=== PATIENT | female | born 1945 | race Caucasian/White ===

== ENCOUNTER 2020-05-06 10:40 | Outpatient (REF) | payer MEDICARE, MEDICAID, SELFPAY ==
[2020-05-06 14:08] LABS: Albumin Level 4.4 g/dL (3.5-5.0); Calcium 9.3 mg/dL (8.4-10.2); Phosphorus 3.9 mg/dL (2.7-4.5)
[2020-05-06 14:33] LABS: Free T4 (Free Thyroxine) 0.76 ng/dL (0.71-1.85); Thyroid Stimulating Hormone 1.76 mIU/mL (0.32-4.0); Vitamin D 25-OH Total 30.8 ng/mL (>30)
[2020-05-07 13:21] LABS: Calcium (PTHI) 9.8 mg/dL (8.6-10.4); PTHI 38 pg/mL (14-64)
[2020-05-07 22:21] LABS: Prot Elec - Albumin 4.2 g/dL (3.8-4.8); Prot Elec - Alpha1 0.4 g/dL (0.2-0.3); Prot Elec - Alpha2 1.2 g/dL (0.5-0.9); Prot Elec - Beta 1 0.5 g/dL (0.4-0.6); Prot Elec - Beta 2 0.4 g/dL (0.2-0.5); Prot Elec - Gamma 0.6 g/dL (0.8-1.7); Prot Elec - Total Protein 7.3 g/dL (6.1-8.1)
[2020-05-10 13:26] LABS: Alkaline Phosphatase Bone 17.2 mcg/L (5.6-29.0)
== END 2020-05-06 10:41 | disposition home or self-care (01) ==
LOC: HO.10HDL 10:40
PROVIDERS: Visit Provider Internal Medicine
DX: M81.0 Age-related osteoporosis without current pathological fracture (principal); E55.9 Vitamin D deficiency, unspecified
CPT/HCPCS: 36415; 82040; 82306; 82310; 83970; 84075; 84100; 84155; 84165; 84439; 84443; 99204

== ENCOUNTER 2020-05-09 09:45 | Outpatient (REF) | payer MEDICARE, MEDICAID, SELFPAY ==
[2020-05-14 10:27] LABS: N-Telopeptide 73 (see note); NTXCreaRU 92 mg/dL (20-275)
== END 2020-05-09 09:46 | disposition home or self-care (01) ==
LOC: HO.LNP 09:45
PROVIDERS: Visit Provider Internal Medicine
DX: M81.0 Age-related osteoporosis without current pathological fracture (principal); I10 Essential (primary) hypertension; E55.9 Vitamin D deficiency, unspecified; Z79.899 Other long term (current) drug therapy
CPT/HCPCS: 82523

== ENCOUNTER 2020-05-10 12:29 | Outpatient (REF) | payer MEDICARE, MEDICAID, SELFPAY ==
[2020-05-10 14:17] LABS: Total Volume 24 Hour Urine 1300 mL
[2020-05-10 14:28] LABS: Creatinine, 24Hr Urine 0.6 G/Day (1.0-2.0); Creatinine, mg/dL 45.02
[2020-05-11 17:07] LABS: Calcium, 24 Hr Urine 10 mg/24 h; Calcium/Creatinine Ratio 17 mg/g creat (30-275)
== END 2020-05-10 12:30 | disposition home or self-care (01) ==
LOC: HO.LNP 12:29
PROVIDERS: Visit Provider Internal Medicine
DX: M81.0 Age-related osteoporosis without current pathological fracture (principal); I10 Essential (primary) hypertension; E55.9 Vitamin D deficiency, unspecified
CPT/HCPCS: 82340; 82570

== ENCOUNTER → 2020-06-18 12:49 | Outpatient (BNVA) | payer MEDICARE, MEDICAID, SELFPAY | PROVIDERS: PCP Internal Medicine; Visit Provider Hospitalist | DX: J41.8 Mixed simple and mucopurulent chronic bronchitis (principal); J31.0 Chronic rhinitis; F17.200 Nicotine dependence, unspecified, uncomplicated; Z71.6 Tobacco abuse counseling | CPT/HCPCS: 99212 ==

== ENCOUNTER 2020-07-10 00:11 | Observation (INO) | payer MEDICARE, MEDICAID, SELFPAY ==
[2020-07-10] VITALS (11 sets, daily range): BP systolic 103–184; BP diastolic 53–82; PULSE 89–110; RESP 16–27; TEMP 36.8–37.6; O2SAT 95–100; BMI 17.2
--- NOTE | 2020-07-10 00:40 | ECG_ITS ---
Test Reason : WEAKNESS Blood Pressure : / mmHG Vent. Rate : 107 BPM Atrial Rate : 107 BPM P-R Int : 142 ms QRS Dur : 062 ms QT Int : 346 ms P-R-T Axes : 088 088 081 degrees QTc Int : 461 ms Sinus tachycardia Otherwise normal ECG When compared with ECG of 16-NOV-2019 13:52, T wave inversion no longer evident in Inferior leads Referred By: Marycruz Betts Electronically Signed By:CORY JIN MD
--- NOTE | 2020-07-10 00:40 | XR_ITS ---
EXAMINATION: CHEST 1 VIEW CLINICAL INFORMATION: Cough. COMPARISON: 11/16/2019. TECHNIQUE: An AP view of the chest is provided. FINDINGS: The cardiac silhouette is not enlarged. The mediastinal and hilar contours are unremarkable. There are neither pleural effusions nor pneumothoraces. There are no consolidations. The osseous structures are stable. XR/XR chest 1V IMPRESSION: No evidence for acute disease.
--- NOTE | 2020-07-10 00:50 | ED.AMS ---
HPI - Altered Mental Status General Chief Complaint: Weakness Stated Complaint: FALL Time Seen by Provider: 07/10/20 00:39 Source: patient, family and EMS Mode of arrival: EMS History of Present Illness HPI narrative: This is a 74-year-old female who sustained a CVA in October of this year, was evaluated in November for a similar episode as what she is brought in this evening notably that it is her daughter found her on the floor at approximately 11:30 p.m. and patient endorses that she had diarrhea yesterday and states that she fell onto her back from a chair and walks with the walker at baseline. Otherwise, patient denies any shortness of breath, chest pain/palpitations, visual deficits, abdominal pain/nausea/vomiting, urinary pain/burning/frequency. Patient states she has not taken her medication and further collateral information obtained from the daughter she states that patient has had shakiness and speech changes since yesterday but does have right-sided deficits at baseline. 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 Related Data Home Medications Medication Instructions Recorded Confirmed amantadine HCl 100 mg capsule 100 mg PO DAILY 05/06/20 07/10/20 aspirin 81 mg tablet,delayed 81 mg PO DAILY 05/06/20 07/10/20 release atorvastatin 40 mg tablet 40 mg PO DAILY 05/06/20 07/10/20 calcium carbonate 300 mg (750 mg) 1 tab PO DAILY 05/06/20 07/10/20 chewable tablet docusate sodium 100 mg capsule 100 mg PO BID 05/06/20 07/10/20 ergocalciferol (vitamin D2) 1,250 1,250 mcg PO QWEEK 05/06/20 07/10/20 mcg (50,000 unit) capsule gabapentin 100 mg capsule 100 mg PO QPM 05/06/20 07/10/20 hydrochlorothiazide 25 mg tablet 25 mg PO DAILY 05/06/20 07/10/20 irbesartan 300 mg tablet 300 mg PO DAILY 05/06/20 07/10/20 metoprolol tartrate 25 mg tablet 12.5 mg PO BID 05/06/20 07/10/20 mirtazapine 15 mg tablet 15 mg PO BEDTIME 05/06/20 07/10/20 multivitamin 1 tab PO QAM 05/06/20 07/10/20 omeprazole 20 mg capsule,delayed 20 mg PO DAILY 05/06/20 07/10/20 release pyridoxine (vitamin B6) 25 mg 25 mg PO BEDTIME 05/06/20 07/10/20 tablet sertraline 100 mg tablet 100 mg PO DAILY 05/06/20 07/10/20 thiamine HCl (vitamin B1) 100 mg 100 mg PO QAM 05/06/20 07/10/20 tablet vitamin E (dl, acetate) 400 unit 400 unit PO BEDTIME cap 05/06/20 07/10/20 capsule albuterol sulfate 90 mcg/actuation 2 puff INHALATION Q4-6H 06/18/20 07/10/20 aerosol inhaler trazodone 50 mg tablet 50 mg PO BEDTIME 06/18/20 07/10/20 fluticasone propionate 2 spray INTRANASAL DAILY 07/10/20 07/10/20 ipratropium bromide 2 spray INTRANASAL TID PRN 07/10/20 07/10/20 umeclidinium [Incruse Ellipta] 1 puff INHALATION DAILY 07/10/20 07/10/20 Allergies Allergy/AdvReac Type Severity Reaction Status Date / Time Penicillins [PENICILLINS] Allergy Severe RASH Verified 07/10/20 05:03 morphine Allergy Unknown unspecified Verified 07/10/20 05:03 penicillin V Allergy Unknown hives/skin Verified 07/10/20 05:03 rash lisinopril AdvReac Unknown diarrhea Verified 07/10/20 05:03 14-Count Warmer Allergy Severe Rash Uncoded 07/10/20 05:03 Review of Systems Review of Systems: Pertinent positives and negatives as stated in the HPI 10 point review systems is otherwise negative. [facility] Past Medical History Source: nursing notes reviewed Medical History Bipolar 1 disorder Chronic rhinitis COPD (chronic obstructive pulmonary disease) HLD (hyperlipidemia) HTN (hypertension) Osteoporosis Tobacco dependence Vitamin D deficiency Surgical History Hx of cholecystectomy Hx of hysterectomy Family History Family History Father No problems noted. Mother No problems noted. Social History Social History Alcohol intake: never Smoking Status: Never smoker Tobacco Type: Cigarette Packs Per Day: 1 Cigarettes Per Day: 20 Years Smoked: approx 60 years Use of substances other than those prescribed or required for medical reasons: No Advance Directives: No Advance Directives Information Provided: No Physical Exam Vital Signs: Vital Signs: Last Vital Signs Temp 99.1 F 07/10/20 03:21 Pulse 93 07/10/20 03:21 Resp 24 H 07/10/20 03:21 BP 139/63 07/10/20 03:21 Pulse Ox 95 07/10/20 03:21 Body Mass Index 17.2 VITAL SIGNS: Reviewed. GENERAL: Cachectic, chronically ill, no acute distress. HEAD: Normocephalic/atraumatic, contusion left occiput EYES: PERRLA, EOMI intact without pain, no nystagmus/pallor/icterus noted EARS: Ext canals without abnormality, TMs non-bulging and non-erythematous NOSE: Nares patent bilateral OROPHARYNX: no oral lesions noted, posterior pharynx clear and non-erythematous, mucosa dry NECK: Supple, no adenopathy LUNGS: Normal breath sounds. No adventitious sounds or accessory muscle use. SpO2<97> CARDIOVASCULAR: Regular rate and rhythm without noted murmurs, no JVD or lower extremity edema. ABDOMEN: Soft, non-tender, non-distended with bowel sounds. No rigidity. No guarding. No palpable masses or hernias noted MUSCULOSKELETAL: No tenderness, deformities, or effusions noted on gross inspection. EXTREMITIES: No cyanosis, clubbing or edema. SKIN: Inspection of the skin reveals no rashes, ulcerations, jaundice, pallor, or petechiae. NEUROLOGIC: Alert and oriented x 2. Right upper extremity contracted but with ability to move at baseline Course Course Course Narrative: This is a 74-year-old female with history and clinical presentation most consistent with significant dehydration likely secondary to episodes diarrhea unclear etiology and doubt any acute neurological event. Suspect patient also suffering from rhabdomyolysis which was further supported by objective findings. Otherwise, laboratory results are consistent with hemoconcentration, lactic acid noted to be elevated initially resolved with sepsis fluids but this is inconsistent with infectious etiology and again is likely due to dehydration. All labs, imaging, UA, EKG were reviewed. Repeat chemistries showed some improvement of renal function but CPK levels remained elevated and patient will be admitted for further observation. This case was discussed with the inpatient hospitalist who is agreeable for admission. On re-evaluation patient noted to complained of pain on movement of the left lower extremity and so x-rays of the left hip and pelvis were ordered although suspect low likelihood of fracture as patient had been noted to be moving in the bed utilizing both lower extremities on initial presentation. I re-evaluated patient's back discomfort and no step-offs noted nor bruising and no bony abnormalities noted on CT scan of chest. Patient signed out to Dr. Upton pending admission for rhabdomyolysis. MDM - Altered Mental Status Lab Data Result diagrams: 07/10/20 01:16 07/10/20 05:27 Labs: Lab Results 07/10/20 07/10/20 07/10/20 Range/Units 01:16 01:16 01:16 WBC 12.9 H (4.8-10.8) X10*3/uL RBC 3.78 L (4.20-5.50) X10*6/uL Hgb 10.0 L (12.0-16.0) g/dl Hct 32.9 L (37-47) % MCV 87.0 (80-98) fL MCH 26.5 L (27.0-33.0) pg MCHC 30.4 L (31.0-35.0) g/dl RDW 18.8 H (11.0-16.0) % Plt Count 236 (160-400) X10*3/uL MPV 11.1 (9.4-12.3) fL Immature Gran % (Auto) 0.5 H (0.0-0.4) % Neut % (Auto) 89.9 H (45-73) % Lymph % (Auto) 4.7 L (20-40) % [place] % (Auto) 4.7 (2-11) % Eos % (Auto) 0.0 (0-4) % Baso % (Auto) 0.2 (0-2) % Lymph # (Auto) 0.6 L (1.2-4.9) X10*3/uL [place] # (Auto) 0.6 (0.1-1.2) X10*3/uL Eos # (Auto) 0.0 (0.0-0.4) X10*3/uL Baso # (Auto) 0.0 (0.0-0.2) X10*3/uL Abs Immat Gran (auto) 0.06 H (0.00-0.03) X10*3/uL Absolute Neuts (auto) 11.6 H (2.0-8.3) X10*3/uL Absolute Nucleated RBC 0.000 (0.0-0.012) X10*3/uL Nucleated RBC % (auto) 0.0 (0.0-0.2) /100WBC Smear Tech's Comments VERIFIED PT (10.8-13.0) SEC INR (0.9-1.1) Sodium Cancelled Potassium Cancelled Chloride Cancelled Carbon Dioxide Cancelled Anion Gap Cancelled BUN Cancelled Creatinine Cancelled Estim Creat Clear Calc Cancelled Estimated GFR Cancelled Random Glucose Cancelled Lactic Acid (0.5-2.0) mmol/L Lactic Acid Fup @ 2Hr (0.5-2.0) mmol/L Calcium Cancelled Total Bilirubin Cancelled AST Cancelled ALT Cancelled Alkaline Phosphatase Cancelled Total Creatine Kinase Total Protein Cancelled Albumin Cancelled Lipase Cancelled TSH Cancelled Urine Color Urine Appearance Urine pH (5.0-8.0) Ur Specific [place] (1.005-1.025) Urine Protein (NEG-TRACE) MG/DL Urine Glucose (UA) (NEG) MG/DL Urine Ketones (NEG) MG/DL Urine Blood (NEG) Urine Nitrite (NEG) Ur Leukocyte Esterase (NEG) Urine RBC (0) /HPF Urine WBC (0-4) /HPF Ur Squamous Epith Cells /LPF Urine Bacteria /LPF Salicylates Cancelled Urine Opiates Screen (Not Detect) Acetaminophen Cancelled Ur Barbiturates Screen (Not Detect) Ur Phencyclidine Scrn (Not Detect) Ur Amphetamines Screen (Not Detect) U Benzodiazepines Scrn (Not Detect) Urine Cocaine Screen (Not Detect) U Marijuana (THC) Screen (Not Detect) Ethyl Alcohol 07/10/20 07/10/20 07/10/20 Range/Units 01:16 01:16 01:24 WBC (4.8-10.8) X10*3/uL RBC (4.20-5.50) X10*6/uL Hgb (12.0-16.0) g/dl Hct (37-47) % MCV (80-98) fL MCH (27.0-33.0) pg MCHC (31.0-35.0) g/dl RDW (11.0-16.0) % Plt Count (160-400) X10*3/uL MPV (9.4-12.3) fL Immature Gran % (Auto) (0.0-0.4) % Neut % (Auto) (45-73) % Lymph % (Auto) (20-40) % [place] % (Auto) (2-11) % Eos % (Auto) (0-4) % Baso % (Auto) (0-2) % Lymph # (Auto) (1.2-4.9) X10*3/uL [place] # (Auto) (0.1-1.2) X10*3/uL Eos # (Auto) (0.0-0.4) X10*3/uL Baso # (Auto) (0.0-0.2) X10*3/uL Abs Immat Gran (auto) (0.00-0.03) X10*3/uL Absolute Neuts (auto) (2.0-8.3) X10*3/uL Absolute Nucleated RBC (0.0-0.012) X10*3/uL Nucleated RBC % (auto) (0.0-0.2) /100WBC Smear Tech's Comments PT 15.1 H (10.8-13.0) SEC INR 1.3 H (0.9-1.1) Sodium Potassium Chloride Carbon Dioxide Anion Gap BUN Creatinine Estim Creat Clear Calc Estimated GFR Random Glucose Lactic Acid 2.1 H* (0.5-2.0) mmol/L Lactic Acid Fup @ 2Hr (0.5-2.0) mmol/L Calcium Total Bilirubin AST ALT Alkaline Phosphatase Total Creatine Kinase Cancelled Total Protein Albumin Lipase TSH Urine Color Urine Appearance Urine pH (5.0-8.0) Ur Specific [place] (1.005-1.025) Urine Protein (NEG-TRACE) MG/DL Urine Glucose (UA) (NEG) MG/DL Urine Ketones (NEG) MG/DL Urine Blood (NEG) Urine Nitrite (NEG) Ur Leukocyte Esterase (NEG) Urine RBC (0) /HPF Urine WBC (0-4) /HPF Ur Squamous Epith Cells /LPF Urine Bacteria /LPF Salicylates Urine Opiates Screen (Not Detect) Acetaminophen Ur Barbiturates Screen (Not Detect) Ur Phencyclidine Scrn (Not Detect) Ur Amphetamines Screen (Not Detect) U Benzodiazepines Scrn (Not Detect) Urine Cocaine Screen (Not Detect) U Marijuana (THC) Screen (Not Detect) Ethyl Alcohol 07/10/20 07/10/20 07/10/20 Range/Units 01:24 02:00 03:23 WBC (4.8-10.8) X10*3/uL RBC (4.20-5.50) X10*6/uL Hgb (12.0-16.0) g/dl Hct (37-47) % MCV (80-98) fL MCH (27.0-33.0) pg MCHC (31.0-35.0) g/dl RDW (11.0-16.0) % Plt Count (160-400) X10*3/uL MPV (9.4-12.3) fL Immature Gran % (Auto) (0.0-0.4) % Neut % (Auto) (45-73) % Lymph % (Auto) (20-40) % [place] % (Auto) (2-11) % Eos % (Auto) (0-4) % Baso % (Auto) (0-2) % Lymph # (Auto) (1.2-4.9) X10*3/uL [place] # (Auto) (0.1-1.2) X10*3/uL Eos # (Auto) (0.0-0.4) X10*3/uL Baso # (Auto) (0.0-0.2) X10*3/uL Abs Immat Gran (auto) (0.00-0.03) X10*3/uL Absolute Neuts (auto) (2.0-8.3) X10*3/uL Absolute Nucleated RBC (0.0-0.012) X10*3/uL Nucleated RBC % (auto) (0.0-0.2) /100WBC Smear Tech's Comments PT (10.8-13.0) SEC INR (0.9-1.1) Sodium 143 Potassium 3.9 Chloride 105 Carbon Dioxide 23 Anion Gap 19 BUN 27 H Creatinine 0.74 Estim Creat Clear Calc 43.3 Estimated GFR > 60 Random Glucose 104 Lactic Acid (0.5-2.0) mmol/L Lactic Acid Fup @ 2Hr (0.5-2.0) mmol/L Calcium 8.7 D Total Bilirubin 0.5 AST 59 H ALT 42 H Alkaline Phosphatase 111 Total Creatine Kinase 1786 H Total Protein 6.8 Albumin 4.2 Lipase 14 TSH 0.42 Urine Color DARK YELLOW Urine Appearance HAZY Urine pH 5.5 (5.0-8.0) Ur Specific [place] >= 1.030 H (1.005-1.025) Urine Protein 1+ H (NEG-TRACE) MG/DL Urine Glucose (UA) NEG (NEG) MG/DL Urine Ketones 15 (NEG) MG/DL Urine Blood NEG (NEG) Urine Nitrite NEG (NEG) Ur Leukocyte Esterase NEG (NEG) Urine RBC 0-2 (0) /HPF Urine WBC 1-4 (0-4) /HPF Ur Squamous Epith Cells 3+ /LPF Urine Bacteria 2+ /LPF Salicylates Urine Opiates Screen (Not Detect) Acetaminophen Ur Barbiturates Screen (Not Detect) Ur Phencyclidine Scrn (Not Detect) Ur Amphetamines Screen (Not Detect) U Benzodiazepines Scrn (Not Detect) Urine Cocaine Screen (Not Detect) U Marijuana (THC) Screen (Not Detect) Ethyl Alcohol Cancelled 07/10/20 07/10/20 07/10/20 Range/Units 03:23 03:54 05:27 WBC (4.8-10.8) X10*3/uL RBC (4.20-5.50) X10*6/uL Hgb (12.0-16.0) g/dl Hct (37-47) % MCV (80-98) fL MCH (27.0-33.0) pg MCHC (31.0-35.0) g/dl RDW (11.0-16.0) % Plt Count (160-400) X10*3/uL MPV (9.4-12.3) fL Immature Gran % (Auto) (0.0-0.4) % Neut % (Auto) (45-73) % Lymph % (Auto) (20-40) % [place] % (Auto) (2-11) % Eos % (Auto) (0-4) % Baso % (Auto) (0-2) % Lymph # (Auto) (1.2-4.9) X10*3/uL [place] # (Auto) (0.1-1.2) X10*3/uL Eos # (Auto) (0.0-0.4) X10*3/uL Baso # (Auto) (0.0-0.2) X10*3/uL Abs Immat Gran (auto) (0.00-0.03) X10*3/uL Absolute Neuts (auto) (2.0-8.3) X10*3/uL Absolute Nucleated RBC (0.0-0.012) X10*3/uL Nucleated RBC % (auto) (0.0-0.2) /100WBC Smear Tech's Comments PT (10.8-13.0) SEC INR (0.9-1.1) Sodium 141 Potassium 3.5 Chloride 109 H Carbon Dioxide 20 L Anion Gap 16 BUN 22 H Creatinine 0.66 Estim Creat Clear Calc 48.5 Estimated GFR > 60 Random Glucose 103 Lactic Acid (0.5-2.0) mmol/L Lactic Acid Fup @ 2Hr 1.4 (0.5-2.0) mmol/L Calcium 7.5 L D Total Bilirubin 0.4 AST 56 H ALT 37 H Alkaline Phosphatase 93 Total Creatine Kinase 1766 H Total Protein 5.7 L Albumin 3.6 Lipase TSH Urine Color Urine Appearance Urine pH (5.0-8.0) Ur Specific [place] (1.005-1.025) Urine Protein (NEG-TRACE) MG/DL Urine Glucose (UA) (NEG) MG/DL Urine Ketones (NEG) MG/DL Urine Blood (NEG) Urine Nitrite (NEG) Ur Leukocyte Esterase (NEG) Urine RBC (0) /HPF Urine WBC (0-4) /HPF Ur Squamous Epith Cells /LPF Urine Bacteria /LPF Salicylates Urine Opiates Screen Not Detected (Not Detect) Acetaminophen Ur Barbiturates Screen Not Detected (Not Detect) Ur Phencyclidine Scrn Not Detected (Not Detect) Ur Amphetamines Screen Not Detected (Not Detect) U Benzodiazepines Scrn Not Detected (Not Detect) Urine Cocaine Screen Not Detected (Not Detect) U Marijuana (THC) Screen Not Detected (Not Detect) Ethyl Alcohol ECG Data ECG #1: Attestation: I personally reviewed and interpreted this ECG as follows: Prior ECG tracings: available for review (11/16/2019 EKG is improved when compared to prior.) Interpretation: Normal sinus rhythm, HR-107, no evidence of acute ischemia, NV/QRS/QTC are within normal limits. Discharge Plan Discharge Clinical Impression: Rhabdomyolysis Qualifiers: Rhabdomyolysis type: traumatic Encounter type: initial encounter Qualified Code(s): T79.6XXA - Traumatic ischemia of muscle, initial encounter Fall Qualifiers: Encounter type: initial encounter Qualified Code(s): W19.XXXA - Unspecified fall, initial encounter Patient Disposition: Admitted As Inpatient
[2020-07-10 01:26] LABS: Basophils Percent Auto 0.2 % (0-2); Hematocrit 32.9 % (37-47); Imm Gran Abs Auto 0.06 X10*3/uL (0.00-0.03); Imm Gran Pct Auto 0.5 % (0.0-0.4); Lymphocytes Absolute Auto 0.6 X10*3/uL (1.2-4.9); Lymphocytes Percent Auto 4.7 % (20-40); MANUAL DIFF FLAG SCAN; Mean Corpuscular HGB Conc 30.4 g/dl (31.0-35.0); Mean Corpuscular Hemoglobin 26.5 pg (27.0-33.0); Mean Platelet Volume 11.1 fL (9.4-12.3); Monocytes Absolute Auto 0.6 X10*3/uL (0.1-1.2); Monocytes Percent Auto 4.7 % (2-11); Neutrophils Absolute Auto 11.6 X10*3/uL (2.0-8.3); Neutrophils Percent Auto 89.9 % (45-73); Platelet Count 236 X10*3/uL (160-400); Red Blood Count 3.78 X10*6/uL (4.20-5.50); Red Cell Distribution Width 18.8 % (11.0-16.0); SCAN SMEAR FLAG 1; White Blood Count 12.9 X10*3/uL (4.8-10.8)
[2020-07-10 01:32] LABS: INTERNATIONAL NORM RATIO 1.3 (0.9-1.1); Prothrombin Time 15.1 SEC (10.8-13.0)
[2020-07-10] MEDS: 0.9 % Sodium Chloride 1,000 ML 999 ML IV (01:45)
[2020-07-10 01:56] LABS: SLIDE REVIEW VERIFIED
[2020-07-10 02:05] LABS: Lactic Acid 2.1 mmol/L (0.5-2.0)
--- NOTE | 2020-07-10 02:42 | CT_ITS ---
EXAMINATION: CT CHEST WITHOUT CONTRAST CLINICAL INFORMATION: Cough, fall. Trauma. COMPARISON: Same day chest radiograph. TECHNIQUE: Contiguous axial thin section helical images of the chest were performed without contrast. The data set was reformatted in the coronal and sagittal planes and reviewed on an independent workstation. DLP: 198 mGy-cm. FINDINGS: The heart is of normal size. There is no pericardial effusion. There is neither mediastinal, hilar nor axillary lymphadenopathy. There are no chest wall masses. Review of lung windows demonstrates that there are neither pleural effusions nor pneumothoraces. There are no consolidations. Again identified are extensive emphysematous changes. There are no pulmonary parenchymal nodules. Images of the upper abdomen demonstrate that the liver is of normal size and attenuation without focal lesions. The patient is status post cholecystectomy. Surgical clips are. Normal adrenal glands are identified. Bone windows: Neither sclerotic nor lytic bone lesions are identified. CT/CT chest wo con IMPRESSION: No acute airspace disease. No evidence for acute traumatic injury. Emphysema. Automated exposure control (Care Dose) Adjustment of the mA and/or kv according to patient size (this includes techniques or standardized protocols for targeted exams where dose is matched to indication / reason for exam; i.e. extremities or head).
--- NOTE | 2020-07-10 02:42 | CT_ITS ---
EXAMINATION: CT HEAD WITHOUT CONTRAST CLINICAL INFORMATION: Fall. Trauma. COMPARISON: 11/16/2019. TECHNIQUE: Contiguous helical images of the brain were obtained without IV contrast. Multiplanar reconstructions were performed. DLP: 901 mGy-cm. FINDINGS: There are no pathologic extra-axial fluid collections. The lateral, third, fourth ventricles are prominent, though stable, age-appropriate and concordant with the appearance of the sulci. There is no evidence for acute intraparenchymal hemorrhage or infarct. There is periventricular low-attenuation indicative of small vessel disease. There is neither mass nor mass effect. There is no shift of midline structures. The paranasal sinuses and mastoid air cells are clear. There are no osseous lesions. There is a small soft tissue hematoma overlying the posterior left vertex. CT/CT head/brain wo con IMPRESSION: No evidence for acute intracranial injury. Automated exposure control (Care Dose) Adjustment of the mA and/or kv according to patient size (this includes techniques or standardized protocols for targeted exams where dose is matched to indication / reason for exam; i.e. extremities or head).
[2020-07-10 02:50] LABS: Alanine Aminotransferase 42 U/L (0-31); Albumin Level 4.2 g/dL (3.5-5.0); Alkaline Phosphatase 111 U/L (39-117); Anion Gap 19 (12-20); Aspartate Amino Transferase 59 U/L (5-31); Bilirubin Total 0.5 mg/dL (0.0-1.0); Blood Urea Nitrogen 27 mg/dL (9-16); Calcium 8.7 mg/dL (8.4-10.2); Carbon Dioxide 23 mmol/L (22-29); Chloride 105 mmol/L (96-108); Creatinine Clr Calc Pharmacy 43.3; Estimated Glomerular Filt Rate > 60; Glucose Random 104 mg/dL (60-115); Lipase 14 U/L (8-78); Potassium 3.9 mmol/l (3.3-5.1); Sodium 143 mmol/L (135-145); Total Protein 6.8 g/dL (6.5-8.0)
[2020-07-10 02:58] LABS: TSH reflex Free T4 0.42 mIU/mL (0.32-4.0)
[2020-07-10] MEDS: levoFLOXacin/D5W 750 MG/150 ML PIGGYBACK 100 MG IV (03:26)
[2020-07-10 03:29] LABS: Reflex Lactate? Lactic Acid Added
[2020-07-10 03:29] LABS: Appearance Urine HAZY; Color Urine DARK YELLOW; Glucose Urine UA NEG (NEG); Leukocyte Esterase Urine NEG (NEG); Nitrite Urine NEG (NEG); PH 5.5 (5.0-8.0); Specific Gravity - Urine >= 1.030 (1.005-1.025); Urine Blood NEG (NEG); Urine Ketones 15 MG/DL (NEG); Urine Protein 1+ MG/DL (NEG-TRACE)
[2020-07-10 03:35] LABS: Bacteria Urine 2+ /LPF; RBC Urine 0-2 /HPF (0); Squamous Epithelial Cell Urine 3+ /LPF
[2020-07-10 03:48] LABS: Amphetamine Screen Urine Not Detected (Not Detect); Barbiturates, Urine Not Detected (Not Detect); Benzodiazepines Screen Urine Not Detected (Not Detect); Cannabinoid Screen Urine Not Detected (Not Detect); Cocaine Screen Urine Not Detected (Not Detect); Opiate Screen Urine Not Detected (Not Detect); Phencyclidine Screen Urine Not Detected (Not Detect)
[2020-07-10 04:21] LABS: ~Lactic Acid-LAB USE ONLY 1.4 mmol/L (0.5-2.0)
[2020-07-10 06:24] LABS: Alanine Aminotransferase 37 U/L (0-31); Albumin Level 3.6 g/dL (3.5-5.0); Alkaline Phosphatase 93 U/L (39-117); Anion Gap 16 (12-20); Aspartate Amino Transferase 56 U/L (5-31); Bilirubin Total 0.4 mg/dL (0.0-1.0); Blood Urea Nitrogen 22 mg/dL (9-16); Calcium 7.5 mg/dL (8.4-10.2); Carbon Dioxide 20 mmol/L (22-29); Chloride 109 mmol/L (96-108); Creatinine Clr Calc Pharmacy 48.5; Estimated Glomerular Filt Rate > 60; Glucose Random 103 mg/dL (60-115); Potassium 3.5 mmol/l (3.3-5.1); Sodium 141 mmol/L (135-145); Total Protein 5.7 g/dL (6.5-8.0)
--- NOTE | 2020-07-10 07:28 | XR_ITS ---
EXAMINATION: XR HIP, LEFT CLINICAL INFORMATION: Pain on movement. COMPARISON: None TECHNIQUE: Two views of the left hip. AP pelvis: FINDINGS: AP PELVIS: There is left inferior pubic rami fracture likely old. The hip joints and SI joints are symmetrical and normal. No visible fracture or dislocation seen. There are surgical sutures and stefany in the left pelvis from previous intervention. LEFT HIP: AP and frog-leg views left hip reveal no visible acute fracture or dislocation there is likely old fracture involving the left inferior pubic rami and pubic symphysis. The soft tissues are normal. XR/XR hip LT w PEL1V IMPRESSION: No acute fracture dislocation left hip. There is a old fracture left inferior pubic ramus and pubic symphysis. Rest of the pelvis and right hip is unremarkable.
--- NOTE | 2020-07-10 07:41 | PC.NURSE ---
report taken from german arriola pt here for reported fall, has hx of cva w r side defecits. has pending inpt admission. pt c/o bl hand pain at this time, provider and interpretter at bedside to access pt. barb.
--- NOTE | 2020-07-10 08:54 | PC.NURSE ---
PT REFUSING MORNING MEDICATIONS, EDUCATED ABOUT NEED TO TAKE REGULARLY SCHEDULED MEDS.
[2020-07-10 10:07] LABS: COVID-19 Test Negative (Negative)
--- NOTE | 2020-07-10 10:22 | PC.NURSE ---
pt given bed young, unable to void. pt having difficulty w verbal communication. interpretter called for clarification, pt very vague. hospitalist and interpretter at bedside for eval.
--- NOTE | 2020-07-10 10:24 | PM.EVENT ---
Event Note Date of Service: 07/10/20 Event Note: Patient seen and examined independently and was present during hayes portion of E/M service. Agree with midlevel's history, physical, assessment, and plan. 74F presented with mechanical fall mechanical fall with mild rhabdo ivf, pt
--- NOTE | 2020-07-10 10:37 | PM.IMHP ---
History of Present Illness Date of Service: 07/10/20 Chief Complaint: Fall This is a 74-year-old female with multiple medical problems was brought to the emergency department after a fall. Patient states that she got up from the couch and was unable to reach her cane. Her legs gave out and she fell to the ground. She denied dizziness or chest pain prior to her fall. She denied losing consciousness or hitting her head. She was unable to get up off the ground. Her daughter found her but it was unclear how long she spent on the ground. She was brought to the emergency department for evaluation. Lab work revealed leukocytosis of 12.9. CPK was under 1786. Imaging including brain CT, chest CT, chest x-ray, hip and pelvis x-ray were unremarkable. No source of infection was identified. She received 1 dose of empiric antibiotics. Given mild rhabdo and fall the decision was made to admit her overnight for observation. Review of Systems Review of Systems: Yes all other systems are reviewed and are negative Constitutional: Constitutional: Denies chills and Denies fever(s) Cardiovascular: Cardiovascular: Denies chest pain Respiratory: Respiratory: Denies cough Gastrointestinal: Gastrointestinal: Denies abdominal pain [facility] Medical History (Updated 07/10/20 @ 10:40 by CAESAR Simms) Anxiety Bipolar 1 disorder Chronic rhinitis COPD (chronic obstructive pulmonary disease) HLD (hyperlipidemia) HTN (hypertension) Multiple sclerosis Osteoporosis Stroke Tobacco dependence Vitamin D deficiency Functional capacity: uses cane/walker Family History (Updated 07/10/20 @ 10:41 by CAESAR Simms) Father Stroke Mother No problems noted. Surgical History Hx of cholecystectomy Hx of hysterectomy Social History Alcohol intake: never Smoking Status: Never smoker Tobacco Type: Cigarette Packs Per Day: 1 Cigarettes Per Day: 20 Years Smoked: approx 60 years Use of substances other than those prescribed or required for medical reasons: No Advance Directives: No Advance Directives Information Provided: No Meds Allergies Allergy/AdvReac Type Severity Reaction Status Date / Time Penicillins [PENICILLINS] Allergy Severe RASH Verified 07/10/20 05:03 morphine Allergy Unknown unspecified Verified 07/10/20 05:03 penicillin V Allergy Unknown hives/skin Verified 07/10/20 05:03 rash lisinopril AdvReac Unknown diarrhea Verified 07/10/20 05:03 14-Count Warmer Allergy Severe Rash Uncoded 07/10/20 05:03 Home Medications Medication Instructions Recorded Confirmed Type amantadine HCl 100 mg capsule 100 mg PO DAILY 05/06/20 07/10/20 History aspirin 81 mg tablet,delayed 81 mg PO DAILY 05/06/20 07/10/20 History release atorvastatin 40 mg tablet 40 mg PO DAILY 05/06/20 07/10/20 History calcium carbonate 300 mg (750 mg) 1 tab PO DAILY 05/06/20 07/10/20 History chewable tablet docusate sodium 100 mg capsule 100 mg PO BID 05/06/20 07/10/20 History ergocalciferol (vitamin D2) 1,250 1,250 mcg PO QWEEK 05/06/20 07/10/20 History mcg (50,000 unit) capsule gabapentin 100 mg capsule 100 mg PO QPM 05/06/20 07/10/20 History hydrochlorothiazide 25 mg tablet 25 mg PO DAILY 05/06/20 07/10/20 History irbesartan 300 mg tablet 300 mg PO DAILY 05/06/20 07/10/20 History metoprolol tartrate 25 mg tablet 12.5 mg PO BID 05/06/20 07/10/20 History mirtazapine 15 mg tablet 15 mg PO BEDTIME 05/06/20 07/10/20 History multivitamin 1 tab PO QAM 05/06/20 07/10/20 History omeprazole 20 mg capsule,delayed 20 mg PO DAILY 05/06/20 07/10/20 History release pyridoxine (vitamin B6) 25 mg 25 mg PO BEDTIME 05/06/20 07/10/20 History tablet sertraline 100 mg tablet 100 mg PO DAILY 05/06/20 07/10/20 History thiamine HCl (vitamin B1) 100 mg 100 mg PO QAM 05/06/20 07/10/20 History tablet vitamin E (dl, acetate) 400 unit 400 unit PO BEDTIME cap 05/06/20 07/10/20 History capsule albuterol sulfate 90 mcg/actuation 2 puff INHALATION Q4-6H PRN 06/18/20 07/10/20 History aerosol inhaler trazodone 50 mg tablet 50 mg PO BEDTIME 06/18/20 07/10/20 History fluticasone propionate 2 spray INTRANASAL DAILY 07/10/20 07/10/20 History ipratropium bromide 2 spray INTRANASAL TID PRN 07/10/20 07/10/20 History umeclidinium [Incruse Ellipta] 1 puff INHALATION DAILY 07/10/20 07/10/20 History Physical Exam Vital Signs and Narrative: Vital Signs: Last Vital Signs Temp 99.1 F 07/10/20 03:21 Pulse 103 H 07/10/20 08:55 Resp 24 H 07/10/20 03:21 BP 104/53 L 07/10/20 08:55 Pulse Ox 95 07/10/20 08:55 Body Mass Index 17.2 Const: Other: Uncooperative with physical exam General: alert and awake; No no acute distress Nutritional Appearance: well nourished Orientation/consciousness: oriented to person and oriented to place HENMT: Head: Yes normocephalic and Yes atraumatic Eyes: Sclerae: sclerae normal Chest: Chest palpation & inspection: normal inspection of the chest Resp: Effort & Inspection: normal respiratory effort and no respiratory distress Cardio: Rate: regular rate Rhythm: regular rhythm GI: Palpation (GI): Soft to palpation and nontender Skin: General skin exam: no rashes or lesions noted Neuro: General: oriented to person and oriented to place Cranial nerves: Yes CN's II-XII intact bilaterally and Yes Bilaterally intact EOM present Extrem: General: Yes normal to inspection Results Labs CBC and Chem 7: 07/10/20 01:16 07/10/20 05:27 Labs: Laboratory Results - last 24 hr 07/10/20 07/10/20 07/10/20 01:16 01:16 01:16 MCV 87.0 MCH 26.5 L MCHC 30.4 L RDW 18.8 H Plt Count 236 MPV 11.1 Immature Gran % (Auto) 0.5 H Neut % (Auto) 89.9 H Lymph % (Auto) 4.7 L Jerome % (Auto) 4.7 Eos % (Auto) 0.0 Baso % (Auto) 0.2 Lymph # (Auto) 0.6 L Jerome # (Auto) 0.6 Eos # (Auto) 0.0 Baso # (Auto) 0.0 Abs Immat Gran (auto) 0.06 H Absolute Neuts (auto) 11.6 H Absolute Nucleated RBC 0.000 Nucleated RBC % (auto) 0.0 Smear Tech's Comments VERIFIED PT INR Anion Gap Cancelled Estim Creat Clear Calc Cancelled Estimated GFR Cancelled Random Glucose Cancelled Lactic Acid Lactic Acid Fup @ 2Hr Calcium Cancelled Total Bilirubin Cancelled AST Cancelled ALT Cancelled Alkaline Phosphatase Cancelled Total Creatine Kinase Total Protein Cancelled Albumin Cancelled Lipase Cancelled TSH Cancelled Urine Color Urine Appearance Urine pH Ur Specific [place] Urine Protein Urine Glucose (UA) Urine Ketones Urine Blood Urine Nitrite Ur Leukocyte Esterase Urine RBC Urine WBC Ur Squamous Epith Cells Urine Bacteria Salicylates Cancelled Urine Opiates Screen Acetaminophen Cancelled Ur Barbiturates Screen Ur Phencyclidine Scrn Ur Amphetamines Screen U Benzodiazepines Scrn Urine Cocaine Screen U Marijuana (THC) Screen Ethyl Alcohol COVID-19 (MOISÉS) COVIDAramisAuto 07/10/20 07/10/20 07/10/20 01:16 01:16 01:24 MCV MCH MCHC RDW Plt Count MPV Immature Gran % (Auto) Neut % (Auto) Lymph % (Auto) Jerome % (Auto) Eos % (Auto) Baso % (Auto) Lymph # (Auto) Jerome # (Auto) Eos # (Auto) Baso # (Auto) Abs Immat Gran (auto) Absolute Neuts (auto) Absolute Nucleated RBC Nucleated RBC % (auto) Smear Tech's Comments PT 15.1 H INR 1.3 H Anion Gap Estim Creat Clear Calc Estimated GFR Random Glucose Lactic Acid 2.1 H* Lactic Acid Fup @ 2Hr Calcium Total Bilirubin AST ALT Alkaline Phosphatase Total Creatine Kinase Cancelled Total Protein Albumin Lipase TSH Urine Color Urine Appearance Urine pH Ur Specific [place] Urine Protein Urine Glucose (UA) Urine Ketones Urine Blood Urine Nitrite Ur Leukocyte Esterase Urine RBC Urine WBC Ur Squamous Epith Cells Urine Bacteria Salicylates Urine Opiates Screen Acetaminophen Ur Barbiturates Screen Ur Phencyclidine Scrn Ur Amphetamines Screen U Benzodiazepines Scrn Urine Cocaine Screen U Marijuana (THC) Screen Ethyl Alcohol COVID-19 (MOISÉS) COVID-19 Serious Energy 07/10/20 07/10/20 07/10/20 01:24 02:00 03:23 MCV MCH MCHC RDW Plt Count MPV Immature Gran % (Auto) Neut % (Auto) Lymph % (Auto) Jerome % (Auto) Eos % (Auto) Baso % (Auto) Lymph # (Auto) Jerome # (Auto) Eos # (Auto) Baso # (Auto) Abs Immat Gran (auto) Absolute Neuts (auto) Absolute Nucleated RBC Nucleated RBC % (auto) Smear Tech's Comments PT INR Anion Gap 19 Estim Creat Clear Calc 43.3 Estimated GFR > 60 Random Glucose 104 Lactic Acid Lactic Acid Fup @ 2Hr Calcium 8.7 D Total Bilirubin 0.5 AST 59 H ALT 42 H Alkaline Phosphatase 111 Total Creatine Kinase 1786 H Total Protein 6.8 Albumin 4.2 Lipase 14 TSH 0.42 Urine Color DARK YELLOW Urine Appearance HAZY Urine pH 5.5 Ur Specific [place] >= 1.030 H Urine Protein 1+ H Urine Glucose (UA) NEG Urine Ketones 15 Urine Blood NEG Urine Nitrite NEG Ur Leukocyte Esterase NEG Urine RBC 0-2 Urine WBC 1-4 Ur Squamous Epith Cells 3+ Urine Bacteria 2+ Salicylates Urine Opiates Screen Acetaminophen Ur Barbiturates Screen Ur Phencyclidine Scrn Ur Amphetamines Screen U Benzodiazepines Scrn Urine Cocaine Screen U Marijuana (THC) Screen Ethyl Alcohol Cancelled COVID-19 (MOISÉS) COVID-19 Clin Com 07/10/20 07/10/20 07/10/20 03:23 03:54 05:27 MCV MCH MCHC RDW Plt Count MPV Immature Gran % (Auto) Neut % (Auto) Lymph % (Auto) Jerome % (Auto) Eos % (Auto) Baso % (Auto) Lymph # (Auto) Jerome # (Auto) Eos # (Auto) Baso # (Auto) Abs Immat Gran (auto) Absolute Neuts (auto) Absolute Nucleated RBC Nucleated RBC % (auto) Smear Tech's Comments PT INR Anion Gap 16 Estim Creat Clear Calc 48.5 Estimated GFR > 60 Random Glucose 103 Lactic Acid Lactic Acid Fup @ 2Hr 1.4 Calcium 7.5 L D Total Bilirubin 0.4 AST 56 H ALT 37 H Alkaline Phosphatase 93 Total Creatine Kinase 1766 H Total Protein 5.7 L Albumin 3.6 Lipase TSH Urine Color Urine Appearance Urine pH Ur Specific [place] Urine Protein Urine Glucose (UA) Urine Ketones Urine Blood Urine Nitrite Ur Leukocyte Esterase Urine RBC Urine WBC Ur Squamous Epith Cells Urine Bacteria Salicylates Urine Opiates Screen Not Detected Acetaminophen Ur Barbiturates Screen Not Detected Ur Phencyclidine Scrn Not Detected Ur Amphetamines Screen Not Detected U Benzodiazepines Scrn Not Detected Urine Cocaine Screen Not Detected U Marijuana (THC) Screen Not Detected Ethyl Alcohol COVID-19 (MOISÉS) COVID-19 Clin Com 07/10/20 09:46 MCV MCH MCHC RDW Plt Count MPV Immature Gran % (Auto) Neut % (Auto) Lymph % (Auto) Jerome % (Auto) Eos % (Auto) Baso % (Auto) Lymph # (Auto) Jerome # (Auto) Eos # (Auto) Baso # (Auto) Abs Immat Gran (auto) Absolute Neuts (auto) Absolute Nucleated RBC Nucleated RBC % (auto) Smear Tech's Comments PT INR Anion Gap Estim Creat Clear Calc Estimated GFR Random Glucose Lactic Acid Lactic Acid Fup @ 2Hr Calcium Total Bilirubin AST ALT Alkaline Phosphatase Total Creatine Kinase Total Protein Albumin Lipase TSH Urine Color Urine Appearance Urine pH Ur Specific [place] Urine Protein Urine Glucose (UA) Urine Ketones Urine Blood Urine Nitrite Ur Leukocyte Esterase Urine RBC Urine WBC Ur Squamous Epith Cells Urine Bacteria Salicylates Urine Opiates Screen Acetaminophen Ur Barbiturates Screen Ur Phencyclidine Scrn Ur Amphetamines Screen U Benzodiazepines Scrn Urine Cocaine Screen U Marijuana (THC) Screen Ethyl Alcohol COVID-19 (MOISÉS) Negative COVID-19 Clin Com See Note Imaging Radiologist's Impressions: Impressions Chest X-Ray 07/10/20 00:40 IMPRESSION: No evidence for acute disease. Chest CT 07/10/20 02:42 IMPRESSION: No acute airspace disease. No evidence for acute traumatic injury. Emphysema. Automated exposure control (Care Dose) Adjustment of the mA and/or kv according to patient size (this includes techniques or standardized protocols for targeted exams where dose is matched to indication / reason for exam; i.e. extremities or head). Head CT 07/10/20 02:42 IMPRESSION: No evidence for acute intracranial injury. Automated exposure control (Care Dose) Adjustment of the mA and/or kv according to patient size (this includes techniques or standardized protocols for targeted exams where dose is matched to indication / reason for exam; i.e. extremities or head). Hip/Pelvis X-Ray 07/10/20 07:28 IMPRESSION: No acute fracture dislocation left hip. There is a old fracture left inferior pubic ramus and pubic symphysis. Rest of the pelvis and right hip is unremarkable. Assessment and Plan (1) Rhabdomyolysis: Qualifiers: Encounter type: initial encounter Rhabdomyolysis type: traumatic Qualified Code(s): T79.6XXA - Traumatic ischemia of muscle, initial encounter Status: Acute (2) Fall: Qualifiers: Encounter type: initial encounter Qualified Code(s): W19.XXXA - Unspecified fall, initial encounter Status: Acute This is a 74-year-old female with history of CLD, asthma, hypertension, MS, history of stroke called to the emergency department after a fall found to have mild rhabdo Fall Mechanical nature -PT evaluation prior to discharge Sirs Meet SIRS criteria however no source of infection identified Elevated lactic acid on arrival likely related to dehydration No sepsis Rhabdomyolysis Mild, CPK 1786 IV fluid, follow CPK Asymptomatic bacteriuria Received empiric antibiotics No further antibiotics are indicated Hypertension Continue metoprolol, valsartan Hold hydrochlorothiazide while receiving IV fluid History of stroke Continue aspirin, statin Mood Continue sertraline, Remeron GERD Continue Prilosec MS amantadine DVT ppx -lovenox This case was discussed with Dr. Mcmanus
[2020-07-10] MEDS: Lactated Ringers 1,000 ML 80 ML IVCONT ×2 (11:19→22:41)
[2020-07-10] MEDS: Enoxaparin Sodium 40 MG/0.4 ML SYRINGE SUBCUT (11:19)
[2020-07-10 11:39] LABS: Glucose, Whole Blood 104 mg/dL (60-115)
--- NOTE | 2020-07-10 15:57 | PC.NURSE ---
bed management called to inquire about bed assignment, pt bed still on hold.
--- NOTE | 2020-07-10 17:13 | PC.NURSE ---
pt given bed bath, changed linens. first call for report unsuccessful.
--- NOTE | 2020-07-10 17:39 | PC.NURSE ---
report given to c rn lulu
--- NOTE | 2020-07-10 18:40 | PC.NURSE ---
Patient admitted to [facility] as medical boarder. Vitals stable. Complains of pain in L hip. Maori speaking only. Will continue to monitor.
[2020-07-10] MEDS: Acetaminophen 325 MG TABLET 650 MG PO (20:08)
[2020-07-10] MEDS: traZODone HCL 50 MG TABLET PO (20:11)
[2020-07-10] MEDS: Gabapentin 100 MG CAPSULE PO (20:11)
[2020-07-10] MEDS: Vitamin E (Dl,Tocopheryl Acet) 180 MG (400 UNIT) CAPSULE PO (20:11)
[2020-07-10] MEDS: Metoprolol Tartrate 25 MG TABLET 12.5 MG PO (20:11)
[2020-07-10] MEDS: Mirtazapine 15 MG TABLET PO (20:11)
[2020-07-10] MEDS: Pyridoxine HCl (Vitamin B6) 50 MG TABLET 25 MG PO (20:11)
[2020-07-11] VITALS (10 sets, daily range): BP systolic 138–185; BP diastolic 66–81; PULSE 91–106; RESP 14–20; TEMP 36.7–37; O2SAT 94–98
[2020-07-11] MEDS: Acetaminophen 325 MG TABLET 650 MG PO ×2 (05:04→22:38)
[2020-07-11 07:01] LABS: Hematocrit 29.7 % (37-47); Hemoglobin 9.2 g/dl (12.0-16.0); Imm Gran Abs Auto 0.02 X10*3/uL (0.00-0.03); Imm Gran Pct Auto 0.2 % (0.0-0.4); Lymphocytes Absolute Auto 0.6 X10*3/uL (1.2-4.9); Lymphocytes Percent Auto 6.4 % (20-40); MANUAL DIFF FLAG SCAN; Mean Corpuscular Hemoglobin 26.6 pg (27.0-33.0); Mean Corpuscular Volume 85.8 fL (80-98); Mean Platelet Volume 11.4 fL (9.4-12.3); Monocytes Absolute Auto 0.5 X10*3/uL (0.1-1.2); Monocytes Percent Auto 5.3 % (2-11); Neutrophils Percent Auto 88.1 % (45-73); Platelet Count 237 X10*3/uL (160-400); Red Blood Count 3.46 X10*6/uL (4.20-5.50); SCAN SMEAR FLAG 1; White Blood Count 9.1 X10*3/uL (4.8-10.8)
[2020-07-11 07:36] LABS: Anion Gap 17 (12-20); Blood Urea Nitrogen 24 mg/dL (9-16); Calcium 8.6 mg/dL (8.4-10.2); Carbon Dioxide 24 mmol/L (22-29); Chloride 106 mmol/L (96-108); Creatinine Clr Calc Pharmacy 50.8; Estimated Glomerular Filt Rate > 60; Glucose Random 115 mg/dL (60-115); Potassium 3.8 mmol/l (3.3-5.1); Sodium 143 mmol/L (135-145)
[2020-07-11 07:51] LABS: SLIDE REVIEW VERIFIED
[2020-07-11] MEDS: Metoprolol Tartrate 25 MG TABLET 12.5 MG PO ×2 (09:29→21:03)
[2020-07-11] MEDS: Aspirin Enteric Coated 81 MG TABLET.DR PO (09:30)
[2020-07-11] MEDS: Multivitamin TABLET 1 TAB PO (09:30)
[2020-07-11] MEDS: Omeprazole 20 MG CAPSULE.DR PO (09:30)
[2020-07-11] MEDS: Sertraline HCL 100 MG TABLET PO (09:30)
[2020-07-11] MEDS: Atorvastatin Calcium 40 MG TABLET PO (09:30)
[2020-07-11] MEDS: Valsartan 160 MG TABLET PO (09:30)
[2020-07-11] MEDS: Calcium Carbonate 750 MG TAB.CHEW 300 MG PO (09:30)
[2020-07-11] MEDS: Thiamine HCL 100 MG TABLET PO (09:30)
[2020-07-11] MEDS: amantadine HCL 100 MG CAPSULE PO (09:31)
[2020-07-11] MEDS: Enoxaparin Sodium 40 MG/0.4 ML SYRINGE SUBCUT (09:35)
[2020-07-11] MEDS: Ergocalciferol (Vitamin D2) 1,250 MCG CAPSULE 1250 MCG PO (09:37)
[2020-07-11] MEDS: 0.9 % Sodium Chloride Flush 3 ML SYRINGE IVFLUSH ×2 (09:37→16:56)
--- NOTE | 2020-07-11 11:24 | HO.PM.IMPN ---
Subjective Subjective Date of Service: 07/11/20 Interval History: back pain Cardiovascular Cardiovascular: Reports no additional cardiovascular complaints Gastrointestinal Gastrointestinal: Reports no additional gastrointestinal complaints Physical Exam Vital Signs: Vital Signs: Last Vital Signs Temp 98.1 F 07/11/20 08:00 Pulse 103 H 07/11/20 09:30 Resp 18 07/11/20 08:00 BP 174/75 H 07/11/20 09:30 Pulse Ox 96 07/11/20 08:00 Body Mass Index 17.2 General: Alert, no acute distress Resp: CTA bilateral CVS: S1,S2,RRR GI: soft, non tender, non distended Neuro: motor grossly intact Psych: appropriate affect Objective Data Current Medications Generic Name Dose Route Start Last Admin Trade Name Freq PRN Reason Stop Dose Admin Acetaminophen 650 mg 07/10/20 10:34 07/11/20 05:04 Acetaminophen 325 Mg Tablet PO 650 mg Q6H PRN Administration Pain, Mild (Pain Scale 1-3) Albuterol Sulfate 2 puff 07/10/20 08:15 Albuterol Sulfate 90 Mcg 8 Gm Inhaler INHALE Q4H PRN Shortness of Breath/Wheezing Amantadine HCl 100 mg 07/10/20 09:00 07/11/20 09:31 Amantadine Hcl 100 Mg Capsule PO 100 mg DAILY SHARAN Administration Aspirin 81 mg 07/10/20 09:00 07/11/20 09:30 Aspirin Enteric Coated 81 Mg Tablet.Dr PO 81 mg DAILY SHARAN Administration Atorvastatin Calcium 40 mg 07/10/20 09:00 07/11/20 09:30 Atorvastatin Calcium 40 Mg Tablet PO 40 mg DAILY SHARAN Administration Calcium Carbonate 300 mg 07/10/20 09:00 07/11/20 09:30 Calcium Carbonate 750 Mg Tab.Chew PO 300 mg DAILY SHARAN Administration Docusate Sodium 100 mg 07/10/20 09:00 07/11/20 09:37 Docusate Sodium 100 Mg Capsule PO Not Given BID SHARAN Docusate Sodium 100 mg 07/10/20 21:00 07/11/20 09:37 Docusate Sodium 100 Mg Capsule PO Not Given BID [facility] Enoxaparin Sodium 40 mg 07/10/20 10:34 07/11/20 09:35 Enoxaparin Sodium 40 Mg/0.4 Ml Syringe SUBCUT 40 mg Q24H SHARAN Administration Ergocalciferol 1,250 mcg 07/11/20 09:00 07/11/20 09:37 Ergocalciferol (Vitamin D2) 1,250 Mcg Capsule PO 1,250 mcg [id number] SHARAN Administration Fluticasone Propionate 2 spray 07/10/20 09:00 07/11/20 09:37 Fluticasone Propionate Nasal 16 Gm [place] NOSTRIL-B Not Given DAILY SHARAN Gabapentin 100 mg 07/10/20 21:00 07/10/20 20:11 Gabapentin 100 Mg Capsule PO 100 mg BEDTIME SHARAN Administration Hydrochlorothiazide 25 mg 07/10/20 09:00 07/10/20 08:53 Hydrochlorothiazide 25 Mg Tablet PO Not Given DAILY SHARAN Protocol Ipratropium [place] 2 spray 07/10/20 08:05 Ipratropium [place] Migue 0.03 % 30 Ml [place] NOSTRIL-B TID PRN allergies Metoprolol Tartrate 12.5 mg 07/10/20 09:00 07/11/20 09:29 Metoprolol Tartrate 25 Mg Tablet PO 12.5 mg BID SHARAN Administration Protocol Mirtazapine 15 mg 07/10/20 21:00 07/10/20 20:11 Mirtazapine 15 Mg Tablet PO 15 mg BEDTIME SHARAN Administration Multivitamins/Vitamin C 1 tab 07/10/20 09:00 07/11/20 09:30 Multivitamin Tablet PO 1 tab DAILY SHARAN Administration Non-Formulary Medication 1 puff 07/10/20 09:00 Umeclidinium [Incruse Ellipta] INHALE DAILY [facility] Omeprazole 20 mg 07/10/20 09:00 07/11/20 09:30 Omeprazole 20 Mg Capsule.Dr PO 20 mg DAILY SHARAN Administration Ondansetron HCl 4 mg 07/10/20 10:34 Ondansetron Hcl 4 Mg/2 Ml Vial IVPUSH Q8H PRN Nausea and Vomiting Pharmacy Consult 1 each 07/10/20 07:17 Consult Rx Perform Med Rec MISCELLANE ONCE PRN Consult order Pyridoxine HCl 25 mg 07/10/20 21:00 07/10/20 20:11 Pyridoxine Hcl (Vitamin B6) 50 Mg Tablet PO 25 mg BEDTIME SHARAN Administration Sertraline HCl 100 mg 07/10/20 09:00 07/11/20 09:30 Sertraline Hcl 100 Mg Tablet PO 100 mg DAILY SHARAN Administration Sodium Chloride 3 ml 07/10/20 18:26 07/11/20 09:37 0.9 % Sodium Chloride Flush 3 Ml Syringe IVFLUSH 3 ml QSHIFT SHARAN Administration Thiamine HCl 100 mg 07/10/20 09:00 07/11/20 09:30 Thiamine Hcl 100 Mg Tablet PO 100 mg DAILY SHARAN Administration Trazodone HCl 50 mg 07/10/20 21:00 07/10/20 20:11 Trazodone Hcl 50 Mg Tablet PO 50 mg BEDTIME SHARAN Administration Valsartan 160 mg 07/10/20 09:00 07/11/20 09:30 Valsartan 160 Mg Tablet PO 160 mg DAILY SHARAN Administration Vitamin E 180 mg 07/10/20 21:00 07/10/20 20:11 Vitamin E (Dl,Tocopheryl Acet) 180 Mg (400 Unit) Capsule PO 180 mg BEDTIME SHARAN Administration Labs CBC & Chem 7: 07/11/20 06:12 07/11/20 06:12 Microbiology Microbiology Results: Microbiology 07/10/20 01:24 Blood - Venous Blood Culture - Preliminary No growth after 24 hours. 07/10/20 01:24 Blood - Venous Blood Culture - Preliminary No growth after 24 hours. Assessment and Plan (1) Rhabdomyolysis: Status: Acute (2) Fall: Status: Acute Assessment and Plan: This is a 74-year-old female with history of CLD, asthma, hypertension, MS, history of stroke called to the emergency department after a fall found to have mild rhabdo Fall Mechanical nature -PT recommedning STR Rhabdomyolysis Mild, CPK 1786 on admission, improved to 790 dc IV fluid, encourage oral intake Asymptomatic bacteriuria Received empiric antibiotics No further antibiotics are indicated, blood cultures negative, urine culture not done Hypertension Continue metoprolol, valsartan History of stroke Continue aspirin, statin Mood Continue sertraline, Remeron GERD Continue Prilosec MS amantadine medcially stable plan for SNF when available
[2020-07-11] MEDS: ondansetron HCL 4 MG/2 ML VIAL IVPUSH (12:49)
--- NOTE | 2020-07-11 13:00 | MHC.CM.PN ---
Cm contacted pts daughter, Mary Bradford ([phone]) who reports she is the pts HPC and caregiver at home. She reports she does everything for the pt including housework, personal care, transportation, making sure the bills are paid, and meal prep. She reports she works for [employer] but is only authorized for 1 hour of care per day, the rest she does because its her mother . Mary reports the pt has a cane at home and is supposed to be getting a walker but the PCP has not completed the correct paperwork for the [employer] so that the insurance would cover it. CM explained the recommendation made by PT for the pt to fo to [facility]. Mary reports the pt is going to be mad but she agrees she likely needs the rehab. Mary requested a referral be made to [facility] however CM explained the difference between [facility] and [facility] and she then asked that one be sent to [facility] as it is located near her home. Referral placed. CM will call Mary back once a response if received to continue DC planning. Current DC plan is STR, facility TBD
[2020-07-11] MEDS: Vitamin E (Dl,Tocopheryl Acet) 180 MG (400 UNIT) CAPSULE PO (21:04)
[2020-07-11] MEDS: Mirtazapine 15 MG TABLET PO (21:04)
[2020-07-11] MEDS: Pyridoxine HCl (Vitamin B6) 50 MG TABLET 25 MG PO (21:04)
[2020-07-11] MEDS: traZODone HCL 50 MG TABLET PO (21:04)
[2020-07-11] MEDS: Gabapentin 100 MG CAPSULE PO (21:05)
[2020-07-12] VITALS (11 sets, daily range): BP systolic 123–147; BP diastolic 53–73; PULSE 76–93; RESP 16–19; TEMP 36.1–37.2; O2SAT 93–98; BMI 17.2
[2020-07-12] MEDS: 0.9 % Sodium Chloride Flush 3 ML SYRINGE IVFLUSH ×4 (00:03→21:14)
[2020-07-12] MEDS: Acetaminophen 325 MG TABLET 650 MG PO ×2 (05:37→16:16)
[2020-07-12] MEDS: Docusate Sodium 100 MG CAPSULE PO ×3 (09:22→21:14)
[2020-07-12] MEDS: Atorvastatin Calcium 40 MG TABLET PO (09:22)
[2020-07-12] MEDS: amantadine HCL 100 MG CAPSULE PO (09:22)
[2020-07-12] MEDS: Sertraline HCL 100 MG TABLET PO (09:22)
[2020-07-12] MEDS: Valsartan 160 MG TABLET PO (09:22)
[2020-07-12] MEDS: Omeprazole 20 MG CAPSULE.DR PO (09:22)
[2020-07-12] MEDS: Thiamine HCL 100 MG TABLET PO (09:23)
[2020-07-12] MEDS: Aspirin Enteric Coated 81 MG TABLET.DR PO (09:23)
[2020-07-12] MEDS: Metoprolol Tartrate 25 MG TABLET 12.5 MG PO ×2 (09:23→21:10)
[2020-07-12] MEDS: Multivitamin TABLET 1 TAB PO (09:23)
[2020-07-12] MEDS: Calcium Carbonate 750 MG TAB.CHEW 300 MG PO (09:23)
[2020-07-12] MEDS: Enoxaparin Sodium 40 MG/0.4 ML SYRINGE SUBCUT (09:24)
[2020-07-12] MEDS: ondansetron HCL 4 MG/2 ML VIAL IVPUSH (09:41)
--- NOTE | 2020-07-12 10:51 | P.PNIM_ITS ---
Subjective Subjective Date of Service: 07/12/20 Interval History: Denies any recent fever chills or decrease in appetite respiratory denies any shortness of breath coverage production cardiovascular is adjustment of any PND or edema gastrointestinal denies any dysphagia abdominal pain nausea vomiting or diarrhea genitourinary Reports dysuria musculoskeletal denies any joint pain or swelling neuropsych denies any weakness or seizures all other systems reviewed are negative Respiratory Respiratory: Denies cough Physical Exam Vital Signs: Vital Signs: Last Vital Signs Temp 98.1 F 07/12/20 07:56 Pulse 93 07/12/20 09:22 Resp 18 07/12/20 07:56 BP 147/73 H 07/12/20 09:23 Pulse Ox 98 07/12/20 07:56 Body Mass Index 17.2 Const: General: alert and awake; No no acute distress Nutritional Appearance: well nourished Orientation/consciousness: oriented to person and oriented to place HENMT: Head: Yes normocephalic and Yes atraumatic Eyes: Sclerae: sclerae normal Chest: Chest palpation & inspection: normal inspection of the chest Resp: Effort & Inspection: normal respiratory effort and no respiratory distress Cardio: Rate: regular rate Rhythm: regular rhythm GI: Palpation (GI): Firmness to palpation present (GI) Auscultation: normal bowel sounds Skin: General skin exam: no rashes or lesions noted Neuro: General: oriented to person and oriented to place Cranial nerves: Yes CN's II-XII intact bilaterally and Yes Bilaterally intact EOM present Extrem: General: Yes normal to inspection Objective Data Current Medications Generic Name Dose Route Start Last Admin Trade Name Freq PRN Reason Stop Dose Admin Acetaminophen 650 mg 07/10/20 10:34 07/12/20 05:37 Acetaminophen 325 Mg Tablet PO 650 mg Q6H PRN Administration Pain, Mild (Pain Scale 1-3) Albuterol Sulfate 2 puff 07/10/20 08:15 Albuterol Sulfate 90 Mcg 8 Gm Inhaler INHALE Q4H PRN Shortness of Breath/Wheezing Amantadine HCl 100 mg 07/10/20 09:00 07/12/20 09:22 Amantadine Hcl 100 Mg Capsule PO 100 mg DAILY SHARAN Administration Aspirin 81 mg 07/10/20 09:00 07/12/20 09:23 Aspirin Enteric Coated 81 Mg Tablet. PO 81 mg DAILY SHARAN Administration Atorvastatin Calcium 40 mg 07/10/20 09:00 07/12/20 09:22 Atorvastatin Calcium 40 Mg Tablet PO 40 mg DAILY SHARAN Administration Calcium Carbonate 300 mg 07/10/20 09:00 07/12/20 09:23 Calcium Carbonate 750 Mg Tab.Chew PO 300 mg DAILY SHARAN Administration Docusate Sodium 100 mg 07/10/20 09:00 07/12/20 09:22 Docusate Sodium 100 Mg Capsule PO 100 mg BID SHARAN Administration Docusate Sodium 100 mg 07/10/20 21:00 07/12/20 09:23 Docusate Sodium 100 Mg Capsule PO Not Given BID [facility] Enoxaparin Sodium 40 mg 07/10/20 10:34 07/12/20 09:24 Enoxaparin Sodium 40 Mg/0.4 Ml Syringe SUBCUT 40 mg Q24H [facility] Administration Ergocalciferol 1,250 mcg 07/11/20 09:00 07/11/20 09:37 Ergocalciferol (Vitamin D2) 1,250 Mcg Capsule PO 1,250 mcg Fernandez@0900 [facility] Administration Fluticasone Propionate 2 spray 07/10/20 09:00 07/12/20 09:42 Fluticasone Propionate Nasal 16 Gm [place] NOSTRIL-B Not Given DAILY [facility] Gabapentin 100 mg 07/10/20 21:00 07/11/20 21:05 Gabapentin 100 Mg Capsule PO 100 mg BEDTIME [facility] Administration Hydrochlorothiazide 25 mg 07/10/20 09:00 07/10/20 08:53 Hydrochlorothiazide 25 Mg Tablet PO Not Given DAILY [facility] Protocol Ipratropium [place] 2 spray 07/10/20 08:05 Ipratropium [place] M[place] 0.03 % 30 Ml [place] NOSTRIL-B TID PRN allergies Metoprolol Tartrate 12.5 mg 07/10/20 09:00 07/12/20 09:23 Metoprolol Tartrate 25 Mg Tablet PO 12.5 mg BID [facility] Administration Protocol Mirtazapine 15 mg 07/10/20 21:00 07/11/20 21:04 Mirtazapine 15 Mg Tablet PO 15 mg BEDTIME [facility] Administration Multivitamins/Vitamin C 1 tab 07/10/20 09:00 07/12/20 09:23 Multivitamin Tablet PO 1 tab DAILY SHARAN Administration Non-Formulary Medication 1 puff 07/10/20 09:00 Umeclidinium [Incruse Ellipta] INHALE DAILY SHARAN Omeprazole 20 mg 07/10/20 09:00 07/12/20 09:22 Omeprazole 20 Mg Capsule.Dr PO 20 mg DAILY SHARAN Administration Ondansetron HCl 4 mg 07/10/20 10:34 07/12/20 09:41 Ondansetron Hcl 4 Mg/2 Ml Vial IVPUSH 4 mg Q8H PRN Administration Nausea and Vomiting Pharmacy Consult 1 each 07/10/20 07:17 Consult Rx Perform Med Rec MISCELLANE ONCE PRN Consult order Pyridoxine HCl 25 mg 07/10/20 21:00 07/11/20 21:04 Pyridoxine Hcl (Vitamin B6) 50 Mg Tablet PO 25 mg BEDTIME SHARAN Administration Sertraline HCl 100 mg 07/10/20 09:00 07/12/20 09:22 Sertraline Hcl 100 Mg Tablet PO 100 mg DAILY SHARAN Administration Sodium Chloride 3 ml 07/10/20 18:26 07/12/20 09:41 0.9 % Sodium Chloride Flush 3 Ml Syringe IVFLUSH 3 ml QSHIFT SHARAN Administration Thiamine HCl 100 mg 07/10/20 09:00 07/12/20 09:23 Thiamine Hcl 100 Mg Tablet PO 100 mg DAILY SHARAN Administration Trazodone HCl 50 mg 07/10/20 21:00 07/11/20 21:04 Trazodone Hcl 50 Mg Tablet PO 50 mg BEDTIME SHARAN Administration Valsartan 160 mg 07/10/20 09:00 07/12/20 09:22 Valsartan 160 Mg Tablet PO 160 mg DAILY SHARAN Administration Vitamin E 180 mg 07/10/20 21:00 07/11/20 21:04 Vitamin E (Dl,Tocopheryl Acet) 180 Mg (400 Unit) Capsule PO 180 mg BEDTIME SHARAN Administration Labs CBC & Chem 7: 07/11/20 06:12 07/11/20 06:12 Microbiology Microbiology Results: Microbiology 07/10/20 01:24 Blood - Venous Blood Culture - Preliminary No growth after 48 hours. 07/10/20 01:24 Blood - Venous Blood Culture - Preliminary No growth after 48 hours. Assessment and Plan (1) Rhabdomyolysis: Status: Acute (2) Fall: Status: Acute Assessment and Plan: This is a 74-year-old female with history of CLD, asthma, hypertension, MS, history of stroke called to the emergency department after a fall found to have mild rhabdo Urinary retention Bladder scan for over 900ml, st cath, negative U/A Bladder scan this evening, if retention persists consider urology consult. Add Flomax. Fall Mechanical nature -PT recommending STR Rhabdomyolysis Mild, CPK 1786 on admission, improved to 790 dc IV fluid, encourage oral intake Anemia. No signs of bleeding. Follow cbc Check Stool iron studies Hypertension Continue metoprolol, valsartan History of stroke Continue aspirin, statin Mood Continue sertraline, Remeron GERD Continue Prilosec MS amantadine Hold transfer to SNF today due to urinary retention
--- NOTE | 2020-07-12 11:09 | PC.NURSE ---
Addendum entered by Leda Morales RN 07/12/20 19:19: Pt bladder scanned at 1825 for 244ml. Pt denies urge to urinate. Masha Bradford NP made aware. Ordered straight cath order for greater than 500ml and bladder scan Qshift. Will continue to monitor. Original Note: Pt c/o trouble urinating, feeling urge but unable to go. Pt bladder scanned for >999ml. Dr. Snow made aware. Straight cath ordered. Pt straight cath for 1000ml. Next DTV 1700. Will continue to monitor.
[2020-07-12 11:21] LABS: Glucose Urine UA NEG (NEG); Leukocyte Esterase Urine NEG (NEG); Nitrite Urine NEG (NEG); Specific Gravity - Urine 1.025 (1.005-1.025); Urine Blood NEG (NEG); Urine Ketones 5 MG/DL (NEG); Urine Protein TRACE MG/DL (NEG-TRACE)
[2020-07-12 11:23] LABS: Appearance Urine CLEAR; Color Urine YELLOW
--- NOTE | 2020-07-12 12:23 | MHC.CM.PN ---
DP is to STR. DC on hold due to Bladder scan 999ml. Notified Dtr, Mary DC on hold. Pt will transport via chair van vs family. CM will follow.
--- NOTE | 2020-07-12 15:06 | MHC.CLN ---
PT IS MILDLY MALNOURISHED WILL LIBERALIZE DIET TO 2GM NA AND START ENSURE BID TO INCREASE KCALS SEE ALSO CLINICAL NUTRITION ASSESSMENT
--- NOTE | 2020-07-12 18:24 | PC.NURSE ---
Pt has had multiple incontinent episodes of liquid diarrhea. Dr. Snow made aware. No new orders. Will continue to monitor.
[2020-07-12] MEDS: Gabapentin 100 MG CAPSULE PO (21:08)
[2020-07-12] MEDS: Pyridoxine HCl (Vitamin B6) 50 MG TABLET 25 MG PO (21:08)
[2020-07-12] MEDS: Mirtazapine 15 MG TABLET PO (21:08)
[2020-07-12] MEDS: Vitamin E (Dl,Tocopheryl Acet) 180 MG (400 UNIT) CAPSULE PO (21:10)
[2020-07-12] MEDS: Tamsulosin HCL 0.4 MG CAPSULE PO (21:10)
[2020-07-12] MEDS: traZODone HCL 50 MG TABLET PO (21:10)
[2020-07-13] MEDS: Acetaminophen 325 MG TABLET 650 MG PO (02:15)
--- NOTE | 2020-07-13 02:23 | PC.NURSE ---
0130 pt oob to commode unable to void.bladder scanned for 278 cc.will continue to monitor
[2020-07-13 06:37] LABS: MANUAL DIFF FLAG NO
[2020-07-13 06:51] LABS: Basophils Percent Auto 0.5 % (0-2); Eosinophils Absolute Auto 0.2 X10*3/uL (0.0-0.4); Eosinophils Percent Auto 3.2 % (0-4); Hematocrit 28.7 % (37-47); Hemoglobin 8.4 g/dl (12.0-16.0); Imm Gran Abs Auto 0.01 X10*3/uL (0.00-0.03); Imm Gran Pct Auto 0.2 % (0.0-0.4); Lymphocytes Absolute Auto 0.7 X10*3/uL (1.2-4.9); Mean Corpuscular HGB Conc 29.3 g/dl (31.0-35.0); Mean Corpuscular Hemoglobin 25.7 pg (27.0-33.0); Mean Corpuscular Volume 87.8 fL (80-98); Mean Platelet Volume 11.3 fL (9.4-12.3); Monocytes Absolute Auto 0.5 X10*3/uL (0.1-1.2); Monocytes Percent Auto 8.4 % (2-11); Neutrophils Absolute Auto 4.5 X10*3/uL (2.0-8.3); Neutrophils Percent Auto 75.7 % (45-73); Platelet Count 220 X10*3/uL (160-400); Red Blood Count 3.27 X10*6/uL (4.20-5.50); Red Cell Distribution Width 18.9 % (11.0-16.0); White Blood Count 5.9 X10*3/uL (4.8-10.8)
[2020-07-13 07:05] LABS: Anion Gap 13 (12-20); Blood Urea Nitrogen 24 mg/dL (9-16); Calcium 7.8 mg/dL (8.4-10.2); Carbon Dioxide 24 mmol/L (22-29); Chloride 106 mmol/L (96-108); Creatinine Clr Calc Pharmacy 53.4; Estimated Glomerular Filt Rate > 60; Glucose Random 93 mg/dL (60-115); Potassium 3.3 mmol/l (3.3-5.1); Sodium 140 mmol/L (135-145)
[2020-07-13 07:22] VITALS: BP 100/54; PULSE 97; RESP 17; TEMP 36.3; O2SAT 95
[2020-07-13] MEDS: Atorvastatin Calcium 40 MG TABLET PO (10:00)
[2020-07-13] MEDS: Omeprazole 20 MG CAPSULE.DR PO (10:00)
[2020-07-13] MEDS: 0.9 % Sodium Chloride Flush 3 ML SYRINGE IVFLUSH (10:00)
[2020-07-13] MEDS: amantadine HCL 100 MG CAPSULE PO (10:01)
[2020-07-13] MEDS: Calcium Carbonate 750 MG TAB.CHEW 300 MG PO (10:03)
[2020-07-13] MEDS: Aspirin Enteric Coated 81 MG TABLET.DR PO (10:04)
[2020-07-13] MEDS: Thiamine HCL 100 MG TABLET PO (10:04)
--- NOTE | 2020-07-13 10:04 | MHC.CM.PN ---
OT EVAL AND DAILY PT NOTE UPLOADED TO ([facility]) [facility]. CASE MANAGEMENT FOLLOWING.
[2020-07-13] MEDS: Sertraline HCL 100 MG TABLET PO (10:05)
[2020-07-13] MEDS: Multivitamin TABLET 1 TAB PO (10:05)
[2020-07-13 10:10] VITALS: BP 100/54
[2020-07-13 10:17] VITALS: BP 100/54
--- NOTE | 2020-07-13 10:18 | PC.NURSE ---
unable to straight cath patient, three attempts made, Dr. Snow aware, had her try to urinate on commode, pt urinated on commode.
[2020-07-13 11:43] VITALS: BP 113/63; PULSE 90; RESP 16; TEMP 36.4; O2SAT 99
--- NOTE | 2020-07-13 11:59 | MHC.CM.PN ---
Addendum entered by Marisol Pruitt 07/13/20 12:52: CHANGE OF DC TIME - 15:00 PENDING NEGATIVE COVID RESULTS FAMILY, RN, AND UNIT AWARE. Original Note: PATIENT OFFERED BED AT ([facility]) [facility]. PATIENT AND DAUGHTER, HEMA ([phone]) AWARE OF PLAN CURRENTLY AWAITING COVID RESULTS. PLAN WILL BE FOR A 16:00 TRANSPORT VIA [facility] RN AND UNIT AWARE.
--- NOTE | 2020-07-13 12:16 | P.DS_ITS ---
DS: Providers Provider Date of admission: 07/10/20 10:34 Primary care physician: Unknown Physician DS: Diagnosis Discharge Diagnosis (1) Rhabdomyolysis: Status: Acute (2) Fall: Status: Acute (3) COPD (chronic obstructive pulmonary disease): Status: Acute (4) Tobacco dependence: Status: Acute (5) HTN (hypertension): Status: Acute (6) Vitamin D deficiency: Status: Acute (7) Osteoporosis: Status: Acute (8) Urinary retention: Status: Acute DS: Medications Discharge Medications Home Medications: Home Medications Medication Instructions Recorded Confirmed amantadine HCl 100 mg capsule 100 mg PO DAILY 05/06/20 07/10/20 aspirin 81 mg tablet,delayed 81 mg PO DAILY 05/06/20 07/10/20 release atorvastatin 40 mg tablet 40 mg PO DAILY 05/06/20 07/10/20 calcium carbonate 300 mg (750 mg) 1 tab PO DAILY 05/06/20 07/10/20 chewable tablet docusate sodium 100 mg capsule 100 mg PO BID 05/06/20 07/10/20 ergocalciferol (vitamin D2) 1,250 1,250 mcg PO QWEEK 05/06/20 07/10/20 mcg (50,000 unit) capsule gabapentin 100 mg capsule 100 mg PO QPM 05/06/20 07/10/20 metoprolol tartrate 25 mg tablet 12.5 mg PO BID 05/06/20 07/10/20 mirtazapine 15 mg tablet 15 mg PO BEDTIME 05/06/20 07/10/20 multivitamin 1 tab PO QAM 05/06/20 07/10/20 omeprazole 20 mg capsule,delayed 20 mg PO DAILY 05/06/20 07/10/20 release pyridoxine (vitamin B6) 25 mg 25 mg PO BEDTIME 05/06/20 07/10/20 tablet sertraline 100 mg tablet 100 mg PO DAILY 05/06/20 07/10/20 thiamine HCl (vitamin B1) 100 mg 100 mg PO QAM 05/06/20 07/10/20 tablet vitamin E (dl, acetate) 400 unit 400 unit PO BEDTIME cap 05/06/20 07/10/20 capsule albuterol sulfate 90 mcg/actuation 2 puff INHALATION Q4-6H PRN 06/18/20 07/10/20 aerosol inhaler trazodone 50 mg tablet 50 mg PO BEDTIME 06/18/20 07/10/20 Incruse Ellipta 1 puff INHALATION DAILY 07/10/20 07/10/20 fluticasone propionate 2 spray INTRANASAL DAILY 07/10/20 07/10/20 ipratropium bromide 2 spray INTRANASAL TID PRN 07/10/20 07/10/20 Previous Rx's Medication Instructions Recorded irbesartan 150 mg PO DAILY #30 tab 07/13/20 tamsulosin 0.4 mg PO BEDTIME #30 cap 07/13/20 DS: Summary Hospital Course Hospital Course: History of presenting illness Chief Complaint: Fall This is a 74-year-old female with multiple medical problems was brought to the emergency department after a fall. Patient states that she got up from the couch and was unable to reach her cane. Her legs gave out and she fell to the ground. She denied dizziness or chest pain prior to her fall. She denied losing consciousness or hitting her head. She was unable to get up off the ground. Her daughter found her but it was unclear how long she spent on the ground. She was brought to the emergency department for evaluation. Lab work revealed leukocytosis of 12.9. CPK was under 1786. Imaging including brain CT, chest CT, chest x-ray, hip and pelvis x-ray were unremarkable. No source of infection was identified. She received 1 dose of empiric antibiotics. Given mild rhabdo and fall the decision was made to admit her overnight for observation. Medical History (Updated 07/10/20 @ 10:40 by CAESAR Simms) Anxiety Bipolar 1 disorder Chronic rhinitis COPD (chronic obstructive pulmonary disease) HLD (hyperlipidemia) HTN (hypertension) Multiple sclerosis Osteoporosis Stroke Tobacco dependence Vitamin D deficiency Hospital course 74-year-old female with history of bipolar disorder asthma, hypertension, history of stroke called to the emergency department after a fall found to have mild rhabdo Mechanical fall with rhabdomyolysis patient noted to have mildly elevated CPK 1786 patient treated with IV fluids CPK is trending down patient evaluated by Physical therapy and they are recommending short-term rehab, hip and pelvic x- ray showed old fracture left inferior pubic ramus and pubic symphysis weightbear as tolerated, no acute fracture or dislocation of left hip Sirs Meet SIRS criteria however no source of infection identified,Elevated lactic acid on arrival likely related to dehydration,No sepsis Asymptomatic bacteriuria Blood cultures negative, repeat urinalysis showed no bacteria, No antibiotics are indicated Urinary retention patient noted to be voiding small amount of urine and had elevated bladder scan therefore placed on Flomax continue to follow closely for urinary retention. Hypertension Noted to have low blood pressure, likely noncompliance at home Continue metoprolol, dose of irbesartan reduced to 150 and hydrochlorothiazide discontinued History of stroke Continue aspirin, and statin History of bipolar disorder continue sertraline, and Remeron GERD Continue Prilosec MS amantadine Time Spent with Patient Time attestation: Total time spent providing and/or coordinating discharge services: Physical Exam Vital Signs: Vital Signs: Last Vital Signs Temp 97.5 F 07/13/20 11:43 Pulse 90 07/13/20 11:43 Resp 16 07/13/20 11:43 BP 113/63 07/13/20 11:43 Pulse Ox 99 07/13/20 11:43 Body Mass Index 17.2 General patient resting comfortably in no acute distress,frail appearing. Neck is supple no JVD. CVS regular rate rhythm, Respiratory lungs clear to auscultation, no respiratory distress. Gastrointestinal abdomen soft, distended bs audible, no guarding , no rigidity. Extremities no clubbing cyanosis or edema. Neuro speech clear, nonfocal. Skin multiple bruises both buttocks back DS: Data Data Completed and Pending Labs on day of discharge: 07/10/20 00:40 ECG 12 lead EKG Stat EKG Documentation DIRECTED XR chest 1V Stat 07/10/20 01:16 Complete Blood Count Auto Diff Stat Prothrombin Time INR Stat SLIDE REVIEW Stat 07/10/20 01:24 Lactic Acid Stat 07/10/20 01:39 0.9 % Sodium Chloride [Ns] 1,000 ml IV 999 mls/hr 07/10/20 02:00 Comprehensive Met. Panel Stat Creatine Kinase Total Stat Lipase Stat TSH reflex Free T4 Stat 07/10/20 02:09 0.9 % Sodium Chloride [Ns] 1,197 ml IVCONT 1,197 mls/hr 07/10/20 02:42 CT chest wo con Stat CT head/brain wo con Stat 07/10/20 02:46 levoFLOXacin/D5W [Levaquin] 750 mg in 150 ml IV ONCE 07/10/20 03:23 Drug Screen Urine Stat 07/10/20 03:54 ~Lactic Acid-LAB USE ONLY Stat 07/10/20 05:27 Comprehensive Met. Panel Stat Creatine Kinase Total Stat 07/10/20 07:28 XR hip LT w PEL1V Stat 07/10/20 09:00 hydroCHLOROthiazide [Microzide] 25 mg PO DAILY 07/10/20 09:46 COVID-19 ID NOW (Sanchez) Stat 07/10/20 10:16 Transfer Order Routine 07/10/20 10:45 Lactated Ringers [Lr] 1,000 ml IVCONT 80 mls/hr 07/10/20 11:35 Glucose, Whole Blood Routine 07/11/20 06:12 Basic Metabolic Panel DAILY@0600 Complete Blood Count Auto Diff DAILY@0600 Creatine Kinase Total Routine SLIDE REVIEW Routine 07/12/20 10:53 UA CC w/rflx Micro + Cult Stat 07/13/20 06:19 Basic Metabolic Panel DAILY@0600 Complete Blood Count Auto Diff DAILY@0600 Laboratory Last Values WBC 5.9 X10*3/uL (4.8-10.8) 07/13/20 06:19 RBC 3.27 X10*6/uL (4.20-5.50) L 07/13/20 06:19 Hgb 8.4 g/dl (12.0-16.0) L 07/13/20 06:19 Hct 28.7 % (37-47) L 07/13/20 06:19 MCV 87.8 fL (80-98) 07/13/20 06:19 MCH 25.7 pg (27.0-33.0) L 07/13/20 06:19 MCHC 29.3 g/dl (31.0-35.0) L 07/13/20 06:19 RDW 18.9 % (11.0-16.0) H 07/13/20 06:19 Plt Count 220 X10*3/uL (160-400) 07/13/20 06:19 MPV 11.3 fL (9.4-12.3) 07/13/20 06:19 Immature Gran % (Auto) 0.2 % (0.0-0.4) 07/13/20 06:19 Neut % (Auto) 75.7 % (45-73) H 07/13/20 06:19 Lymph % (Auto) 12.0 % (20-40) L 07/13/20 06:19 [place] % (Auto) 8.4 % (2-11) 07/13/20 06:19 Eos % (Auto) 3.2 % (0-4) 07/13/20 06:19 Baso % (Auto) 0.5 % (0-2) 07/13/20 06:19 Lymph # (Auto) 0.7 X10*3/uL (1.2-4.9) L 07/13/20 06:19 [place] # (Auto) 0.5 X10*3/uL (0.1-1.2) 07/13/20 06:19 Eos # (Auto) 0.2 X10*3/uL (0.0-0.4) 07/13/20 06:19 Baso # (Auto) 0.0 X10*3/uL (0.0-0.2) 07/13/20 06:19 Abs Immat Gran (auto) 0.01 X10*3/uL (0.00-0.03) 07/13/20 06:19 Absolute Neuts (auto) 4.5 X10*3/uL (2.0-8.3) 07/13/20 06:19 Absolute Nucleated RBC 0.000 X10*3/uL (0.0-0.012) 07/13/20 06:19 Nucleated RBC % (auto) 0.0 /100WBC (0.0-0.2) 07/13/20 06:19 Smear Tech's Comments VERIFIED 07/11/20 06:12 PT 15.1 SEC (10.8-13.0) H 07/10/20 01:16 INR 1.3 (0.9-1.1) H 07/10/20 01:16 Sodium 140 mmol/L (135-145) 07/13/20 06:19 Potassium 3.3 mmol/l (3.3-5.1) 07/13/20 06:19 Chloride 106 mmol/L (96-108) 07/13/20 06:19 Carbon Dioxide 24 mmol/L (22-29) 07/13/20 06:19 Anion Gap 13 (12-20) 07/13/20 06:19 BUN 24 mg/dL (9-16) H 07/13/20 06:19 Creatinine 0.60 mg/dL (0.5-1.4) 07/13/20 06:19 Estim Creat Clear Calc 53.4 07/13/20 06:19 Estimated GFR > 60 07/13/20 06:19 POC Glucose 104 mg/dL (60-115) 07/10/20 11:35 Random Glucose 93 mg/dL (60-115) 07/13/20 06:19 Lactic Acid 2.1 mmol/L (0.5-2.0) H* 07/10/20 01:24 Lactic Acid Fup @ 2Hr 1.4 mmol/L (0.5-2.0) 07/10/20 03:54 Calcium 7.8 mg/dL (8.4-10.2) L D 07/13/20 06:19 Total Bilirubin 0.4 mg/dL (0.0-1.0) 07/10/20 05:27 AST 56 U/L (5-31) H 07/10/20 05:27 ALT 37 U/L (0-31) H 07/10/20 05:27 Alkaline Phosphatase 93 U/L (39-117) 07/10/20 05:27 Total Creatine Kinase 790 U/L (26-140) H D 07/11/20 06:12 Total Protein 5.7 g/dL (6.5-8.0) L 07/10/20 05:27 Albumin 3.6 g/dL (3.5-5.0) 07/10/20 05:27 Lipase 14 U/L (8-78) 07/10/20 02:00 TSH 0.42 mIU/mL (0.32-4.0) 07/10/20 02:00 Urine Color YELLOW 07/12/20 10:53 Urine Appearance CLEAR 07/12/20 10:53 Urine pH 6.0 (5.0-8.0) 07/12/20 10:53 Ur Specific [place] 1.025 (1.005-1.025) 07/12/20 10:53 Urine Protein TRACE MG/DL (NEG-TRACE) 07/12/20 10:53 Urine Glucose (UA) NEG MG/DL (NEG) 07/12/20 10:53 Urine Ketones 5 MG/DL (NEG) 07/12/20 10:53 Urine Blood NEG (NEG) 07/12/20 10:53 Urine Nitrite NEG (NEG) 07/12/20 10:53 Ur Leukocyte Esterase NEG (NEG) 07/12/20 10:53 Urine RBC 0-2 /HPF (0) 07/10/20 03:23 Urine WBC 1-4 /HPF (0-4) 07/10/20 03:23 Ur Squamous Epith Cells 3+ /LPF 07/10/20 03:23 Urine Bacteria 2+ /LPF 07/10/20 03:23 Salicylates Cancelled 07/10/20 01:16 Urine Opiates Screen Not Detected (Not Detect) 07/10/20 03:23 Acetaminophen Cancelled 07/10/20 01:16 Ur Barbiturates Screen Not Detected (Not Detect) 07/10/20 03:23 Ur Phencyclidine Scrn Not Detected (Not Detect) 07/10/20 03:23 Ur Amphetamines Screen Not Detected (Not Detect) 07/10/20 03:23 U Benzodiazepines Scrn Not Detected (Not Detect) 07/10/20 03:23 Urine Cocaine Screen Not Detected (Not Detect) 07/10/20 03:23 U Marijuana (THC) Screen Not Detected (Not Detect) 07/10/20 03:23 Ethyl Alcohol Cancelled 07/10/20 01:24 COVID-19 (MOISÉS) Negative (Negative) 07/10/20 09:46 COVID-19 Clin Com See Note 07/10/20 09:46 Preliminary micro results at discharge 07/10/20 01:24 Blood Culture - Preliminary Blood - Venous No growth after 48 hours. 07/10/20 01:24 Blood Culture - Preliminary Blood - Venous No growth after 48 hours. Discharge Plan Discharge Patient Disposition: er SNF Referrals: [facility] [Outside] Physician,Unknown [Primary Care Provider] - Discharge Medications: New irbesartan 150 mg tablet 150 mg PO DAILY Qty: 30 RF: 0 tamsulosin 0.4 mg Capsule 0.4 mg PO BEDTIME Qty: 30 RF: 0 Continued fluticasone propionate 50 mcg/actuation spray,suspension 2 spray intranasal DAILY RF: 0 ipratropium bromide 0.03 % spray,non-aerosol 2 spray intranasal TID PRN (Reason: allergies) RF: 0 Incruse Ellipta 62.5 mcg/actuation blister with device 1 puff inhalation DAILY RF: 0 metoprolol tartrate 25 mg tablet 12.5 mg PO BID RF: 0 gabapentin 100 mg capsule 100 mg PO QPM RF: 0 mirtazapine 15 mg tablet 15 mg PO BEDTIME RF: 0 omeprazole 20 mg capsule,delayed release(DR/EC) 20 mg PO DAILY RF: 0 sertraline 100 mg tablet 100 mg PO DAILY RF: 0 amantadine HCl 100 mg capsule 100 mg PO DAILY RF: 0 thiamine HCl (vitamin B1) 100 mg tablet 100 mg PO QAM RF: 0 pyridoxine (vitamin B6) 25 mg tablet 25 mg PO BEDTIME RF: 0 multivitamin Tablet 1 tab PO QAM RF: 0 docusate sodium [Colace] 100 mg capsule 100 mg PO BID RF: 0 atorvastatin 40 mg tablet 40 mg PO DAILY RF: 0 aspirin [Adult Aspirin Regimen] 81 mg tablet,delayed release (DR/EC) 81 mg PO DAILY RF: 0 calcium carbonate 300 mg (750 mg) tablet,chewable 1 tab PO DAILY RF: 0 ergocalciferol (vitamin D2) [Vitamin D2] 1,250 mcg (50,000 unit) capsule 1,250 mcg PO QWEEK RF: 0 vitamin E (dl, acetate) 400 unit capsule 400 unit PO BEDTIME RF: 0 albuterol sulfate 90 mcg/actuation HFA aerosol inhaler 2 puff inhalation Q4-6H PRN (Reason: Shortness Of Breath Or Wheezing) RF: 0 trazodone 50 mg tablet 50 mg PO BEDTIME RF: 0 Discontinued hydrochlorothiazide 25 mg tablet 25 mg PO DAILY RF: 0 irbesartan 300 mg tablet 300 mg PO DAILY RF: 0 Diet: low fat, low cholesterol Activity on Discharge: No Restrictions Care Plan Goals: Patient will need physical therapy due to history of recurrent fall Health Concerns: Patient noted to have urinary retention voiding small amount of urine therefore started on Flomax, urinalysis negative Plan of Treatment: Continue outpatient follow up with primary care physician and endocrinology with history of osteoporosis and hypertension.
[2020-07-13 12:56] LABS: COVID-19 Test Negative (Negative)
== END 2020-07-13 15:20 | disposition skilled nursing facility (03) ==
LOC: HO.ED 07:30 → HO.IMC 16:51 → HO.S3 07-12 19:59
PROVIDERS: Nurse Practitioner Acute Care; Physician Assistant Medical; Admitting Provider Internal Medicine; Emergency Provider Student in an Organized Health Care Education/Training Program; Visit Provider Hospitalist
DX: T79.6XXA Traumatic ischemia of muscle, initial encounter (principal); W17.89XA Other fall from one level to another, initial encounter; Y93.9 Activity, unspecified; Y92.9 Unspecified place or not applicable; Y99.8 Other external cause status; J44.9 Chronic obstructive pulmonary disease, unspecified; I10 Essential (primary) hypertension; E55.9 Vitamin D deficiency, unspecified; M81.0 Age-related osteoporosis without current pathological fracture; R33.9 Retention of urine, unspecified; K21.9 Gastro-esophageal reflux disease without esophagitis; G35 Multiple sclerosis; R53.1 Weakness; R00.0 Tachycardia, unspecified; R41.82 Altered mental status, unspecified; F17.200 Nicotine dependence, unspecified, uncomplicated; Z20.828 Contact with and (suspected) exposure to other viral communicable diseases; Z90.49 Acquired absence of other specified parts of digestive tract; Z86.73 Personal history of transient ischemic attack (TIA), and cerebral infarction without residual deficits; Z88.0 Allergy status to penicillin; Z88.8 Allergy status to other drugs, medicaments and biological substances; Z79.899 Other long term (current) drug therapy
CPT/HCPCS: 36415; 70450; 71045; 71250; 73502; 80048; 80053; 80307; 81001; 81003; 82550; 82947; 83605; 83690; 84443; 85025; 85610; 87040; 87635; 93005; 96361; 96365; 96366; 96372; 96374; 97110; 97116; 97162; 99218; 99285; J1650; J1956; J2405

== ENCOUNTER 2020-09-02 11:36 | Emergency (ER) | payer MEDICARE, MEDICAID, SELFPAY ==
--- NOTE | ~2020-09-02 | XR_ITS ---
EXAMINATION: XR CHEST CLINICAL INFORMATION: Dyspnea COMPARISON: CTA chest 07/10/2020, chest radiographs 07/10/2020, 11/16/2019 TECHNIQUE: Portable upright AP view of the chest was obtained. FINDINGS: There are emphysematous changes greater on the right upper zone with bullous changes on CT. There is no pneumothorax or pneumomediastinum. No pleural reaction, infiltrate, or definite groundglass opacity. The costophrenic sulci are clear. The heart is normal in size. The hilar and mediastinal contours and bony structures are stable. XR/XR chest 1V IMPRESSION: Emphysematous changes similar to prior study. No acute intrathoracic disease.
[2020-09-02 11:48] VITALS: BP 137/89; PULSE 109; PULSE 120; RESP 24; TEMP 36.9; O2SAT 95; O2SAT 96; BMI 20.6
--- NOTE | 2020-09-02 11:49 | ECG_ITS ---
Test Reason : DYSPNEA Blood Pressure : / mmHG Vent. Rate : 104 BPM Atrial Rate : 104 BPM P-R Int : 142 ms QRS Dur : 062 ms QT Int : 338 ms P-R-T Axes : 084 087 063 degrees QTc Int : 444 ms Sinus tachycardia Otherwise normal ECG When compared with ECG of 10-JUL-2020 01:00, No significant change was found Referred By: Joaquina Cadena Electronically Signed By:Collins Andrade
--- NOTE | 2020-09-02 11:50 | ED.ASTHMA ---
HPI - Asthma General Chief Complaint: Upper Respiratory Symptoms Stated Complaint: RESP DISTRESS Time Seen by Provider: 09/02/20 11:48 Source: patient, EMS, old records reviewed and hourly sign language interpreter Mode of arrival: EMS Limitations: no limitations History of Present Illness HPI Narrative: 74 yo female with COPD, HTN, smoker recent pelvic fracture comes in with wheezing and cough with shortness of breath x 2 days 95% on RA given neb by EMS with some improvement - 98% on RA, states it could have been smoking, patient using her nebulizer without relief MD complaint: asthma attack and wheezing Onset (ago): day(s) (2) Severity: moderate Context: smoke exposure Associated symptoms: dry cough Asthma History: childhood onset Treatments Prior to Arrival: inhaled bronchodilator Related Data Home Medications Medication Instructions Recorded Confirmed amantadine HCl 100 mg capsule 100 mg PO DAILY 05/06/20 09/02/20 aspirin 81 mg tablet,delayed 81 mg PO DAILY 05/06/20 09/02/20 release atorvastatin 40 mg tablet 40 mg PO DAILY 05/06/20 09/02/20 calcium carbonate 300 mg (750 mg) 1 tab PO DAILY 05/06/20 07/10/20 chewable tablet docusate sodium 100 mg capsule 100 mg PO BID 05/06/20 09/02/20 ergocalciferol (vitamin D2) 1,250 1,250 mcg PO QWEEK 05/06/20 07/10/20 mcg (50,000 unit) capsule gabapentin 100 mg capsule 100 mg PO TID 05/06/20 09/02/20 metoprolol tartrate 25 mg tablet 25 mg PO BID 05/06/20 09/02/20 mirtazapine 15 mg tablet 15 mg PO BEDTIME 05/06/20 09/02/20 multivitamin 1 tab PO QAM 05/06/20 09/02/20 omeprazole 20 mg capsule,delayed 20 mg PO BID@0630,1630 05/06/20 09/02/20 release sertraline 100 mg tablet 100 mg PO DAILY 05/06/20 09/02/20 thiamine HCl (vitamin B1) 100 mg 100 mg PO QAM 05/06/20 09/02/20 tablet vitamin E (dl, acetate) 400 unit 400 unit PO BEDTIME cap 05/06/20 09/02/20 capsule albuterol sulfate 90 mcg/actuation 2 puff INHALATION Q4-6H PRN 06/18/20 09/02/20 aerosol inhaler trazodone 50 mg tablet 50 mg PO BEDTIME 06/18/20 09/02/20 Incruse Ellipta 1 puff INHALATION DAILY 07/10/20 09/02/20 fluticasone propionate 2 spray INTRANASAL DAILY 07/10/20 09/02/20 ipratropium bromide 2 spray INTRANASAL TID PRN 07/10/20 07/10/20 acetaminophen [Arthritis Pain 650 mg PO Q8H PRN 09/02/20 09/02/20 Reliever] fluticasone furoate-vilanterol 1 inh INHALATION DAILY 09/02/20 09/02/20 [Breo Ellipta] magnesium oxide 400 mg PO DAILY 09/02/20 09/02/20 nicotine (polacrilex) 2 mg BUCCAL Q2H 09/02/20 09/02/20 oxycodone 5 mg PO BID PRN 09/02/20 09/02/20 pyridoxine (vitamin B6) [Vitamin 25 mg PO BEDTIME 09/02/20 09/02/20 B-6] roflumilast [Daliresp] 500 mcg PO DAILY 09/02/20 09/02/20 tamsulosin 0.8 mg PO BEDTIME 09/02/20 09/02/20 Previous Rx's Medication Instructions Recorded irbesartan 150 mg PO DAILY #30 tab 07/13/20 prednisone 40 mg PO DAILY 5 Days #10 tab 09/02/20 Allergies Allergy/AdvReac Type Severity Reaction Status Date / Time Penicillins [PENICILLINS] Allergy Severe RASH Verified 07/10/20 05:03 morphine Allergy Unknown unspecified Verified 07/10/20 05:03 penicillin V Allergy Unknown hives/skin Verified 07/10/20 05:03 rash lisinopril AdvReac Unknown diarrhea Verified 07/10/20 05:03 14-Count Warmer Allergy Severe Rash Uncoded 07/10/20 05:03 Review of Systems Review of Systems: Constitutional : No Fever, No Chills ENT/Mouth : No Hoarseness, No sore throat, No Rhinorrhea Eyes: No Redness, No Discharge, No Vision Changes Cardiovascular : No Chest Pain, positive SOB, positive Dyspnea on Exertion, No Edema Respiratory : positive Cough, No Sputum, positive Wheezing, Gastrointestinal : No Nausea, No Vomiting, No Diarrhea, No abdominal Pain Genitourinary : No Dysuria, No Hematuria Musculoskeletal : No joint pain, No Myalgias Skin : No rash Neuro : No Weakness, No Numbness, No Headache Psych : No anxiety, depression Heme/Lymph: No Bruising, No Bleeding Endocrine : No Polyuria, No Polydipsia All other systems reviewed and are negative COUNT INCLUDES THE [facility] Past Medical History Attestation statement: The following information was validated with the patient. Medical History Anxiety Bipolar 1 disorder Chronic rhinitis COPD (chronic obstructive pulmonary disease) HLD (hyperlipidemia) HTN (hypertension) Multiple sclerosis Osteoporosis Stroke Tobacco dependence Vitamin D deficiency Surgical History Hx of cholecystectomy Hx of hysterectomy Family History Family History (Updated 07/10/20 @ 10:41 by CAESAR Simms) Father Stroke Mother No problems noted. Social History Social History Household Members: Unknown / Unable to assess Housing: Apartment Alcohol intake: never Smoking Status: Never smoker Tobacco Type: Cigarette Packs Per Day: 1 Cigarettes Per Day: 20 Years Smoked: approx 60 years Advance Directives: No Advance Directives Information Provided: Yes service: No Current occupational status: unemployed Physical Exam Vital Signs: Vital Signs: Last Vital Signs Temp 98.4 F 09/02/20 11:48 Pulse 101 H 09/02/20 13:59 Resp 24 H 09/02/20 11:48 BP 137/89 09/02/20 11:48 Pulse Ox 96 09/02/20 11:48 Body Mass Index 20.6 Appearance: Alert. Oriented X3. mild acute distress. Eyes: Pupils equal, round and reactive to light. ENT: Pharynx normal. Neck: Normal inspection. Neck supple. CVS: Normal heart rate and rhythm. Pulses normal. Respiratory: mild respiratory distress - short phrases and tachypnea with retractions. Breath sounds diminished with diffuse exp wheezing throughout Abdomen: Soft and nontender. Skin: Skin warm and dry. Normal skin color. Normal skin turgor. Extremities: No lower extremity edema. No calf ttp Neuro: Oriented X 3. No motor deficit. No sensory deficit. Course Course Course Narrative: repeat albuterol 5mg neb ordered, no hypoxia no hypoxia still wheezing very tight, retractions and tachypnea patient now up and walking initially wanted to leave but decided to stay, the patient is alert and oriented and now states she wants to go home nad does not want admission patient then changed her mind and states she wants to stay at this time I am not sure what to do with the patient, she keeps coming out of her room patient now states she doesn't want to stay and refuses to stay in ED since there is no bed available at this time. patient can leave at this time. was offered admission multiple times. wants neb and then to go home. MDM - Asthma MDM Narrative Medical decision making narrative: 74 yo female with long standing asthma and + smoker at this time will need repeat 5mg neb, IV steroids, IV magnesium - labs, EKG, CXR, has no chest pain to suggest ACS/PE - history consistent with asthma Lab Data Result diagrams: 09/02/20 12:44 09/02/20 12:44 Labs: Lab Results 09/02/20 09/02/20 09/02/20 Range/Units 12:44 12:44 12:44 WBC 3.7 L (4.8-10.8) X10*3/uL RBC 3.84 L (4.20-5.50) X10*6/uL Hgb 9.3 L (12.0-16.0) g/dl Hct 32.3 L (37-47) % MCV 84.1 (80-98) fL MCH 24.2 L (27.0-33.0) pg MCHC 28.8 L (31.0-35.0) g/dl RDW 19.9 H (11.0-16.0) % Plt Count 206 (160-400) X10*3/uL MPV 10.2 (9.4-12.3) fL Immature Gran % (Auto) 0.3 (0.0-0.4) % Neut % (Auto) 60.6 (45-73) % Lymph % (Auto) 27.9 (20-40) % [place] % (Auto) 7.9 (2-11) % Eos % (Auto) 2.2 (0-4) % Baso % (Auto) 1.1 (0-2) % Lymph # (Auto) 1.0 L (1.2-4.9) X10*3/uL [place] # (Auto) 0.3 (0.1-1.2) X10*3/uL Eos # (Auto) 0.1 (0.0-0.4) X10*3/uL Baso # (Auto) 0.0 (0.0-0.2) X10*3/uL Abs Immat Gran (auto) 0.01 (0.00-0.03) X10*3/uL Absolute Neuts (auto) 2.2 (2.0-8.3) X10*3/uL Absolute Nucleated RBC 0.000 (0.0-0.012) X10*3/uL Nucleated RBC % (auto) 0.0 (0.0-0.2) /100WBC Hold Blue Top Sodium 141 (135-145) mmol/L Potassium 4.0 (3.3-5.1) mmol/L Chloride 108 (96-108) mmol/L Carbon Dioxide 21 L (22-29) mmol/L Anion Gap 16 (12-20) BUN 11 D (9-16) mg/dL Creatinine 0.62 (0.5-1.4) mg/dL Estim Creat Clear Calc 58.9 Estimated GFR > 60 Random Glucose 94 (60-115) mg/dL Calcium 8.8 D (8.4-10.2) mg/dL Magnesium 1.9 (1.6-2.6) mg/dL Total Bilirubin 0.5 (0.0-1.0) mg/dL Direct Bilirubin 0.2 (0.0-0.5) mg/dL AST 30 D (5-31) U/L ALT 16 (0-31) U/L Alkaline Phosphatase 139 H D (39-117) U/L Total Protein 7.0 D (6.5-8.0) g/dL Albumin 4.4 D (3.5-5.0) g/dL Lipase (8-78) U/L COVID-19 ([facility]) Negative (Negative) COVID-19 Clin Com See Note 09/02/20 09/02/20 Range/Units 12:44 12:44 WBC (4.8-10.8) X10*3/uL RBC (4.20-5.50) X10*6/uL Hgb (12.0-16.0) g/dl Hct (37-47) % MCV (80-98) fL MCH (27.0-33.0) pg MCHC (31.0-35.0) g/dl RDW (11.0-16.0) % Plt Count (160-400) X10*3/uL MPV (9.4-12.3) fL Immature Gran % (Auto) (0.0-0.4) % Neut % (Auto) (45-73) % Lymph % (Auto) (20-40) % [place] % (Auto) (2-11) % Eos % (Auto) (0-4) % Baso % (Auto) (0-2) % Lymph # (Auto) (1.2-4.9) X10*3/uL [place] # (Auto) (0.1-1.2) X10*3/uL Eos # (Auto) (0.0-0.4) X10*3/uL Baso # (Auto) (0.0-0.2) X10*3/uL Abs Immat Gran (auto) (0.00-0.03) X10*3/uL Absolute Neuts (auto) (2.0-8.3) X10*3/uL Absolute Nucleated RBC (0.0-0.012) X10*3/uL Nucleated RBC % (auto) (0.0-0.2) /100WBC Hold Blue Top SEE NOTE Sodium (135-145) mmol/L Potassium (3.3-5.1) mmol/L Chloride (96-108) mmol/L Carbon Dioxide (22-29) mmol/L Anion Gap (12-20) BUN (9-16) mg/dL Creatinine (0.5-1.4) mg/dL Estim Creat Clear Calc Estimated GFR Random Glucose (60-115) mg/dL Calcium (8.4-10.2) mg/dL Magnesium (1.6-2.6) mg/dL Total Bilirubin (0.0-1.0) mg/dL Direct Bilirubin (0.0-0.5) mg/dL AST (5-31) U/L ALT (0-31) U/L Alkaline Phosphatase (39-117) U/L Total Protein (6.5-8.0) g/dL Albumin (3.5-5.0) g/dL Lipase 18 (8-78) U/L COVID-19 ([facility]) (Negative) COVID-19 Clin Com ECG Data Attestation: I personally reviewed and interpreted this ECG as follows: ECG interpretation date: 09/02/20 ECG interpretation time: 12:24 Interpretation: Rate: 104 Rhythm: sinus tachycardia Adell: normal Normal P waves. Normal MEE. Normal QRS complex. ST T wave : normal no DASIA qTC: normal prior studies: no acute ischemia The study has been interpreted contemporaneously by me. . Critical Care Time Critical Care Time Critical Care Time: Yes Total Critical Care Time: 35 Attestation: I attest to this time spent taking care of the patient repeat hour long [facility] Discharge Plan Discharge Clinical Impression: Asthma Qualifiers: Asthma severity: severe Asthma persistence: persistent Asthma complication type: with acute exacerbation Qualified Code(s): J45.51 - Severe persistent asthma with (acute) exacerbation Patient Disposition: Home, Self-Care Instructions: Asthma (ED) Additional Instructions: return to ED for any worsening symptoms or concerns you were offered admission but refused Prescriptions: New prednisone 20 mg tablet 40 mg PO DAILY 5 Days Qty: 10 RF: 0 No Action fluticasone propionate 50 mcg/actuation spray,suspension 2 spray intranasal DAILY RF: 0 ipratropium bromide 0.03 % spray,non-aerosol 2 spray intranasal TID PRN (Reason: allergies) RF: 0 Incruse Ellipta 62.5 mcg/actuation blister with device 1 puff inhalation DAILY RF: 0 irbesartan 150 mg tablet 150 mg PO DAILY Qty: 30 RF: 0 acetaminophen [Arthritis Pain Reliever] 650 mg Tablet Extended Release 650 mg PO Q8H PRN (Reason: Pain) RF: 0 oxycodone 5 mg Tablet 5 mg PO BID PRN (Reason: Pain) RF: 0 pyridoxine (vitamin B6) [Vitamin B-6] 25 mg Tablet 25 mg PO BEDTIME RF: 0 tamsulosin 0.4 mg capsule 0.8 mg PO BEDTIME RF: 0 Daliresp 250 mcg Tablet 500 mcg PO DAILY RF: 0 nicotine (polacrilex) 2 mg Gum 2 mg BUCCAL Q2H RF: 0 Breo Ellipta 200-25 mcg/dose Blister With Device 1 inh INHALATION DAILY RF: 0 magnesium oxide 400 mg magnesium Tablet 400 mg PO DAILY RF: 0 metoprolol tartrate 25 mg tablet 25 mg PO BID RF: 0 gabapentin 100 mg capsule 100 mg PO TID RF: 0 mirtazapine 15 mg tablet 15 mg PO BEDTIME RF: 0 omeprazole 20 mg capsule,delayed release(DR/EC) 20 mg PO BID@0630,1630 RF: 0 sertraline 100 mg tablet 100 mg PO DAILY RF: 0 amantadine HCl 100 mg capsule 100 mg PO DAILY RF: 0 thiamine HCl (vitamin B1) 100 mg tablet 100 mg PO QAM RF: 0 multivitamin Tablet 1 tab PO QAM RF: 0 docusate sodium [Colace] 100 mg capsule 100 mg PO BID RF: 0 atorvastatin 40 mg tablet 40 mg PO DAILY RF: 0 aspirin [Adult Aspirin Regimen] 81 mg tablet,delayed release (DR/EC) 81 mg PO DAILY RF: 0 calcium carbonate 300 mg (750 mg) tablet,chewable 1 tab PO DAILY RF: 0 ergocalciferol (vitamin D2) [Vitamin D2] 1,250 mcg (50,000 unit) capsule 1,250 mcg PO LEONE@1000 RF: 0 vitamin E (dl, acetate) 400 unit capsule 400 unit PO BEDTIME RF: 0 albuterol sulfate 90 mcg/actuation HFA aerosol inhaler 2 puff inhalation Q4-6H PRN (Reason: Shortness Of Breath Or Wheezing) RF: 0 trazodone 50 mg tablet 50 mg PO BEDTIME RF: 0 Referrals: Physician,Unknown [Primary Care Provider] - 2 days Print Language: Bengali
[2020-09-02] MEDS: Albuterol Sulfate (0.083%) 2.5 MG/3 ML VIAL.NEB 5 MG INHALE ×2 (12:29→13:58)
[2020-09-02 12:31] VITALS: PULSE 10; O2SAT 100
[2020-09-02] MEDS: methylPREDNISolone Sod Succ/PF 125 MG/2 ML VIAL 60 MG IVPUSH (12:47)
[2020-09-02] MEDS: Magnesium Sulfate/H2O 2 GM/50 ML PIGGYBACK IV (12:47)
[2020-09-02 12:51] LABS: MANUAL DIFF FLAG NO
[2020-09-02 12:58] LABS: Basophils Percent Auto 1.1 % (0-2); Eosinophils Absolute Auto 0.1 X10*3/uL (0.0-0.4); Eosinophils Percent Auto 2.2 % (0-4); Hematocrit 32.3 % (37-47); Hemoglobin 9.3 g/dl (12.0-16.0); Imm Gran Abs Auto 0.01 X10*3/uL (0.00-0.03); Imm Gran Pct Auto 0.3 % (0.0-0.4); Lymphocytes Percent Auto 27.9 % (20-40); Mean Corpuscular HGB Conc 28.8 g/dl (31.0-35.0); Mean Corpuscular Hemoglobin 24.2 pg (27.0-33.0); Mean Corpuscular Volume 84.1 fL (80-98); Mean Platelet Volume 10.2 fL (9.4-12.3); Monocytes Absolute Auto 0.3 X10*3/uL (0.1-1.2); Monocytes Percent Auto 7.9 % (2-11); Neutrophils Absolute Auto 2.2 X10*3/uL (2.0-8.3); Neutrophils Percent Auto 60.6 % (45-73); Platelet Count 206 X10*3/uL (160-400); Red Blood Count 3.84 X10*6/uL (4.20-5.50); Red Cell Distribution Width 19.9 % (11.0-16.0); White Blood Count 3.7 X10*3/uL (4.8-10.8)
[2020-09-02 13:16] LABS: COVID-19 Test Negative (Negative)
[2020-09-02 13:24] LABS: Lipase 18 U/L (8-78)
[2020-09-02 13:27] LABS: Alanine Aminotransferase 16 U/L (0-31); Albumin Level 4.4 g/dL (3.5-5.0); Alkaline Phosphatase 139 U/L (39-117); Anion Gap 16 (12-20); Aspartate Amino Transferase 30 U/L (5-31); Bilirubin Direct 0.2 mg/dL (0.0-0.5); Bilirubin Total 0.5 mg/dL (0.0-1.0); Blood Urea Nitrogen 11 mg/dL (9-16); Calcium 8.8 mg/dL (8.4-10.2); Carbon Dioxide 21 mmol/L (22-29); Chloride 108 mmol/L (96-108); Creatinine Clr Calc Pharmacy 58.9; Estimated Glomerular Filt Rate > 60; Glucose Random 94 mg/dL (60-115); Magnesium 1.9 mg/dL (1.6-2.6); Sodium 141 mmol/L (135-145)
[2020-09-02 13:59] VITALS: PULSE 101; O2SAT 94
[2020-09-02 15:54] VITALS: PULSE 112; O2SAT 93
[2020-09-02] MEDS: Albuterol Sulfate (0.083%) 2.5 MG/3 ML VIAL.NEB INHALE (15:54)
[2020-09-02 16:10] VITALS: BP 180/63; PULSE 112; RESP 22; O2SAT 95
== END 2020-09-02 17:05 | disposition home or self-care (01) ==
PROVIDERS: Emergency Provider Emergency Medicine
DX: J45.51 Severe persistent asthma with (acute) exacerbation (principal); Z20.822 Contact with and (suspected) exposure to COVID-19; F17.210 Nicotine dependence, cigarettes, uncomplicated; I10 Essential (primary) hypertension; G35 Multiple sclerosis; Z79.899 Other long term (current) drug therapy; Z86.73 Personal history of transient ischemic attack (TIA), and cerebral infarction without residual deficits
CPT/HCPCS: 36415; 71045; 80048; 80076; 83690; 83735; 85025; 87635; 93005; 94640; 96365; 96375; 99284; 99291; J2930; J3475

== ENCOUNTER → 2020-09-13 13:46 | Outpatient (BNVA) | payer MEDICARE, MEDICAID, SELFPAY | PROVIDERS: PCP Internal Medicine; Visit Provider Hospitalist | DX: J41.8 Mixed simple and mucopurulent chronic bronchitis (principal); J31.0 Chronic rhinitis; F41.9 Anxiety disorder, unspecified; F17.200 Nicotine dependence, unspecified, uncomplicated | CPT/HCPCS: 96372; 99212; J2930 ==

== ENCOUNTER → 2020-10-08 10:57 | Outpatient (BNVA) | payer MEDICARE, MEDICAID, SELFPAY | PROVIDERS: PCP Internal Medicine; Visit Provider Hospitalist | DX: J41.8 Mixed simple and mucopurulent chronic bronchitis (principal); J31.0 Chronic rhinitis; F17.200 Nicotine dependence, unspecified, uncomplicated; D64.89 Other specified anemias; L89.309 Pressure ulcer of unspecified buttock, unspecified stage; Z71.6 Tobacco abuse counseling | CPT/HCPCS: 99212 ==

== ENCOUNTER 2020-10-12 09:58 | Outpatient (REF) | payer MEDICARE, MEDICAID, SELFPAY ==
[2020-10-12 11:01] LABS: MANUAL DIFF FLAG NO
[2020-10-12 11:04] LABS: Basophils Percent Auto 0.5 % (0-2); Eosinophils Absolute Auto 0.1 X10*3/uL (0.0-0.4); Eosinophils Percent Auto 0.9 % (0-4); Hematocrit 30.5 % (37-47); Hemoglobin 8.6 g/dl (12.0-16.0); Imm Gran Abs Auto 0.03 X10*3/uL (0.00-0.03); Imm Gran Pct Auto 0.5 % (0.0-0.4); Lymphocytes Absolute Auto 1.1 X10*3/uL (1.2-4.9); Lymphocytes Percent Auto 16.9 % (20-40); Mean Corpuscular HGB Conc 28.2 g/dl (31.0-35.0); Mean Corpuscular Hemoglobin 25.4 pg (27.0-33.0); Mean Corpuscular Volume 90.2 fL (80-98); Mean Platelet Volume 10.3 fL (9.4-12.3); Monocytes Absolute Auto 0.5 X10*3/uL (0.1-1.2); Monocytes Percent Auto 7.9 % (2-11); Neutrophils Absolute Auto 4.9 X10*3/uL (2.0-8.3); Neutrophils Percent Auto 73.3 % (45-73); Platelet Count 300 X10*3/uL (160-400); Red Blood Count 3.38 X10*6/uL (4.20-5.50); White Blood Count 6.6 X10*3/uL (4.8-10.8)
[2020-10-12 11:48] LABS: Erythrocyte Sedimentation Rate 36 MM/HR (0-20)
[2020-10-12 12:09] LABS: Ferritin 12 ng/mL (10-250)
[2020-10-12 12:10] LABS: Anion Gap 20 (12-20); Blood Urea Nitrogen 12 mg/dL (9-16); Calcium 9.4 mg/dL (8.4-10.2); Carbon Dioxide 22 mmol/L (22-29); Chloride 104 mmol/L (96-108); Estimated Glomerular Filt Rate > 60; Glucose Random 89 mg/dL (60-115); Potassium 4.6 mmol/L (3.3-5.1); Sodium 141 mmol/L (135-145)
== END 2020-10-12 09:59 | disposition home or self-care (01) ==
LOC: HO.LAB 09:58
PROVIDERS: PCP Internal Medicine; Visit Provider Hospitalist
DX: D64.9 Anemia, unspecified (principal)
CPT/HCPCS: 36415; 80048; 82728; 85025; 85652

== ENCOUNTER 2020-10-25 08:01 | Outpatient (RCR) | payer MEDICARE, MEDICAID, SELFPAY | END 2020-10-29 15:31 | disposition home or self-care (01) | LOC: HO.WCC 08:01 | PROVIDERS: Visit Provider Physician Assistant | DX: I70.233 Atherosclerosis of native arteries of right leg with ulceration of ankle (principal); L97.311 Non-pressure chronic ulcer of right ankle limited to breakdown of skin; F17.210 Nicotine dependence, cigarettes, uncomplicated; Z71.6 Tobacco abuse counseling | CPT/HCPCS: 99212 ==

== ENCOUNTER 2020-11-12 07:25 | Outpatient (REF) | payer MEDICARE, MEDICAID, SELFPAY | END 2020-11-12 07:26 | disposition home or self-care (01) | LOC: HO.MDS 07:25 | PROVIDERS: PCP Internal Medicine; Visit Provider Internal Medicine | DX: D50.9 Iron deficiency anemia, unspecified (principal) | CPT/HCPCS: 96365; 96366; J1200; J1750; Q0163 ==

== ENCOUNTER → 2021-02-10 09:46 | Outpatient (BNVA) | payer MEDICARE, MEDICAID, SELFPAY | PROVIDERS: PCP Internal Medicine; Visit Provider Hospitalist | DX: J41.8 Mixed simple and mucopurulent chronic bronchitis (principal); J31.0 Chronic rhinitis; F17.200 Nicotine dependence, unspecified, uncomplicated; K21.9 Gastro-esophageal reflux disease without esophagitis | CPT/HCPCS: 99212 ==

== ENCOUNTER → 2021-06-23 12:45 | Outpatient (BNVA) | payer MEDICARE, MEDICAID, SELFPAY | PROVIDERS: PCP Internal Medicine; Visit Provider Hospitalist | DX: J41.8 Mixed simple and mucopurulent chronic bronchitis (principal); J31.0 Chronic rhinitis; F17.210 Nicotine dependence, cigarettes, uncomplicated | CPT/HCPCS: 99212 ==

== ENCOUNTER → 2021-10-14 10:38 | Outpatient (BNVA) | payer MEDICARE, MEDICAID, SELFPAY | PROVIDERS: PCP Internal Medicine; Visit Provider Hospitalist | DX: J41.8 Mixed simple and mucopurulent chronic bronchitis (principal); J31.0 Chronic rhinitis; F17.200 Nicotine dependence, unspecified, uncomplicated; Z71.6 Tobacco abuse counseling | CPT/HCPCS: 99212 ==

== ENCOUNTER 2022-01-23 08:32 | Outpatient (REF) | payer MEDICARE, MEDICAID, SELFPAY | END 2022-01-23 08:33 | disposition home or self-care (01) | LOC: HO.HOSX 08:32 | PROVIDERS: Visit Provider Physician Assistant | DX: Z13.89 Encounter for screening for other disorder (principal) ==

== ENCOUNTER 2022-01-24 07:48 | Outpatient (REF) | payer MEDICARE, MEDICAID, SELFPAY ==
--- NOTE | ~2022-01-24 | XR_ITS ---
EXAMINATION: KNEE X-RAY CLINICAL INFORMATION: Pain COMPARISON: Previous x-ray from 2018 TECHNIQUE: Standing AP view of both knees and lateral and sunrise view of the left knee FINDINGS: Left: Bone alignment is normal. No fracture or dislocation is seen. There is mild joint space narrowing at the medial femoral tibial joint. There is no joint effusion. There is atherosclerotic disease. Standing AP view of the right knee is unremarkable. XR/XR knee LT 2V IMPRESSION: Left knee: Mild medial femoral tibial joint space narrowing. Unremarkable right knee.
--- NOTE | ~2022-01-24 | XR_ITS ---
EXAMINATION: KNEE X-RAY CLINICAL INFORMATION: Pain COMPARISON: Previous x-ray from 2018 TECHNIQUE: Standing AP view of both knees and lateral and sunrise view of the left knee FINDINGS: Left: Bone alignment is normal. No fracture or dislocation is seen. There is mild joint space narrowing at the medial femoral tibial joint. There is no joint effusion. There is atherosclerotic disease. Standing AP view of the right knee is unremarkable. XR/XR knee standing BI IMPRESSION: Left knee: Mild medial femoral tibial joint space narrowing. Unremarkable right knee.
== END 2022-01-24 07:49 | disposition home or self-care (01) ==
LOC: HO.HOSX 07:48
PROVIDERS: Visit Provider Physician Assistant
DX: M17.12 Unilateral primary osteoarthritis, left knee (principal)
CPT/HCPCS: 20610; 73560; 73565; 99202; J1040

== ENCOUNTER → 2022-04-14 08:40 | Outpatient (BNVA) | payer MEDICARE, MEDICAID, SELFPAY | PROVIDERS: PCP Internal Medicine; Visit Provider Hospitalist | DX: J41.8 Mixed simple and mucopurulent chronic bronchitis (principal); J31.0 Chronic rhinitis; F17.210 Nicotine dependence, cigarettes, uncomplicated; Z79.899 Other long term (current) drug therapy | CPT/HCPCS: 87205; 94640; 99212 ==

== ENCOUNTER 2022-04-14 09:54 | Outpatient (REF) | payer MEDICARE, MEDICAID, SELFPAY | END 2022-04-14 09:55 | disposition home or self-care (01) | LOC: HO.LNP 09:54 | PROVIDERS: Visit Provider Hospitalist | DX: Z13.89 Encounter for screening for other disorder (principal) | CPT/HCPCS: 87070; 87205 ==

== ENCOUNTER 2022-05-28 11:40 | Inpatient (IN) | payer MEDICARE, MEDICAID, SELFPAY ==
--- NOTE | ~2022-05-28 | XR_ITS ---
EXAMINATION: XR CHEST XR ABDOMEN CLINICAL INFORMATION: Left lateral sided rib cage pain. Left-sided back/abdominal pain. COMPARISON: 01/25/2022 TECHNIQUE: Portable AP upright view of the chest. Portable AP view of the abdomen. FINDINGS: Chest: The lungs are well expanded. No consolidation. No edema or effusion. No pneumothorax. The cardiomediastinal silhouette is normal in size, with a calcified aorta. No displaced rib fractures identified. ABDOMEN: Normal bowel gas pattern. No dilated loops of bowel. Gas and stool scattered throughout the colon. Right upper quadrant surgical clips. Additional clips noted in the left upper quadrant of the abdomen. Clips overlie the sacrum. XR/XR KUB IMPRESSION: 1. Clear lungs. No displaced rib fractures identified. 2. Nonobstructive bowel gas pattern.
--- NOTE | ~2022-05-28 | XR_ITS ---
EXAMINATION: XR CHEST CLINICAL INFORMATION: Chest pain with shortness of breath COMPARISON: September 02, 2020 TECHNIQUE: 2 views of the chest were obtained. FINDINGS: There are changes of diffuse emphysema present. There is right apical pleural parenchymal scarring seen. There is a region of density seen within the right middle lobe which may be related to atelectasis or pneumonitis. Heart normal size. No pneumothorax or pleural effusion. XR/XR chest 2V IMPRESSION: Changes of emphysema. Right middle lobe density.
--- NOTE | ~2022-05-28 | XR_ITS ---
EXAMINATION: XR CHEST XR ABDOMEN CLINICAL INFORMATION: Left lateral sided rib cage pain. Left-sided back/abdominal pain. COMPARISON: 01/25/2022 TECHNIQUE: Portable AP upright view of the chest. Portable AP view of the abdomen. FINDINGS: Chest: The lungs are well expanded. No consolidation. No edema or effusion. No pneumothorax. The cardiomediastinal silhouette is normal in size, with a calcified aorta. No displaced rib fractures identified. ABDOMEN: Normal bowel gas pattern. No dilated loops of bowel. Gas and stool scattered throughout the colon. Right upper quadrant surgical clips. Additional clips noted in the left upper quadrant of the abdomen. Clips overlie the sacrum. XR/XR chest 1V IMPRESSION: 1. Clear lungs. No displaced rib fractures identified. 2. Nonobstructive bowel gas pattern.
--- NOTE | 2022-05-28 11:48 | ED.SOB ---
HPI - SOB/Dyspnea General Chief Complaint: Dyspnea Stated Complaint: sob,chest pain Time Seen by Provider: 05/28/22 11:43 Source: patient, EMS and tire and tube repairer Mode of arrival: EMS Limitations: language barrier History of Present Illness HPI Narrative: 76-year-old female with a history of COPD, hypertension, high cholesterol who presents with increasing shortness of breath over the last few days with chest tightness which began at 10:00 this morning. Patient also reports bilateral chest discomfort. Patient reports chest congestion but unable to cough. No fevers reported. Patient does report diffuse body aches. Of note, patient was discharged from [facility] on May 21 after being admitted for COPD exacerbation and pneumonia. She was discharged on azithromycin and prednisone which she completed. Patient smokes cigarettes Patient took 325 mg of aspirin prior to arrival and received 2.5 mg of albuterol Related Data Home Medications Medication Instructions Recorded Confirmed amantadine HCl 100 mg capsule 100 mg PO DAILY 05/06/20 10/20/20 aspirin 81 mg tablet,delayed 81 mg PO DAILY 05/06/20 10/20/20 release (Adult Aspirin Regimen) atorvastatin 40 mg tablet 40 mg PO DAILY 05/06/20 10/20/20 docusate sodium 100 mg capsule 100 mg PO BID 05/06/20 10/20/20 (Colace) ergocalciferol (vitamin D2) 1,250 1,250 mcg PO LEONE@1000 05/06/20 10/20/20 mcg (50,000 unit) capsule (Vitamin D2) metoprolol tartrate 25 mg tablet 25 mg PO BID 05/06/20 10/20/20 omeprazole 20 mg capsule,delayed 20 mg PO BID@0630,1630 05/06/20 10/20/20 release sertraline 100 mg tablet 100 mg PO DAILY 05/06/20 10/20/20 trazodone 50 mg tablet 50 mg PO BEDTIME 06/18/20 10/20/20 fluticasone propionate 50 2 spray intranasal DAILY 07/10/20 10/20/20 mcg/actuation nasal spray,suspension acetaminophen 650 mg 650 mg PO Q8H PRN Pain 09/02/20 10/20/20 tablet,extended release (Arthritis Pain Reliever) losartan 100 mg tablet 100 mg PO DAILY 09/02/20 10/20/20 oxycodone 5 mg tablet 5 mg PO BID PRN Pain 09/02/20 10/20/20 pyridoxine (vitamin B6) 25 mg 25 mg PO BEDTIME 09/02/20 10/20/20 tablet (Vitamin B-6) teriflunomide 14 mg tablet 14 mg PO DAILY 10/08/20 10/20/20 calcium carbonate 200 mg calcium 200 mg PO BID 06/23/21 (500 mg) chewable tablet (Naeem-Gest Antacid) gabapentin 100 mg capsule 100 mg PO TID 06/23/21 irbesartan 300 mg tablet 300 mg PO QAM 06/23/21 thiamine HCl (vitamin B1) 100 mg 100 mg PO QAM 06/23/21 tablet vitamin E (dl, acetate) 180 mg 180 mg PO BEDTIME 06/23/21 (400 unit) capsule chlorthalidone 25 mg tablet 12.5 mg PO QAM 04/14/22 diltiazem HCl 360 mg 360 mg PO DAILY 04/14/22 capsule,extended release 24 hr mirtazapine 30 mg tablet 30 mg PO BEDTIME 04/14/22 nebulizers 04/14/22 Previous Rx's Medication Instructions Recorded albuterol sulfate 2.5 mg/3 mL 2.5 mg (3 mL) inhalation Q4-6H PRN 09/02/20 (0.083 %) solution for nebulization shortness of breath or wheezing #90 mL ipratropium bromide 21 mcg (0.03 2 spray intranasal TID PRN 10/06/20 %) nasal spray allergies 90 days #3 ea umeclidinium 62.5 mcg/actuation 1 inh inhalation DAILY #30 caps 01/05/21 blister powder for inhalation (Incruse Ellipta) fluticasone furoate 200 1 ea inhalation DAILY #60 caps 02/01/21 mcg-vilanterol 25 mcg/dose inhalation powder (Breo Ellipta) ipratropium 0.5 mg-albuterol 3 mg 3 ml inhalation QID 30 days #360 mL 02/10/21 (2.5 mg base)/3 mL nebulization soln dextromethorphan-guaifenesin 5 10 ml PO Q6H PRN cough #355 mL 06/23/21 mg-100 mg/5 mL oral liquid (Robitussin Cough-Chest Congestion DM) roflumilast 250 mcg tablet 250 mcg PO QAM #30 tabs 10/19/21 (Daliresp) albuterol sulfate 90 mcg/actuation 2 puff PO Q4-6H PRN for wheezing 11/29/21 aerosol inhaler #8.5 grams fluticasone fur. 200 mcg-umeclid 1 inh inhalation DAILY 30 days #60 02/06/22 62.5 mcg-vilant 25 mcg ea inhalat.powder (Trelegy Ellipta) ipratropium 20 mcg-albuterol 100 1 puff inhalation QID 30 days #4 02/06/22 mcg/actuation mist for inhalation grams (Combivent Respimat) levalbuterol HCl 1.25 mg/3 mL 1.25 mg (3 mL) inhalation BID 30 04/14/22 solution for nebulization (Xopenex) days #180 mL prednisone 10 mg tablet 10 mg PO DAILY 30 days #30 tabs 04/14/22 nicotine 14 mg/24 hr daily 1 patch transdermal DAILY 28 days 05/18/22 transdermal patch #28 ea Allergies Allergy/AdvReac Type Severity Reaction Status Date / Time Penicillins [PENICILLINS] Allergy Severe RASH Verified 04/14/22 09:01 lisinopril AdvReac Unknown diarrhea Verified 04/14/22 09:01 14-Count Warmer Allergy Severe Rash Uncoded 04/14/22 09:01 Review of Systems Review of Systems: Yes all other systems are reviewed and are negative Constitutional: Constitutional: Reports no additional constitutional complaints, Reports body ache(s), Denies chills, Denies fever(s), Denies headache(s) and Denies weakness Eyes: Eyes: Reports no additional eye complaints and Denies change in vision ENT: Reports system reviewed and no additional complaints, except as documented, Denies dizziness, Denies headache(s), Denies nasal congestion, Denies nasal discharge and Denies neck pain Cardiovascular: Cardiovascular: Reports no additional cardiovascular complaints, Reports chest pain, Denies leg edema and Reports dyspnea Respiratory: Respiratory: Reports no additional respiratory complaints, Denies cough and Reports dyspnea Gastrointestinal: Gastrointestinal: Reports no additional gastrointestinal complaints, Denies abdominal pain, Denies diarrhea, Denies nausea and Denies vomiting Genitourinary: Genitourinary: Reports no additional female genitourinary complaints and Denies urinary incontinence Musculoskeletal: Musculoskeletal: Reports no additional musculoskeletal complaints, Denies back pain, Denies arthralgias, Denies joint swelling, Denies neck pain, Denies numbness and Denies tingling Integumentary/Breasts: Skin/Breast: Reports system reviewed and no additional complaints, except as docu and Denies rash Neurologic: Reports system reviewed and no additional complaints, except as documented, Denies Abnormal speech present, Denies dizziness, Denies headache(s), Denies numbness, Denies tingling and Denies weakness PMF Past Medical History Attestation statement: The following information was validated with the patient. Source: old records reviewed and nursing notes reviewed Medical History Anemia Anxiety Bipolar 1 disorder Chronic rhinitis COPD (chronic obstructive pulmonary disease) Erosive gastritis History of CVA (cerebrovascular accident) (~10/2019) HLD (hyperlipidemia) HTN (hypertension) SRIKANTH (iron deficiency anemia) Multiple sclerosis Osteoporosis Tobacco dependence Vitamin D deficiency Surgical History History of cholecystectomy History of eye surgery History of hysterectomy History of left knee surgery Family History Family History Father Stroke Mother No problems noted. Social History Social History Household Members: Unknown / Unable to assess Housing: Apartment Unable to assess alcohol history related to: Unknown Alcohol intake: former Patient Tobacco Use Status: Current everyday Tobacco user Cigarette Packs Per Day: 1.5 Years Smoked: approx 60 years Advance Directives: Yes Advance Directives on File: Yes Advance Directives Date on File: 05/10/20 service: No Current occupational status: unemployed and disabled Physical Exam Vital Signs: Vital Signs: Last Vital Signs Temp 98.3 F 05/28/22 17:37 Pulse 86 05/28/22 17:37 Resp 13 05/28/22 17:37 BP 144/63 H 05/28/22 17:37 Pulse Ox 91 L 05/28/22 17:37 O2 Del Method 05/28/22 17:37 BMI result Body Mass Index 21.2 Const: General: alert and anxious Orientation/consciousness: patient oriented x3 Limitations: no limitations HEENT: Head: Yes normal to inspection Ears: hearing grossly normal bilaterally and TM's normal bilaterally General nose exam: Normal external nose present Face and sinus: Yes normal facial exam Mouth: Normal oral and palatal mucosa present Throat: Yes posterior oropharynx normal, Yes tonsils normal and Yes uvula midline Eyes: General: appearance normal, both eyes and all related structures Pupils: Equal, round and reactive pupils present Neck: Neck: Yes normal visual inspection, Yes full ROM, Yes no lymphadenopathy and Yes no meningeal signs Chest: Chest palpation & inspection: normal inspection of the chest Resp: Other: +tachypnea with rate 22-24 Rhonchi throughout Cardio: Rate: regular rate Rhythm: regular rhythm Peripheral pulses: Peripheral pulses 2+ throughout GI: Inspection: Yes normal to inspection Palpation (GI): Soft to palpation and nontender Auscultation: normal bowel sounds Back/Spine/Pelvis: Thoracic/Lumbar Spine: thoracic and lumbar spine normal to inspection Skin: General skin exam: no rashes or lesions noted Neuro: General: patient oriented x3, no meningeal signs, no focal motor deficits and normal sensation to monofilament Cranial nerves: Yes Equal, round and reactive pupils present Cognition (Neuro): normal cognition Speech: No Abnormal speech present Gait exam (Neuro): Normal gait present Motor exam (neuro): 5/5 motor strength present throughout Extrem: General: Yes normal to inspection, Yes no pedal edema and Yes no calf tenderness Course Course Course Narrative: 1340-patient very difficult IV access. I did attempt myself several times. Were able to get a very small gauge IV but unable to get labs. Phlebotomy also did try. I did try to convince the patient to let us do an EJ but she refuses this. Reevaluation(s) Reevaluation #1: 1400-Dr Anaya able to get labs with US but unfortunately these hemolyzed Reevaluation #2: 1600-nursing to times labs again. Patient has a chest x-ray that is consistent with a right middle lobe pneumonia. Patient was discharged from [facility] on May 22 after being admitted for pneumonia and COPD exacerbation. Patient's room air saturation is 90%. Patient will need admission. Reevaluation #3: 1625-At this time infection is suspected. Antibiotics ordered Additional Reevaluation(s): Troponin x2 unchanged. Will admit patient for COPD exacerbation, hypoxia and pneumonia. I spoke to Dr. Miller who accepted admission Medications Administered Discontinued Medications Generic Name Dose Route Start Last Admin Trade Name Monique PRN Reason Stop Dose Admin Albuterol/Ipratropium 3 ml 05/28/22 11:56 05/28/22 12:15 Albuterol/Iprat 2.5/0.5mg 3 Ml Ampul.Neb INHALE 05/28/22 11:57 3 ml ONCE ONE Administration Sodium Chloride 500 mls @ 999 mls/hr 05/28/22 13:38 05/28/22 17:58 Ns IV 05/28/22 14:08 Infused .Q31M STA Infusion Cefepime HCl 1 gm/ Sodium 50 mls @ 100 mls/hr 05/28/22 16:26 05/28/22 20:21 Chloride IV 05/28/22 16:55 Infused ONCE ONE Infusion Vancomycin HCl 1,000 mg/ 270 mls @ 270 mls/hr 05/28/22 19:21 05/28/22 20:21 Sodium Chloride IV 05/28/22 20:20 Not Given ONCE ONE Vancomycin HCl 750 mg/ Sodium 265 mls @ 265 mls/hr 05/28/22 19:29 05/28/22 20:03 Chloride IV 05/28/22 20:28 265 mls/hr ONCE ONE Administration Morphine Sulfate 2 mg 05/28/22 11:56 05/28/22 14:31 Morphine Sulfate 2 Mg/Ml Cartridge IVPUSH 05/28/22 11:57 2 mg ONCE ONE Administration Protocol Morphine Sulfate 2 mg 05/28/22 17:51 05/28/22 17:57 Morphine Sulfate 2 Mg/Ml Cartridge IVPUSH 05/28/22 17:52 2 mg ONCE ONE Administration Protocol Potassium Chloride 60 meq 05/28/22 17:35 05/28/22 17:53 Potassium Chloride Er 20 Meq Tab.Er.Prt PO 05/28/22 17:36 60 meq ONCE ONE Administration MDM - SOB/Dyspnea MDM Narrative Medical decision making narrative: 76-year-old female with a history of COPD who smokes cigarettes here with increasing shortness of breath with chest tightness which began today with recent admission to [facility] discharged home with azithromycin and prednisone which patient tells me she completed. On arrival patient is tachypneic, rhonchi throughout. Room air saturation per EMS was 89%. Patient complaining of diffuse body aches. Afebrile. Complaining of chest tightness and discomfort with coughing and breathing. No pedal edema or unilateral leg swelling or pain. Will check labs including blood cultures and lactic acid, chest x-ray, screen for COVID, flu and RSV Will give morphine 2mg IVP( for WOB, body aches) duoneb. Differential Diagnosis Differential diagnosis: Likely acute exacerbation of chronic obstructive airways disease, congestive heart failure, pneumonia and pulmonary embolism Medical Records Attestation: I reviewed the patient's medical records. Lab Data Attestation: I reviewed the patient's lab results. Result diagrams: 05/28/22 16:51 05/28/22 16:51 Labs: Lab Results 05/28/22 05/28/22 05/28/22 Range/Units 12:29 16:51 16:51 WBC 7.8 (4.8-10.8) X10*3/uL RBC 3.24 L (4.20-5.50) X10*6/uL Hgb 9.7 L (12.0-16.0) g/dl Hct 30.7 L (37.0-47.0) % MCV 94.8 (80.0-98.0) fL MCH 29.9 (27.0-33.0) pg MCHC 31.6 (31.0-35.0) g/dl RDW 15.7 (11.0-16.0) % Plt Count 251 (160-400) X10*3/uL MPV 10.2 (9.4-12.3) fL Immature Gran % (Auto) 0.3 (0.0-0.4) % Neut % (Auto) 79.0 H (45-73) % Lymph % (Auto) 13.3 L (20-40) % [place] % (Auto) 6.3 (2-11) % Eos % (Auto) 1.0 (0-4) % Baso % (Auto) 0.1 (0-2) % Lymph # (Auto) 1.0 L (1.2-4.9) X10*3/uL [place] # (Auto) 0.5 (0.1-1.2) X10*3/uL Eos # (Auto) 0.1 (0.0-0.4) X10*3/uL Baso # (Auto) 0.0 (0.0-0.2) X10*3/uL Abs Immat Gran (auto) 0.02 (0.00-0.03) X10*3/uL Absolute Neuts (auto) 6.2 (2.0-8.3) x10*3/uL Absolute Nucleated RBC 0.000 (0.0-0.012) X10*3/uL Nucleated RBC % (auto) 0.0 (0.0-0.2) /100WBC PT (10.0-13.1) SEC INR (0.9-1.1) Sodium 141 (135-145) mmol/L Potassium 3.1 L D (3.3-5.1) mmol/L Chloride 101 (96-108) mmol/L Carbon Dioxide 28 (22-29) mmol/L Anion Gap 15 (12-20) BUN 16 (9-16) mg/dL Creatinine 0.58 (0.5-1.4) mg/dL Estim Creat Clear Calc 44.4 Estimated GFR > 60 Random Glucose 99 (60-115) mg/dL Lactic Acid (0.5-2.0) mmol/L Calcium 8.2 L D (8.4-10.2) mg/dL Magnesium 1.7 (1.6-2.6) mg/dL Total Bilirubin 0.4 (0.0-1.0) mg/dL Direct Bilirubin 0.2 (0.0-0.5) mg/dL AST 37 H (5-31) U/L ALT 39 H (0-31) U/L Alkaline Phosphatase 128 H (39-117) U/L Troponin I High Sens (<3.5-17.0) ng/L B-Natriuretic Peptide (<100) pg/mL Total Protein 5.3 L (6.5-8.0) g/dL Albumin 3.3 L (3.5-5.0) g/dL Influenza Type A (PCR) NEGATIVE (Negative) Influenza Type B (PCR) NEGATIVE (Negative) RSV RNA Qual (PCR) NEGATIVE (Negative) SARS-CoV-2 RNA (RT-PCR) NEGATIVE (Negative) 05/28/22 05/28/22 05/28/22 Range/Units 16:51 16:51 16:51 WBC (4.8-10.8) X10*3/uL RBC (4.20-5.50) X10*6/uL Hgb (12.0-16.0) g/dl Hct (37.0-47.0) % MCV (80.0-98.0) fL MCH (27.0-33.0) pg MCHC (31.0-35.0) g/dl RDW (11.0-16.0) % Plt Count (160-400) X10*3/uL MPV (9.4-12.3) fL Immature Gran % (Auto) (0.0-0.4) % Neut % (Auto) (45-73) % Lymph % (Auto) (20-40) % [place] % (Auto) (2-11) % Eos % (Auto) (0-4) % Baso % (Auto) (0-2) % Lymph # (Auto) (1.2-4.9) X10*3/uL [place] # (Auto) (0.1-1.2) X10*3/uL Eos # (Auto) (0.0-0.4) X10*3/uL Baso # (Auto) (0.0-0.2) X10*3/uL Abs Immat Gran (auto) (0.00-0.03) X10*3/uL Absolute Neuts (auto) (2.0-8.3) x10*3/uL Absolute Nucleated RBC (0.0-0.012) X10*3/uL Nucleated RBC % (auto) (0.0-0.2) /100WBC PT (10.0-13.1) SEC INR (0.9-1.1) Sodium (135-145) mmol/L Potassium (3.3-5.1) mmol/L Chloride (96-108) mmol/L Carbon Dioxide (22-29) mmol/L Anion Gap (12-20) BUN (9-16) mg/dL Creatinine (0.5-1.4) mg/dL Estim Creat Clear Calc Estimated GFR Random Glucose (60-115) mg/dL Lactic Acid 1.0 (0.5-2.0) mmol/L Calcium (8.4-10.2) mg/dL Magnesium (1.6-2.6) mg/dL Total Bilirubin (0.0-1.0) mg/dL Direct Bilirubin (0.0-0.5) mg/dL AST (5-31) U/L ALT (0-31) U/L Alkaline Phosphatase (39-117) U/L Troponin I High Sens 30.4 H (<3.5-17.0) ng/L B-Natriuretic Peptide 101 H (<100) pg/mL Total Protein (6.5-8.0) g/dL Albumin (3.5-5.0) g/dL Influenza Type A (PCR) (Negative) Influenza Type B (PCR) (Negative) RSV RNA Qual (PCR) (Negative) SARS-CoV-2 RNA (RT-PCR) (Negative) 05/28/22 05/28/22 Range/Units 17:45 19:18 WBC (4.8-10.8) X10*3/uL RBC (4.20-5.50) X10*6/uL Hgb (12.0-16.0) g/dl Hct (37.0-47.0) % MCV (80.0-98.0) fL MCH (27.0-33.0) pg MCHC (31.0-35.0) g/dl RDW (11.0-16.0) % Plt Count (160-400) X10*3/uL MPV (9.4-12.3) fL Immature Gran % (Auto) (0.0-0.4) % Neut % (Auto) (45-73) % Lymph % (Auto) (20-40) % [place] % (Auto) (2-11) % Eos % (Auto) (0-4) % Baso % (Auto) (0-2) % Lymph # (Auto) (1.2-4.9) X10*3/uL [place] # (Auto) (0.1-1.2) X10*3/uL Eos # (Auto) (0.0-0.4) X10*3/uL Baso # (Auto) (0.0-0.2) X10*3/uL Abs Immat Gran (auto) (0.00-0.03) X10*3/uL Absolute Neuts (auto) (2.0-8.3) x10*3/uL Absolute Nucleated RBC (0.0-0.012) X10*3/uL Nucleated RBC % (auto) (0.0-0.2) /100WBC PT 14.5 H (10.0-13.1) SEC INR 1.3 H (0.9-1.1) Sodium (135-145) mmol/L Potassium (3.3-5.1) mmol/L Chloride (96-108) mmol/L Carbon Dioxide (22-29) mmol/L Anion Gap (12-20) BUN (9-16) mg/dL Creatinine (0.5-1.4) mg/dL Estim Creat Clear Calc Estimated GFR Random Glucose (60-115) mg/dL Lactic Acid (0.5-2.0) mmol/L Calcium (8.4-10.2) mg/dL Magnesium (1.6-2.6) mg/dL Total Bilirubin (0.0-1.0) mg/dL Direct Bilirubin (0.0-0.5) mg/dL AST (5-31) U/L ALT (0-31) U/L Alkaline Phosphatase (39-117) U/L Troponin I High Sens 30.0 H (<3.5-17.0) ng/L B-Natriuretic Peptide (<100) pg/mL Total Protein (6.5-8.0) g/dL Albumin (3.5-5.0) g/dL Influenza Type A (PCR) (Negative) Influenza Type B (PCR) (Negative) RSV RNA Qual (PCR) (Negative) SARS-CoV-2 RNA (RT-PCR) (Negative) ECG Data Attestation: I personally reviewed and interpreted this ECG as follows: ECG interpretation date: 05/28/22 ECG interpretation time: 12:06 Interpretation: Normal sinus rhythm with a rate is 91, normal KS, normal QRS, and QT Discharge Plan Discharge Clinical Impression: Acute exacerbation of chronic obstructive airways disease, Community acquired pneumonia, Acute hypokalemia Prescriptions: No Action ipratropium bromide 21 mcg (0.03 %) spray,non-aerosol 2 spray intranasal TID PRN (Reason: allergies) 90 Days Qty: 3 1RF umeclidinium [Incruse Ellipta] 62.5 mcg/actuation blister with device 1 inh inhalation DAILY Qty: 30 6RF fluticasone furoate-vilanterol [Breo Ellipta] 200-25 mcg/dose blister with device 1 ea inhalation DAILY Qty: 60 11RF Daliresp 250 mcg tablet 250 mcg PO QAM Qty: 30 11RF albuterol sulfate 90 mcg/actuation HFA aerosol inhaler 2 puff PO Q4-6H PRN (Reason: for wheezing) Qty: 8.5 11RF Trelegy Ellipta 200-62.5-25 mcg blister with device 1 inh inhalation DAILY 30 Days Qty: 60 12RF Combivent Respimat 20-100 mcg/actuation mist 1 puff inhalation QID 30 Days Qty: 4 11RF Rx Instructions: space evenly during waking hours levalbuterol HCl [Xopenex] 1.25 mg/3 mL solution for nebulization 1.25 mg inhalation BID 30 Days Qty: 180 0RF nicotine 14 mg/24 hr patch 24 hour 1 patch transdermal DAILY 28 Days Qty: 28 3RF fluticasone propionate 50 mcg/actuation spray,suspension 2 spray intranasal DAILY acetaminophen [Arthritis Pain Reliever] 650 mg Tablet Extended Release 650 mg PO Q8H PRN (Reason: Pain) oxycodone 5 mg Tablet 5 mg PO BID PRN (Reason: Pain) pyridoxine (vitamin B6) [Vitamin B-6] 25 mg Tablet 25 mg PO BEDTIME losartan 100 mg Tablet 100 mg PO DAILY albuterol sulfate 2.5 mg /3 mL (0.083 %) solution for nebulization 2.5 mg inhalation Q4-6H PRN (Reason: shortness of breath or wheezing) Qty: 90 0RF metoprolol tartrate 25 mg tablet 25 mg PO BID omeprazole 20 mg capsule,delayed release(DR/EC) 20 mg PO BID@0630,1630 sertraline 100 mg tablet 100 mg PO DAILY amantadine HCl 100 mg capsule 100 mg PO DAILY docusate sodium [Colace] 100 mg capsule 100 mg PO BID atorvastatin 40 mg tablet 40 mg PO DAILY aspirin [Adult Aspirin Regimen] 81 mg tablet,delayed release (DR/EC) 81 mg PO DAILY ergocalciferol (vitamin D2) [Vitamin D2] 1,250 mcg (50,000 unit) capsule 1,250 mcg PO LEONE@1000 ipratropium-albuterol 0.5 mg-3 mg(2.5 mg base)/3 mL solution for nebulization 3 ml inhalation QID 30 Days Qty: 360 11RF trazodone 50 mg tablet 50 mg PO BEDTIME Aubagio 14 mg tablet 14 mg PO DAILY diltiazem HCl 360 mg capsule,extended release 24hr 360 mg PO DAILY mirtazapine 30 mg tablet 30 mg PO BEDTIME chlorthalidone 25 mg tablet 12.5 mg PO QAM (DME) nebulizers Misc See Rx Instructions .ROUTE Rx Instructions: As directed prednisone 10 mg tablet 10 mg PO DAILY 30 Days Qty: 30 2RF gabapentin 100 mg capsule 100 mg PO TID irbesartan 300 mg tablet 300 mg PO QAM vitamin E (dl, acetate) 180 mg (400 unit) capsule 180 mg PO BEDTIME calcium carbonate [Naeem-Gest Antacid] 200 mg calcium (500 mg) tablet,chewable 200 mg PO BID thiamine HCl (vitamin B1) 100 mg tablet 100 mg PO QAM Robitussin Cough-Chest Basilio DM 5-100 mg/5 mL liquid 10 ml PO Q6H PRN (Reason: cough) Qty: 355 3RF
[2022-05-28 11:52] VITALS: BP 149/68; BP 166/71; PULSE 101; PULSE 97; RESP 16; TEMP 37.1; O2SAT 88; O2SAT 98; BMI 21.2
--- NOTE | 2022-05-28 11:56 | ECG_ITS ---
Test Reason : SOB/ CHEST PAIN Blood Pressure : / mmHG Vent. Rate : 091 BPM Atrial Rate : 091 BPM P-R Int : 138 ms QRS Dur : 066 ms QT Int : 368 ms P-R-T Axes : 063 070 044 degrees QTc Int : 452 ms Normal sinus rhythm Normal ECG When compared with ECG of 02-SEP-2020 12:17, T wave amplitude has decreased in Anterior leads Referred By: Iman Olson Electronically Signed By:ANNETTE FOX MD
[2022-05-28] MEDS: Albuterol/Iprat 2.5/0.5MG 3 ML AMPUL.NEB INHALE (12:15)
[2022-05-28 12:16] VITALS: PULSE 96; RESP 21; O2SAT 91
--- NOTE | 2022-05-28 12:37 | PC.NURSE ---
Addendum entered by Miri Hudson RN 05/28/22 12:42: phlebotomy contacted for blood draw. Original Note: pt tough stick. 2 rns at bedside for multiple failed attempts.
[2022-05-28 13:20] LABS: Influenza A PCR NEGATIVE (Negative); Influenza B PCR NEGATIVE (Negative); Resp Syncy Virus RNA Qual PCR NEGATIVE (Negative); SARS COV2 PCR INHOUSE NEGATIVE (Negative)
[2022-05-28] MEDS: Morphine Sulfate 2 MG/ML CARTRIDGE IVPUSH ×2 (14:31→17:57)
[2022-05-28] MEDS: 0.9 % Sodium Chloride 500 ML 999 ML IV (14:34)
--- NOTE | 2022-05-28 14:51 | PC.NURSE ---
PT IS VERY DIFFICULT TO OBTAIN ACCESS, SEVERAL ATTEMPTS BY NURSING, DISTRIBUTION SPECIALIST AND MD, PHLEB ALSO ATTEMPTED TO OBTAIN LABS UNSUCCESSFULLY. THIS RN OBTAINED A 24G IN LEFT FA CURRENTLY GIVING IVF PAIN MEDICATION GIVEN. DR NARVAEZ WILL TRY AGAIN AFTER IVF
[2022-05-28 15:20] VITALS: BP 154/74; PULSE 91; RESP 21; TEMP 37; O2SAT 91
[2022-05-28 16:59] LABS: MANUAL DIFF FLAG NO
[2022-05-28 17:00] LABS: Basophils Percent Auto 0.1 % (0-2); Eosinophils Absolute Auto 0.1 X10*3/uL (0.0-0.4); Hematocrit 30.7 % (37.0-47.0); Hemoglobin 9.7 g/dl (12.0-16.0); Imm Gran Abs Auto 0.02 X10*3/uL (0.00-0.03); Imm Gran Pct Auto 0.3 % (0.0-0.4); Lymphocytes Percent Auto 13.3 % (20-40); Mean Corpuscular HGB Conc 31.6 g/dl (31.0-35.0); Mean Corpuscular Hemoglobin 29.9 pg (27.0-33.0); Mean Corpuscular Volume 94.8 fL (80.0-98.0); Mean Platelet Volume 10.2 fL (9.4-12.3); Monocytes Absolute Auto 0.5 X10*3/uL (0.1-1.2); Monocytes Percent Auto 6.3 % (2-11); Neutrophils Absolute Auto 6.2 x10*3/uL (2.0-8.3); Platelet Count 251 X10*3/uL (160-400); Red Blood Count 3.24 X10*6/uL (4.20-5.50); Red Cell Distribution Width 15.7 % (11.0-16.0); White Blood Count 7.8 X10*3/uL (4.8-10.8)
[2022-05-28 17:26] LABS: Alanine Aminotransferase 39 U/L (0-31); Albumin Level 3.3 g/dL (3.5-5.0); Alkaline Phosphatase 128 U/L (39-117); Anion Gap 15 (12-20); Aspartate Amino Transferase 37 U/L (5-31); Bilirubin Direct 0.2 mg/dL (0.0-0.5); Bilirubin Total 0.4 mg/dL (0.0-1.0); Blood Urea Nitrogen 16 mg/dL (9-16); Calcium 8.2 mg/dL (8.4-10.2); Carbon Dioxide 28 mmol/L (22-29); Chloride 101 mmol/L (96-108); Creatinine Clr Calc Pharmacy 44.4; Estimated Glomerular Filt Rate > 60; Glucose Random 99 mg/dL (60-115); Magnesium 1.7 mg/dL (1.6-2.6); Potassium 3.1 mmol/L (3.3-5.1); Sodium 141 mmol/L (135-145); Total Protein 5.3 g/dL (6.5-8.0)
[2022-05-28 17:33] LABS: B Type Natriuretic Peptide 101 pg/mL (<100); Troponin-I High Sensitivity 30.4 ng/L (<3.5-17.0)
[2022-05-28 17:37] VITALS: BP 144/63; PULSE 86; RESP 13; TEMP 36.8; O2SAT 91
[2022-05-28] MEDS: cefEPime HCl 1 GM in 0.9 % Sodium Chloride 50 ML IV (17:49)
--- NOTE | 2022-05-28 17:51 | ECG_ITS ---
Test Reason : BACKPAIN Blood Pressure : / mmHG Vent. Rate : 081 BPM Atrial Rate : 081 BPM P-R Int : 136 ms QRS Dur : 072 ms QT Int : 396 ms P-R-T Axes : 069 070 057 degrees QTc Int : 460 ms Sinus rhythm with occasional Premature atrial complexes Nonspecific ST abnormality Abnormal ECG When compared with ECG of 28-MAY-2022 12:06, ST more depressed Inferior leads Referred By: Iman Olson Electronically Signed By:ANNETTE FOX MD
[2022-05-28] MEDS: Potassium Chloride ER 20 MEQ TAB.ER.PRT 60 MEQ PO (17:53)
[2022-05-28 17:57] LABS: INTERNATIONAL NORM RATIO 1.3 (0.9-1.1); Prothrombin Time 14.5 SEC (10.0-13.1)
[2022-05-28] MEDS: vancomycin HCL 750 MG in 0.9 % Sodium Chloride 250 ML 265 MG IV (20:03)
--- NOTE | 2022-05-28 20:08 | PC.NURSE ---
Pt. resting in bed, watching tv with lights off. Vanco began per SEP. Pt c/o pain to her chest at a 9/10 and reports very little relief from the last does of morphine. notified.
--- NOTE | 2022-05-28 20:39 | PM.IMHP ---
History of Present Illness Date of Service: 05/28/22 Attending physician on admission: Dash Miller Chief Complaint: sob, cough 76 year old female with history of multiple sclerosis, osteoporosis, iron deficiency anemia, hypertension, hyperlipidemia, history of CVA, erosive gastritis, COPD, bipolar disorder, anxiety, and who is a current everyday smoker 1.5 packs per day presented to ED today for evaluation of ongoing shortness of breath, chest tightness, body aches ongoing for about a month. The patient was recently admitted at [facility] for COPD exacerbation and pneumonia and discharged on 05/21 with prednisone and azithromycin which patient states she completed. However, symptoms have not improved. Denies fevers, chills, sore throat, nasal congestion, sinus pressure, nausea, vomiting, abdominal pain, palpitations, lightheadedness, chest pressure. She does endorse chronic constipation. Denies any sick contacts. On arrival, patient developed hypoxia down to 89% was placed on 2 L supplemental oxygen. She was mildly tachypneic at 21 but afebrile. Heart rate 91 which is around her baseline. No leukocytosis. Stable normocytic anemia with H/H 9.7/30.7%. Creatinine 0.58, BUN 16, potassium 3.1, electrolytes otherwise normal. Troponin 30.4 initially and 30.0. BNP 101. Negative for COVID-19, influenza, and RSV. Chest x-ray shows right middle lobe density and emphysematous changes. She was given DuoNeb, IV the vancomycin and cefepime, and repleted with 60 mEq of potassium chloride. Also given morphine for diffuse body aches and pleuritic chest pain. Patient to be admitted for COPD exacerbation. Review of Systems Review of Systems: General: No fevers, malaise, unintentional weight loss. +malaise, + fatigue,+ generalized weakness,+ anorexia HEENT: No blurred vision, diplopia. No sore throat, nasal congestion, rhinorrhea, sinus pain, ear pain Cardiovascular: + pleuritic chest pain. No chest pain, palpitations, or leg edema Respiratory: + shortness of breath, + wheezing, + cough. GI: No abdominal pain, nausea, vomiting, diarrhea, constipation, melena, hematochezia : No dysuria, hematuria, increased urinary frequency, decreased urinary output MSK: +myalgia. No back pain Neuro: No headaches, weakness, paresthesias Skin: No rashes or lesions [facility] Medical History Anemia Anxiety Bipolar 1 disorder Chronic rhinitis COPD (chronic obstructive pulmonary disease) Erosive gastritis History of CVA (cerebrovascular accident) (~10/2019) HLD (hyperlipidemia) HTN (hypertension) SRIKANTH (iron deficiency anemia) Multiple sclerosis Osteoporosis Tobacco dependence Vitamin D deficiency Family History Father Stroke Mother No problems noted. Surgical History History of cholecystectomy History of eye surgery History of hysterectomy History of left knee surgery Social History Household Members: Unknown / Unable to assess Housing: Apartment Unable to assess alcohol history related to: Unknown Alcohol intake: former Patient Tobacco Use Status: Current everyday Tobacco user Cigarette Packs Per Day: 1.5 Years Smoked: approx 60 years Advance Directives: Yes Advance Directives on File: Yes Advance Directives Date on File: 05/10/20 service: No Current occupational status: unemployed and disabled Meds Allergies Allergy/AdvReac Type Severity Reaction Status Date / Time Penicillins [PENICILLINS] Allergy Severe RASH Verified 04/14/22 09:01 lisinopril AdvReac Unknown diarrhea Verified 04/14/22 09:01 14-Count Warmer Allergy Severe Rash Uncoded 04/14/22 09:01 Active Medications: Current Medications Acetaminophen (Acetaminophen 325 Mg Tablet) 650 mg PO Q6H PRN PRN Reason: Pain, Mild (Pain Scale 1-3) Albuterol Sulfate (Albuterol Sulfate (0.083%) 2.5 Mg/3 Ml Vial.Neb) 2.5 mg INHALE Q2H PRN PRN Reason: Shortness of Breath/Wheezing Albuterol/Ipratropium (Albuterol/Iprat 2.5/0.5mg 3 Ml Ampul.Neb) 3 ml INHALE RQ4H WHILE AWAKE SHARAN Enoxaparin Sodium (Enoxaparin Sodium 30 Mg/0.3 Ml Syringe) 30 mg SUBCUT Q24H SHARAN Hydromorphone HCl (Hydromorphone Hcl 0.5 Mg/0.5 Ml Syringe) 0.25 mg IVPUSH Q4H PRN; Protocol PRN Reason: Pain, Severe (Pain Scale 7-10) Methylprednisolone Sodium Succinate (Methylprednisolone Sod Succ 40 Mg/Ml Vial) 40 mg IVPUSH Q12H [facility] Nicotine (Nicotine 21 Mg Patch.Td24) 21 mg TRANSDERMA ONCE ONE Stop: 05/28/22 20:28 Ondansetron HCl (Ondansetron Hcl 4 Mg/2 Ml Vial) 4 mg IVPUSH Q8H PRN PRN Reason: Nausea and Vomiting Oxycodone HCl (Oxycodone Hcl Immed Release 5 Mg Tablet) 5 mg PO Q6H PRN PRN Reason: Pain, Moderate (Pain Scale 4-6 Pharmacy Consult (Consult Rx Vancomycin Dosing) 1 each MISCELLANE DAILY PRN PRN Reason: Consult order Senna (Sennosides 8.6 Mg Tablet) 17.2 mg PO BEDTIME PRN PRN Reason: Constipation Sodium Chloride (0.9 % Sodium Chloride Flush 3 Ml Syringe) 3 ml IVFLUSH QSHIFT [facility] Home Medications Medication Instructions Recorded Confirmed Last Taken Type amantadine HCl 100 mg capsule 100 mg PO DAILY 05/06/20 10/20/20 Unknown History aspirin 81 mg tablet,delayed 81 mg PO DAILY 05/06/20 10/20/20 Unknown History release (Adult Aspirin Regimen) atorvastatin 40 mg tablet 40 mg PO DAILY 05/06/20 10/20/20 Unknown History docusate sodium 100 mg capsule 100 mg PO BID 05/06/20 10/20/20 Unknown History (Colace) ergocalciferol (vitamin D2) 1,250 1,250 mcg PO LEONE@1000 05/06/20 10/20/20 Unknown History mcg (50,000 unit) capsule (Vitamin D2) metoprolol tartrate 25 mg tablet 25 mg PO BID 05/06/20 10/20/20 Unknown History omeprazole 20 mg capsule,delayed 20 mg PO BID@0630,1630 05/06/20 10/20/20 Unknown History release sertraline 100 mg tablet 100 mg PO DAILY 05/06/20 10/20/20 Unknown History trazodone 50 mg tablet 50 mg PO BEDTIME 06/18/20 10/20/20 Unknown History fluticasone propionate 50 2 spray intranasal DAILY 07/10/20 10/20/20 Unknown History mcg/actuation nasal spray,suspension acetaminophen 650 mg 650 mg PO Q8H PRN Pain 09/02/20 10/20/20 Unknown History tablet,extended release (Arthritis Pain Reliever) losartan 100 mg tablet 100 mg PO DAILY 09/02/20 10/20/20 Unknown History oxycodone 5 mg tablet 5 mg PO BID PRN Pain 09/02/20 10/20/20 Unknown History pyridoxine (vitamin B6) 25 mg 25 mg PO BEDTIME 09/02/20 10/20/20 Unknown History tablet (Vitamin B-6) teriflunomide 14 mg tablet 14 mg PO DAILY 10/08/20 10/20/20 Unknown History calcium carbonate 200 mg calcium 200 mg PO BID 06/23/21 Unknown History (500 mg) chewable tablet (Naeem-Gest Antacid) gabapentin 100 mg capsule 100 mg PO TID 06/23/21 Unknown History irbesartan 300 mg tablet 300 mg PO QAM 06/23/21 Unknown History thiamine HCl (vitamin B1) 100 mg 100 mg PO QAM 06/23/21 Unknown History tablet vitamin E (dl, acetate) 180 mg 180 mg PO BEDTIME 06/23/21 Unknown History (400 unit) capsule chlorthalidone 25 mg tablet 12.5 mg PO QAM 04/14/22 Unknown History diltiazem HCl 360 mg 360 mg PO DAILY 04/14/22 Unknown History capsule,extended release 24 hr mirtazapine 30 mg tablet 30 mg PO BEDTIME 04/14/22 Unknown History nebulizers 04/14/22 Unknown History Physical Exam Vital Signs and Narrative: Vital Signs: Last Vital Signs Temp 98.3 F 05/28/22 17:37 Pulse 86 05/28/22 17:37 Resp 13 05/28/22 17:37 BP 144/63 H 05/28/22 17:37 Pulse Ox 91 L 05/28/22 17:37 O2 Del Method 05/28/22 17:37 BMI result Body Mass Index 21.2 Constitutional - Awake and Alert, No apparent distress Eyes - PERRLA, EOMI Cardiovascular - S1S2, RRR, No edema Respiratory - Normal lung expansion, Normal respiratory effort, No respiratory distress. Bilateral coarse lung sounds with rhonchi and wheezing bilaterally, most prominant in RML and RUL Gastrointestinal - NT / ND; +BS; No rebound or guarding Extremities - no calf tenderness bilaterally, no swelling Skin - Warm/Dry Neurological - Alert & oriented x3, CN II-XII in tact, 5/5 strength BUE and BLE Psychological - Appropriate affect Results Labs CBC and Chem 7: 05/28/22 16:51 05/28/22 16:51 Labs: Laboratory Results - last 24 hr 05/28/22 05/28/22 05/28/22 12:29 16:51 16:51 MCV 94.8 MCH 29.9 MCHC 31.6 RDW 15.7 Plt Count 251 MPV 10.2 Immature Gran % (Auto) 0.3 Neut % (Auto) 79.0 H Lymph % (Auto) 13.3 L [place] % (Auto) 6.3 Eos % (Auto) 1.0 Baso % (Auto) 0.1 Lymph # (Auto) 1.0 L [place] # (Auto) 0.5 Eos # (Auto) 0.1 Baso # (Auto) 0.0 Abs Immat Gran (auto) 0.02 Absolute Neuts (auto) 6.2 Absolute Nucleated RBC 0.000 Nucleated RBC % (auto) 0.0 PT INR Anion Gap 15 Estim Creat Clear Calc 44.4 Estimated GFR > 60 Random Glucose 99 Lactic Acid Calcium 8.2 L D Magnesium 1.7 Total Bilirubin 0.4 Direct Bilirubin 0.2 AST 37 H ALT 39 H Alkaline Phosphatase 128 H Troponin I High Sens B-Natriuretic Peptide Total Protein 5.3 L Albumin 3.3 L Influenza Type A (PCR) NEGATIVE Influenza Type B (PCR) NEGATIVE RSV RNA Qual (PCR) NEGATIVE SARS-CoV-2 RNA (RT-PCR) NEGATIVE 05/28/22 05/28/22 05/28/22 16:51 16:51 16:51 MCV MCH MCHC RDW Plt Count MPV Immature Gran % (Auto) Neut % (Auto) Lymph % (Auto) [place] % (Auto) Eos % (Auto) Baso % (Auto) Lymph # (Auto) [place] # (Auto) Eos # (Auto) Baso # (Auto) Abs Immat Gran (auto) Absolute Neuts (auto) Absolute Nucleated RBC Nucleated RBC % (auto) PT INR Anion Gap Estim Creat Clear Calc Estimated GFR Random Glucose Lactic Acid 1.0 Calcium Magnesium Total Bilirubin Direct Bilirubin AST ALT Alkaline Phosphatase Troponin I High Sens 30.4 H B-Natriuretic Peptide 101 H Total Protein Albumin Influenza Type A (PCR) Influenza Type B (PCR) RSV RNA Qual (PCR) SARS-CoV-2 RNA (RT-PCR) 05/28/22 05/28/22 17:45 19:18 MCV MCH MCHC RDW Plt Count MPV Immature Gran % (Auto) Neut % (Auto) Lymph % (Auto) [place] % (Auto) Eos % (Auto) Baso % (Auto) Lymph # (Auto) [place] # (Auto) Eos # (Auto) Baso # (Auto) Abs Immat Gran (auto) Absolute Neuts (auto) Absolute Nucleated RBC Nucleated RBC % (auto) PT 14.5 H INR 1.3 H Anion Gap Estim Creat Clear Calc Estimated GFR Random Glucose Lactic Acid Calcium Magnesium Total Bilirubin Direct Bilirubin AST ALT Alkaline Phosphatase Troponin I High Sens 30.0 H B-Natriuretic Peptide Total Protein Albumin Influenza Type A (PCR) Influenza Type B (PCR) RSV RNA Qual (PCR) SARS-CoV-2 RNA (RT-PCR) Imaging Radiologist's Impressions: Impressions Chest X-Ray 05/28/22 15:05 IMPRESSION: Changes of emphysema. Right middle lobe density. Assessment and Plan (1) Acute exacerbation of chronic obstructive airways disease: Status: Acute (2) Acute hypokalemia: Status: Acute Plan 76 year old female with history of multiple sclerosis, osteoporosis, iron deficiency anemia, hypertension, hyperlipidemia, history of CVA, erosive gastritis, COPD, bipolar disorder, anxiety, and who is a current everyday smoker 1.5 packs per day admitted for acute COPD exacerbation # acute COPD exacerbation -negative for COVID-19, RSV, and influenza. Full respiratory panel pending -continue supplemental O2 for hypoxia to maintain oxygen saturation greater than 90-92% -IV Solu-Medrol 60 mg b.i.d. -DuoNebs q.4h while awake -albuterol q.2h p.r.n. -has completed course of azithromycin within the last week. No antibiotics indicated -pain management on pain scale for pleuritic chest pain and myalgias -counseled on smoking cessation -admit to telemetry # right middle lobe density on CXR -recent admission to [facility] with discharge on 05/21 for community-acquired pneumonia and completed course of azithromycin outpatient. Discharge summary has been requested from [facility] -received vancomycin and cefepime in the ED. Hold on further antibiotics at this time until discharge summary has been evaluated from [facility] as this is likely not a new infiltrate requiring additional antibiotics -Procalcitonin pending # acute hypoxemic respiratory failure secondary to COPD exacerbation -patient follows with Dr. Bradford in pulmonology. She was on supplemental oxygen at 1 point per her daughter but this was taken away due to her ongoing smoking -continue supplemental O2 to maintain oximetry 90-92% # acute hypokalemia-likely secondary to albuterol use -repleted with 60 mEq potassium chloride -recheck BMP in the a.m. # MS-no acute flare -continue home meds # hypertension -continue home meds # HLD -continue home meds # GERD/erosive gastritis -continue PPI Med rec still pending on admission. Home meds to be resumed as appropriate Patient meeting SIRS criteria with tachypnea and heart rate elevated above 90 which is her baseline and also is likely secondary to albuterol use and hypoxia. This is not likely sepsis/severe sepsis. DVT prophylaxis-Lovenox DNR/DNI Patient requires inpatient stay of at least 2 midnights due to COPD exacerbation with acute hypoxic respiratory failure requiring supplemental oxygen which she does not use at home, IV steroids, and nebulizer treatment to prevent further pulmonary compromise Quality Stroke Does the patient have a stroke diagnosis?: No VTE Prior VTE?: No VTE Risk Level:: Medical - moderate - high VTE Device Contraindication: Treatment Not Indicated VTE Drug Contraindication: N/A - Med Ordered
[2022-05-28] MEDS: HYDROmorphone HCl 0.5 MG/0.5 ML SYRINGE 0.25 MG IVPUSH (20:59)
[2022-05-28] MEDS: Nicotine 21 MG PATCH.TD24 TRANSDERMA (21:07)
[2022-05-28] MEDS: Enoxaparin Sodium 30 MG/0.3 ML SYRINGE SUBCUT (21:08)
[2022-05-28] MEDS: methylPREDNISolone Sod Succ 40 MG/ML VIAL 60 MG IVPUSH (21:09)
--- NOTE | 2022-05-28 21:20 | PC.NURSE ---
Pt. resting in bed, watching tv. Still reports pain at 03/25. Pt. declined the tylenol, but did accept PRN dilaudid per the MAR.
[2022-05-28 21:57] LABS: Procalcitonin 0.06 ng/mL
[2022-05-28 23:29] VITALS: BP 151/63; PULSE 75; RESP 19; TEMP 36.8; O2SAT 97
--- NOTE | 2022-05-28 23:34 | PC.NURSE ---
Pt soiled with urine in pull up. Pt seems to be incontinent and is unable to verbalize how she uses the bathroom at home. Femi Serrano made aware since a urine sample is needed for the Pt. Pt given liban care. Pt given warm blankets and call villarreal placed in reach
[2022-05-29] VITALS (11 sets, daily range): BP systolic 126–161; BP diastolic 57–99; PULSE 55–97; RESP 12–20; TEMP 36–37.2; O2SAT 92–100
[2022-05-29] MEDS: oxyCODONE HCl Immed Release 5 MG TABLET PO ×2 (00:12→07:33)
--- NOTE | 2022-05-29 01:04 | PC.NURSE ---
Urine order still incomplete. Pt. is incontinent of urine and doesn't realize she needs to go until it's too late. Order obtained for straight cath. Bladder scan shows no urine at this time, will attempt at a later time.
[2022-05-29] MEDS: HYDROmorphone HCl 0.5 MG/0.5 ML SYRINGE 0.25 MG IVPUSH ×2 (01:41→15:05)
--- NOTE | 2022-05-29 03:07 | PC.NURSE ---
Pt. called nurse's station, requesting tissues. Provided tissues to pt. Pt. currently resting in bed.
--- NOTE | 2022-05-29 03:22 | PC.NURSE ---
Pt sleeping still unable to collect urine sample. Femi Dhillon made aware. we will Re attempt to collect urine @05:00am via straight catheter
--- NOTE | 2022-05-29 04:18 | PC.NURSE ---
PT REFUSED PHLEBOTOMY DRAW THIS AM.
--- NOTE | 2022-05-29 06:28 | PC.NURSE ---
Pt still Incontinent urine sample still not collected Pt wassoiled with urine. Layne care given. PT given warm blankets and call villarreal placed in reach. UNIQUE Dhillon made aware a urine sample is still needed
--- NOTE | 2022-05-29 07:30 | PC.NURSE ---
pt a/o no sob/harmony noted lungs - slight exp wheezing all lobes speaks in full sentences. heart sounds regular abd soft and non-tender bs + x 4 quads. no edema noted. heplock # 24 l forearm. pt aware of plan of care.
[2022-05-29] MEDS: polyethylene glycoL 3350 17 GM POWD.PACK PO (07:34)
[2022-05-29] MEDS: Acetaminophen 325 MG TABLET 650 MG PO (07:34)
[2022-05-29] MEDS: 0.9 % Sodium Chloride Flush 3 ML SYRINGE IVFLUSH ×2 (07:35→20:30)
[2022-05-29] MEDS: methylPREDNISolone Sod Succ 125 MG/2 ML VIAL 60 MG IVPUSH ×2 (08:29→20:30)
--- NOTE | 2022-05-29 10:30 | MHC.CM.PN ---
CM ATTEMPTED TO MEET W/PT HOWEVER PT REQUESTING COPY HOLDER, SHERON TO REVISIT
--- NOTE | 2022-05-29 10:47 | PHA.MEDREC ---
Pharmacy Consult ? Medication Reconciliation Pharmacy has completed the medication reconciliation.
[2022-05-29] MEDS: Albuterol/Iprat 2.5/0.5MG 3 ML AMPUL.NEB INHALE ×3 (11:26→20:04)
--- NOTE | 2022-05-29 11:49 | P.PNIM_ITS ---
Subjective Subjective Date of Service: 05/29/22 Interval History: Seen in follow up for COPD exacerbation with acute hypoxic respiratory failure Interval history: Satting 100% on 2L [place]. Reports improvement in sob. Still has diffuse body aches. States her tongue is numb but has been intermittently numb since CVA 2 years ago. No dysphagia. Review of Systems General: No fevers, malaise, unintentional weight loss HEENT: +numbness tongue Cardiovascular: No chest pain, palpitations, or leg edema Respiratory: + shortness of breath. No wheezing, cough GI: No abdominal pain, nausea, vomiting, diarrhea, constipation, melena, hematochezia MSK: +diffuse myalgia Neuro: No headaches, weakness Skin: No rashes or lesions Physical Exam Vital Signs: Vital Signs: Last Vital Signs Temp 96.8 F 05/29/22 11:46 Pulse 83 05/29/22 11:46 Resp 18 05/29/22 11:46 BP 161/73 H 05/29/22 11:46 Pulse Ox 96 05/29/22 11:46 O2 Del Method 05/29/22 11:46 O2 Flow Rate 1 05/29/22 11:46 BMI result Body Mass Index 21.2 Constitutional - Awake and Alert, No apparent distress Eyes - PERRLA, EOMI Cardiovascular - S1S2, RRR, No edema Respiratory - Normal lung expansion, Normal respiratory effort, No respiratory distress. Scattered wheezing b/l Gastrointestinal - NT / ND; +BS; No rebound or guarding Extremities - no calf tenderness bilaterally, no swelling Skin - Warm/Dry Neurological - Alert & oriented x3 Psychological - Appropriate affect Objective Data Active Medications Acetaminophen (Acetaminophen 325 Mg Tablet) 650 mg PO Q6H PRN PRN Reason: Pain, Mild (Pain Scale 1-3) Last Admin: 05/29/22 07:34 Dose: 650 mg Documented By: GABY Albuterol Sulfate (Albuterol Sulfate (0.083%) 2.5 Mg/3 Ml Vial.Neb) 2.5 mg INHALE Q2H PRN PRN Reason: Shortness of Breath/Wheezing Albuterol/Ipratropium (Albuterol/Iprat 2.5/0.5mg 3 Ml Ampul.Neb) 3 ml INHALE RQ4H WHILE AWAKE [facility] Last Admin: 05/29/22 11:26 Dose: 3 ml Documented By: HO.BLASCL Benzonatate (Benzonatate 100 Mg Capsule) 100 mg PO TID PRN PRN Reason: Cough Enoxaparin Sodium (Enoxaparin Sodium 30 Mg/0.3 Ml Syringe) 30 mg SUBCUT Q24H [facility] Last Admin: 05/28/22 21:08 Dose: 30 mg Documented By: JEROME Guaifenesin (Guaifenesin 200 Mg/10 Ml 10 Ml Liquid) 10 ml PO Q6H PRN PRN Reason: Cough Hydromorphone HCl (Hydromorphone Hcl 0.5 Mg/0.5 Ml Syringe) 0.25 mg IVPUSH Q4H PRN; Protocol PRN Reason: Pain, Severe (Pain Scale 7-10) Last Admin: 05/29/22 01:41 Dose: 0.25 mg Documented By: JEROME Methylprednisolone Sodium Succinate (Methylprednisolone Sod Succ 125 Mg/2 Ml Vial) 60 mg IVPUSH Q12H [facility] Last Admin: 05/29/22 08:29 Dose: 60 mg Documented By: GABY Ondansetron HCl (Ondansetron Hcl 4 Mg/2 Ml Vial) 4 mg IVPUSH Q8H PRN PRN Reason: Nausea and Vomiting Oxycodone HCl (Oxycodone Hcl Immed Release 5 Mg Tablet) 5 mg PO Q6H PRN PRN Reason: Pain, Moderate (Pain Scale 4-6 Last Admin: 05/29/22 07:33 Dose: 5 mg Documented By: GABY Pharmacy Consult (Consult Rx Vancomycin Dosing) 1 each MISCELLANE DAILY PRN PRN Reason: Consult order Polyethylene Glycol (Polyethylene Glycol 3350 17 Gm Powd.Pack) 17 gm PO DAILY [facility] Last Admin: 05/29/22 07:34 Dose: 17 gm Documented By: GABY Senna (Sennosides 8.6 Mg Tablet) 17.2 mg PO BEDTIME PRN PRN Reason: Constipation Sodium Chloride (0.9 % Sodium Chloride Flush 3 Ml Syringe) 3 ml IVFLUSH QSHIFT [facility] Last Admin: 05/29/22 07:35 Dose: 3 ml Documented By: GABY Labs CBC & Chem 7: 05/28/22 16:51 05/29/22 12:02 Labs: Laboratory Results - last 24 hr 05/28/22 05/28/22 05/28/22 12:29 16:51 16:51 MCV 94.8 MCH 29.9 MCHC 31.6 RDW 15.7 Plt Count 251 MPV 10.2 Immature Gran % (Auto) 0.3 Neut % (Auto) 79.0 H Lymph % (Auto) 13.3 L [place] % (Auto) 6.3 Eos % (Auto) 1.0 Baso % (Auto) 0.1 Lymph # (Auto) 1.0 L [place] # (Auto) 0.5 Eos # (Auto) 0.1 Baso # (Auto) 0.0 Abs Immat Gran (auto) 0.02 Absolute Neuts (auto) 6.2 Absolute Nucleated RBC 0.000 Nucleated RBC % (auto) 0.0 PT INR Anion Gap 15 Estim Creat Clear Calc 44.4 Estimated GFR > 60 Random Glucose 99 Lactic Acid Calcium 8.2 L D Magnesium 1.7 Total Bilirubin 0.4 Direct Bilirubin 0.2 AST 37 H ALT 39 H Alkaline Phosphatase 128 H Troponin I High Sens B-Natriuretic Peptide Total Protein 5.3 L Albumin 3.3 L Procalcitonin Influenza Type A (PCR) NEGATIVE Influenza Type B (PCR) NEGATIVE RSV RNA Qual (PCR) NEGATIVE SARS-CoV-2 RNA (RT-PCR) NEGATIVE 05/28/22 05/28/22 05/28/22 16:51 16:51 16:51 MCV MCH MCHC RDW Plt Count MPV Immature Gran % (Auto) Neut % (Auto) Lymph % (Auto) [place] % (Auto) Eos % (Auto) Baso % (Auto) Lymph # (Auto) [place] # (Auto) Eos # (Auto) Baso # (Auto) Abs Immat Gran (auto) Absolute Neuts (auto) Absolute Nucleated RBC Nucleated RBC % (auto) PT INR Anion Gap Estim Creat Clear Calc Estimated GFR Random Glucose Lactic Acid 1.0 Calcium Magnesium Total Bilirubin Direct Bilirubin AST ALT Alkaline Phosphatase Troponin I High Sens 30.4 H B-Natriuretic Peptide 101 H Total Protein Albumin Procalcitonin Influenza Type A (PCR) Influenza Type B (PCR) RSV RNA Qual (PCR) SARS-CoV-2 RNA (RT-PCR) 05/28/22 05/28/22 05/28/22 16:54 17:45 19:18 MCV MCH MCHC RDW Plt Count MPV Immature Gran % (Auto) Neut % (Auto) Lymph % (Auto) [place] % (Auto) Eos % (Auto) Baso % (Auto) Lymph # (Auto) [place] # (Auto) Eos # (Auto) Baso # (Auto) Abs Immat Gran (auto) Absolute Neuts (auto) Absolute Nucleated RBC Nucleated RBC % (auto) PT 14.5 H INR 1.3 H Anion Gap Estim Creat Clear Calc Estimated GFR Random Glucose Lactic Acid Calcium Magnesium Total Bilirubin Direct Bilirubin AST ALT Alkaline Phosphatase Troponin I High Sens 30.0 H B-Natriuretic Peptide Total Protein Albumin Procalcitonin 0.06 Influenza Type A (PCR) Influenza Type B (PCR) RSV RNA Qual (PCR) SARS-CoV-2 RNA (RT-PCR) Assessment and Plan (1) Acute exacerbation of chronic obstructive airways disease: Status: Acute Plan 76 year old female with history of multiple sclerosis, osteoporosis, iron deficiency anemia, hypertension, hyperlipidemia, history of CVA, erosive gastritis, COPD, bipolar disorder, anxiety, and who is a current everyday smoker 1.5 packs per day admitted for acute COPD exacerbation # acute COPD exacerbation -negative for COVID-19, RSV, and influenza.? Pt refused full respiratory panel today -continue supplemental O2 for hypoxia to maintain oxygen saturation greater than 90-92% -IV Solu-Medrol 60 mg b.i.d. -DuoNebs q.4h while awake -albuterol q.2h p.r.n. -No abx indicated -pain management on pain scale for pleuritic chest pain and myalgias -counseled on smoking cessation -admit to telemetry # right middle lobe density on CXR -Reviewed discharge summary from [facility] from 05/21. Pt treated inpt with zithromax and ceftriaxone and completed 5 day course zithromax outpt. -Procalcitonin WNL -Infiltrate on CXR not new. Should have follow up CXR in 6 weeks to ensure resolution # acute hypoxemic respiratory failure secondary to COPD exacerbation -patient follows with Dr. Bradford in pulmonology.? She was on supplemental oxygen at one point per her daughter but this was taken away due to her ongoing smoking -High risk for home O2 due to ongoing smoking and cessation refusal -continue supplemental O2 to maintain oximetry 90-92%, titrate as tolerated # acute hypokalemia-resolved -K 4.1 this morning # MS-no acute flare -continue home meds # hypertension -continue home meds # HLD -continue home meds # GERD/erosive gastritis -continue PPI Patient meeting SIRS criteria with tachypnea and heart rate elevated above 90 which is her baseline and also is likely secondary to albuterol use and hypoxia.? This is not likely sepsis/severe sepsis. DVT prophylaxis-Lovenox DNR/DNI Patient requires ongoing inpatient stay due to COPD exacerbation with acute hypoxemic respiratory failure requiring supplemental oxygen and IV steroids Quality Stroke Does the patient have a stroke diagnosis?: No VTE Prior VTE?: No VTE Risk Level:: Medical - moderate - high VTE Device Contraindication: Treatment Not Indicated VTE Drug Contraindication: N/A - Med Ordered
[2022-05-29 12:31] LABS: Anion Gap 15 (12-20); Blood Urea Nitrogen 19 mg/dL (9-16); Calcium 8.3 mg/dL (8.4-10.2); Carbon Dioxide 28 mmol/L (22-29); Chloride 103 mmol/L (96-108); Creatinine Clr Calc Pharmacy 42.2; Estimated Glomerular Filt Rate > 60; Glucose Random 149 mg/dL (60-115); Potassium 4.1 mmol/L (3.3-5.1); Sodium 142 mmol/L (135-145)
[2022-05-29 12:32] LABS: Anion Gap 16 (12-20); Blood Urea Nitrogen 18 mg/dL (9-16); Calcium 8.2 mg/dL (8.4-10.2); Carbon Dioxide 26 mmol/L (22-29); Chloride 104 mmol/L (96-108); Creatinine Clr Calc Pharmacy 42.2; Estimated Glomerular Filt Rate > 60; Glucose Random 149 mg/dL (60-115); Potassium 4.1 mmol/L (3.3-5.1); Sodium 142 mmol/L (135-145)
[2022-05-29] MEDS: Gabapentin 300 MG CAPSULE PO ×2 (12:51→20:30)
[2022-05-29] MEDS: Omeprazole 20 MG CAPSULE.DR PO (12:51)
[2022-05-29] MEDS: Sertraline HCL 100 MG TABLET PO (12:51)
[2022-05-29] MEDS: dilTIAZem HCL CD 180 MG CAP.ER.24H 360 MG PO (12:51)
[2022-05-29] MEDS: Thiamine HCL 100 MG TABLET PO (12:51)
[2022-05-29 13:35] LABS: Appearance Urine Clear; Color Urine Yellow; Glucose Urine UA Negative (Negative); Leukocyte Esterase Urine Negative (Negative); Nitrite Urine Negative (Negative); Specific Gravity - Urine >= 1.030 (1.005-1.025); UMIC TRIGGER UACC YES; Urine Blood Negative (Negative); Urine Ketones Negative (Negative); Urine Protein 30 (1+) mg/dL (Neg-Trace)
[2022-05-29 13:37] LABS: Folate 5.4 ng/mL (> or = 4.0); Vitamin B12 827 pg/mL (200-900)
[2022-05-29 14:21] LABS: Bacteria Urine None Seen (None Seen); Hyaline Casts Urine 0-2 /LPF (0-2); RBC Urine 0-2 /HPF (0-2); Renal Epithelial Cells Urine Present; WBC Urine 0-5 /HPF (0-5)
[2022-05-29] MEDS: amantadine HCL 100 MG CAPSULE PO (15:06)
--- NOTE | 2022-05-29 15:43 | MHC.CM.PN ---
IMM 05/29/22, EMR REVIEWED, PT ADMITTED W/HYPOXIA/COPD EXAC, PT REMAINS ON SUPPLEMENTAL O2 AND NOT READY FOR D/C AT THIS TIME. CM MET W/PT VIA [employer], PT REPORT SHE LIVES ALONE AND USES A WALKER, GRAB BARS IN BR AND ELEVATOR IN BUILDING. PT REPORTS HER DTR/HCP HEMA IS HER DAILY DIRECTOR GOVERNMENT AND PT UNSURE OF TOTAL HOURS HOWEVER REPORTS SHE HAS MORNING AND EVENING HOURS. PT ALSO REPORTS SHE WOULD BE AGREEABLE TO [facility] IF NEEDED HOWEVER WOULD NOT GO TO STR. PT VERIFIES PCP IS PATO ARMIJO, COVID VACCINATED X4 (DOES NOT RECALL WHICH) AND HCP IS DTR HEMA RANDLE [phone] W/ALTERNATE JOSE BETTS [phone], COPY IS ON FILE IN EXPANSE. ANTIC D/C HOME W/RESUMP OF DAILY DIRECTOR GOVERNMENT AND DTR HEMA FOR TRANSPORT
[2022-05-29] MEDS: Metoprolol Tartrate 25 MG TABLET PO (20:29)
[2022-05-29] MEDS: Pyridoxine HCl (Vitamin B6) 50 MG TABLET 25 MG PO (20:29)
[2022-05-29] MEDS: traZODone HCL 50 MG TABLET PO (20:30)
[2022-05-29] MEDS: Calcium Carbonate 750 MG TAB.CHEW PO (20:30)
[2022-05-29] MEDS: Vitamin E (Dl,Tocopheryl Acet) 180 MG (400 UNIT) CAPSULE PO (20:30)
[2022-05-29] MEDS: Mirtazapine 30 MG TABLET PO (20:30)
[2022-05-29] MEDS: Enoxaparin Sodium 30 MG/0.3 ML SYRINGE SUBCUT (20:32)
[2022-05-30] VITALS (11 sets, daily range): BP systolic 121–144; BP diastolic 56–70; PULSE 52–72; RESP 16–19; TEMP 36.1–36.8; O2SAT 91–98
[2022-05-30] MEDS: 0.9 % Sodium Chloride Flush 3 ML SYRINGE IVFLUSH ×4 (00:35→21:47)
[2022-05-30 06:06] LABS: Anion Gap 12 (12-20); Blood Urea Nitrogen 19 mg/dL (9-16); Calcium 8.6 mg/dL (8.4-10.2); Carbon Dioxide 30 mmol/L (22-29); Chloride 104 mmol/L (96-108); Creatinine Clr Calc Pharmacy 43.6; Estimated Glomerular Filt Rate > 60; Glucose Random 145 mg/dL (60-115); Potassium 4.1 mmol/L (3.3-5.1); Sodium 142 mmol/L (135-145)
[2022-05-30] MEDS: Omeprazole 20 MG CAPSULE.DR PO (06:18)
[2022-05-30] MEDS: Albuterol/Iprat 2.5/0.5MG 3 ML AMPUL.NEB INHALE ×4 (07:58→21:09)
[2022-05-30] MEDS: methylPREDNISolone Sod Succ 125 MG/2 ML VIAL 60 MG IVPUSH ×2 (10:32→21:47)
[2022-05-30] MEDS: HYDROmorphone HCl 0.5 MG/0.5 ML SYRINGE 0.25 MG IVPUSH ×2 (10:32→14:55)
[2022-05-30] MEDS: Cholecalciferol (Vitamin D3) 25 MCG TABLET PO (10:35)
[2022-05-30] MEDS: amantadine HCL 100 MG CAPSULE PO (10:35)
[2022-05-30] MEDS: Sertraline HCL 100 MG TABLET PO (10:36)
[2022-05-30] MEDS: Aspirin Enteric Coated 81 MG TABLET.DR PO (10:36)
[2022-05-30] MEDS: Atorvastatin Calcium 40 MG TABLET PO (10:36)
[2022-05-30] MEDS: dilTIAZem HCL CD 180 MG CAP.ER.24H 360 MG PO (10:36)
[2022-05-30] MEDS: Metoprolol Tartrate 25 MG TABLET PO ×2 (10:36→21:46)
[2022-05-30] MEDS: Gabapentin 300 MG CAPSULE PO ×2 (10:36→21:46)
[2022-05-30] MEDS: Multivitamin TABLET 1 TAB PO (10:36)
[2022-05-30] MEDS: Thiamine HCL 100 MG TABLET PO (10:36)
[2022-05-30] MEDS: Calcium Carbonate 750 MG TAB.CHEW PO ×2 (10:36→21:46)
--- NOTE | 2022-05-30 14:17 | P.PNIM_ITS ---
Subjective Subjective Date of Service: 05/30/22 Interval History: COPD exacerbation with acute hypoxic respiratory failure Review of Systems still sob with talking,has cough no fevers or chills Physical Exam Vital Signs: Vital Signs: Last Vital Signs Temp 98.2 F 05/30/22 11:19 Pulse 64 05/30/22 11:19 Resp 16 05/30/22 11:19 BP 129/60 05/30/22 11:19 Pulse Ox 97 05/30/22 11:19 O2 Del Method 05/30/22 11:19 O2 Flow Rate 1 05/30/22 11:19 BMI result Body Mass Index 21.2 Appearance: Alert.? Oriented X3.?sob still with minimun execersion. cvs: rrr, [id number] , no murmur res: diminshed breath sounds,has b/l wheezin abd: no rebound or guarding ,nt, bs present. ext pulses present , no cyanosis . neuro: axo3 , nonfocal. Objective Data Active Medications Acetaminophen (Acetaminophen 325 Mg Tablet) 650 mg PO Q6H PRN PRN Reason: Pain, Mild (Pain Scale 1-3) Last Admin: 05/29/22 07:34 Dose: 650 mg Documented By: GABY Albuterol Sulfate (Albuterol Sulfate (0.083%) 2.5 Mg/3 Ml Vial.Neb) 2.5 mg INHALE Q2H PRN PRN Reason: Shortness of Breath/Wheezing Albuterol/Ipratropium (Albuterol/Iprat 2.5/0.5mg 3 Ml Ampul.Neb) 3 ml INHALE RQ4H WHILE AWAKE [facility] Last Admin: 05/30/22 10:51 Dose: 3 ml Documented By: ZANE Amantadine HCl (Amantadine Hcl 100 Mg Capsule) 100 mg PO DAILY [facility] Last Admin: 05/30/22 10:35 Dose: 100 mg Documented By: TYREE Aspirin (Aspirin Enteric Coated 81 Mg Tablet.) 81 mg PO DAILY [facility] Last Admin: 05/30/22 10:36 Dose: 81 mg Documented By: TYREE Atorvastatin Calcium (Atorvastatin Calcium 40 Mg Tablet) 40 mg PO DAILY [facility] Last Admin: 05/30/22 10:36 Dose: 40 mg Documented By: TYREE Benzonatate (Benzonatate 100 Mg Capsule) 100 mg PO TID PRN PRN Reason: Cough Calcium Carbonate (Calcium Carbonate 750 Mg Tab.Chew) 750 mg PO BID [facility] Last Admin: 05/30/22 10:36 Dose: 750 mg Documented By: TYREE Diltiazem HCl (Diltiazem Hcl Cd 180 Mg Cap.Er.24h) 360 mg PO DAILY [facility]; Protocol Last Admin: 05/30/22 10:36 Dose: 360 mg Documented By: TYREE Enoxaparin Sodium (Enoxaparin Sodium 30 Mg/0.3 Ml Syringe) 30 mg SUBCUT Q24H [facility] Last Admin: 05/29/22 20:32 Dose: 30 mg Documented By: LAURIE Fluticasone Propionate (Fluticasone Propionate Nasal 16 Gm [place]) 2 spray NOSTRIL-B DAILY PRN PRN Reason: Allergy Symptoms Gabapentin (Gabapentin 300 Mg Capsule) 300 mg PO BID [facility] Last Admin: 05/30/22 10:36 Dose: 300 mg Documented By: TYREE Guaifenesin (Guaifenesin 200 Mg/10 Ml 10 Ml Liquid) 10 ml PO Q6H PRN PRN Reason: Cough Hydromorphone HCl (Hydromorphone Hcl 0.5 Mg/0.5 Ml Syringe) 0.25 mg IVPUSH Q4H PRN; Protocol PRN Reason: Pain, Severe (Pain Scale 7-10) Last Admin: 05/30/22 10:32 Dose: 0.25 mg Documented By: TYREE Methylprednisolone Sodium Succinate (Methylprednisolone Sod Succ 125 Mg/2 Ml Vial) 60 mg IVPUSH Q12H [facility] Last Admin: 05/30/22 10:32 Dose: 60 mg Documented By: TYREE Metoprolol Tartrate (Metoprolol Tartrate 25 Mg Tablet) 25 mg PO BID [facility]; Pro tocol Last Admin: 05/30/22 10:36 Dose: 25 mg Documented By: TYREE Mirtazapine (Mirtazapine 30 Mg Tablet) 30 mg PO BEDTIME [facility] Last Admin: 05/29/22 20:30 Dose: 30 mg Documented By: LAURIE Multivitamins/Vitamin C (Multivitamin Tablet) 1 tab PO DAILY [facility] Last Admin: 05/30/22 10:36 Dose: 1 tab Documented By: TYREE Non-Formulary Medication (Roflumilast [Daliresp]) 250 mcg PO DAILY [facility] Patient Own Med ( Teriflunomide 14 Mg Tablet) 14 mg PO DAILY [facility] Last Admin: 05/30/22 10:35 Dose: 14 mg Documented By: TYREE Omeprazole (Omeprazole 20 Mg Capsule.Dr) 20 mg PO DAILY@0630 [facility] Last Admin: 05/30/22 06:18 Dose: 20 mg Documented By: ZARI Ondansetron HCl (Ondansetron Hcl 4 Mg/2 Ml Vial) 4 mg IVPUSH Q8H PRN PRN Reason: Nausea and Vomiting Oxycodone HCl (Oxycodone Hcl Immed Release 5 Mg Tablet) 5 mg PO Q6H PRN PRN Reason: Pain, Moderate (Pain Scale 4-6 Last Admin: 05/29/22 07:33 Dose: 5 mg Documented By: GABY Oxycodone HCl (Oxycodone Hcl Immed Release 5 Mg Tablet) 5 mg PO BID PRN PRN Reason: Pain (Scale Score 4-6) Pharmacy Consult (Consult Rx Vancomycin Dosing) 1 each MISCELLANE DAILY PRN PRN Reason: Consult order Polyethylene Glycol (Polyethylene Glycol 3350 17 Gm Powd.Pack) 17 gm PO DAILY [facility] Last Admin: 05/30/22 10:44 Dose: Not Given Documented By: TYREE Non-Admin Reason: Patient Refused Pyridoxine HCl (Pyridoxine Hcl (Vitamin B6) 50 Mg Tablet) 25 mg PO BEDTIME [facility] Last Admin: 05/29/22 20:29 Dose: 25 mg Documented By: LAURIE Senna (Sennosides 8.6 Mg Tablet) 17.2 mg PO BEDTIME PRN PRN Reason: Constipation Sertraline HCl (Sertraline Hcl 100 Mg Tablet) 100 mg PO DAILY [facility] Last Admin: 05/30/22 10:36 Dose: 100 mg Documented By: TYREE Sodium Chloride (0.9 % Sodium Chloride Flush 3 Ml Syringe) 3 ml IVFLUSH QSHIFT [facility] Last Admin: 05/30/22 10:36 Dose: 3 ml Documented By: TYREE Thiamine HCl (Thiamine Hcl 100 Mg Tablet) 100 mg PO DAILY [facility] Last Admin: 05/30/22 10:36 Dose: 100 mg Documented By: TYREE Trazodone HCl (Trazodone Hcl 50 Mg Tablet) 50 mg PO BEDTIME [facility] Last Admin: 05/29/22 20:30 Dose: 50 mg Documented By: LAURIE Vitamin D (Cholecalciferol (Vitamin D3) 25 Mcg Tablet) 25 mcg PO DAILY [facility] Last Admin: 05/30/22 10:35 Dose: 25 mcg Documented By: TYREE Vitamin E (Vitamin E (Dl,Tocopheryl Acet) 180 Mg (400 Unit) Capsule) 180 mg PO BEDTIME [facility] Last Admin: 05/29/22 20:30 Dose: 180 mg Documented By: LAURIE Labs CBC & Chem 7: 05/28/22 16:51 05/30/22 05:22 Labs: Laboratory Results - last 24 hr 05/29/22 05/30/22 12:30 05:22 Anion Gap 12 Estim Creat Clear Calc 43.6 Estimated GFR > 60 Random Glucose 145 H Calcium 8.6 Urine Color Yellow Urine Appearance Clear Urine pH 6.0 Ur Specific [place] >= 1.030 H Urine Protein 30 (1+) H Urine Glucose (UA) Negative Urine Ketones Negative Urine Blood Negative Urine Nitrite Negative Ur Leukocyte Esterase Negative Urine RBC 0-2 Urine WBC 0-5 Ur Squamous Epith Cells 3-5 Ur Renal Epithelial Cell Present Urine Bacteria None Seen Hyaline Casts 0-2 Microbiology Microbiology Results: Microbiology 05/28/22 16:51 Blood Culture - Preliminary Blood - Venous No growth after 24 hours. 05/28/22 16:51 Blood Culture - Preliminary Blood - Venous No growth after 24 hours. Assessment and Plan (1) Acute exacerbation of chronic obstructive airways disease: Status: Acute (2) Acute hypoxemic respiratory failure: Status: Acute Plan 76 year old female with history of multiple sclerosis, osteoporosis, iron deficiency anemia, hypertension, hyperlipidemia, history of CVA, erosive gastritis, COPD, bipolar disorder, anxiety, and who is a current everyday smoker 1.5 packs per day admitted for acute COPD exacerbation # acute COPD exacerbation -negative for COVID-19, RSV, and influenza.? res panel neg -continue supplemental O2 for hypoxia to maintain oxygen saturation greater than 90-92% -IV Solu-Medrol 60 mg b.i.d.,DuoNebs q.4h,albuterol q.2h p.r.n. -pain management on pain scale for pleuritic chest pain and myalgias -counseled on smoking cessation # right middle lobe density on CXR -Reviewed discharge summary from [facility] from 05/21. Pt treated inpt with zithromax and ceftriaxone and completed 5 day course zithromax outpt. -Procalcitonin WNL -Infiltrate on CXR not new. Should have follow up CXR in 6 weeks to ensure resolution # acute hypoxemic respiratory failure secondary to COPD exacerbation still sobwith minimal talkin -patient follows with Dr. Bradford in pulmonology.? She was on supplemental oxygen at one point per her daughter but this was taken away due to her ongoing smoking -High risk for home O2 due to ongoing smoking and cessation refusal -continue supplemental O2 to maintain oximetry 90-92%, titrate as tolerated # acute hypokalemia-resolved -K 4.1 # MS-no acute flare -continue home meds # hypertension -continue home meds # HLD -continue home meds # GERD/erosive gastritis -continue PPI ongoing inpatient need :acute hypoxemic respiratory failure secondary to COPD exacerbation-on nebs, iv steriods ,suppl oxygen Quality Stroke Does the patient have a stroke diagnosis?: No VTE Prior VTE?: No VTE Risk Level:: Medical - moderate - high VTE Device Contraindication: Treatment Not Indicated VTE Drug Contraindication: N/A - Med Ordered
[2022-05-30] MEDS: Pyridoxine HCl (Vitamin B6) 50 MG TABLET 25 MG PO (21:45)
[2022-05-30] MEDS: Enoxaparin Sodium 30 MG/0.3 ML SYRINGE SUBCUT (21:45)
[2022-05-30] MEDS: Vitamin E (Dl,Tocopheryl Acet) 180 MG (400 UNIT) CAPSULE PO (21:46)
[2022-05-30] MEDS: traZODone HCL 50 MG TABLET PO (21:46)
[2022-05-30] MEDS: Mirtazapine 30 MG TABLET PO (21:46)
[2022-05-31] VITALS (11 sets, daily range): BP systolic 114–158; BP diastolic 58–69; PULSE 54–94; RESP 14–20; TEMP 36–37; O2SAT 86–97
[2022-05-31 06:00] LABS: Anion Gap 12 (12-20); Blood Urea Nitrogen 27 mg/dL (9-16); Calcium 8.9 mg/dL (8.4-10.2); Carbon Dioxide 29 mmol/L (22-29); Chloride 103 mmol/L (96-108); Creatinine Clr Calc Pharmacy 35.3; Estimated Glomerular Filt Rate > 60; Glucose Random 144 mg/dL (60-115); Potassium 4.2 mmol/L (3.3-5.1); Sodium 140 mmol/L (135-145)
[2022-05-31] MEDS: Omeprazole 20 MG CAPSULE.DR PO (06:37)
[2022-05-31] MEDS: Albuterol/Iprat 2.5/0.5MG 3 ML AMPUL.NEB INHALE ×3 (07:41→19:48)
[2022-05-31] MEDS: 0.9 % Sodium Chloride Flush 3 ML SYRINGE IVFLUSH ×2 (09:15→16:03)
[2022-05-31] MEDS: methylPREDNISolone Sod Succ 125 MG/2 ML VIAL 60 MG IVPUSH ×2 (09:15→20:31)
[2022-05-31] MEDS: Atorvastatin Calcium 40 MG TABLET PO (09:16)
[2022-05-31] MEDS: oxyCODONE HCl Immed Release 5 MG TABLET PO (09:16)
[2022-05-31] MEDS: Sertraline HCL 100 MG TABLET PO (09:16)
[2022-05-31] MEDS: Gabapentin 300 MG CAPSULE PO ×2 (09:16→20:34)
[2022-05-31] MEDS: Calcium Carbonate 750 MG TAB.CHEW PO ×2 (09:16→20:38)
[2022-05-31] MEDS: Metoprolol Tartrate 25 MG TABLET PO ×2 (09:16→20:38)
[2022-05-31] MEDS: dilTIAZem HCL CD 180 MG CAP.ER.24H 360 MG PO (09:17)
[2022-05-31] MEDS: Cholecalciferol (Vitamin D3) 25 MCG TABLET PO (09:17)
[2022-05-31] MEDS: amantadine HCL 100 MG CAPSULE PO (09:17)
[2022-05-31] MEDS: Aspirin Enteric Coated 81 MG TABLET.DR PO (09:17)
[2022-05-31] MEDS: Multivitamin TABLET 1 TAB PO (09:17)
[2022-05-31] MEDS: Thiamine HCL 100 MG TABLET PO (09:17)
[2022-05-31] MEDS: HYDROmorphone HCl 1 MG/ML SYRINGE 0.25 MG IVPUSH (11:54)
--- NOTE | 2022-05-31 16:57 | HO.PM.IMPN ---
Subjective Subjective Date of Service: 05/31/22 Interval History: COPD exacerbation with acute hypoxic respiratory failure Review of Systems still sob with talking,has cough no fevers or chills abd discomfort Physical Exam Vital Signs: Vital Signs: Last Vital Signs Temp 97.2 F 05/31/22 15:13 Pulse 57 05/31/22 15:13 Resp 16 05/31/22 15:13 BP 114/58 L 05/31/22 15:13 Pulse Ox 92 05/31/22 15:13 O2 Del Method 05/31/22 15:13 O2 Flow Rate 2 05/31/22 15:13 BMI result Body Mass Index 21.2 Appearance: Alert.? Oriented X3.?sob still with minimun exersion. cvs: rrr, [id number] , no murmur res: diminshed breath sounds,has b/l wheezin abd: no rebound or guarding ,somewhat discomfort left abd lower side , bs present. ext pulses present , no cyanosis . neuro: axo3 , nonfocal. Objective Data Active Medications Acetaminophen (Acetaminophen 325 Mg Tablet) 650 mg PO Q6H PRN PRN Reason: Pain, Mild (Pain Scale 1-3) Last Admin: 05/29/22 07:34 Dose: 650 mg Documented By: GABY Albuterol Sulfate (Albuterol Sulfate (0.083%) 2.5 Mg/3 Ml Vial.Neb) 2.5 mg INHALE Q2H PRN PRN Reason: Shortness of Breath/Wheezing Albuterol/Ipratropium (Albuterol/Iprat 2.5/0.5mg 3 Ml Ampul.Neb) 3 ml INHALE RQ4H WHILE AWAKE [facility] Last Admin: 05/31/22 15:10 Dose: Not Given Documented By: ZANE Non-Admin Reason: Patient Asleep Amantadine HCl (Amantadine Hcl 100 Mg Capsule) 100 mg PO DAILY [facility] Last Admin: 05/31/22 09:17 Dose: 100 mg Documented By: TASHA Aspirin (Aspirin Enteric Coated 81 Mg Tablet.) 81 mg PO DAILY [facility] Last Admin: 05/31/22 09:17 Dose: 81 mg Documented By: TASHA Atorvastatin Calcium (Atorvastatin Calcium 40 Mg Tablet) 40 mg PO DAILY [facility] Last Admin: 05/31/22 09:16 Dose: 40 mg Documented By: TASHA Benzonatate (Benzonatate 100 Mg Capsule) 100 mg PO TID PRN PRN Reason: Cough Calcium Carbonate (Calcium Carbonate 750 Mg Tab.Chew) 750 mg PO BID [facility] Last Admin: 05/31/22 09:16 Dose: 750 mg Documented By: TASHA Diltiazem HCl (Diltiazem Hcl Cd 180 Mg Cap.Er.24h) 360 mg PO DAILY [facility]; Protocol Last Admin: 05/31/22 09:17 Dose: 360 mg Documented By: TASHA Docusate Sodium (Docusate Sodium 100 Mg Capsule) 100 mg PO BID PRN PRN Reason: Constipation Enoxaparin Sodium (Enoxaparin Sodium 30 Mg/0.3 Ml Syringe) 30 mg SUBCUT Q24H [facility] Last Admin: 05/30/22 21:45 Dose: 30 mg Documented By: PRATEEK Fluticasone Propionate (Fluticasone Propionate Nasal 16 G[address] Fields) 2 spray NOSTRIL-B DAILY PRN PRN Reason: Allergy Symptoms Gabapentin (Gabapentin 300 Mg Capsule) 300 mg PO BID [facility] Last Admin: 05/31/22 09:16 Dose: 300 mg Documented By: TASHA Guaifenesin (Guaifenesin 200 Mg/10 Ml 10 Ml Liquid) 10 ml PO Q6H PRN PRN Reason: Cough Hydromorphone HCl (Hydromorphone Hcl 1 Mg/Ml Syringe) 0.25 mg IVPUSH Q4H PRN; Protocol PRN Reason: Pain, Severe (Pain Scale 7-10) Last Admin: 05/31/22 11:54 Dose: 0.25 mg Documented By: TASHA Methylprednisolone Sodium Succinate (Methylprednisolone Sod Succ 125 Mg/2 Ml Vial) 60 mg IVPUSH Q12H [facility] Last Admin: 05/31/22 09:15 Dose: 60 mg Documented By: TASHA Metoprolol Tartrate (Metoprolol Tartrate 25 Mg Tablet) 25 mg PO BID [facility]; Protocol Last Admin: 05/31/22 09:16 Dose: 25 mg Documented By: TASHA Mirtazapine (Mirtazapine 30 Mg Tablet) 30 mg PO BEDTIME [facility] Last Admin: 05/30/22 21:46 Dose: 30 mg Documented By: PRATEEK Multivitamins/Vitamin C (Multivitamin Tablet) 1 tab PO DAILY [facility] Last Admin: 05/31/22 09:17 Dose: 1 tab Documented By: TASHA Non-Formulary Medication (Roflumilast [Daliresp]) 250 mcg PO DAILY [facility] Patient Own Med ( Teriflunomide 14 Mg Tablet) 14 mg PO DAILY [facility] Last Admin: 05/31/22 09:23 Dose: 14 mg Documented By: TASHA Omeprazole (Omeprazole 20 Mg Capsule.Dr) 20 mg PO DAILY@0630 [facility] Last Admin: 05/31/22 06:37 Dose: 20 mg Documented By: PRATEEK Ondansetron HCl (Ondansetron Hcl 4 Mg/2 Ml Vial) 4 mg IVPUSH Q8H PRN PRN Reason: Nausea and Vomiting Oxycodone HCl (Oxycodone Hcl Immed Release 5 Mg Tablet) 5 mg PO Q6H PRN PRN Reason: Pain, Moderate (Pain Scale 4-6 Last Admin: 05/31/22 09:16 Dose: 5 mg Documented By: TASHA Oxycodone HCl (Oxycodone Hcl Immed Release 5 Mg Tablet) 5 mg PO BID PRN PRN Reason: Pain (Scale Score 4-6) Pharmacy Consult (Consult Rx Vancomycin Dosing) 1 each MISCELLANE DAILY PRN PRN Reason: Consult order Polyethylene Glycol (Polyethylene Glycol 3350 17 Gm Powd.Pack) 17 gm PO DAILY [facility] Last Admin: 05/31/22 09:18 Dose: Not Given Documented By: TASHA Non-Admin Reason: Patient Refused Polyethylene Glycol (Polyethylene Glycol 3350 17 Gm Powd.Pack) 17 gm PO DAILY [facility] Pyridoxine HCl (Pyridoxine Hcl (Vitamin B6) 50 Mg Tablet) 25 mg PO BEDTIME [facility] Last Admin: 05/30/22 21:45 Dose: 25 mg Documented By: PRATEEK Senna (Sennosides 8.6 Mg Tablet) 17.2 mg PO BEDTIME PRN PRN Reason: Constipation Sertraline HCl (Sertraline Hcl 100 Mg Tablet) 100 mg PO DAILY [facility] Last Admin: 05/31/22 09:16 Dose: 100 mg Documented By: TASHA Sodium Chloride (0.9 % Sodium Chloride Flush 3 Ml Syringe) 3 ml IVFLUSH QSHIFT [facility] Last Admin: 05/31/22 16:03 Dose: 3 ml Documented By: LAURIE Thiamine HCl (Thiamine Hcl 100 Mg Tablet) 100 mg PO DAILY [facility] Last Admin: 05/31/22 09:17 Dose: 100 mg Documented By: TASHA Trazodone HCl (Trazodone Hcl 50 Mg Tablet) 50 mg PO BEDTIME [facility] Last Admin: 05/30/22 21:46 Dose: 50 mg Documented By: PRATEEK Vitamin D (Cholecalciferol (Vitamin D3) 25 Mcg Tablet) 25 mcg PO DAILY [facility] Last Admin: 05/31/22 09:17 Dose: 25 mcg Documented By: TASHA Vitamin E (Vitamin E (Dl,Tocopheryl Acet) 180 Mg (400 Unit) Capsule) 180 mg PO BEDTIME [facility] Last Admin: 05/30/22 21:46 Dose: 180 mg Documented By: PRATEEK Labs CBC & Chem 7: 05/28/22 16:51 05/31/22 05:31 Labs: Laboratory Results - last 24 hr 05/31/22 05:31 Anion Gap 12 Estim Creat Clear Calc 35.3 Estimated GFR > 60 Random Glucose 144 H Calcium 8.9 Microbiology Microbiology Results: Microbiology 05/28/22 16:51 Blood Culture - Preliminary Blood - Venous No growth after 48 hours. 05/28/22 16:51 Blood Culture - Preliminary Blood - Venous No growth after 48 hours. Assessment and Plan (1) Acute hypoxemic respiratory failure: Status: Acute (2) Acute exacerbation of chronic obstructive airways disease: Status: Acute Plan 76 year old female with history of multiple sclerosis, osteoporosis, iron deficiency anemia, hypertension, hyperlipidemia, history of CVA, erosive gastritis, COPD, bipolar disorder, anxiety, and who is a current everyday smoker 1.5 packs per day admitted for acute COPD exacerbation # acute COPD exacerbation -negative for COVID-19, RSV, and influenza.? res panel neg -continue supplemental O2 for hypoxia to maintain oxygen saturation greater than 90-92% -IV Solu-Medrol 60 mg b.i.d.,DuoNebs q.4h,albuterol q.2h p.r.n. -pain management on pain scale for pleuritic chest pain and myalgias -counseled on smoking cessation # right middle lobe density on CXR -Reviewed discharge summary from [facility] from 05/21. Pt treated inpt with zithromax and ceftriaxone and completed 5 day course zithromax outpt. -Procalcitonin WNL -Infiltrate on CXR not new. Should have follow up CXR in 6 weeks to ensure resolution # acute hypoxemic respiratory failure secondary to COPD exacerbation still sobwith minimal talkin -patient follows with Dr. Bradford in pulmonology.? She was on supplemental oxygen at one point per her daughter but this was taken away due to her ongoing smoking -High risk for home O2 due to ongoing smoking and cessation refusal -continue supplemental O2 to maintain oximetry 90-92%, titrate as tolerated taper oxygen ,may need home oxygen eval upon discharge. # acute hypokalemia-resolved -K 4.1 # MS-no acute flare -continue home meds # hypertension -continue home meds # HLD -continue home meds # GERD/erosive gastritis -continue PPI abd pain : ? possible related to constipation cxr and abd kub reviewed-has lot of stool added luxatives ongoing inpatient need :acute hypoxemic respiratory failure secondary to COPD exacerbation-on nebs, iv steriods ,suppl oxygen Quality Stroke Does the patient have a stroke diagnosis?: No VTE Prior VTE?: No VTE Risk Level:: Medical - moderate - high VTE Device Contraindication: Treatment Not Indicated VTE Drug Contraindication: N/A - Med Ordered
[2022-05-31] MEDS: Enoxaparin Sodium 30 MG/0.3 ML SYRINGE SUBCUT (20:33)
[2022-05-31] MEDS: Pyridoxine HCl (Vitamin B6) 50 MG TABLET 25 MG PO (20:34)
[2022-05-31] MEDS: traZODone HCL 50 MG TABLET PO (20:37)
[2022-05-31] MEDS: Vitamin E (Dl,Tocopheryl Acet) 180 MG (400 UNIT) CAPSULE PO (20:37)
[2022-05-31] MEDS: Mirtazapine 30 MG TABLET PO (20:37)
[2022-06-01] VITALS (7 sets, daily range): BP systolic 144–148; BP diastolic 64–67; PULSE 58–89; RESP 16–20; TEMP 36–36.9; O2SAT 90–98
[2022-06-01] MEDS: 0.9 % Sodium Chloride Flush 3 ML SYRINGE IVFLUSH ×2 (00:44→08:33)
[2022-06-01] MEDS: Omeprazole 20 MG CAPSULE.DR PO (05:39)
[2022-06-01] MEDS: methylPREDNISolone Sod Succ 125 MG/2 ML VIAL 60 MG IVPUSH (08:31)
[2022-06-01] MEDS: Aspirin Enteric Coated 81 MG TABLET.DR PO (08:32)
[2022-06-01] MEDS: Calcium Carbonate 750 MG TAB.CHEW PO (08:32)
[2022-06-01] MEDS: Thiamine HCL 100 MG TABLET PO (08:32)
[2022-06-01] MEDS: polyethylene glycoL 3350 17 GM POWD.PACK PO (08:32)
[2022-06-01] MEDS: Atorvastatin Calcium 40 MG TABLET PO (08:32)
[2022-06-01] MEDS: Metoprolol Tartrate 25 MG TABLET PO (08:32)
[2022-06-01] MEDS: Gabapentin 300 MG CAPSULE PO (08:32)
[2022-06-01] MEDS: Cholecalciferol (Vitamin D3) 25 MCG TABLET PO (08:33)
[2022-06-01] MEDS: Sertraline HCL 100 MG TABLET PO (08:33)
[2022-06-01] MEDS: dilTIAZem HCL CD 180 MG CAP.ER.24H 360 MG PO (08:33)
[2022-06-01] MEDS: amantadine HCL 100 MG CAPSULE PO (08:33)
[2022-06-01] MEDS: Multivitamin TABLET 1 TAB PO (08:33)
[2022-06-01] MEDS: Albuterol/Iprat 2.5/0.5MG 3 ML AMPUL.NEB INHALE ×3 (08:38→15:54)
--- NOTE | 2022-06-01 11:19 | MHC.CM.PN ---
Addendum entered by Kandace Swain 06/01/22 15:06: BLS TRANSPORT SCHEDULED VIA [facility] FOR 1700 HOURS PT AWARE OF DC/PLAN AND IN AGREEMENT Addendum entered by Kandace Swain 06/01/22 14:28: PT ACCEPTING A BED OFFER FROM [facility] FORWARDED TO THEM THEY HAVE INDICATED PT MUST BRING HER TERIFLUNOMIDE FROM HOME IT WILL BE SENT WITH HER Original Note: CM INFORMED PT IS READY TO DC AND AGREEABLE TO STR REFERRALS UPDATED AWAITING RESPONSES
--- NOTE | 2022-06-01 15:08 | PM.DS ---
DS: Providers Provider Date of Service: 06/01/22 Date of admission: 05/28/22 20:37 Primary care physician: Loida Bowen MD DS: Diagnosis Discharge Diagnosis (1) Acute hypoxemic respiratory failure: Status: Acute (2) Acute exacerbation of chronic obstructive airways disease: Status: Acute (3) Right pulmonary infiltrate on CXR: Status: Acute DS: Summary Hospital Course Hospital Course: 76 year old female with history of multiple sclerosis, osteoporosis, iron deficiency anemia, hypertension, hyperlipidemia, history of CVA, erosive gastritis, COPD, bipolar disorder, anxiety, and who is a current everyday smoker 1.5 packs per day presented to ED today for evaluation of ongoing shortness of breath, chest tightness, body aches ongoing for about a month.? The patient was recently admitted at [facility] for COPD exacerbation and pneumonia and discharged on 05/21 with prednisone and azithromycin which patient states she completed.? However, symptoms have not improved.? Denies fevers, chills, sore throat, nasal congestion, sinus pressure, nausea, vomiting, abdominal pain, palpitations, lightheadedness, chest pressure.? She does endorse chronic constipation.? Denies any sick contacts.? On arrival, patient developed hypoxia down to 89% was placed on 2 L supplemental oxygen.? She was mildly tachypneic at 21 but afebrile.? Heart rate 91 which is around her baseline.? No leukocytosis.? Stable normocytic anemia with H/H 9.7/30.7%.? Creatinine 0.58, BUN 16, potassium 3.1, electrolytes otherwise normal.? Troponin 30.4 initially and 30.0.? BNP 101.? Negative for COVID-19, influenza, and RSV.? Chest x-ray shows right middle lobe density and emphysematous changes.? She was given DuoNeb, IV the vancomycin and cefepime, and repleted with 60 mEq of potassium chloride.? Also given morphine for diffuse body aches and pleuritic chest pain.? Patient to be admitted for COPD exacerbation. hospital course: Acute hypoxemic respiratory failure secondary to COPD exacerbation- patient was given nebs and steroids supplemental oxygen patient seems to be improved significantly- seen by PT and recommended to go to rehab patient is going with p.o. steroids and Slowly taper oxygen as tolerated in rehab. Constipation: Added laxative seems to be improving. chest x-ray showed-right middle lobe density-patient was treated in [facility] -she was inpatient treated with zithromax and ceftriaxone and completed 5 day course zithromax?. Procalcitonin WNL,above finding on chest x-ray was thought to be not new, follow-up with chest imaging in 3-4 week out patiently. patient follows with Dr. Bradford in pulmonology. follow-up with Pulmonary outpatient. Above management discussed with the patient in detail length with the help of interpreter and translator. She understand and in agreement with the plan. Time Spent with Patient Time attestation: Total time spent providing and/or coordinating discharge services: Discharge coordination time: Greater than 30 minutes Quality: Safe Use of Opioids Does Pt have an Active Cancer Diagnosis on the Problem List?: No Quality: Stroke Does the patient have a stroke diagnosis?: No Physical Exam Vital Signs: Vital Signs: Last Vital Signs Temp 98.4 F 06/01/22 11:22 Pulse 89 06/01/22 11:54 Resp 20 06/01/22 11:54 BP 148/64 H 06/01/22 11:22 Pulse Ox 94 06/01/22 11:22 O2 Del Method 06/01/22 11:22 O2 Flow Rate 2.0 06/01/22 11:22 BMI result Body Mass Index 21.2 ? Appearance: Alert.? Oriented X3.?sob still with minimun exersion. cvs: rrr, [id number] , no murmur res: diminshed breath sounds,has b/l wheezin abd: no rebound or guarding ,nt , bs present. ext pulses present , no cyanosis . neuro: axo3 , nonfocal. DS: Data Data Completed and Pending Labs on day of discharge: Preliminary micro results at discharge 05/28/22 16:51 Blood Culture - Preliminary Blood - Venous No growth after 48 hours. 05/28/22 16:51 Blood Culture - Preliminary Blood - Venous No growth after 48 hours. Imaging Chest x-ray: Radiologist's impression: ITS Impressions Chest X-Ray 05/28/22 15:05 IMPRESSION: Changes of emphysema. Right middle lobe density. Chest X-Ray 05/31/22 12:35 IMPRESSION: 1. Clear lungs. No displaced rib fractures identified. 2. Nonobstructive bowel gas pattern. KUB X-Ray 05/31/22 12:35 IMPRESSION: 1. Clear lungs. No displaced rib fractures identified. 2. Nonobstructive bowel gas pattern. Discharge Plan Discharge Anticipated Discharge Date/Time: 06/01/22 14:55 Patient Disposition: er [facility] Discharge Diagnosis: COPD exacerbation with acute hypoxic respiratory failure Referrals: Matthew Bennett [Outside] - 1 Week Loida Bowen MD [Primary Care Provider] - 1 Week Discharge Medications: New prednisone 20 mg tablet 40 mg PO DAILY Qty: 8 0RF Continued albuterol sulfate 90 mcg/actuation HFA aerosol inhaler 2 puff PO Q4-6H PRN (Reason: for wheezing) Qty: 8.5 11RF Trelegy Ellipta 200-62.5-25 mcg blister with device 1 inh inhalation DAILY 30 Days Qty: 60 12RF Combivent Respimat 20-100 mcg/actuation mist 1 puff inhalation QID 30 Days Qty: 4 11RF Rx Instructions: space evenly during waking hours levalbuterol HCl [Xopenex] 1.25 mg/3 mL solution for nebulization 1.25 mg inhalation BID 30 Days Qty: 180 0RF nicotine 14 mg/24 hr patch 24 hour 1 patch transdermal DAILY 28 Days Qty: 28 3RF fluticasone propionate 50 mcg/actuation spray,suspension 2 spray intranasal DAILY PRN (Reason: Allergy Symptoms) acetaminophen [Arthritis Pain Reliever] 650 mg Tablet Extended Release 650 mg PO Q8H PRN (Reason: Pain) multivitamin Tablet 1 tab PO DAILY sennosides [senna] 8.6 mg Tablet 8.6 mg PO BID PRN (Reason: Constipation) pyridoxine (vitamin B6) [Vitamin B-6] 25 mg tablet 1 tab PO BEDTIME alendronate 35 mg tablet 1 tab PO Q7D oxycodone-acetaminophen 5-325 mg tablet 1 tab PO BID PRN (Reason: Pain (Scale Score 4-6)) pantoprazole 40 mg tablet,delayed release (DR/EC) 1 tab PO DAILY@0630 gabapentin 300 mg capsule 1 cap PO BID diltiazem HCl 180 mg Capsule,Ext.Rel 24h Degradable 360 mg PO DAILY cholecalciferol (vitamin D3) [Vitamin D3] 25 mcg (1,000 unit) capsule 1 cap PO DAILY Daliresp 250 mcg tablet 250 mcg PO DAILY prednisone 20 mg tablet 20 mg PO DAILY metoprolol tartrate 25 mg tablet 25 mg PO BID sertraline 100 mg tablet 100 mg PO DAILY amantadine HCl 100 mg capsule 100 mg PO DAILY docusate sodium [Colace] 100 mg capsule 100 mg PO BID atorvastatin 40 mg tablet 40 mg PO DAILY aspirin [Adult Aspirin Regimen] 81 mg tablet,delayed release (DR/EC) 81 mg PO DAILY trazodone 50 mg tablet 50 mg PO BEDTIME teriflunomide 14 mg tablet 14 mg PO DAILY mirtazapine 30 mg tablet 30 mg PO BEDTIME chlorthalidone 25 mg tablet 12.5 mg PO DAILY (DME) nebulizers Misc See Rx Instructions .ROUTE Rx Instructions: As directed irbesartan 300 mg tablet 300 mg PO DAILY vitamin E (dl, acetate) 180 mg (400 unit) capsule 180 mg PO BEDTIME calcium carbonate [Naeem-Gest Antacid] 200 mg calcium (500 mg) tablet,chewable 200 mg PO BID thiamine HCl (vitamin B1) 100 mg tablet 100 mg PO DAILY Discharge Orders: Discharge Order (Routine); Ordered 06/01/22 Ordered By: Jose Delgadillo Activity on Discharge: As tolerated Stand Alone Forms: Patient Portal Discharge page Care Plan Goals: Acute hypoxemic respiratory failure secondary to COPD exacerbation- patient was given nebs and steroids supplemental oxygen patient seems to be improved significantly- seen by PT and recommended to go to rehab patient is going with p.o. steroids and Slowly taper oxygen as tolerated in rehab. Constipation: Added laxative seems to be improving. chest x-ray showed-right middle lobe density-patient was treated in [facility] -inpatient with zithromax and ceftriaxone and completed 5 day course zithromax?. Procalcitonin WNL,above finding on chest x-ray was thought to be not new, follow-up with chest imaging in 3-4 week out patiently. patient follows with Dr. Bradford in pulmonology. follow-up with Pulmonary outpatient. Health Concerns: As above. Plan of Treatment: As above. Assessment: As above.
== END 2022-06-01 17:36 | disposition skilled nursing facility (03) | DRG 190 ==
LOC: HO.ED 20:04 → HO.EDOVER 21:14 → HO.S3 05-29 07:30
PROVIDERS: Nurse Practitioner Family; Admitting Provider Physician Assistant; Emergency Provider Emergency Medicine; PCP Internal Medicine; Visit Provider Internal Medicine
DX: J44.1 Chronic obstructive pulmonary disease with (acute) exacerbation (principal); J96.01 Acute respiratory failure with hypoxia; R65.10 Systemic inflammatory response syndrome (SIRS) of non-infectious origin without acute organ dysfunction; E87.6 Hypokalemia; Z86.73 Personal history of transient ischemic attack (TIA), and cerebral infarction without residual deficits; Z66 Do not resuscitate; G35 Multiple sclerosis; E78.5 Hyperlipidemia, unspecified; F17.210 Nicotine dependence, cigarettes, uncomplicated; Z71.6 Tobacco abuse counseling; M81.0 Age-related osteoporosis without current pathological fracture; K21.9 Gastro-esophageal reflux disease without esophagitis; K27.9 Peptic ulcer, site unspecified, unspecified as acute or chronic, without hemorrhage or perforation; F31.9 Bipolar disorder, unspecified; Z20.822 Contact with and (suspected) exposure to COVID-19; Z88.0 Allergy status to penicillin; Z88.8 Allergy status to other drugs, medicaments and biological substances; Z79.51 Long term (current) use of inhaled steroids; Z79.899 Other long term (current) drug therapy
CPT/HCPCS: 0241U; 36415; 71045; 71046; 74018; 80048; 80076; 81001; 81003; 82607; 82746; 83605; 83735; 83880; 84145; 84484; 85025; 85610; 87040; 93005; 94640; 97110; 97116; 97162; 97530; 99285; J0692; J1170; J1650; J2270; J2920; J2930; J3370

== ENCOUNTER 2022-06-02 06:13 | Outpatient (REF) | payer MEDICARE, MEDICAID, SELFPAY ==
[2022-06-02 06:49] LABS: Basophils Percent Auto 0.1 % (0-2); Hematocrit 32.2 % (37.0-47.0); Imm Gran Abs Auto 0.04 X10*3/uL (0.00-0.03); Imm Gran Pct Auto 0.4 % (0.0-0.4); Lymphocytes Absolute Auto 0.2 X10*3/uL (1.2-4.9); Lymphocytes Percent Auto 1.8 % (20-40); MANUAL DIFF FLAG SCAN; Mean Corpuscular HGB Conc 31.1 g/dl (31.0-35.0); Mean Corpuscular Hemoglobin 29.7 pg (27.0-33.0); Mean Corpuscular Volume 95.5 fL (80.0-98.0); Mean Platelet Volume 11.2 fL (9.4-12.3); Monocytes Absolute Auto 0.4 X10*3/uL (0.1-1.2); Monocytes Percent Auto 3.3 % (2-11); Neutrophils Absolute Auto 10.3 x10*3/uL (2.0-8.3); Neutrophils Percent Auto 94.4 % (45-73); Platelet Count 209 X10*3/uL (160-400); Red Blood Count 3.37 X10*6/uL (4.20-5.50); Red Cell Distribution Width 16.2 % (11.0-16.0); SCAN SMEAR FLAG 1; White Blood Count 10.9 X10*3/uL (4.8-10.8)
[2022-06-02 06:56] LABS: Alanine Aminotransferase 33 U/L (0-31); Albumin Level 3.5 g/dL (3.5-5.0); Alkaline Phosphatase 111 U/L (39-117); Anion Gap 14 (12-20); Aspartate Amino Transferase 28 U/L (5-31); Bilirubin Total 0.6 mg/dL (0.0-1.0); Blood Urea Nitrogen 24 mg/dL (9-16); Calcium 8.8 mg/dL (8.4-10.2); Carbon Dioxide 32 mmol/L (22-29); Chloride 102 mmol/L (96-108); Estimated Glomerular Filt Rate > 60; Glucose Random 125 mg/dL (60-115); Potassium 3.9 mmol/L (3.3-5.1); Sodium 144 mmol/L (135-145); Total Protein 5.6 g/dL (6.5-8.0)
[2022-06-02 07:30] LABS: SLIDE REVIEW VERIFIED
== END 2022-06-02 06:14 | disposition home or self-care (01) ==
LOC: HO.MMNH2L 06:13
PROVIDERS: Visit Provider Family Medicine
DX: Z13.89 Encounter for screening for other disorder (principal)
CPT/HCPCS: 36415; 80053; 85025

== ENCOUNTER 2022-06-04 13:18 | Inpatient (IN) | payer MEDICARE, MEDICAID, SELFPAY ==
--- NOTE | ~2022-06-04 | XR_ITS ---
EXAMINATION: XR CHEST CLINICAL INFORMATION: Right-sided chest tube placement for pneumothorax. COMPARISON: Multiple previous with last chest x-ray of 06/04/2022 obtained at 3:37 PM. TECHNIQUE: Frontal view of the chest was obtained. FINDINGS: The right lateral chest wall and right neck soft tissue emphysema is noted, increased compared to last study. A right-sided pigtail catheter is in place, at the right lung base. Small persistent right pneumothorax, decreased compared to last chest x-ray. Scattered patchy airspace opacities in the right lung are redemonstrated. Left lung is grossly clear. Probable trace right pleural effusion. No evidence of pulmonary edema or left pneumothorax. No acute osseous abnormality. Cardiomediastinal silhouette is unchanged. XR/XR chest 1V IMPRESSION: Interval placement of right chest tube projecting over the right lung base. There is interval improvement of the right pneumothorax with persistent small pneumothorax. Right chest wall and right neck soft tissue emphysema, increased compared to last chest x-ray.
--- NOTE | ~2022-06-04 | XR_ITS ---
EXAMINATION: XR CHEST CLINICAL INFORMATION: Dyspnea, hypoxia, rule out pneumonia. COMPARISON: 05/31/2022 chest radiograph. TECHNIQUE: Frontal view of the chest was obtained. FINDINGS: Patchy infiltrates are seen in the right upper and lower lung [place] with blunting of the right costophrenic angle. The left lung is clear. The heart and mediastinal structures are unremarkable. XR/XR chest 1V IMPRESSION: Right lung patchy infiltrates with small right pleural effusion.
--- NOTE | ~2022-06-04 | XR_ITS ---
EXAMINATION: XR CHEST CLINICAL INFORMATION: Right subclavian attempt. Rule out pneumothorax. COMPARISON: Multiple previous with last chest x-ray of 06/04/2022 obtained at 1:52 PM, selected images of the chest CT of 07/10/2020. TECHNIQUE: Frontal view of the chest was obtained. FINDINGS: Small right pneumothorax is noted extending from the apex to the base coursing into the subpulmonic region medially. Soft tissue emphysema is noted in the right upper to mid chest wall. Multiple scattered patchy airspace opacities in the right lung are again noted similar to chest x-ray performed earlier on the same day. The opacities are however new compared to previous x-ray of 05/31/2022. Left lung is relatively clear. No evidence of pulmonary edema or significant pleural effusions. Osteoarthritic changes at the bilateral glenohumeral articulations. No acute osseous abnormality. XR/XR chest 1V IMPRESSION: Small right pneumothorax extending from apex to the base. No evidence of mediastinal shift at this time. Right chest wall emphysema. Right lung patchy airspace opacities are new compared to previous x-rays of 05/31/2022. Critical results were discussed with Iman MAYNARD, on 06/04/2022 at 4:04 PM.
--- NOTE | ~2022-06-04 | XR_ITS ---
EXAMINATION: XR CHEST CLINICAL INFORMATION: Pneumothorax COMPARISON: Chest radiograph from 06/04/2022 TECHNIQUE: Frontal view of the chest was obtained. FINDINGS: Right-sided pigtail catheter with no appreciable change in size of small right pneumothorax. Redemonstration of emphysematous changes throughout the right lateral chest and right lower neck soft tissues, relatively stable in appearance. Biapical pleural parenchymal scarring. Trachea is midline. Cardiomediastinal silhouette is stable. Aorta demonstrates tortuosity with atherosclerotic calcifications. S-shaped curvature of the thoracolumbar spine. Soft tissues are unremarkable. XR/XR chest 1V IMPRESSION: 1. Right-sided pigtail catheter with no appreciable change in size of small right pneumothorax. 2. Redemonstration of emphysematous changes throughout the right lateral chest and right lower neck soft tissues, relatively stable in appearance. 3. Biapical pleural parenchymal scarring.
[2022-06-04 13:27] VITALS: BP 100/60; BP 92/40; PULSE 60; RESP 20; TEMP 36.2; O2SAT 89; O2SAT 96; BMI 21.9
--- NOTE | 2022-06-04 13:36 | ED_ITS ---
HPI - SOB/Dyspnea General Chief Complaint: Dyspnea Stated Complaint: LOW O2 SAT Time Seen by Provider: 06/04/22 13:29 Source: patient Mode of arrival: EMS Limitations: language barrier (Yi speaking , understands some [place]) History of Present Illness HPI Narrative: 76-year-old female who was sent to the emergency department [facility] for evaluation of increased weakness, increased oxygen demand, with wheezing and rhonchi on her lung exam. Patient was admitted to [facility] on 05/28/2022 and discharged on 06/01/2022 (4 days prior to evaluation). The patient presented with acute hypoxemic respiratory failure secondary to his COPD exacerbation. She was treated with nebulizers and steroids and oxygen therapy. She had significant weakness and was sent to rehab for weakness. Patient states that she feels short of breath, she states she has a cough which is nonproductive, she denied fever or chills. She denied chest pain. She states that she has had no appetite has not been eating and drinking over the past several days. Related Data Home Medications Medication Instructions Recorded Confirmed amantadine HCl 100 mg capsule 100 mg PO DAILY 05/06/20 05/29/22 aspirin 81 mg tablet,delayed 81 mg PO DAILY 05/06/20 05/29/22 release (Adult Aspirin Regimen) atorvastatin 40 mg tablet 40 mg PO DAILY 05/06/20 05/29/22 docusate sodium 100 mg capsule 100 mg PO BID 05/06/20 05/29/22 (Colace) metoprolol tartrate 25 mg tablet 25 mg PO BID 05/06/20 05/29/22 sertraline 100 mg tablet 100 mg PO DAILY 05/06/20 05/29/22 trazodone 50 mg tablet 50 mg PO BEDTIME 06/18/20 05/29/22 fluticasone propionate 50 2 spray intranasal DAILY PRN 07/10/20 05/29/22 mcg/actuation nasal Allergy Symptoms spray,suspension acetaminophen 650 mg 650 mg PO Q8H PRN Pain 09/02/20 05/29/22 tablet,extended release (Arthritis Pain Reliever) teriflunomide 14 mg tablet 14 mg PO DAILY 10/08/20 05/29/22 calcium carbonate 200 mg calcium 200 mg PO BID 06/23/21 05/29/22 (500 mg) chewable tablet (Naeem-Gest Antacid) irbesartan 300 mg tablet 300 mg PO DAILY 06/23/21 05/29/22 thiamine HCl (vitamin B1) 100 mg 100 mg PO DAILY 06/23/21 05/29/22 tablet vitamin E (dl, acetate) 180 mg 180 mg PO BEDTIME 06/23/21 05/29/22 (400 unit) capsule chlorthalidone 25 mg tablet 12.5 mg PO DAILY 04/14/22 05/29/22 mirtazapine 30 mg tablet 30 mg PO BEDTIME 04/14/22 05/29/22 nebulizers 04/14/22 alendronate 35 mg tablet 1 tab PO Q7D 05/29/22 05/29/22 cholecalciferol (vitamin D3) 25 1 cap PO DAILY 05/29/22 05/29/22 mcg (1,000 unit) capsule (Vitamin D3) diltiazem HCl 180 mg 360 mg PO DAILY 05/29/22 05/29/22 capsule,extended release 24 hr, controlled gabapentin 300 mg capsule 1 cap PO BID 05/29/22 05/29/22 multivitamin 1 tab PO DAILY 05/29/22 05/29/22 oxycodone-acetaminophen 5 mg-325 1 tab PO BID PRN Pain (Scale Score 05/29/22 05/29/22 mg tablet 4-6) pantoprazole 40 mg tablet,delayed 1 tab PO DAILY@0630 05/29/22 05/29/22 release prednisone 20 mg tablet 20 mg PO DAILY 05/29/22 05/29/22 pyridoxine (vitamin B6) 25 mg 1 tab PO BEDTIME 05/29/22 05/29/22 tablet (Vitamin B-6) roflumilast 250 mcg tablet 250 mcg PO DAILY 05/29/22 05/29/22 (Daliresp) sennosides 8.6 mg tablet (senna) 8.6 mg PO BID PRN Constipation 05/29/22 05/29/22 albuterol sulfate 90 mcg/actuation 2 puff PO Q4H PRN for wheezing 06/04/22 06/04/22 aerosol inhaler Previous Rx's Medication Instructions Recorded fluticasone fur. 200 mcg-umeclid 1 inh inhalation DAILY 30 days #60 02/06/22 62.5 mcg-vilant 25 mcg ea inhalat.powder (Trelegy Ellipta) ipratropium 20 mcg-albuterol 100 1 puff inhalation QID 30 days #4 02/06/22 mcg/actuation mist for inhalation grams (Combivent Respimat) levalbuterol HCl 1.25 mg/3 mL 1.25 mg (3 mL) inhalation BID 30 04/14/22 solution for nebulization (Xopenex) days #180 mL nicotine 14 mg/24 hr daily 1 patch transdermal DAILY 28 days 05/18/22 transdermal patch #28 ea prednisone 20 mg tablet 40 mg PO DAILY #8 tabs 06/01/22 Allergies Allergy/AdvReac Type Severity Reaction Status Date / Time Penicillins [PENICILLINS] Allergy Severe RASH Verified 06/04/22 13:26 lisinopril AdvReac Unknown diarrhea Verified 06/04/22 13:26 14-Count Warmer Allergy Severe Rash Uncoded 06/04/22 13:26 Review of Systems Review of Systems: Yes all other systems are reviewed and are negative PMFSH Past Medical History Medical History Anemia Anxiety Bipolar 1 disorder Chronic rhinitis COPD (chronic obstructive pulmonary disease) Erosive gastritis History of CVA (cerebrovascular accident) (~10/2019) HLD (hyperlipidemia) HTN (hypertension) SRIKANTH (iron deficiency anemia) Multiple sclerosis Osteoporosis Tobacco dependence Vitamin D deficiency Surgical History History of cholecystectomy History of eye surgery History of hysterectomy History of left knee surgery Family History Family History Father Stroke Mother No problems noted. Social History Social History Household Members: Unknown / Unable to assess Housing: Apartment Unable to assess alcohol history related to: Unknown Alcohol intake: former Patient Tobacco Use Status: Current everyday Tobacco user Cigarette Packs Per Day: 1.5 Years Smoked: approx 60 years Advance Directives: Yes Advance Directives on File: Yes Advance Directives Date on File: 05/10/20 service: No Current occupational status: unemployed and disabled Physical Exam Vital Signs: Vital Signs: Last Vital Signs Temp 97.1 F 06/04/22 13:27 Pulse 71 06/04/22 16:00 Resp 24 H 06/04/22 16:00 BP 96/42 L 06/04/22 16:00 Pulse Ox 97 06/04/22 16:00 O2 Del Method 06/04/22 16:00 O2 Flow Rate 5 06/04/22 16:00 Oxygen Flow Rate 3 06/04/22 13:27 BMI result Body Mass Index 21.9 Const: Other: Frail, elderly female, does not appear to be in distress. HEENT: Head: Yes normal to inspection, Yes normocephalic and Yes atraumatic Ears: external ears normal General nose exam: Normal external nose present Face and sinus: Yes normal facial exam Mouth: Normal oral and palatal mucosa present Throat: Yes posterior oropharynx normal Eyes: General: appearance normal, both eyes and all related structures Neck: Neck: Yes normal visual inspection, Yes no lymphadenopathy, Yes trachea midline and Yes supple Chest: Chest palpation & inspection: normal inspection of the chest and normal palpation of entire chest wall Resp: Other: Patient's breath sounds are diminished but symmetric, diffuse rhonchi, no wheezing. Cardio: Rate: regular rate Rhythm: regular rhythm Heart sounds: S1 normal heart sound present, S2 normal heart sound present and no murmurs GI: Inspection: Yes normal to inspection Palpation (GI): Soft to palpation, nontender and no guarding Auscultation: normal bowel sounds : General: Yes no CVA tenderness Back/Spine/Pelvis: Back: no CVA tenderness Skin: General skin exam: no rashes or lesions noted Neuro: Other: Patient has generalized weakness, cranial nerves are intact, answers questions appropriately Extrem: Other: Patient has generalized weakness but is able to move all extremities Psych: Appearance: grossly normal Attitude: cooperative Course Course Course Narrative: 76-year-old female with history of COPD who was recently hospitalized here for hypoxic respiratory failure secondary to COPD exacerbation was discharged approximately 4 days prior to the [facility]. According to the report from the paramedics and from the ED nurse, patient has been getting weaker at the nursing facility, she has required higher oxygen demand were initially she was getting oxygen p.r.n. and now needs a continually. Paramedics reported that her O2 saturation was low on oxygen at the nursing facility but after a nebulizer treatment her O2 saturation came up. Patient's initial vital signs revealed a blood pressure of 92/40, with an O2 saturation of 96% on 3 L via nasal cannula. Lung exam did reveal diffuse rhonchi. Ordered laboratory evaluation chest x-ray on the patient. 1746: There was a delay in the patient's care since IV access was very difficult to obtain. I attempted to place a right subclavian central line and I caused a pneumothorax. A Flaquito pigtail catheter was placed by me with expansion of the pneumothorax and the chest tube was placed to -20 cm suction on a dry atrium. The patient does have bubbles in the blue chamber suggesting that she may have an air leak. I did discuss the pneumothorax and chest tube with the physician aquatics assistant department head for thoracic surgery, Patricia Villeda. She states that they will follow the chest tube and the recommending that the patient get a chest x-ray in the morning. IV access was obtained and blood work was obtained as well. The patient has an elevated lactic acid of 3.5 which may be secondary to starvation ketosis since I do not think that she is septic at this time. Patient also has an elevated troponin of 90.4. I did order a fluid bolus on the patient since I do think she is volume depleted and dehydrated from not using over the past several days. Also, I ordered Levaquin 750 mg IV to treat her for possible pneumonia. Patient does have right-sided upper and lower lobe infiltrates which may be residual from her previous pneumonia or may represent a new pneumonia. I did discuss the patient's presentation with Dr. Mehta and the patient will be admitted to the hospital service. Medications Administered Generic Name Dose Route Start Last Admin Trade Name Freq PRN Reason Stop Dose Admin Sodium Chloride 500 mls @ 500 mls/hr 06/04/22 16:45 06/04/22 16:53 Ns IV 06/04/22 17:44 500 mls/hr .Q1H SHARAN Administration Discontinued Medications Generic Name Dose Route Start Last Admin Trade Name Freq PRN Reason Stop Dose Admin Sodium Chloride 1,000 mls @ 999 mls/hr 06/04/22 14:35 06/04/22 16:39 Ns IV 06/04/22 15:35 Not Given .Q1H1M STA MDM - SOB/Dyspnea Medical Records Attestation: I reviewed the patient's medical records. Lab Data Attestation: I reviewed the patient's lab results. Result diagrams: 06/04/22 17:05 06/04/22 17:05 Labs: Lab Results 06/04/22 06/04/22 06/04/22 Range/Units 14:17 14:17 17:05 WBC 9.6 (4.8-10.8) X10*3/uL RBC 3.18 L (4.20-5.50) X10*6/uL Hgb 9.4 L (12.0-16.0) g/dl Hct 30.8 L (37.0-47.0) % MCV 96.9 (80.0-98.0) fL MCH 29.6 (27.0-33.0) pg MCHC 30.5 L (31.0-35.0) g/dl RDW 16.4 H (11.0-16.0) % Plt Count 218 (160-400) X10*3/uL MPV 11.2 (9.4-12.3) fL Immature Gran % (Auto) 0.6 H (0.0-0.4) % Neut % (Auto) 94.6 H (45-73) % Lymph % (Auto) 1.8 L (20-40) % [place] % (Auto) 2.8 (2-11) % Eos % (Auto) 0.0 (0-4) % Baso % (Auto) 0.2 (0-2) % Lymph # (Auto) 0.2 L (1.2-4.9) X10*3/uL [place] # (Auto) 0.3 (0.1-1.2) X10*3/uL Eos # (Auto) 0.0 (0.0-0.4) X10*3/uL Baso # (Auto) 0.0 (0.0-0.2) X10*3/uL Abs Immat Gran (auto) 0.06 H (0.00-0.03) X10*3/uL Absolute Neuts (auto) 9.0 H (2.0-8.3) x10*3/uL Absolute Nucleated RBC 0.000 (0.0-0.012) X10*3/uL Nucleated RBC % (auto) 0.0 (0.0-0.2) /100WBC Sodium (135-145) mmol/L Potassium (3.3-5.1) mmol/L Chloride (96-108) mmol/L Carbon Dioxide (22-29) mmol/L Anion Gap (12-20) BUN (9-16) mg/dL Creatinine (0.5-1.4) mg/dL Estim Creat Clear Calc Estimated GFR Random Glucose (60-115) mg/dL Calcium (8.4-10.2) mg/dL Total Bilirubin (0.0-1.0) mg/dL AST (5-31) U/L ALT (0-31) U/L Alkaline Phosphatase (39-117) U/L B-Natriuretic Peptide (<100) pg/mL Total Protein (6.5-8.0) g/dL Albumin (3.5-5.0) g/dL Lipase (8-78) U/L COVID-19 (MOISÉS) Negative (Negative) COVID-19 Clin Com See Note Influenza Type A (CEDRICK) Negative (Negative) Influenza Type B (CEDRICK) Negative (Negative) Influenza A & B Note See Note 06/04/22 06/04/22 Range/Units 17:05 17:05 WBC (4.8-10.8) X10*3/uL RBC (4.20-5.50) X10*6/uL Hgb (12.0-16.0) g/dl Hct (37.0-47.0) % MCV (80.0-98.0) fL MCH (27.0-33.0) pg MCHC (31.0-35.0) g/dl RDW (11.0-16.0) % Plt Count (160-400) X10*3/uL MPV (9.4-12.3) fL Immature Gran % (Auto) (0.0-0.4) % Neut % (Auto) (45-73) % Lymph % (Auto) (20-40) % [place] % (Auto) (2-11) % Eos % (Auto) (0-4) % Baso % (Auto) (0-2) % Lymph # (Auto) (1.2-4.9) X10*3/uL [place] # (Auto) (0.1-1.2) X10*3/uL Eos # (Auto) (0.0-0.4) X10*3/uL Baso # (Auto) (0.0-0.2) X10*3/uL Abs Immat Gran (auto) (0.00-0.03) X10*3/uL Absolute Neuts (auto) (2.0-8.3) x10*3/uL Absolute Nucleated RBC (0.0-0.012) X10*3/uL Nucleated RBC % (auto) (0.0-0.2) /100WBC Sodium 141 (135-145) mmol/L Potassium 3.5 (3.3-5.1) mmol/L Chloride 94 L (96-108) mmol/L Carbon Dioxide 29 (22-29) mmol/L Anion Gap 22 H (12-20) BUN 36 H (9-16) mg/dL Creatinine 1.51 H (0.5-1.4) mg/dL Estim Creat Clear Calc 20.4 Estimated GFR 34 Random Glucose 226 H (60-115) mg/dL Calcium 7.9 L D (8.4-10.2) mg/dL Total Bilirubin 0.7 (0.0-1.0) mg/dL AST 30 (5-31) U/L ALT 29 (0-31) U/L Alkaline Phosphatase 93 (39-117) U/L B-Natriuretic Peptide 109 H (<100) pg/mL Total Protein 5.5 L (6.5-8.0) g/dL Albumin 3.2 L (3.5-5.0) g/dL Lipase 16 (8-78) U/L COVID-19 (MOISÉS) (Negative) COVID-19 Clin Com Influenza Type A (CEDRICK) (Negative) Influenza Type B (CEDRICK) (Negative) Influenza A & B Note Procedures Central Line Placement Right SC: Time Out Performed: Yes Patient Placed on Monitor/Pulse Ox: Yes MD Prep: mask, gown and gloves Central Line Prep: Chlorhexidine scrub Local Anesthetic: lidocaine 1% Amount of anesthesia used (mL): 5 Ultrasound Used for Placement: No Patient Tolerated Procedure: other (Unsuccessful) Complications: pneumothorax Chest Tube Chest Tube 1: Chest Tube Location: right (Flaquito pigtail catheter) Chest Tube Prep: Yes betadine prep and sterile drapes applied Local Anesthetic: lidocaine 1% Amount of anesthesia used (mL): 5 Incision Made With: #11 blade Post Procedure: sterile dressing applied Tube Drainage: none Post Procedure CXR?: Yes Patient Tolerated Procedure: Yes Discharge Plan Discharge Patient Disposition: Admitted As Inpatient Prescriptions: No Action albuterol sulfate 90 mcg/actuation HFA aerosol inhaler 2 puff PO Q4-6H PRN (Reason: for wheezing) Qty: 8.5 11RF Trelegy Ellipta 200-62.5-25 mcg blister with device 1 inh inhalation DAILY 30 Days Qty: 60 12RF Combivent Respimat 20-100 mcg/actuation mist 1 puff inhalation QID 30 Days Qty: 4 11RF Rx Instructions: space evenly during waking hours levalbuterol HCl [Xopenex] 1.25 mg/3 mL solution for nebulization 1.25 mg inhalation BID 30 Days Qty: 180 0RF nicotine 14 mg/24 hr patch 24 hour 1 patch transdermal DAILY 28 Days Qty: 28 3RF fluticasone propionate 50 mcg/actuation spray,suspension 2 spray intranasal DAILY PRN (Reason: Allergy Symptoms) acetaminophen [Arthritis Pain Reliever] 650 mg Tablet Extended Release 650 mg PO Q8H PRN (Reason: Pain) multivitamin Tablet 1 tab PO DAILY sennosides [senna] 8.6 mg Tablet 8.6 mg PO BID PRN (Reason: Constipation) pyridoxine (vitamin B6) [Vitamin B-6] 25 mg tablet 1 tab PO BEDTIME alendronate 35 mg tablet 1 tab PO Q7D oxycodone-acetaminophen 5-325 mg tablet 1 tab PO BID PRN (Reason: Pain (Scale Score 4-6)) pantoprazole 40 mg tablet,delayed release (DR/EC) 1 tab PO DAILY@0630 gabapentin 300 mg capsule 1 cap PO BID diltiazem HCl 180 mg Capsule,Ext.Rel 24h Degradable 360 mg PO DAILY cholecalciferol (vitamin D3) [Vitamin D3] 25 mcg (1,000 unit) capsule 1 cap PO DAILY Daliresp 250 mcg tablet 250 mcg PO DAILY prednisone 20 mg tablet 20 mg PO DAILY prednisone 20 mg tablet 40 mg PO DAILY Qty: 8 0RF metoprolol tartrate 25 mg tablet 25 mg PO BID sertraline 100 mg tablet 100 mg PO DAILY amantadine HCl 100 mg capsule 100 mg PO DAILY docusate sodium [Colace] 100 mg capsule 100 mg PO BID atorvastatin 40 mg tablet 40 mg PO DAILY aspirin [Adult Aspirin Regimen] 81 mg tablet,delayed release (DR/EC) 81 mg PO DAILY trazodone 50 mg tablet 50 mg PO BEDTIME teriflunomide 14 mg tablet 14 mg PO DAILY mirtazapine 30 mg tablet 30 mg PO BEDTIME chlorthalidone 25 mg tablet 12.5 mg PO DAILY (DME) nebulizers Misc See Rx Instructions .ROUTE Rx Instructions: As directed irbesartan 300 mg tablet 300 mg PO DAILY vitamin E (dl, acetate) 180 mg (400 unit) capsule 180 mg PO BEDTIME calcium carbonate [Naeem-Gest Antacid] 200 mg calcium (500 mg) tablet,chewable 200 mg PO BID thiamine HCl (vitamin B1) 100 mg tablet 100 mg PO DAILY
--- OUTSIDE RECORDS SUMMARY | 2022-06-04 13:37 | XMS_ITS | Continuity of Care Document ---
:1945 Author Organization [facility] Address [address] [facility], 3rd Floor, [address] [place] [address]- Care Team Providers Name Role Phone Loida Bowen MD Primary Care Physician [facility] [id number] Date(s): 08/24/20 - 09/23/20 [facility] [address] [facility], 3rd Floor, [address] [place] [id number] Attending Physician: Valerio Perales Admitting Physician: AdmValerio ly Referring Physician: AdmtrValerio Allergies, Adverse Reactions, Alerts Substance Reaction Severity Status penicillin Unknown Active Immunizations Given and Recorded Vaccine Date Status Refusal Reason Fluzone Preservative-Free (oldterm)1 04/17/14 Given 1Admin Note: CDC INFO GIVEN TO PATIENT Medications Advair HFA 45 mcg / 21 mcg 2 puffs, Inhalation, 2 times a day, 0 Refills, Maintenance, 03/01/15 10:01:32 Start Date: 03/01/15 Status: OrderedAerochamber See Instructions, # 1 each, Maintenance, use with MDI, 06/28/15 10:38:04, Compound Start Date: 06/28/15 Status: Orderedalbuterol 0.083% inhalation solution 3 mL = 2.5 mg, Inhalation, Every 6 hours, (3 ml = 0.61530qk of Albuterol), # 120 each, 3 Refills, Maintenance, 05/09/16 16:16:00, Inhalation Solution Start Date: 05/09/16 Status: Orderedalendronate 10 mg oral tablet 1 tablet = 10 mg, By Mouth, Daily, 0 Refills, Maintenance, 01/17/18 12:57:46 EDT Start Date: 01/17/18 Status: Orderedamantadine 100 mg oral capsule 100 mg, 1, capsule, By Mouth, Daily in AM, for 30 days, # 30 capsule, Refills 5, Tot. Refills 5, Acute 11/21/20 10:13:00 EDT, 05/25/20 10:13:00 EST, Route to Pharmacy Electronically, [facility], 153, cm, 09/24/19 13:06:00 EDT, [facility] Start Date: 05/25/20 Stop Date: 11/21/20 Status: OrderedamLODIPine 10 mg oral tablet Refills 0, Maintenance, 04/28/16 11:38:47 Start Date: 04/28/16 Status: Orderedatorvastatin 20 mg oral tablet 1 tablet = 20 mg, By Mouth, Daily, 0 Refills, Maintenance Start Date: 01/17/18 Status: OrderedAubagio By Mouth, Daily, 0 Refills, Maintenance, 01/17/18 12:58:32 EDT Start Date: 01/17/18 Status: OrderedAubagio 14 mg oral tablet 1 tablet = 14 mg, By Mouth, Daily, # 90 tablet, 5 Refills, Maintenance, 04/12/20 12:39:00 EDT, [facility], 153, cm, 09/24/19 13:06:00 EDT, Height, 45, kg, 09/24/19 13:06:00 EDT, Dry Weight Start Date: 04/12/20 Stop Date: 10/04/21 Status: OrderedBisacodyl 0 Refills, Maintenance, 01/17/18 12:58:20 EDT Start Date: 01/17/18 Status: OrderedBreo Ellipta 200 mcg-25 mcg/inh inhalation powder 1 puffs, Inhalation, Daily, # 1 each, 11 Refills, Maintenance, 08/24/17 11:32:23, Powder, 1 puffs Inhalation Daily Start Date: 08/24/17 Status: OrderedColace sodium 100 mg oral capsule 100 mg, 1, capsule, By Mouth, 2 times a day, PRN, # 60 capsule, Refills 11, Tot. Refills 11, Maintenance, for constipation, 06/04/17 15:04:09, Route to Pharmacy Electronically, [id number], [facility] Start Date: 06/04/17 Status: OrderedDocusate 0 Refills, Maintenance, 01/17/18 12:57:52 EDT Start Date: 01/17/18 Status: OrderedDulcolax 5 mg oral enteric coated tablet 1 tablet = 5 mg, By Mouth, Daily, # 30 tablet, 11 Refills, Maintenance, 06/04/17 15:05:43 Start Date: 06/04/17 Status: OrderedDX: Multiple Sclerosis DX: Multiple Sclerosis, See Instructions, # 1 units, Refills 0, Tot. Refills 0, Maintenance, shower chair, 01/26/12 14:49:09 Start Date: 01/26/12 Status: Orderedgabapentin 300 mg oral capsule 300 mg, 1, capsule, By Mouth, 3 times a day, Refills 0, Maintenance, 01/17/18 12:53:36 EDT Start Date: 01/17/18 Status: Orderedhydrochlorothiazide 25 mg oral tablet Refills 0, Maintenance, 04/28/16 11:38:27 Start Date: 04/28/16 Status: OrderedLevaquin 500 mg oral tablet 1 tablet = 500 mg, By Mouth, Once, # 1 tablet, 0 Refills, Soft Stop, 01/15/18 23:46:05 EDT, Tablet Start Date: 01/15/18 Status: OrderedLORazepam 1 mg oral tablet 0 Refills, Maintenance, 04/28/16 11:39:05 Start Date: 04/28/16 Status: OrderedMelatonin Daily at bedtime, 0 Refills, Maintenance, 01/17/18 12:55:40 EDT Start Date: 01/17/18 Status: OrderedMetamucil 3.4 gm/5.2 gm oral powder for reconstitution = 1.7 Gm, By Mouth, Daily, PRN as needed for constipation, # 425 Gm, 3 Refills, Maintenance, 09/12/19 8:19:00 EST, REC Powder, [facility], 152.4, cm, 09/12/19 7:39:00 EST, Height Start Date: 09/12/19 Status: Orderedmetoprolol 25 mg oral tablet 12.5 mg, 0.5, tablet, By Mouth, 2 times a day, Refills 0, Maintenance, 01/17/18 12:54:34 EDT Start Date: 01/17/18 Status: OrderedMiraLax oral powder for reconstitution = 17 Gm, By Mouth, Daily, # 527 Gm, 0 Refills, Maintenance, 06/04/17 15:06:28, 17 Gm By Mouth Daily Start Date: 06/04/17 Status: OrderedMirtazapine = 30 mg, By Mouth, Daily at bedtime, 0 Refills, Maintenance, 01/17/18 12:55:10 EDT Start Date: 01/17/18 Status: Orderedmirtazapine 45 mg oral tablet 1 tablet = 45 mg, By Mouth, Daily at bedtime, 0 Refills, Maintenance Start Date: 06/02/13 Status: OrderedMultivitamin Daily, 0 Refills, Maintenance, 01/17/18 12:55:29 EDT Start Date: 01/17/18 Status: Orderednicotine 10 mg inhalation device 1 each = 10 mg, Inhalation, Every 2 hours, # 30 each, 3 Refills, Maintenance, 04/25/17 15:28:35, [place] unable to quit with patch and gum, didn't work. unable to take wellbutrin due to interactions with multiple psych medications., 1 each Inhalation... Start Date: 04/25/17 Status: Orderednicotine 21 mg/24 hr transdermal film, extended release 1 patch, Topically, Daily, # 30 patch, 1 Refills, Maintenance, 04/28/16 11:38:16, Patch, 1 patch Topically Daily Start Date: 04/28/16 Status: OrderedNuLYTELY [place] oral powder for reconstitution 240 mL, By Mouth, Every 10 minutes, # 4,000 mL, 0 Refills, Maintenance, 06/04/17 15:07:20 Start Date: 06/04/17 Status: Orderedomeprazole 20 mg oral enteric coated capsule 1 capsule = 20 mg, By Mouth, 2 times a day, 30 min before a meal, # 30 capsule, 11 Refills, Maintenance, 03/03/20 11:16:00 EDT, EC Capsule, [facility], 153, cm, 09/24/19 13:06:00 EDT, Height, 45, kg, 09/24/19 13:06:00 EDT, Dry Weight Start Date: 03/03/20 Status: OrderedOyster Shell 500 (1250 mg calcium carbonate) oral tablet 1 tablet = 1,250 mg, By Mouth, 3 times a day, 0 Refills, Maintenance, 01/17/18 12:56:46 EDT Start Date: 01/17/18 Status: OrderedProventil HFA 90 mcg/inh inhalation aerosol with adapter 1 puffs, Inhalation, 4 times a day, PRN for wheezing, # 25 Gm, 0 Refills, Maintenance, 03/01/15 10:01:22, Aerosol Start Date: 03/01/15 Status: OrderedProventil HFA 90 mcg/inh inhalation aerosol with adapter 2, puffs, Inhalation, 4 times a day, PRN, # 18 Gm, Refills 11, Tot. Refills 11, Maintenance, 08/24/17 11:32:28, Aerosol, Route to Pharmacy Electronically, [id number], [facility] Start Date: 08/24/17 Status: OrderedProventil HFA 90 mcg/inh inhalation aerosol with adapter 2, puffs, Inhalation, Every 4 hours, PRN, # 1 each, Refills 11, Tot. Refills 11, Maintenance, 03/24/18 17:24:49, Aerosol, Route to Pharmacy Electronically, [id number], [facility] Start Date: 03/24/18 Stop Date: 03/19/19 Status: OrderedProvigil 100 mg oral tablet 1 tablet = 100 mg, By Mouth, Daily in AM, # 30 tablet, 5 Refills, Maintenance, 03/07/16 16:54:03, Tablet Start Date: 03/07/16 Stop Date: 09/03/16 Status: Orderedsertraline 25 mg oral tablet 1 tablet = 25 mg, By Mouth, Daily, 0 Refills, Maintenance, 01/17/18 12:57:03 EDT Start Date: 01/17/18 Status: OrderedTylenol Extra Strength By Mouth, Every 6 hours, 0 Refills, Maintenance, 01/17/18 12:55:50 EDT Start Date: 01/17/18 Status: OrderedVitamin D3 1000 intl units oral capsule 1 capsule = 1,000 International_Units, By Mouth, Daily, # 30 capsule, 5 Refills, Maintenance, 04/12/20 12:40:00 EDT, [facility], 153, cm, 09/24/19 13:06:00 EDT, Height, 45, kg, 09/24/19 13:06:00 EDT, Dry Weight Start Date: 04/12/20 Stop Date: 10/09/20 Status: Ordered Problem List Condition Effective Dates Status Health Status Informant Abnormal loss of weight(Confirmed) Active Centrilobular emphysema(Confirmed) Active Chronic headache disorder(Confirmed) Active Diarrhea in adult patient(Confirmed) Active Chronic epigastric pain(Confirmed) Active Nocturia(Confirmed) Active Rectal bleeding(Confirmed) Active Relapsing remitting multiple Active sclerosis(Confirmed) Encounter for screening Active colonoscopy(Confirmed) Colonic constipation(Confirmed) Active Tubular adenoma of colon(Confirmed)1 Active Tubular adenoma of colon(Confirmed) Active 1repeat screening colonoscopy in 2022 Social History Social History Type Response Smoking Status Current every day smoker; To bacco user in household: No entered on: 03/01/15 Sex
--- OUTSIDE RECORDS SUMMARY | 2022-06-04 13:37 | XMS_ITS | Continuity of Care Document ---
:1945 Author Organization [facility] Address [address], 3[address] Floor, [address] [place] [address]- Care Team Providers Name Role Phone Loida Bowen MD Primary Care Physician [phone] [id number] Date(s): 03/01/22 - 03/31/22 [facility] [address], [address], [address] [place] [address]- [place] Allergies, Adverse Reactions, Alerts Substance Reaction Severity Status penicillin Unknown Active lisinopril Active Immunizations Given and Recorded Vaccine Date [...] Inhalation, Every 6 hours, (3 ml = 0.33949se of Albuterol), # 120 each, 3 Refills, Maintenance, 05/09/16 16:16:00, Inhalation Solution Start Date: 05/09/16 Status: Orderedalendronate 10 mg oral tablet 1 tablet = 10 mg, By Mouth, Daily, 0 Refills, Maintenance, 01/17/18 12:57:46 EDT Start Date: 01/17/18 Status: Orderedamantadine 100 mg oral capsule 1, capsule, By Mouth, Daily in AM, # 30 capsule, Refills 8, Tot. Refills 8, Maintenance, 03/15/22 14:33:00 EDT, Route to Pharmacy Electronically, [facility], 152.4, cm, 03/15/22 13:51:00 EDT, Height, 111.6, kg, 09/30/20 12:18:00 ED... Start Date: 03/15/22 Status: OrderedamLODIPine 10 mg oral tablet Refills 0, Maintenance, 04/28/16 11:38:47 Start Date: 04/28/16 Status: Orderedaspirin 81 mg oral delayed release tablet 1 tablet = 81 mg, By Mouth, Daily, # 30 tablet, 0 Refills, Maintenance, 09/30/20 8:15:00 EDT, CR Tablet, Partial fill upon patient request if the prescription is for a schedule II opioid drug. Start Date: 09/30/20 Status: Orderedatorvastatin 20 mg oral tablet 1 tablet = 20 mg, By Mouth, Daily, 0 Refills, Maintenance Start Date: 01/17/18 Status: OrderedAubagio By Mouth, Daily, 0 Refills, Maintenance, 01/17/18 12:58:32 EDT Start Date: 01/17/18 Status: OrderedAubagio 14 mg oral tablet 1 tablet = 14 mg, By Mouth, Daily, # 90 tablet, 2 Refills, Maintenance, 03/15/22 14:31:00 EDT, [facility], 152.4, cm, 03/15/22 13:51:00 EDT, Height, 111.6, kg, 09/30/20 12:18:00 EDT, Dry Weight Start Date: 03/15/22 Stop Date: 12/10/22 Status: OrderedBisacodyl 0 Refills, Maintenance, 01/17/18 12:58:20 EDT Start Date: 01/17/18 Status: OrderedBreo Ellipta 200 mcg-25 mcg/inh inhalation powder 1 puffs, Inhalation, Daily, # 1 each, 11 Refills, Maintenance, 08/24/17 11:32:23, Powder, 1 puffs Inhalation Daily Start Date: 08/24/17 Status: OrderedclonazePAM 0.25 mg oral tablet, disintegrating 1 tablet = 0.25 mg, By Mouth, 2 times a day, 0 Refills, Maintenance, 09/30/20 8:17:00 EDT, DIS Tablet, Partial fill upon patient request if the prescription is for a schedule II opioid drug. Start Date: 09/30/20 Status: OrderedColace sodium 100 mg oral capsule 100 mg, 1, capsule, By Mouth, 2 times a day, PRN, # 60 capsule, Refills 11, Tot. Refills 11, Maintenance, for constipation, 06/04/17 15:04:09, Route to Pharmacy Electronically, [id number], [facility] - Start Date: 06/04/17 Status: OrderedDocusate 0 Refills, [...] Refills, Maintenance, 09/12/19 8:19:00 EST, REC Powder, [facility], 152.4, cm, 09/12/19 7:39:00 EST, Height Start [...] Daily Start Date: 04/28/16 Status: OrderedNuLYTELY Lemon [place] oral powder for reconstitution 240 mL, By Mouth, Every 10 minutes, # 4,000 mL, 0 Refills, Maintenance, 06/04/17 15:07:20 Start Date: 06/04/17 Status: Orderedomeprazole 20 mg oral enteric coated capsule 1 capsule = 20 mg, By Mouth, 2 times a day, 30 min before a meal, # 30 capsule, 5 Refills, Maintenance, 09/27/20 10:18:00 EDT, EC Capsule, [facility], 153, cm, 09/24/19 13:06:00 EDT, Height, 45, kg, 09/24/19 13:06:00 EDT, Dry Weight Start Date: 09/27/20 Status: OrderedOyster Shell 500 (1250 mg calcium [...] 08/24/17 11:32:28, Aerosol, Route to Pharmacy Electronically, [id number], [facility] Start Date: 08/24/17 Status: OrderedProventil HFA 90 mcg/inh inhalation aerosol with adapter 2, puffs, Inhalation, Every 4 hours, PRN, # 1 each, Refills 11, Tot. Refills 11, Maintenance, 03/24/18 17:24:49, Aerosol, Route to Pharmacy Electronically, [id number], [facility] Start Date: 03/24/18 Stop Date: 03/19/19 Status: Orderedsertraline 25 mg oral tablet 1 tablet = 25 mg, By Mouth, Daily, 0 Refills, Maintenance, 01/17/18 12:57:03 EDT Start Date: 01/17/18 Status: OrderedTylenol Extra Strength By Mouth, Every 6 hours, 0 Refills, Maintenance, 01/17/18 12:55:50 EDT Start Date: 01/17/18 Status: OrderedVitamin D3 1000 intl units oral capsule 1 capsule = 1,000 International_Units, By Mouth, Daily, # 30 capsule, 8 Refills, Maintenance, 03/15/22 14:33:00 EDT, [facility], 152.4, cm, 03/15/22 13:51:00 EDT, Height, 111.6, kg,09/30/20 12:18:00 EDT, Dry Weight Start Date: 03/15/22 Stop Date: 12/10/22 Status: Ordered Problem List Condition Effective Dates Status Health Status Informant Abnormal loss of weight(Confirmed) Active Centrilobular emphysema(Confirmed) Active Chronic headache disorder(Confirmed) Active Diarrhea in adult patient(Confirmed) Active Chronic epigastric pain(Confirmed) Active Nocturia(Confirmed) Active Rectal bleeding(Confirmed) Active Relapsing remitting multiple Active sclerosis(Confirmed) Encounter for screening Active colonoscopy(Confirmed) Colonic constipation(Confirmed) Active Tubular adenoma of colon(Confirmed)1 Active Tubular adenoma of colon(Confirmed) Active Underweight(Confirmed) Active 1repeat screening colonoscopy in 2022 Social History Social History Type Response Smoking Status Current every day smoker; To bacco user in household: No entered on: 03/01/15 Sex Care Team PersonnelName: Loida Bowen MD Address: [address] [place] [address]
--- OUTSIDE RECORDS SUMMARY | 2022-06-04 13:37 | XMS_ITS | Continuity of Care Document ---
:1945 Author Organization [facility] Address [address], 3[address] Floor, [address] [place] [address]- Care Team Providers Name Role Phone Loida Bowen MD Primary Care Phys[id number] Date(s): 03/15/22 - 04/14/22 [facility] [address], [address], [address] [place] [address]- Attending Physician: Valerio Perales Admitting Physician: Valerio Perales Referring Physician: Valerio Perales Allergies, Adverse Reactions, Alerts Substance Reaction Severity [...] Inhalation, Every 6 hours, (3 ml = 0.20762um of Albuterol), # 120 each, 3 Refills, [...] 03/15/22 14:33:00 EDT, Route to Pharmacy Electronically, [facility], 152.4, cm, 03/15/22 13:51:00 EDT, [...] tablet, 2 Refills, Maintenance, 03/15/22 14:31:00 EDT, [facility], 152.4, cm, 03/15/22 13:51:00 [...] constipation, 06/04/17 15:04:09, Route to Pharmacy Electronically, [id number], [facility] - Start Date: 06/04/17 Status: [...] Refills, Maintenance, 09/12/19 8:19:00 EST, REC Powder, [facility], 152.4, cm, 09/12/19 [...] Daily Start Date: 04/28/16 Status: OrderedNuLYTELY Lemon [place] oral powder for reconstitution 240 mL, By Mouth, Every 10 minutes, # 4,000 mL, 0 Refills, Maintenance, 06/04/17 15:07:20 Start Date: 06/04/17 Status: Orderedomeprazole 20 mg oral enteric coated capsule 1 capsule = 20 mg, By Mouth, 2 times a day, 30 min before a meal, # 30 capsule, 5 Refills, Maintenance, 09/27/20 10:18:00 EDT, EC Capsule, [facility], 153, cm, 09/24/19 13:06:00 EDT, [...] 08/24/17 11:32:28, Aerosol, Route to Pharmacy Electronically, [id number], [facility] Start Date: 08/24/17 Status: OrderedProventil HFA 90 mcg/inh inhalation aerosol with adapter 2, puffs, Inhalation, Every 4 hours, PRN, # 1 each, Refills 11, Tot. Refills 11, Maintenance, 03/24/18 17:24:49, Aerosol, Route to Pharmacy Electronically, [id number], [facility] Start Date: 03/24/18 Stop Date: 03/19/19 Status: [...] capsule, 8 Refills, Maintenance, 03/15/22 14:33:00 EDT, [facility], 152.4, cm, 03/15/22 13:51:00 EDT, Height, 111.6, kg,09/30/20 12:18:00 EDT, Dry Weight Start Date: 03/15/22 Stop Date: 12/10/22 Status: Ordered Problem List Condition Confirmation Course Effective Dates Status Health I nformant Status Abnormal loss of Confirmed Active weight Centrilobular Confirmed Active emphysema Chronic headache Confirmed Active disorder Diarrhea in adult Confirmed Active patient Chronic epigastric Confirmed Active pain Nocturia Confirmed Active Rectal bleeding Confirmed Active Relapsing remitting Confirmed Active multiple sclerosis Encounter for Confirmed Active screening colonoscopy Colonic constipation Confirmed Active Tubular adenoma of Confirmed Active colon1 Tubular adenoma of Confirmed Active colon Underweight Confirmed Active 1repeat screening colonoscopy in 2022 Social History Social History Type Response Smoking Status Current every day smoker; To bacco user in household: No entered on: 03/01/15 Sex Patient Care team information PersonnelName: Andrés TEJEDA, Loida Keller Address: Address: [address] [place] [address]
--- OUTSIDE RECORDS SUMMARY | 2022-06-04 13:38 | XMS_ITS | Continuity of Care Document ---
:1945 Author Organization [facility] Address [address] [facility], 3rd Floor, [address] [place] [address]- Care Team Providers Name Role Phone Loida Bowen MD Primary Care Physician [place] [facility]): [place] - 03/28/20 [facility] [address] [place] [address], 3rd [facility], [address] [place] [address]- [facility] Allergies, Adverse Reactions, Alerts Substance Reaction Severity [...] Inhalation, Every 6 hours, (3 ml = 0.61984zp of Albuterol), # 120 each, 3 Refills, Maintenance, 05/09/16 16:16:00, Inhalation Solution Start Date: 05/09/16 Status: Orderedalendronate 10 mg oral tablet 1 tablet = 10 mg, By Mouth, Daily, 0 Refills, Maintenance, 01/17/18 12:57:46 EDT Start Date: 01/17/18 Status: Orderedamantadine 100 mg oral capsule 100 mg, 1, capsule, By Mouth, Daily in AM, for 30 days, # 30 capsule, Refills 1, Tot. Refills 1, Acute 04/16/20 14:33:00 EDT, 02/16/20 14:33:00 EDT, Route to Pharmacy Electronically, [facility], 153, cm, 09/24/19 13:06:00 EDT, [facility] Start Date: 02/16/20 Stop Date: 04/16/20 Status: OrderedamLODIPine 10 mg oral tablet Refills [...] Daily, # 90 tablet, 5 Refills, Maintenance, 12/24/19 13:36:00 EDT, [facility], 153, cm, 09/24/19 13:06:00 EDT, Height, 45, kg, 09/24/19 13:06:00 EDT, Dry Weight Start Date: 12/24/19 Stop Date: 06/16/21 Status: OrderedBisacodyl 0 Refills, Maintenance, 01/17/18 12:58:20 [...] constipation, 06/04/17 15:04:09, Route to Pharmacy Electronically, [id number], [facility] - Start Date: 06/04/17 Status: [...] Refills, Maintenance, 09/12/19 8:19:00 EST, REC Powder, [facility], 152.4, cm, 09/12/19 [...] Daily Start Date: 04/28/16 Status: OrderedNuLYTELY Lemon [place] oral powder for reconstitution 240 mL, By Mouth, Every 10 minutes, # 4,000 mL, 0 Refills, Maintenance, 06/04/17 15:07:20 Start Date: 06/04/17 Status: Orderedomeprazole 20 mg oral enteric coated capsule 1 capsule = 20 mg, By Mouth, 2 times a day, 30 min before a meal, # 30 capsule, 11 Refills, Maintenance, 03/03/20 11:16:00 EDT, EC Capsule, [facility], 153, cm, 09/24/19 13:06:00 EDT, [...] 08/24/17 11:32:28, Aerosol, Route to Pharmacy Electronically, [id number], [facility] Start Date: 08/24/17 Status: OrderedProventil HFA 90 mcg/inh inhalation aerosol with adapter 2, puffs, Inhalation, Every 4 hours, PRN, # 1 each, Refills 11, Tot. Refills 11, Maintenance, 03/24/18 17:24:49, Aerosol, Route to Pharmacy Electronically, [id number], [facility] Start Date: 03/24/18 Stop Date: 03/19/19 [...] 12:55:50 EDT Start Date: 01/17/18 Status: OrderedVitamin D 12251 iu oral capsule 50,000 International_Units, 1, capsule, By Mouth, Daily, Refills 0, Maintenance, 01/17/18 12:58:08 EDT Start Date: 01/17/18 Status: Ordered Problem List Condition Effective Dates [...]
--- OUTSIDE RECORDS SUMMARY | 2022-06-04 13:38 | XMS_ITS | Continuity of Care Document ---
:1945 Author Organization [facility] Address [address] [place] [address], 3rd Floor, [address] [place] [address]- Care Team Providers Name Role Phone Loida Bowen MD Primary Care Physician [place] [facility] [place]): [place]/20/19 - 11/27/19 [facility] [address] [place] [address], 3rd [facility], [address] [place] [address]- [facility] Attending Physician: Tyler Isaacs Allergies, Adverse Reactions, Alerts Substance Reaction Severity [...] Inhalation, Every 6 hours, (3 ml = 0.94018dd of Albuterol), # 120 each, 3 Refills, [...] capsule, Refills 5, Tot. Refills 5, Acute 02/16/20 13:42:00 EDT, 08/20/19 13:42:00 EST, Route to Pharmacy Electronically, [facility], 152.4, cm, 08/20/19 13:04:00 ES... Start Date: 08/20/19 Stop Date: 02/16/20 Status: OrderedamLODIPine 10 mg oral tablet Refills [...] Daily, # 90 tablet, 5 Refills, Maintenance, 08/20/19 13:42:00 EST, [facility], 152.4, cm, 08/20/19 13:04:00 EST, Height Start Date: 08/20/19 Stop Date: 02/10/21 Status: OrderedBisacodyl 0 Refills, Maintenance, 01/17/18 12:58:20 [...] constipation, 06/04/17 15:04:09, Route to Pharmacy Electronically, [id number], [facility] Start Date: 06/04/17 Status: OrderedDocusate 0 Refills, [...] Refills, Maintenance, 09/12/19 8:19:00 EST, REC Powder, [facility] - , 152.4, cm, 09/12/19 7:39:00 EST, Height Start [...] Daily Start Date: 04/28/16 Status: OrderedNuLYTELY Lemon [place] oral powder for reconstitution 240 mL, By Mouth, Every 10 minutes, # 4,000 mL, 0 Refills, Maintenance, 06/04/17 15:07:20 Start Date: 06/04/17 Status: Orderedomeprazole 20 mg oral enteric coated capsule 1 capsule = 20 mg, By Mouth, 2 times a day, 30 min before a meal, # 30 capsule, 11 Refills, Maintenance, 09/24/19 14:37:00 EDT, EC Capsule Start Date: 09/24/19 Status: OrderedOyster Shell 500 (1250 mg calcium [...] 08/24/17 11:32:28, Aerosol, Route to Pharmacy Electronically, [id number], [facility] Start Date: 08/24/17 Status: OrderedProventil HFA 90 mcg/inh inhalation aerosol with adapter 2, puffs, Inhalation, Every 4 hours, PRN, # 1 each, Refills 11, Tot. Refills 11, Maintenance, 03/24/18 17:24:49, Aerosol, Route to Pharmacy Electronically, [id number], [facility] Start Date: 03/24/18 Stop Date: 03/19/19 Status: [...] EDT Start Date: 01/17/18 Status: OrderedVitamin D 02775 iu oral capsule 50,000 International_Units, 1, capsule, [...]
--- OUTSIDE RECORDS SUMMARY | 2022-06-04 13:38 | XMS_ITS | Continuity of Care Document ---
:1945 Author Organization [facility] Address [address] [place] [address]- Care Team Providers Name Role Phone Loida Bowen MD Primary Care Physician [id number] Date(s): 08/26/19 - 11/02/[address] [facility] [address] [address]- [facility] Attending Physician: Sindy Figueroa Admitting Physician: Sindy Figueroa Referring Physician: Loida Bowen MD Allergies, Adverse Reactions, Alerts Substance Reaction Severity [...] Inhalation, Every 6 hours, (3 ml = 0.33908ab of Albuterol), # 120 each, 3 Refills, [...] 08/20/19 13:42:00 EST, Route to Pharmacy Electronically, [facility], 152.4, cm, 08/20/19 13:04:00 ES... Start [...] tablet, 5 Refills, Maintenance, 08/20/19 13:42:00 EST, [facility], 152.4, cm, 08/20/19 13:04:00 EST, [...] constipation, 06/04/17 15:04:09, Route to Pharmacy Electronically, [id number], [facility] Start Date: 06/04/17 Status: OrderedDocusate 0 [...] Refills, Maintenance, 09/12/19 8:19:00 EST, REC Powder, [facility], 152.4, cm, 09/12/19 7:39:00 [...] Daily Start Date: 04/28/16 Status: OrderedNuLYTELY Lemon [place] oral powder for reconstitution 240 mL, By [...] 08/24/17 11:32:28, Aerosol, Route to Pharmacy Electronically, [id number], [facility] Start Date: 08/24/17 Status: OrderedProventil HFA 90 mcg/inh inhalation aerosol with adapter 2, puffs, Inhalation, Every 4 hours, PRN, # 1 each, Refills 11, Tot. Refills 11, Maintenance, 03/24/18 17:24:49, Aerosol, Route to Pharmacy Electronically, [id number], [facility] Start Date: 03/24/18 Stop Date: 03/19/19 Status: [...] EDT Start Date: 01/17/18 Status: OrderedVitamin D 35569 iu oral capsule 50,000 International_Units, 1, capsule, [...]
--- OUTSIDE RECORDS SUMMARY | 2022-06-04 13:38 | XMS_ITS | Continuity of Care Document ---
:1945 Author Organization [facility] Address [address] [facility], 3rd Floor, [address] [place] [address]- Care Team Providers Name Role Phone Loida Bowen MD Primary Care Physician Encounter [facility] Date(s): 02/10/20 - 03/11/20 [facility] [address] [place] [address], 3rd [facility], [address] [place] [address]- [facility] Allergies, Adverse Reactions, Alerts Substance Reaction Severity [...] Inhalation, Every 6 hours, (3 ml = 0.38384lm of Albuterol), # 120 each, 3 Refills, [...] 02/16/20 14:33:00 EDT, Route to Pharmacy Electronically, [facility], 153, cm, 09/24/19 13:06:00 EDT, [...] tablet, 5 Refills, Maintenance, 12/24/19 13:36:00 EDT, [facility], 153, cm, 09/24/19 13:06:00 EDT, Height, [...] constipation, 06/04/17 15:04:09, Route to Pharmacy Electronically, [id number], [facility] Start Date: 06/04/17 Status: OrderedDocusate 0 [...] Refills, Maintenance, 09/12/19 8:19:00 EST, REC Powder, [facility], 152.4, cm, 09/12/19 [...] Daily Start Date: 04/28/16 Status: OrderedNuLYTELY Lemon [place] oral powder for reconstitution 240 mL, By Mouth, Every 10 minutes, # 4,000 mL, 0 Refills, Maintenance, 06/04/17 15:07:20 Start Date: 06/04/17 Status: Orderedomeprazole 20 mg oral enteric coated capsule 1 capsule = 20 mg, By Mouth, 2 times a day, 30 min before a meal, # 30 capsule, 11 Refills, Maintenance, 03/03/20 11:16:00 EDT, EC Capsule, [facility], 153, cm, 09/24/19 13:06:00 EDT, [...] 08/24/17 11:32:28, Aerosol, Route to Pharmacy Electronically, [id number], [facility] Start Date: 08/24/17 Status: OrderedProventil HFA 90 mcg/inh inhalation aerosol with adapter 2, puffs, Inhalation, Every 4 hours, PRN, # 1 each, Refills 11, Tot. Refills 11, Maintenance, 03/24/18 17:24:49, Aerosol, Route to Pharmacy Electronically, [id number], [facility] Start Date: 03/24/18 Stop Date: 03/19/19 [...] EDT Start Date: 01/17/18 Status: OrderedVitamin D 25577 iu oral capsule 50,000 International_Units, 1, capsule, [...]
--- OUTSIDE RECORDS SUMMARY | 2022-06-04 13:38 | XMS_ITS | Continuity of Care Document ---
:1945 Author Organization [facility] Address [address] [facility], 3rd Floor, [address] [place] [address]- Care Team Providers Name Role Phone Andrés TEJEDA, Loida Keller Primary Care Physician [phone] [id number]s): [facility]/26[facility]20 - 09/23/20 [facility] [address] [place] [address], 3rd [facility], [address] [place] [address] Attending Physician: Eileen Zamudio MD Admitting Physician: Eileen Zamudio MD Allergies, Adverse Reactions, Alerts Substance Reaction [...] Inhalation, Every 6 hours, (3 ml = 0.93529uc of Albuterol), # 120 each, 3 Refills, [...] 05/25/20 10:13:00 EST, Route to Pharmacy Electronically, [facility], 153, cm, 09/24/19 13:06:00 EDT, [...] tablet, 5 Refills, Maintenance, 04/12/20 12:39:00 EDT, [facility], 153, cm, 09/24/19 13:06:00 EDT, [...] constipation, 06/04/17 15:04:09, Route to Pharmacy Electronically, [id number], [facility] Start Date: 11/20/17 Status: OrderedDocusate 0 Refills, Maintenance, 01/17/18 12:57:52 [...] Refills, Maintenance, 09/12/19 8:19:00 EST, REC Powder, [facility], 152.4, cm, 09/12/19 [...] Daily Start Date: 04/28/16 Status: OrderedNuLYTELY Lemon [place] oral powder for reconstitution 240 mL, By Mouth, Every 10 minutes, # 4,000 mL, 0 Refills, Maintenance, 06/04/17 15:07:20 Start Date: 06/04/17 Status: Orderedomeprazole 20 mg oral enteric coated capsule 1 capsule = 20 mg, By Mouth, 2 times a day, 30 min before a meal, # 30 capsule, 11 Refills, Maintenance, 03/03/20 11:16:00 EDT, EC Capsule, [facility], 153, cm, 09/24/19 13:06:00 EDT, [...] 08/24/17 11:32:28, Aerosol, Route to Pharmacy Electronically, [id number], [facility] Start Date: 08/24/17 Status: OrderedProventil HFA 90 mcg/inh inhalation aerosol with adapter 2, puffs, Inhalation, Every 4 hours, PRN, # 1 each, Refills 11, Tot. Refills 11, Maintenance, 03/24/18 17:24:49, Aerosol, Route to Pharmacy Electronically, [id number], [facility] Start Date: [...] capsule, 5 Refills, Maintenance, 04/12/20 12:40:00 EDT, [facility], 153, cm, 09/24/19 13:06:00 EDT, [...]
--- OUTSIDE RECORDS SUMMARY | 2022-06-04 13:38 | XMS_ITS | Continuity of Care Document ---
:1945 Author Organization [facility] Address [address] [facility], 3rd Floor, [address] [place] [address]- Care Team Providers Name Role Phone Loida Bowen MD Primary Care Physician [phone] Encounter [facility] Date(s): 02/16/20 - 03/17/20 [facility] [address] [place] [address], 3rd [facility], [address] [place] [address]- [facility] Allergies, Adverse Reactions, Alerts Substance Reaction Severity [...] Inhalation, Every 6 hours, (3 ml = 0.89338xp of Albuterol), # 120 each, 3 Refills, [...] 02/16/20 14:33:00 EDT, Route to Pharmacy Electronically, [facility], 153, cm, 09/24/19 13:06:00 EDT, [...] tablet, 5 Refills, Maintenance, 12/24/19 13:36:00 EDT, [facility], 153, cm, 09/24/19 13:06:00 EDT, [...] constipation, 06/04/17 15:04:09, Route to Pharmacy Electronically, [id number], [facility] - Start Date: 06/04/17 Status: [...] Refills, Maintenance, 09/12/19 8:19:00 EST, REC Powder, [facility], 152.4, cm, 09/12/19 [...] Daily Start Date: 04/28/16 Status: OrderedNuLYTELY Lemon [place] oral powder for reconstitution 240 mL, By Mouth, Every 10 minutes, # 4,000 mL, 0 Refills, Maintenance, 06/04/17 15:07:20 Start Date: 06/04/17 Status: Orderedomeprazole 20 mg oral enteric coated capsule 1 capsule = 20 mg, By Mouth, 2 times a day, 30 min before a meal, # 30 capsule, 11 Refills, Maintenance, 03/03/20 11:16:00 EDT, EC Capsule, [facility], 153, cm, 09/24/19 13:06:00 EDT, [...] 08/24/17 11:32:28, Aerosol, Route to Pharmacy Electronically, [id number], [facility] Start Date: 08/24/17 Status: OrderedProventil HFA 90 mcg/inh inhalation aerosol with adapter 2, puffs, Inhalation, Every 4 hours, PRN, # 1 each, Refills 11, Tot. Refills 11, Maintenance, 03/24/18 17:24:49, Aerosol, Route to Pharmacy Electronically, [id number], [facility] Start Date: 03/24/18 Stop Date: 03/19/19 [...] EDT Start Date: 01/17/18 Status: OrderedVitamin D 01237 iu oral capsule 50,000 International_Units, 1, capsule, [...]
--- OUTSIDE RECORDS SUMMARY | 2022-06-04 13:38 | XMS_ITS | Continuity of Care Document ---
:1945 Author Organization [facility] Address [address] [place] [address]- Care Team Providers Name Role Phone Loida Bowen MD Primary Care Physician [phone] [id number] Date(s): 11/09/20 - 11/09/[address] [address] Discharge Disposition: A-D/C Home Attending Physician: Lyn Roth MD Admitting Physician: Lyn Roth MD Referring Physician: Lyn Roth MD Allergies, Adverse Reactions, Alerts Substance Reaction [...] Inhalation, Every 6 hours, (3 ml = 0.62284za of Albuterol), # 120 each, 3 Refills, [...] 05/25/20 10:13:00 EST, Route to Pharmacy Electronically, [facility], 153, cm, 09/24/19 13:06:00 EDT, Piero [...] tablet, 5 Refills, Maintenance, 04/12/20 12:39:00 EDT, [facility], 153, cm, 09/24/19 13:06:00 [...] constipation, 06/04/17 15:04:09, Route to Pharmacy Electronically, [id number], [facility] - Start Date: 06/04/17 Status: OrderedDocusate [...] Refills, Maintenance, 09/12/19 8:19:00 EST, REC Powder, [facility], 152.4, cm, 09/12/19 7:39:00 [...] Daily Start Date: 04/28/16 Status: OrderedNuLYTELY Lemon [place] oral powder for reconstitution 240 mL, By Mouth, Every 10 minutes, # 4,000 mL, 0 Refills, Maintenance, 06/04/17 15:07:20 Start Date: 06/04/17 Status: Orderedomeprazole 20 mg oral enteric coated capsule 1 capsule = 20 mg, By Mouth, 2 times a day, 30 min before a meal, # 30 capsule, 5 Refills, Maintenance, 09/27/20 10:18:00 EDT, EC Capsule, [facility], 153, cm, 09/24/19 13:06:00 EDT, Height, [...] 08/24/17 11:32:28, Aerosol, Route to Pharmacy Electronically, [id number], [facility] Start Date: 08/24/17 Status: OrderedProventil HFA 90 mcg/inh inhalation aerosol with adapter 2, puffs, Inhalation, Every 4 hours, PRN, # 1 each, Refills 11, Tot. Refills 11, Maintenance, 03/24/18 17:24:49, Aerosol, Route to Pharmacy Electronically, [id number][facility] Start Date: 03/24/18 Stop Date: [...] capsule, 5 Refills, Maintenance, 04/12/20 12:40:00 EDT, [facility], 153, cm, 09/24/19 13:06:00 [...] colon(Confirmed) Active 1repeat screening colonoscopy in 2022 Procedures Procedure Date Related Diagnosis Body Site Status EGD - Esophagogastroduodenoscopy 11/09/20 Completed Vital Signs Most recent to oldest 1 2 3 [Reference Range]: Height 152.4 cm (11/09/20 7:09 AM) Weight 38.6 kg (11/09/20 7:09 AM) Oxygen Saturation [94-100 %] 98 % 99 % 95 % (11/09/20 8:15 AM) (11/09/20 8:06 AM) (11/09/20 7:0 9 AM) Pulse Rate [55-90 bpm] 96 bpm 94 bpm 97 bpm *H* *H* *H* (11/09/20 8:15 AM) (11/09/20 8:06 AM) (11/09/20 7:0 9 AM) Body Mass Index [18.5-24.99] 16.62 *L* (11/09/20 7:09 AM) Blood Pressure [90-138/55-84 mm 139/66 mm Hg 125/62 mm Hg 192/85 mm Hg Hg] *H* (11/09/20 8:06 AM) *H* (11/09/20 8:15 AM) (11/09/20 7:09 AM) Respiratory Rate [16-30 br/min] 18 br/min 20 br/min 21 br/min (11/09/20 8:15 AM) (11/09/20 8:06 AM) (11/09/20 7:0 9 AM) Temperature [96.8-100.4 DegF] 97.8 DegF (11/09/20 7:09 AM) Mode of Delivery (Oxygen) Room air Room air Room a ir (11/09/20 8:15 AM) (11/09/20 8:06 AM) (11/09/20 7:0 9 AM) Temperature Route Temporal (11/09/20 7:09 AM) Social History Social History Type Response Smoking Status Current every day smoker; To bacco user in household: No entered on: 03/01/15 Sex
--- OUTSIDE RECORDS SUMMARY | 2022-06-04 13:38 | XMS_ITS | Continuity of Care Document ---
:1945 Author Organization [facility] Address [address] [place] [address]- Care Team Providers Name Role Phone Loida Bowen MD Primary Care Physician [phone] [id number] Date[facility]s): [facility]25[facility] - 03/24/20 [facility] [address] [place] [address]- [facility] Attending Physician: Lyn Roth MD Admitting Physician: Lyn Roth MD Referring Physician: Loida Bowen MD Allergies, Adverse [...] Inhalation, Every 6 hours, (3 ml = 0.32549pu of Albuterol), # 120 each, 3 Refills, [...] 02/16/20 14:33:00 EDT, Route to Pharmacy Electronically, [facility], 153, cm, 09/24/19 13:06:00 EDT, Piero [...] tablet, 5 Refills, Maintenance, 12/24/19 13:36:00 EDT, [facility], 153, cm, 09/24/19 13:06:00 EDT, [...] constipation, 06/04/17 15:04:09, Route to Pharmacy Electronically, [id number], [facility] Start Date: 06/04/17 Status: OrderedDocusate 0 [...] Refills, Maintenance, 09/12/19 8:19:00 EST, REC Powder, [facility], 152.4, cm, 09/12/19 7:39:00 EST, Height Start [...] Daily Start Date: 04/28/16 Status: OrderedNuLYTELY Lemon [place] oral powder for reconstitution 240 mL, By Mouth, Every 10 minutes, # 4,000 mL, 0 Refills, Maintenance, 06/04/17 15:07:20 Start Date: 06/04/17 Status: Orderedomeprazole 20 mg oral enteric coated capsule 1 capsule = 20 mg, By Mouth, 2 times a day, 30 min before a meal, # 30 capsule, 11 Refills, Maintenance, 03/03/20 11:16:00 EDT, EC Capsule, [facility], 153, cm, 09/24/19 13:06:00 EDT, [...] 08/24/17 11:32:28, Aerosol, Route to Pharmacy Electronically, [id number], [facility] Start Date: 08/24/17 Status: OrderedProventil HFA 90 mcg/inh inhalation aerosol with adapter 2, puffs, Inhalation, Every 4 hours, PRN, # 1 each, Refills 11, Tot. Refills 11, Maintenance, 03/24/18 17:24:49, Aerosol, Route to Pharmacy Electronically, [id number], [facility] [...] EDT Start Date: 01/17/18 Status: OrderedVitamin D 67703 iu oral capsule 50,000 International_Units, 1, capsule, [...]
--- OUTSIDE RECORDS SUMMARY | 2022-06-04 13:38 | XMS_ITS | Continuity of Care Document ---
:1945 Author Organization [facility] Address [address] [facility], 3rd Floor, [address] [place] [address]- Care Team Providers Name Role Phone Loida Bowen MD Primary Care Physician Encounter [facility] Date(s): 01/13/20 - 05/12/20 [facility] [address] [place] [address], 3rd [facility], [address] [place] [address] [facility] Attending Physician: Tyler Isaacs Admitting Physician: Tyler Isaacs Allergies, Adverse Reactions, Alerts [...] Inhalation, Every 6 hours, (3 ml = 0.56058ut of Albuterol), # 120 each, 3 Refills, [...] capsule, Refills 5, Tot. Refills 5, Acute 10/09/20 12:38:00 EDT, 04/12/20 12:38:00 EDT, Route to Pharmacy Electronically, [facility], 153, cm, 09/24/19 13:06:00 EDT, Height,... Start Date: 04/12/20 Stop Date: 10/09/20 Status: OrderedamLODIPine 10 mg oral tablet Refills [...] tablet, 5 Refills, Maintenance, 04/12/20 12:39:00 EDT, [facility], 153, cm, 09/24/19 13:06:00 [...] constipation, 06/04/17 15:04:09, Route to Pharmacy Electronically, [id number], [facility] Start Date: 06/04/17 Status: OrderedDocusate 0 [...] Refills, Maintenance, 09/12/19 8:19:00 EST, REC Powder, [facility], 152.4, cm, 09/12/19 [...] Daily Start Date: 04/28/16 Status: OrderedNuLYTELY Lemon [place] oral powder for reconstitution 240 mL, By Mouth, Every 10 minutes, # 4,000 mL, 0 Refills, Maintenance, 06/04/17 15:07:20 Start Date: 06/04/17 Status: Orderedomeprazole 20 mg oral enteric coated capsule 1 capsule = 20 mg, By Mouth, 2 times a day, 30 min before a meal, # 30 capsule, 11 Refills, Maintenance, 03/03/20 11:16:00 EDT, EC Capsule, [facility], 153, cm, 09/24/19 13:06:00 EDT, [...] 08/24/17 11:32:28, Aerosol, Route to Pharmacy Electronically, [id number], [facility] Start Date: 08/24/17 Status: OrderedProventil HFA 90 mcg/inh inhalation aerosol with adapter 2, puffs, Inhalation, Every 4 hours, PRN, # 1 each, Refills 11, Tot. Refills 11, Maintenance, 03/24/18 17:24:49, Aerosol, Route to Pharmacy Electronically, [id number], [facility] Start Date: [...] capsule, 5 Refills, Maintenance, 04/12/20 12:40:00 EDT, [facility], 153, cm, 09/24/19 13:06:00 [...]
--- OUTSIDE RECORDS SUMMARY | 2022-06-04 13:38 | XMS_ITS | Continuity of Care Document ---
:1945 Author Organization [facility] Address [address] [place] [address]- Care Team Providers Name Role Phone Andrés TEJEDA, Loida Keller Primary Care Physician [phone] [id number] Date(s): 03/19/20 - 04/24/[address] [address]- [facility] Attending Physician: Loiad Bowen MD Admitting Physician: Loida Bowen MD Referring Physician: Loida Bowen MD Allergies, [...] Inhalation, Every 6 hours, (3 ml = 0.14013kj of Albuterol), # 120 each, 3 Refills, [...] 04/12/20 12:38:00 EDT, Route to Pharmacy Electronically, [facility], 153, cm, 09/24/19 13:06:00 EDT, [...] tablet, 5 Refills, Maintenance, 04/12/20 12:39:00 EDT, [facility], 153, cm, 09/24/19 13:06:00 EDT, [...] constipation, 06/04/17 15:04:09, Route to Pharmacy Electronically, [id number], [facility] Start Date: 06/04/17 Status: OrderedDocusate [...] Refills, Maintenance, 09/12/19 8:19:00 EST, REC Powder, [facility], 152.4, cm, 09/12/19 [...] Date: 04/28/16 Status: OrderedNuLYTELY Lemon [place] oral powder for reconstitution 240 mL, By Mouth, Every 10 minutes, # 4,000 mL, 0 Refills, Maintenance, 06/04/17 15:07:20 Start Date: 06/04/17 Status: Orderedomeprazole 20 mg oral enteric coated capsule 1 capsule = 20 mg, By Mouth, 2 times a day, 30 min before a meal, # 30 capsule, 11 Refills, Maintenance, 03/03/20 11:16:00 EDT, EC Capsule, [facility], 153, cm, 09/24/19 13:06:00 [...] 08/24/17 11:32:28, Aerosol, Route to Pharmacy Electronically, [id number], [facility] Start Date: 08/24/17 Status: OrderedProventil HFA 90 mcg/inh inhalation aerosol with adapter 2, puffs, Inhalation, Every 4 hours, PRN, # 1 each, Refills 11, Tot. Refills 11, Maintenance, 03/24/18 17:24:49, Aerosol, Route to Pharmacy Electronically, [id number], [facility] Start Date: 03/24/18 Stop Date: 03/19/19 [...] capsule, 5 Refills, Maintenance, 04/12/20 12:40:00 EDT, [facility], 153, cm, 09/24/19 13:06:00 [...]
--- OUTSIDE RECORDS SUMMARY | 2022-06-04 13:38 | XMS_ITS | Continuity of Care Document ---
:1945 Author Organization [facility] Address [address] [place] [address]- Care Team Providers Name Role Phone Loida Bowen MD Primary Care Physician [phone] [facility] [id number] Date(s): 09/24/19 - 09/24/[address] [address]- [facility] Discharge Disposition: A-D/C Home Attending Physician: Lyn [...] Inhalation, Every 6 hours, (3 ml = 0.26582jp of Albuterol), # 120 each, 3 Refills, [...] 08/20/19 13:42:00 EST, Route to Pharmacy Electronically, [facility], 152.4, cm, 08/20/19 [...] tablet, 5 Refills, Maintenance, 08/20/19 13:42:00 EST, [facility], 152.4, cm, 08/20/19 13:04:00 EST, [...] constipation, 06/04/17 15:04:09, Route to Pharmacy Electronically, [id number], [facility] Start Date: 11/20/17 Status: OrderedDocusate 0 [...] Refills, Maintenance, 09/12/19 8:19:00 EST, REC Powder, [facility], 152.4, cm, 09/12/19 [...] Daily Start Date: 04/28/16 Status: OrderedNuLYTELY Lemon [place] oral powder for reconstitution 240 mL, By [...] 08/24/17 11:32:28, Aerosol, Route to Pharmacy Electronically, [id number], [facility] Start Date: 08/24/17 Status: OrderedProventil HFA 90 mcg/inh inhalation aerosol with adapter 2, puffs, Inhalation, Every 4 hours, PRN, # 1 each, Refills 11, Tot. Refills 11, Maintenance, 03/24/18 17:24:49, Aerosol, Route to Pharmacy Electronically, [id number], [facility] Start Date: 03/24/18 Stop Date: 03/19/19 [...] EDT Start Date: 01/17/18 Status: OrderedVitamin D 78678 iu oral capsule 50,000 International_Units, 1, capsule, [...] Procedure Date Related Diagnosis Body Site Status Esophagogastroduodenoscopy 09/24/19 C ompleted Vital Signs Most recent to oldest 1 2 3 [Reference Range]: Height 153 cm (09/24/19 1:06 PM) Oxygen Saturation [94-100 95 % 95 % 96 % %] (09/24/19 2:39 PM) (09/24/19 2:37 PM) (09/24/19 1:0 6 PM) Pulse Rate [55-90 bpm] 88 bpm 90 bpm 102 bpm (09/24/19 2:39 PM) (09/24/19 2:37 PM) *H* (09/24/19 1:06 PM ) Blood Pressure 106/49 mm Hg 106/49 mm Hg 152/111 mm Hg [90-138/55-84 mm Hg] (09/24/19 2:39 PM) (09/24/19 2:37 PM) *H* (09/24/19 1:06 PM ) Respiratory Rate [16-30 22 br/min 22 br/min 24 br/mi n br/min] (09/24/19 2:39 PM) (09/24/19 2:37 PM) (09/24/19 1:0 6 PM) Liters per Minute 2 L/min (09/24/19 1:06 PM) Mode of Delivery (Oxygen) Nasal cannula Room air Nasal cannula (09/24/19 2:39 PM) (09/24/19 2:37 PM) (09/24/19 1:0 6 PM) Blood pressure sites Arm, right Arm, right Arm, right (09/24/19 2:39 PM) (09/24/19 2:37 PM) (09/24/19 1:0 6 PM) Temperature Route Temporal (09/24/19 1:06 PM) Dry Weight 45 kg (09/24/19 1:06 PM) Dry Weight Obtained Via Patient/family stated (09/24/19 1:06 PM) Social History Social History Type Response Smoking Status Current every day smoker; To bacco user in household: No entered on: 03/01/15 Sex
--- OUTSIDE RECORDS SUMMARY | 2022-06-04 13:38 | XMS_ITS | Continuity of Care Document ---
:1945 Author Organization [facility] Address [address] [facility], 3rd Floor, [address] [place] [address]- Care Team Providers Name Role Phone Andrés TEJEDA, Loida Keller Primary Care Physician [phone] Encounter [facility] [place] Date(s): 07/15/20 - 08/14/20 [facility] [address] [facility], 3rd [facility], [address] [place] [id number] Allergies, Adverse Reactions, Alerts Substance Reaction Severity [...] Inhalation, Every 6 hours, (3 ml = 0.78354bs of Albuterol), # 120 each, 3 Refills, [...] 05/25/20 10:13:00 EST, Route to Pharmacy Electronically, [facility], 153, cm, 09/24/19 13:06:00 EDT, [...] tablet, 5 Refills, Maintenance, 04/12/20 12:39:00 EDT, [facility], 153, cm, 09/24/19 13:06:00 [...] constipation, 06/04/17 15:04:09, Route to Pharmacy Electronically, [id number], [facility] - Start Date: 06/04/17 Status: [...] Refills, Maintenance, 09/12/19 8:19:00 EST, REC Powder, [facility] - , 152.4, cm, 09/12/19 7:39:00 [...] Daily Start Date: 04/28/16 Status: OrderedNuLYTELY Lemon [place] oral powder for reconstitution 240 mL, By Mouth, Every 10 minutes, # 4,000 mL, 0 Refills, Maintenance, 06/04/17 15:07:20 Start Date: 06/04/17 Status: Orderedomeprazole 20 mg oral enteric coated capsule 1 capsule = 20 mg, By Mouth, 2 times a day, 30 min before a meal, # 30 capsule, 11 Refills, Maintenance, 03/03/20 11:16:00 EDT, EC Capsule, [facility], 153, cm, 09/24/19 13:06:00 EDT, [...] 08/24/17 11:32:28, Aerosol, Route to Pharmacy Electronically, [id number], [facility] Start Date: 08/24/17 Status: OrderedProventil HFA 90 mcg/inh inhalation aerosol with adapter 2, puffs, Inhalation, Every 4 hours, PRN, # 1 each, Refills 11, Tot. Refills 11, Maintenance, 03/24/18 17:24:49, Aerosol, Route to Pharmacy Electronically, [id number], [facility] Start Date: 03/24/18 Stop Date: [...] capsule, 5 Refills, Maintenance, 04/12/20 12:40:00 EDT, [facility], 153, cm, 03/11/20 13:06:00 EDT, Height, 45, kg, 09/24/19 13:06:00 [...]
--- OUTSIDE RECORDS SUMMARY | 2022-06-04 13:38 | XMS_ITS | Continuity of Care Document ---
:1945 Author Organization [facility] Address [address] [place] [address]- Care Team Providers Name Role Phone Andrés TEJEDA, Loida Keller Primary Care Physician [phone] [place] [facility] [facility] [place] 03/25/20 - 05/03/[address] [address]- [facility] Discharge Disposition: A-D/C Home Attending Physician: Loida Bowen MD Admitting Physician: Loida Bowen MD [...] Inhalation, Every 6 hours, (3 ml = 0.81846yh of Albuterol), # 120 each, 3 Refills, [...] 04/12/20 12:38:00 EDT, Route to Pharmacy Electronically, [facility], 153, cm, 09/24/19 13:06:00 EDT, [...] tablet, 5 Refills, Maintenance, 04/12/20 12:39:00 EDT, [facility], 153, cm, 09/24/19 13:06:00 [...] constipation, 06/04/17 15:04:09, Route to Pharmacy Electronically, [id number], [facility] Start Date: 06/04/17 Status: OrderedDocusate [...] Refills, Maintenance, 09/12/19 8:19:00 EST, REC Powder, [facility], 152.4, cm, 09/12/19 7:39:00 EST, Height Start [...] Daily Start Date: 04/28/16 Status: OrderedNuLYTELY Lemon [place] oral powder for reconstitution 240 mL, By Mouth, Every 10 minutes, # 4,000 mL, 0 Refills, Maintenance, 06/04/17 15:07:20 Start Date: 06/04/17 Status: Orderedomeprazole 20 mg oral enteric coated capsule 1 capsule = 20 mg, By Mouth, 2 times a day, 30 min before a meal, # 30 capsule, 11 Refills, Maintenance, 03/03/20 11:16:00 EDT, EC Capsule, [facility], 153, cm, 09/24/19 13:06:00 EDT, Height, 45, kg, 09/24/19 13:06:00 EDT, Dry Weight Start Date: 8/19/20 Status: OrderedOyster Shell 500 (1250 mg calcium [...] 08/24/17 11:32:28, Aerosol, Route to Pharmacy Electronically, [id number], [facility] Start Date: 08/24/17 Status: OrderedProventil HFA 90 mcg/inh inhalation aerosol with adapter 2, puffs, Inhalation, Every 4 hours, PRN, # 1 each, Refills 11, Tot. Refills 11, Maintenance, 03/24/18 17:24:49, Aerosol, Route to Pharmacy Electronically, [id number], [facility] Start Date: [...] capsule, 5 Refills, Maintenance, 04/12/20 12:40:00 EDT, [facility], 153, cm, 09/24/19 13:06:00 [...]
--- OUTSIDE RECORDS SUMMARY | 2022-06-04 13:38 | XMS_ITS | Continuity of Care Document ---
:1945 Author Organization [facility] Address [address] [place] [address]- Care Team Providers Name Role Phone Loida Bowen MD Primary Care Physician [phone] [id number] Date(s): 01/02/20 - 02/01/[address] [address]- [facility] Attending Physician: Valerio Perales Admitting Physician: Valerio Perales Referring Physician: AdmtrValerio Allergies, Adverse Reactions, Alerts [...] Inhalation, Every 6 hours, (3 ml = 0.69570qw of Albuterol), # 120 each, 3 Refills, [...] 08/20/19 13:42:00 EST, Route to Pharmacy Electronically, [facility], 152.4, cm, 08/20/19 13:04:00 ES... [...] tablet, 5 Refills, Maintenance, 12/24/19 13:36:00 EDT, [facility], 153, cm, 09/24/19 13:06:00 [...] constipation, 06/04/17 15:04:09, Route to Pharmacy Electronically, [id number], [facility] Start Date: 06/04/17 Status: OrderedDocusate [...] Date: 04/28/16 Status: OrderedNuLYTELY Lemon [place] oral powder for reconstitution 240 mL, By [...] 08/24/17 11:32:28, Aerosol, Route to Pharmacy Electronically, [id number], [facility] Start Date: 08/24/17 Status: OrderedProventil HFA 90 mcg/inh inhalation aerosol with adapter 2, puffs, Inhalation, Every 4 hours, PRN, # 1 each, Refills 11, Tot. Refills 11, Maintenance, 03/24/18 17:24:49, Aerosol, Route to Pharmacy Electronically, [id number], [facility] Start Date: 03/24/18 Stop Date: 03/19/19 [...] EDT Start Date: 01/17/18 Status: OrderedVitamin D 93818 iu oral capsule 50,000 International_Units, 1, capsule, [...]
--- OUTSIDE RECORDS SUMMARY | 2022-06-04 13:38 | XMS_ITS | Continuity of Care Document ---
:1945 Author Organization [facility] Address [address] [place] [address]- Care Team Providers Name Role Phone Loida Bowen MD Primary [id number] Date[facility]/25[facility] - 12/31/[address] [address] Attending Physician: Juan Haynes MD Admitting Physician: Name Juan TEJEDA Referring Physician: Name Juan TEJEDA Allergies, Adverse Reactions, Alerts Substance Reaction Severity [...] Inhalation, Every 6 hours, (3 ml = 0.55968fu of Albuterol), # 120 each, 3 Refills, [...] 08/20/19 13:42:00 EST, Route to Pharmacy Electronically, [facility], 152.4, cm, 08/20/19 13:04:00 ES... Start Date: [...] tablet, 5 Refills, Maintenance, 12/24/19 13:36:00 EDT, [facility], 153, cm, 09/24/19 13:06:00 [...] constipation, 06/04/17 15:04:09, Route to Pharmacy Electronically, [id number], [facility] Start Date: 06/04/17 Status: OrderedDocusate 0 [...] Refills, Maintenance, 09/12/19 8:19:00 EST, REC Powder, [facility], 152.4, cm, 09/12/19 7:39:00 [...] Daily Start Date: 04/28/16 Status: OrderedNuLYTELY Lemon [place] oral powder for reconstitution 240 mL, By [...] 08/24/17 11:32:28, Aerosol, Route to Pharmacy Electronically, [id number], [facility] Start Date: 08/24/17 Status: OrderedProventil HFA 90 mcg/inh inhalation aerosol with adapter 2, puffs, Inhalation, Every 4 hours, PRN, # 1 each, Refills 11, Tot. Refills 11, Maintenance, 03/24/18 17:24:49, Aerosol, Route to Pharmacy Electronically, [id number], [facility] Start Date: 03/24/18 Stop Date: [...] EDT Start Date: 01/17/18 Status: OrderedVitamin D 67070 iu oral capsule 50,000 International_Units, 1, capsule, [...]
--- OUTSIDE RECORDS SUMMARY | 2022-06-04 13:38 | XMS_ITS | Continuity of Care Document ---
:1945 Author Organization [facility] Address [address] [place] [address]- Care Team Providers Name Role Phone Andrés TEJEDA, Loida Keller Primary Care Physician [phone] [id number] Date(s): 04/05/20 - 05/03/[address] [address]- [facility] Discharge Disposition: A-D/C Home Attending Physician: Loida [...] Inhalation, Every 6 hours, (3 ml = 0.66133tu of Albuterol), # 120 each, 3 Refills, [...] 04/12/20 12:38:00 EDT, Route to Pharmacy Electronically, [facility], 153, cm, 09/24/19 13:06:00 EDT, [...] tablet, 5 Refills, Maintenance, 04/12/20 12:39:00 EDT, [facility], 153, cm, 09/24/19 13:06:00 [...] constipation, 06/04/17 15:04:09, Route to Pharmacy Electronically, [id number], [facility] Start Date: 06/04/17 Status: OrderedDocusate 0 Refills, [...] Refills, Maintenance, 09/12/19 8:19:00 EST, REC Powder, [facility], 152.4, cm, 09/12/19 7:39:00 EST, Height [...] Daily Start Date: 04/28/16 Status: OrderedNuLYTELY Lemon [place] oral powder for reconstitution 240 mL, By Mouth, Every 10 minutes, # 4,000 mL, 0 Refills, Maintenance, 06/04/17 15:07:20 Start Date: 06/04/17 Status: Orderedomeprazole 20 mg oral enteric coated capsule 1 capsule = 20 mg, By Mouth, 2 times a day, 30 min before a meal, # 30 capsule, 11 Refills, Maintenance, 03/03/20 11:16:00 EDT, EC Capsule, [facility], 153, cm, 09/24/19 13:06:00 [...] 08/24/17 11:32:28, Aerosol, Route to Pharmacy Electronically, [id number], [facility] Start Date: 08/24/17 Status: OrderedProventil HFA 90 mcg/inh inhalation aerosol with adapter 2, puffs, Inhalation, Every 4 hours, PRN, # 1 each, Refills 11, Tot. Refills 11, Maintenance, 03/24/18 17:24:49, Aerosol, Route to Pharmacy Electronically, [id number], [facility] Start Date: 03/24/18 Stop Date: [...] capsule, 5 Refills, Maintenance, 04/12/20 12:40:00 EDT, [facility], 153, cm, 09/24/19 13:06:00 [...]
--- OUTSIDE RECORDS SUMMARY | 2022-06-04 13:38 | XMS_ITS | Continuity of Care Document ---
:1945 Author Organization [facility] Address [address] [place] [address]- Care Team Providers Name Role Phone Loida Bowen MD Primary Care Phys[id number] Date(s): 10/03/19 - 10/13/[address] [address]- [facility] Attending Physician: Valerio Perales Admitting Physician: Valerio [...] Inhalation, Every 6 hours, (3 ml = 0.62400gj of Albuterol), # 120 each, 3 Refills, [...] 08/20/19 13:42:00 EST, Route to Pharmacy Electronically, [facility], 152.4, cm, [...] tablet, 5 Refills, Maintenance, 08/20/19 13:42:00 EST, [facility], 152.4, cm, 08/20/19 13:04:00 EST, Height [...] constipation, 06/04/17 15:04:09, Route to Pharmacy Electronically, [id number], [facility] Start Date: 06/04/17 Status: OrderedDocusate [...] Refills, Maintenance, 09/12/19 8:19:00 EST, REC Powder, [facility], 152.4, cm, [...] Daily Start Date: 04/28/16 Status: OrderedNuLYTELY Lemon [place] oral powder for reconstitution 240 mL, By [...] 08/24/17 11:32:28, Aerosol, Route to Pharmacy Electronically, [id number], [facility] Start Date: 08/24/17 Status: OrderedProventil HFA 90 mcg/inh inhalation aerosol with adapter 2, puffs, Inhalation, Every 4 hours, PRN, # 1 each, Refills 11, Tot. Refills 11, Maintenance, 03/24/18 17:24:49, Aerosol, Route to Pharmacy Electronically, [id number], [facility] Start Date: 03/24/18 Stop Date: [...] EDT Start Date: 01/17/18 Status: OrderedVitamin D 85532 iu oral capsule 50,000 International_Units, 1, capsule, [...]
--- OUTSIDE RECORDS SUMMARY | 2022-06-04 13:38 | XMS_ITS | Continuity of Care Document ---
:1945 Author Organization [facility] Address [address] [place] [address]- Care Team Providers Name Role Phone Loida Bowen MD Primary Care Physician [phone] [id number] 12/05/[facility] - 01/05/[address] [address]- [facility] Discharge Disposition: A-D/C Home Attending Physician: Loida [...] Inhalation, Every 6 hours, (3 ml = 0.69666pz of Albuterol), # 120 each, 3 Refills, [...] 08/20/19 13:42:00 EST, Route to Pharmacy Electronically, [facility] - , 152.4, cm, 08/20/19 13:04:00 ES... Start Date: [...] tablet, 5 Refills, Maintenance, 12/24/19 13:36:00 EDT, [facility], 153, cm, 09/24/19 13:06:00 EDT, Height, [...] constipation, 06/04/17 15:04:09, Route to Pharmacy Electronically, [id number], [facility] Start Date: 06/04/17 Status: OrderedDocusate 0 [...] Refills, Maintenance, 09/12/19 8:19:00 EST, REC Powder, [facility], 152.4, cm, 09/12/19 7:39:00 EST, Height [...] Date: 04/28/16 Status: OrderedNuLYTELY Lemon [place] oral powder for reconstitution 240 mL, By [...] 08/24/17 11:32:28, Aerosol, Route to Pharmacy Electronically, [id number], [facility] Start Date: 08/24/17 Status: OrderedProventil HFA 90 mcg/inh inhalation aerosol with adapter 2, puffs, Inhalation, Every 4 hours, PRN, # 1 each, Refills 11, Tot. Refills 11, Maintenance, 03/24/18 17:24:49, Aerosol, Route to Pharmacy Electronically, [id number], [facility] Start Date: 03/24/18 Stop Date: [...] EDT Start Date: 01/17/18 Status: OrderedVitamin D 86217 iu oral capsule 50,000 International_Units, 1, capsule, [...]
--- OUTSIDE RECORDS SUMMARY | 2022-06-04 13:38 | XMS_ITS | Continuity of Care Document ---
:1945 Author Organization [facility] Address [address] [place] [address]- Care Team Providers Name Role Phone Loida Bowen MD Primary Care Physician [phone] [id number] Date(s): 02/23/20 - 03/24/20 [facility] [address] [place] [address]- [facility] Attending Physician: Valerio Perales Admitting Physician: Valerio [...] Inhalation, Every 6 hours, (3 ml = 0.65365nj of Albuterol), # 120 each, 3 Refills, [...] 02/16/20 14:33:00 EDT, Route to Pharmacy Electronically, [facility], 153, cm, 09/24/19 13:06:00 EDT, [...] 13:36:00 EDT, [facility], 153, cm, 09/24/19 13:06:00 EDT, Height, [...] constipation, 06/04/17 15:04:09, Route to Pharmacy Electronically, [id number], [facility] Start Date: 06/04/17 Status: OrderedDocusate 0 [...] Refills, Maintenance, 09/12/19 8:19:00 EST, REC Powder, [facility], 152.4, cm, 09/12/19 7:39:00 EST, Height Start [...] Daily Start Date: 04/28/16 Status: OrderedNuLYTELY Lemon [place] oral powder for reconstitution 240 mL, By Mouth, Every 10 minutes, # 4,000 mL, 0 Refills, Maintenance, 06/04/17 15:07:20 Start Date: 06/04/17 Status: Orderedomeprazole 20 mg oral enteric coated capsule 1 capsule = 20 mg, By Mouth, 2 times a day, 30 min before a meal, # 30 capsule, 11 Refills, Maintenance, 03/03/20 11:16:00 EDT, EC Capsule, [facility], 153, cm, 09/24/19 13:06:00 EDT, [...] 08/24/17 11:32:28, Aerosol, Route to Pharmacy Electronically, [id number], [facility] Start Date: 08/24/17 Status: OrderedProventil HFA 90 mcg/inh inhalation aerosol with adapter 2, puffs, Inhalation, Every 4 hours, PRN, # 1 each, Refills 11, Tot. Refills 11, Maintenance, 03/24/18 17:24:49, Aerosol, Route to Pharmacy Electronically, [id number], [facility] Start Date: 03/24/18 Stop Date: 03/19/19 [...] EDT Start Date: 01/17/18 Status: OrderedVitamin D 72566 iu oral capsule 50,000 International_Units, 1, capsule, [...]
--- NOTE | 2022-06-04 13:46 | PC.NURSE ---
pt coming from [facility] after pnuemonia admission. Pt is requiring more oxygen than usual per staff. Baseline not on 02 at home but requiring continuous 02 at 3 L. \[facility] obtained patient at 3 L nc at [facility], gave duoneb and now stating at 97% onh [address] Demarco start pneumonia work up and plan for readmission.
--- NOTE | 2022-06-04 14:20 | PC.NURSE ---
pt has open wound ?from bed on left buttox. Foam placed. at this time by RN
[2022-06-04 14:42] LABS: COVID-19 Test Negative (Negative); IDNOW Serial# 16C4AD1C; IDNOW Serial# BCCEAD1C; Influenza A Negative (Negative); Influenza B2 Negative (Negative)
--- NOTE | 2022-06-04 15:33 | PC.NURSE ---
assumed care of pt at 1500, per prior nurse, difficulty gaining access/labs, plan for central line, provider at bedside.
--- NOTE | 2022-06-04 15:51 | PC.NURSE ---
spoke w daughter, looking for update from provider.
[2022-06-04 16:00] VITALS: BP 96/42; PULSE 71; RESP 24; O2SAT 97
[2022-06-04] MEDS: 0.9 % Sodium Chloride 500 ML IV (16:53)
--- NOTE | 2022-06-04 17:00 | PC.NURSE ---
chest tube placed by provider - pt tolerated well, connected to suction @ -20cm water. tech at bedside attempting to get lab work, 22G IV placed right wrist by [employer].
[2022-06-04 17:17] LABS: Basophils Percent Auto 0.2 % (0-2); Hematocrit 30.8 % (37.0-47.0); Hemoglobin 9.4 g/dl (12.0-16.0); Imm Gran Abs Auto 0.06 X10*3/uL (0.00-0.03); Imm Gran Pct Auto 0.6 % (0.0-0.4); Lymphocytes Absolute Auto 0.2 X10*3/uL (1.2-4.9); Lymphocytes Percent Auto 1.8 % (20-40); MANUAL DIFF FLAG SCAN; Mean Corpuscular HGB Conc 30.5 g/dl (31.0-35.0); Mean Corpuscular Hemoglobin 29.6 pg (27.0-33.0); Mean Corpuscular Volume 96.9 fL (80.0-98.0); Mean Platelet Volume 11.2 fL (9.4-12.3); Monocytes Absolute Auto 0.3 X10*3/uL (0.1-1.2); Monocytes Percent Auto 2.8 % (2-11); Neutrophils Percent Auto 94.6 % (45-73); Platelet Count 218 X10*3/uL (160-400); Red Blood Count 3.18 X10*6/uL (4.20-5.50); Red Cell Distribution Width 16.4 % (11.0-16.0); SCAN SMEAR FLAG 1; White Blood Count 9.6 X10*3/uL (4.8-10.8)
[2022-06-04 17:38] LABS: B Type Natriuretic Peptide 109 pg/mL (<100)
[2022-06-04 17:43] LABS: Alanine Aminotransferase 29 U/L (0-31); Albumin Level 3.2 g/dL (3.5-5.0); Alkaline Phosphatase 93 U/L (39-117); Anion Gap 22 (12-20); Aspartate Amino Transferase 30 U/L (5-31); Bilirubin Total 0.7 mg/dL (0.0-1.0); Blood Urea Nitrogen 36 mg/dL (9-16); Calcium 7.9 mg/dL (8.4-10.2); Carbon Dioxide 29 mmol/L (22-29); Chloride 94 mmol/L (96-108); Creatinine Clr Calc Pharmacy 20.4; Estimated Glomerular Filt Rate 34; Glucose Random 226 mg/dL (60-115); Lipase 16 U/L (8-78); Potassium 3.5 mmol/L (3.3-5.1); Sodium 141 mmol/L (135-145); Total Protein 5.5 g/dL (6.5-8.0)
[2022-06-04 17:45] LABS: Lactic Acid 3.5 mmol/L (0.5-2.0)
[2022-06-04 17:46] LABS: Troponin-I High Sensitivity 90.4 ng/L (<3.5-17.0)
[2022-06-04 17:50] LABS: SLIDE REVIEW VERIFIED
--- NOTE | 2022-06-04 18:28 | PHA.MEDREC ---
MED REC COMPLETE, NO ISSUES Pharmacy Consult ? Medication Reconciliation Pharmacy has completed the medication reconciliation.
[2022-06-04 19:13] LABS: Reflex Lactate? Lactic Acid Added
[2022-06-04 20:29] VITALS: BP 98/42; PULSE 71; RESP 15; TEMP 36.9; O2SAT 99
[2022-06-04] MEDS: levoFLOXacin/D5W 750 MG/150 ML PIGGYBACK 100 MG IV (20:37)
[2022-06-04] MEDS: SODIUM CHLORIDE 1333.56 ML IV (20:49)
--- NOTE | 2022-06-04 21:00 | PM.IMHP ---
History of Present Illness Date of Service: 06/04/22 Chief Complaint: Shortness of breath 76-year-old female with past medical history of HTN, COPD, MS, HLD, history of CVA, risk of gastritis, bipolar disorder, anxiety, who presents to the hospital from [facility] for increased shortness of breath and hypoxia on baseline 3 L of oxygen. Patient also noted to have increased oxygen requirement, wheezing, and sputum production. Patient is very somnolent, weeks of shortly and falls back asleep. Her VBG sewed a pH of 7.6 with no CO2 retention I am unable to obtain much history from the patient she is very sleepy Vitals on arrival showed no significant abnormality Labs are significant for WBC count of 9.6, hemoglobin of 9.4 which is around her baseline, medical of 30.8, lactic of 3.5, repeat of 2.8, troponin of 90.4, BNP of 109, Chest x-ray showed right lung patchy infiltrate with small right pleural effusion. Patient was receiving subclavian central line when she experienced pneumothorax. Patient is currently on a chest tube and vascular surgery consulted Review of Systems Review of Systems: Yes all other systems are reviewed and are negative [facility] Medical History Anemia Anxiety Bipolar 1 disorder Chronic rhinitis COPD (chronic obstructive pulmonary disease) Erosive gastritis History of CVA (cerebrovascular accident) (~10/2019) HLD (hyperlipidemia) HTN (hypertension) SRIKANTH (iron deficiency anemia) Multiple sclerosis Osteoporosis Tobacco dependence Vitamin D deficiency Family History Father Stroke Mother No problems noted. Surgical History History of cholecystectomy History of eye surgery History of hysterectomy History of left knee surgery Social History Household Members: None Household Members Other:: dtr checks on her Housing: Apartment Do you presently have visiting nurse or other home services: No Unable to assess alcohol history related to: Unknown Alcohol intake: former Patient Tobacco Use Status: Former Tobacco user Tobacco use type: Cigarette Cigarette Packs Per Day: 1.5 Years Smoked: approx 60 years Smoked in Last 30 Days: No Patient Interested in Nicotine Replacement: No Patient Given Instructions on How to Stop Smoking: No Second Hand Smoke Exposure: No Use of substances other than those prescribed or required for medical reasons: No Currently Displaying Signs/Symptoms of Drug Intoxication Withdrawal: No Any prior treatment program specific to substance use: No Have you been hit, kicked, punched, or otherwise hurt by someone within the past year? If so, by whom?: No Do you feel safe in your current relationship?: No Current Relationship Is there a partner from a previous relationship who is making you feel unsafe now?: No Are you made to feel afraid or neglected: No Advance Directives: Yes Advance Directives on File: Yes Advance Directives Date on File: 05/10/20 Do you have thoughts of harming others: None Do you have a plan to hurt others: No Plan Recently lost weight without trying: Unsure Eating poorly because of decreased appetite: No Nutrition Risks: No Nutritional Risk Patient : No : No Poor oral hygiene: No service: No Current occupational status: unemployed and disabled Meds Allergies Allergy/AdvReac Type Severity Reaction Status Date / Time Penicillins [PENICILLINS] Allergy Severe RASH Verified 06/04/22 13:26 lisinopril AdvReac Unknown diarrhea Verified 06/04/22 13:26 14-Count Warmer Allergy Severe Rash Uncoded 06/04/22 13:26 Active Medications: Current Medications Pharmacy Consult (Consult Rx Perform Med Rec) 1 each MISCELLANE ONCE PRN PRN Reason: Consult order Home Medications Medication Instructions Recorded Confirmed Last Taken Type amantadine HCl 100 mg capsule 100 mg PO DAILY 05/06/20 06/04/22 Unknown History aspirin 81 mg tablet,delayed 81 mg PO DAILY 05/06/20 06/04/22 Unknown History release (Adult Aspirin Regimen) atorvastatin 40 mg tablet 40 mg PO DAILY 05/06/20 06/04/22 Unknown History docusate sodium 100 mg capsule 100 mg PO BID 05/06/20 06/04/22 Unknown History (Colace) metoprolol tartrate 25 mg tablet 12.5 mg PO BID 05/06/20 06/04/22 Unknown History sertraline 100 mg tablet 100 mg PO DAILY 05/06/20 06/04/22 Unknown History trazodone 50 mg tablet 50 mg PO BEDTIME 06/18/20 06/04/22 Unknown History fluticasone propionate 50 2 spray intranasal DAILY 07/10/20 06/04/22 Unknown History mcg/actuation nasal spray,suspension acetaminophen 650 mg 650 mg PO Q4H PRN Pain 09/02/20 06/04/22 Unknown History tablet,extended release (Arthritis Pain Reliever) teriflunomide 14 mg tablet 14 mg PO DAILY 10/08/20 06/04/22 Unknown History calcium carbonate 200 mg calcium 200 mg PO BID 06/23/21 06/04/22 Unknown History (500 mg) chewable tablet (Naeem-Gest Antacid) irbesartan 300 mg tablet 300 mg PO DAILY 06/23/21 06/04/22 Unknown History thiamine HCl (vitamin B1) 100 mg 100 mg PO DAILY 06/23/21 06/04/22 Unknown History tablet vitamin E (dl, acetate) 180 mg 180 mg PO BEDTIME 06/23/21 06/04/22 Unknown History (400 unit) capsule chlorthalidone 25 mg tablet 12.5 mg PO DAILY 04/14/22 06/04/22 Unknown History mirtazapine 30 mg tablet 30 mg PO BEDTIME 04/14/22 06/04/22 Unknown History nebulizers 04/14/22 Unknown History alendronate 35 mg tablet 1 tab PO FR@0600 05/29/22 06/04/22 Unknown History cholecalciferol (vitamin D3) 25 1 cap PO DAILY 05/29/22 06/04/22 Unknown History mcg (1,000 unit) capsule (Vitamin D3) diltiazem HCl 180 mg 360 mg PO DAILY 05/29/22 06/04/22 Unknown History capsule,extended release 24 hr, controlled gabapentin 300 mg capsule 1 cap PO BID 05/29/22 06/04/22 Unknown History multivitamin 1 tab PO DAILY 05/29/22 06/04/22 Unknown History oxycodone-acetaminophen 5 mg-325 1 tab PO BID PRN Pain (Scale Score 05/29/22 06/04/22 Unknown History mg tablet 4-6) pantoprazole 40 mg tablet,delayed 1 tab PO DAILY@0630 05/29/22 06/04/22 Unknown History release pyridoxine (vitamin B6) 25 mg 1 tab PO BEDTIME 05/29/22 06/04/22 Unknown History tablet (Vitamin B-6) roflumilast 250 mcg tablet 250 mcg PO DAILY 05/29/22 06/04/22 Unknown History (Daliresp) sennosides 8.6 mg tablet (senna) 8.6 mg PO BID PRN Constipation 05/29/22 06/04/22 Unknown History albuterol sulfate 90 mcg/actuation 2 puff PO Q4H PRN for wheezing 06/04/22 06/04/22 Unknown History aerosol inhaler bisacodyl 10 mg rectal suppository 10 mg KS DAILY PRN Constipation 06/04/22 06/04/22 Unknown History buspirone 5 mg tablet 5 mg PO BID 06/04/22 06/04/22 Unknown History magnesium hydroxide 400 mg/5 mL 30 ml PO DAILY PRN Constipation 06/04/22 06/04/22 Unknown History oral suspension (Milk of Magnesia) prednisone 10 mg tablet See Rx Instructions .Route .COMPLEX 06/04/22 06/04/22 Unknown History Physical Exam Vital Signs and Narrative: Vital Signs: Last Vital Signs Temp 98.4 F 06/04/22 20:29 Pulse 71 06/04/22 20:29 Resp 15 06/04/22 20:29 BP 98/42 L 06/04/22 20:29 Pulse Ox 99 06/04/22 20:29 O2 Del Method 06/04/22 20:29 O2 Flow Rate 6 06/04/22 20:29 Oxygen Flow Rate 3 06/04/22 13:27 BMI result Body Mass Index 21.9 Const: Other: Somnolent but arousable General: cooperative and no acute distress Eyes: General: appearance normal, both eyes and all related structures Chest: Other: Chest tube in place Resp: Effort & Inspection: normal respiratory effort Cardio: Rate: regular rate Rhythm: regular rhythm GI: Palpation (GI): Soft to palpation Auscultation: normal bowel sounds Skin: General skin exam: no rashes or lesions noted Neuro: Other: Somnolent Extrem: General: Yes normal to inspection and Yes no pedal edema Results Labs CBC and Chem 7: 06/04/22 17:05 06/04/22 17:05 Labs: Laboratory Results - last 24 hr 06/04/22 06/04/22 06/04/22 14:17 14:17 17:05 MCV 96.9 MCH 29.6 MCHC 30.5 L RDW 16.4 H Plt Count 218 MPV 11.2 Immature Gran % (Auto) 0.6 H Neut % (Auto) 94.6 H Lymph % (Auto) 1.8 L [place] % (Auto) 2.8 Eos % (Auto) 0.0 Baso % (Auto) 0.2 Lymph # (Auto) 0.2 L [place] # (Auto) 0.3 Eos # (Auto) 0.0 Baso # (Auto) 0.0 Abs Immat Gran (auto) 0.06 H Absolute Neuts (auto) 9.0 H Absolute Nucleated RBC 0.000 Nucleated RBC % (auto) 0.0 Smear Tech's Comments VERIFIED Anion Gap Estim Creat Clear Calc Estimated GFR Random Glucose Lactic Acid Calcium Total Bilirubin AST ALT Alkaline Phosphatase Troponin I High Sens B-Natriuretic Peptide Total Protein Albumin Lipase COVID-19 (MOISÉS) Negative COVID-19 Clin Com See Note Influenza Type A (CEDRICK) Negative Influenza Type B (CEDRICK) Negative Influenza A & B Note See Note 06/04/22 06/04/22 06/04/22 17:05 17:05 17:05 MCV MCH MCHC RDW Plt Count MPV Immature Gran % (Auto) Neut % (Auto) Lymph % (Auto) [place] % (Auto) Eos % (Auto) Baso % (Auto) Lymph # (Auto) [place] # (Auto) Eos # (Auto) Baso # (Auto) Abs Immat Gran (auto) Absolute Neuts (auto) Absolute Nucleated RBC Nucleated RBC % (auto) Smear Tech's Comments Anion Gap 22 H Estim Creat Clear Calc 20.4 Estimated GFR 34 Random Glucose 226 H Lactic Acid 3.5 H* Calcium 7.9 L D Total Bilirubin 0.7 AST 30 ALT 29 Alkaline Phosphatase 93 Troponin I High Sens 90.4 H* D B-Natriuretic Peptide Total Protein 5.5 L Albumin 3.2 L Lipase 16 COVID-19 (MOISÉS) COVID-19 Clin Com Influenza Type A (CEDRICK) Influenza Type B (CEDRICK) Influenza A & B Note 06/04/22 17:05 MCV MCH MCHC RDW Plt Count MPV Immature Gran % (Auto) Neut % (Auto) Lymph % (Auto) [place] % (Auto) Eos % (Auto) Baso % (Auto) Lymph # (Auto) [place] # (Auto) Eos # (Auto) Baso # (Auto) Abs Immat Gran (auto) Absolute Neuts (auto) Absolute Nucleated RBC Nucleated RBC % (auto) Smear Tech's Comments Anion Gap Estim Creat Clear Calc Estimated GFR Random Glucose Lactic Acid Calcium Total Bilirubin AST ALT Alkaline Phosphatase Troponin I High Sens B-Natriuretic Peptide 109 H Total Protein Albumin Lipase COVID-19 (MOISÉS) COVID-19 Clin Com Influenza Type A (CEDRICK) Influenza Type B (CEDRICK) Influenza A & B Note Imaging Radiologist's Impressions: Impressions Chest X-Ray 06/04/22 13:56 IMPRESSION: Right lung patchy infiltrates with small right pleural effusion. Chest X-Ray 06/04/22 15:42 IMPRESSION: Small right pneumothorax extending from apex to the base. No evidence of mediastinal shift at this time. Right chest wall emphysema. Right lung patchy airspace opacities are new compared to previous x-rays of 05/31/2022. Critical results were discussed with Iman MAYNARD, on 06/04/2022 at 4:04 PM. Chest X-Ray 06/04/22 16:35 IMPRESSION: Interval placement of right chest tube projecting over the right lung base. There is interval improvement of the right pneumothorax with persistent small pneumothorax. Right chest wall and right neck soft tissue emphysema, increased compared to last chest x-ray. Assessment and Plan (1) Pneumonia: Status: Acute (2) Pneumothorax: Qualifiers: Pneumothorax type: postprocedural Qualified Code(s): J95.811 - Postprocedural pneumothorax Status: Acute (3) Right pulmonary infiltrate on CXR: Status: Acute (4) Acute hypoxemic respiratory failure: Status: Acute (5) LEN (acute kidney injury): Status: Acute (6) Lactic acidosis: Status: Acute (7) Elevated troponin: Status: Acute Plan 76-year-old female with past medical history of COPD presents the hospital with hypoxic respiratory failure, while undergoing central line placement in the subclavian region patient experience pneumothorax. # acute hypoxic respiratory failure - initially likely secondary to pneumonia, complicated by pneumothorax - currently on 3 L of oxygen, - titrate oxygen down as appropriate - does not appear to be on baseline oxygen - will treat underlying pneumonia, patient also has a chest tube for the pneumothorax with improvement seen on chest x-ray - continue O2 as required # pneumonia - patient with recurrent pneumonia on the right lower lung - will consult speech for evaluation of aspiration - will cover for aspiration pneumonia - follow cultures - O2 as required # pneumothorax - occurred while having central line placed - status post chest tube with improvement - vascular surgery informed- will evaluate patient in a.m. - monitor respiratory status # LEN - likely prerenal secondary to dehydration - IV fluids low BMP # lactic acidosis - secondary to hypoxic respiratory failure - IV fluids - trend # elevated troponin - likely type 2 - will trend x1 # COPD - recently discharged from the hospital on 06 01 for COPD exacerbation on prednisone taper - will continue the prednisone taper, as well as DuoNeb treatment # hypertension - soft - hold antihypertensives # hyperlipidemia - continue statin DVT prophylaxis: Heparin subQ Given patient's hypoxic respiratory failure, pneumothorax, as well as pneumonia patient will require min 2 night inpatient hospital stay for further management and monitoring Quality Stroke Does the patient have a stroke diagnosis?: No VTE Prior VTE?: No VTE Risk Level:: Medical - moderate - high VTE Device Contraindication: Treatment Not Indicated VTE Drug Contraindication: N/A - Med Ordered
[2022-06-04 21:52] LABS: VBG Base Excess 8.4 mmol/L; VBG HCO3 30 mmol/L (22-26); VBG pCO2 30 mmHg; VBG pO2 232 mmHg
[2022-06-04 21:58] LABS: Venous Blood Gas Refer to POC result
--- NOTE | 2022-06-04 22:03 | PC.NURSE ---
attempted to call report, RN to call back.
[2022-06-04 22:07] LABS: ~Lactic Acid-LAB USE ONLY 2.8 mmol/L (0.5-2.0)
--- NOTE | 2022-06-04 22:08 | PC.NURSE ---
Critical result of 2.8 lactic recvd by ad. UNIQUE Flores notified.
--- NOTE | 2022-06-04 22:34 | PC.NURSE ---
RN-RN report called into [facility], provider contacted for chest tube order.
--- NOTE | 2022-06-04 22:39 | PC.NURSE ---
chest tube removed from suction prior to transport, chest tube drainage at 15ml prior to transport, no crepitus noted around incision site.
--- NOTE | 2022-06-04 23:01 | PC.NURSE ---
patient arrived from ED,alert,not in any distress,right chest tube intact to -20 cm suction.
[2022-06-04 23:10] LABS: INTERNATIONAL NORM RATIO 1.4 (0.9-1.1); Prothrombin Time 15.9 SEC (10.0-13.1)
[2022-06-04 23:14] LABS: Partial Thromboplastin Time 23.7 SEC (26.0-36.4)
[2022-06-04 23:18] VITALS: BP 111/55; PULSE 73; RESP 18; TEMP 37.2; O2SAT 95
[2022-06-04 23:29] LABS: Reflex Lactate? 2 Y
[2022-06-04] MEDS: Acetaminophen 325 MG TABLET 650 MG PO (23:48)
[2022-06-04] MEDS: Lactated Ringers 1,000 ML 100 ML IVCONT (23:58)
[2022-06-05] VITALS (10 sets, daily range): BP systolic 123–161; BP diastolic 63–96; PULSE 74–124; RESP 16–20; TEMP 36.3–37; O2SAT 97–100; BMI 20.7
[2022-06-05] MEDS: 0.9 % Sodium Chloride Flush 3 ML SYRINGE IVFLUSH
--- NOTE | 2022-06-05 | ECG_ITS ---
Test Reason : ELEVATED TROPONINS Blood Pressure : / mmHG Vent. Rate : 094 BPM Atrial Rate : 094 BPM P-R Int : 120 ms QRS Dur : 070 ms QT Int : 374 ms P-R-T Axes : 042 071 054 degrees QTc Int : 467 ms Sinus rhythm with Premature atrial complexes Otherwise normal ECG When compared with ECG of 28-MAY-2022 18:02, No significant change was found Referred By: Jose Delgadillo Electronically Signed By:ANNETTE FOX MD
--- NOTE | 2022-06-05 04:14 | PC.NURSE ---
PATIENT ADMITTED VIA STRETCHER FROM ED AT SHIFT CHANGE. PT SETTLED INTO BED BY 3-11 RN/STAFF AND CHEST TUBE SET T0 -20CM WALL SUCTION. MATERIAL EXPEDITER ALERTED BY THIS TECHNICAL SUPPORT 1 SOFTWARE ENGINEER FOR ADMISSION INFORMATION AND PT ANSWERED BUT ANXIOUS TO GET TO SLEEP STATING VERT TIRED. VSS, LUNG DE ANDA DIMINISHED ON RUL, PT WITH NO RESP DISTRESS. PT DID SPEAK OF GEN DISCOMFORT AND GIVEN PO TYLENOL WITH SIPS OF WATER SHE IS NPO STATUS. CHEST TUBE AT RIGHT UPPER POSTERIOR CHEST, DSG INTACT, VERY SMALL AMOUNT OF BLOODY DRNG TO SINGLE CHAMBER CT AT -20CM SUCTION. ED MD DID WRITE OF BUBBLES TO BLUE WATER CHAMBER (SEE HIS NOTE), THORACIC PA TO FOLLOW UP AND WILL HAVE AM CXR. HOB UP, IVF ORDERED, HFR ALARM ACTIVATED FOR SAFETY. WILL CONTINUE TO MONITOR CLOSELY.
[2022-06-05 07:11] LABS: Hematocrit 27.1 % (37.0-47.0); Hemoglobin 8.4 g/dl (12.0-16.0); Mean Corpuscular Hemoglobin 29.9 pg (27.0-33.0); Mean Corpuscular Volume 96.4 fL (80.0-98.0); Mean Platelet Volume 11.2 fL (9.4-12.3); Platelet Count 181 X10*3/uL (160-400); Red Blood Count 2.81 X10*6/uL (4.20-5.50); Red Cell Distribution Width 16.6 % (11.0-16.0); White Blood Count 9.4 X10*3/uL (4.8-10.8)
[2022-06-05 07:24] LABS: Lactic Acid 1.1 mmol/L (0.5-2.0)
[2022-06-05 07:28] LABS: Anion Gap 16 (12-20); Blood Urea Nitrogen 35 mg/dL (9-16); Calcium 7.7 mg/dL (8.4-10.2); Carbon Dioxide 30 mmol/L (22-29); Chloride 99 mmol/L (96-108); Creatinine Clr Calc Pharmacy 31.4; Estimated Glomerular Filt Rate > 60; Glucose Random 92 mg/dL (60-115); Potassium 3.4 mmol/L (3.3-5.1); Sodium 142 mmol/L (135-145)
[2022-06-05] MEDS: Albuterol/Iprat 2.5/0.5MG 3 ML AMPUL.NEB INHALE ×3 (07:31→19:03)
[2022-06-05 07:37] LABS: Troponin-I High Sensitivity 109.5 ng/L (<3.5-17.0)
[2022-06-05 07:54] LABS: Band Neutrophils Percent 15 % (3-5); Lymphocytes Absolute Manual 0.1 X10*3/uL (1.2-4.9); Lymphocytes Percent Manual 1 % (20-40); Metamyelocytes Absolute 0.1 X10*3/uL; Metamyelocytes Percent 1 %; Monocytes Absolute Manual 0.3 X10*3/uL (0.1-1.2); Monocytes Percent Manual 3 % (2-11); Neutrophils Absolute Manual 8.9 X10*3/uL (2.0-8.3); Neutrophils Percent Manual 80 % (45-73)
[2022-06-05 07:56] LABS: Hypochromasia 1+ (5-14) /OIF; Ovalocytes 1+ (5-14) /OIF; Platelet Estimate NORMAL (NORMAL); Platelet Morphology Comment NORMAL; RBC Morphology NOTED
[2022-06-05] MEDS: Lactated Ringers 1,000 ML 100 ML IVCONT ×2 (10:28→20:16)
[2022-06-05] MEDS: Acetaminophen 325 MG TABLET 650 MG PO (10:30)
[2022-06-05] MEDS: Atorvastatin Calcium 40 MG TABLET PO (10:30)
[2022-06-05] MEDS: Aspirin Enteric Coated 81 MG TABLET.DR PO (10:30)
[2022-06-05] MEDS: Multivitamin TABLET 1 TAB PO (10:30)
[2022-06-05] MEDS: predniSONE 10 MG TABLET 40 MG PO (10:30)
[2022-06-05] MEDS: Docusate Sodium 100 MG CAPSULE PO ×2 (10:30→20:17)
[2022-06-05] MEDS: busPIRone HCl 5 MG TABLET PO ×2 (10:31→20:17)
[2022-06-05] MEDS: Thiamine HCL 100 MG TABLET PO (10:31)
[2022-06-05] MEDS: amantadine HCL 100 MG CAPSULE PO (10:31)
[2022-06-05] MEDS: Cholecalciferol (Vitamin D3) 25 MCG TABLET PO (10:31)
[2022-06-05] MEDS: Calcium Carbonate 750 MG TAB.CHEW PO ×2 (10:31→20:16)
--- NOTE | 2022-06-05 10:53 | PM.CNCAR ---
History of Present Illness History of Present Illness Date of Service: 06/05/22 Chief complaint: PNA, Pneumothorax Narrative: This is a cardiology consultation regarding elevated troponins. Patient has multiple medical comorbidities including hypertension, COPD, MS, stroke, bipolar disorder among others. It seems that she came from [facility] for shortness of breath hypoxia. Then it seems chest x-ray had shown right lung patchy infiltrate and small right effusion. Then she got a subclavian central line and pneumothorax. In this context, it seems that troponins were also checked and they were slightly abnormal and hence we are consulted. Patient has pain in the right side of the chest but that is also the site where she has a pneumothorax. Hence it seems the pain could be more from the pneumothorax and not cardiac. Otherwise, she states she walks with a walker and does not really get any chest pains of cardiac nature. Long-term smoker and still smokes. She states that she walks with a walker. Discussed with patient using wireless store manager. Review of Systems Review of Systems: Yes all other systems are reviewed and are negative Constitutional: Constitutional: Reports as per HPI Eyes: Eyes: Reports as per HPI ENT: Reports as per HPI Cardiovascular: Cardiovascular: Reports as per HPI, Denies acrocyanosis, Denies cool extremities, Reports chest pain, Denies leg edema, Denies lightheadedness, Denies palpitations and Reports dyspnea Respiratory: Respiratory: Reports as per HPI, Reports no additional respiratory complaints, Reports pain on inspiration and Reports dyspnea Gastrointestinal: Gastrointestinal: Reports as per HPI and Reports no additional gastrointestinal complaints Genitourinary: Genitourinary: Reports as per HPI Musculoskeletal: Musculoskeletal: Reports no additional musculoskeletal complaints and Reports as per HPI Integumentary/Breasts: Skin/Breast: Reports system reviewed and no additional complaints, except as docu Neurologic: Reports system reviewed and no additional complaints, except as documented and Reports as per HPI Psychiatric: Psychiatric: Reports no additional psychiatric complaints and Reports as per HPI Endocrine: Endocrine: Reports no additional endocrine complaints, Reports as per HPI and Denies palpitations Hematologic/Lymphatic: Hematologic/Lymphatic: Reports no additional hematologic/lymphatic complaints and Reports as per HPI Allergic/Immunologic: Allergic/Immunologic: Reports no additional allergic/immunologic complaints and Reports as per HPI [facility] Past Medical History Medical History Anemia Anxiety Bipolar 1 disorder Chronic rhinitis COPD (chronic obstructive pulmonary disease) Erosive gastritis History of CVA (cerebrovascular accident) (~10/2019) HLD (hyperlipidemia) HTN (hypertension) SRIKANTH (iron deficiency anemia) Multiple sclerosis Osteoporosis Tobacco dependence Vitamin D deficiency Family History Family History Father Stroke Mother No problems noted. Surgical History Surgical History History of cholecystectomy History of eye surgery History of hysterectomy History of left knee surgery Social History Social History Household Members: None Household Members Other:: dtr checks on her Housing: Apartment Do you presently have visiting nurse or other home services: No Unable to assess alcohol history related to: Unknown Alcohol intake: former Patient Tobacco Use Status: Former Tobacco user Tobacco use type: Cigarette Cigarette Packs Per Day: 1.5 Years Smoked: approx 60 years Second Hand Smoke Exposure: No Advance Directives Date on File: 05/10/20 service: No Current occupational status: unemployed and disabled Meds Allergies Allergy/AdvReac Type Severity Reaction Status Date / Time Penicillins [PENICILLINS] Allergy Severe RASH Verified 06/05/22 09:16 lisinopril AdvReac Unknown diarrhea Verified 06/05/22 09:16 14-Count Warmer Allergy Severe Rash Uncoded 06/05/22 09:16 Active Medications: Current Medications Acetaminophen (Acetaminophen 325 Mg Tablet) 650 mg PO Q6H PRN PRN Reason: Pain, Mild (Pain Scale 1-3) Last Admin: 06/05/22 10:30 Dose: 650 mg Albuterol/Ipratropium (Albuterol/Iprat 2.5/0.5mg 3 Ml Ampul.Neb) 3 ml INHALE Q4H PRN PRN Reason: Shortness of Breath/Wheezing Albuterol/Ipratropium (Albuterol/Iprat 2.5/0.5mg 3 Ml Ampul.Neb) 3 ml INHALE RQ4H WHILE AWAKE SHARAN Last Admin: 06/05/22 07:31 Dose: 3 ml Amantadine HCl (Amantadine Hcl 100 Mg Capsule) 100 mg PO DAILY SHARAN Last Admin: 06/05/22 10:31 Dose: 100 mg Aspirin (Aspirin Enteric Coated 81 Mg Tablet.) 81 mg PO DAILY [facility] Last Admin: 06/05/22 10:30 Dose: 81 mg Atorvastatin Calcium (Atorvastatin Calcium 40 Mg Tablet) 40 mg PO DAILY [facility] Last Admin: 06/05/22 10:30 Dose: 40 mg Bisacodyl (Bisacodyl 10 Mg Supp.Rect) 10 mg RI DAILY PRN PRN Reason: Constipation Buspirone HCl (Buspirone Hcl 5 Mg Tablet) 5 mg PO BID [facility] Last Admin: 06/05/22 10:31 Dose: 5 mg Calcium Carbonate (Calcium Carbonate 750 Mg Tab.Chew) 750 mg PO BID [facility] Last Admin: 06/05/22 10:31 Dose: 750 mg Docusate Sodium (Docusate Sodium 100 Mg Capsule) 100 mg PO DAILY PRN PRN Reason: Constipation Docusate Sodium (Docusate Sodium 100 Mg Capsule) 100 mg PO BID [facility] Last Admin: 06/05/22 10:30 Dose: 100 mg Heparin Sodium (Porcine) (Heparin Sodium,Porcine 5,000 Unit/Ml Vial) 5,000 unit SUBCUT Q12H [facility] Lactated Ringer's (Lr) 1,000 mls @ 100 mls/hr IVCONT .Q10H [facility] Last Admin: 06/05/22 10:28 Dose: 100 mls/hr Levofloxacin (Levaquin) 750 mg in 150 mls @ 100 mls/hr IV Q48H [facility] Magnesium Hydroxide (Milk Of Magnesia 30 Ml Oral.Susp) 30 ml PO DAILY PRN PRN Reason: Constipation Metoprolol Tartrate (Metoprolol Tartrate 12.5 Mg Halftab) 12.5 mg PO BID [facility]; Protocol Mirtazapine (Mirtazapine 30 Mg Tablet) 30 mg PO BEDTIME [facility] Multivitamins/Vitamin C (Multivitamin Tablet) 1 tab PO DAILY [facility] Last Admin: 06/05/22 10:30 Dose: 1 tab Non-Formulary Medication (Sbvnnmjbzrs-Wtlulmqej-Kjjbvgiv [Trelegy Ellipta]) 1 inhalation INHALE DAILY [facility] Non-Formulary Medication (Roflumilast [Daliresp]) 250 mcg PO DAILY [facility] Non-Formulary Medication (Teriflunomide) 14 mg PO DAILY [facility] Omeprazole (Omeprazole 20 Mg Capsule.) 20 mg PO DAILY@0630 [facility] Last Admin: 06/05/22 06:02 Dose: Not Given Ondansetron HCl (Ondansetron Hcl 4 Mg/2 Ml Vial) 4 mg IVPUSH Q8H PRN PRN Reason: Nausea and Vomiting Pharmacy Consult (Consult Rx Perform Med Rec) 1 each MISCELLANE ONCE PRN PRN Reason: Consult order Prednisone (Prednisone 10 Mg Tablet) 40 mg PO DAILY [facility]; Taper Stop: 06/24/22 08:59 Last Admin: 06/05/22 10:30 Dose: 40 mg Pyridoxine HCl (Pyridoxine Hcl (Vitamin B6) 50 Mg Tablet) 25 mg PO BEDTIME [facility] Sodium Chloride (0.9 % Sodium Chloride Flush 3 Ml Syringe) 3 ml IVFLUSH QSHIFT [facility] Last Admin: 06/05/22 10:06 Dose: Not Given Thiamine HCl (Thiamine Hcl 100 Mg Tablet) 100 mg PO DAILY [facility] Last Admin: 06/05/22 10:31 Dose: 100 mg Vitamin D (Cholecalciferol (Vitamin D3) 25 Mcg Tablet) 25 mcg PO DAILY [facility] Last Admin: 06/05/22 10:31 Dose: 25 mcg Vitamin E (Vitamin E (Dl,Tocopheryl Acet) 180 Mg (400 Unit) Capsule) 180 mg PO BEDTIME [facility] Home Medications Medication Instructions Recorded Confirmed Last Taken Type amantadine HCl 100 mg capsule 100 mg PO DAILY 05/06/20 06/04/22 Unknown History aspirin 81 mg tablet,delayed 81 mg PO DAILY 05/06/20 06/04/22 Unknown History release (Adult Aspirin Regimen) atorvastatin 40 mg tablet 40 mg PO DAILY 05/06/20 06/04/22 Unknown History docusate sodium 100 mg capsule 100 mg PO BID 05/06/20 06/04/22 Unknown History (Colace) metoprolol tartrate 25 mg tablet 12.5 mg PO BID 05/06/20 06/04/22 Unknown History sertraline 100 mg tablet 100 mg PO DAILY 05/06/20 06/04/22 Unknown History trazodone 50 mg tablet 50 mg PO BEDTIME 06/18/20 06/04/22 Unknown History fluticasone propionate 50 2 spray intranasal DAILY 07/10/20 06/04/22 Unknown History mcg/actuation nasal spray,suspension acetaminophen 650 mg 650 mg PO Q4H PRN Pain 09/02/20 06/04/22 Unknown History tablet,extended release (Arthritis Pain Reliever) teriflunomide 14 mg tablet 14 mg PO DAILY 10/08/20 06/04/22 Unknown History calcium carbonate 200 mg calcium 200 mg PO BID 06/23/21 06/04/22 Unknown History (500 mg) chewable tablet (Naeem-Gest Antacid) irbesartan 300 mg tablet 300 mg PO DAILY 06/23/21 06/04/22 Unknown History thiamine HCl (vitamin B1) 100 mg 100 mg PO DAILY 06/23/21 06/04/22 Unknown History tablet vitamin E (dl, acetate) 180 mg 180 mg PO BEDTIME 06/23/21 06/04/22 Unknown History (400 unit) capsule chlorthalidone 25 mg tablet 12.5 mg PO DAILY 04/14/22 06/04/22 Unknown History mirtazapine 30 mg tablet 30 mg PO BEDTIME 04/14/22 06/04/22 Unknown History nebulizers 04/14/22 Unknown History alendronate 35 mg tablet 1 tab PO FR@0600 05/29/22 06/04/22 Unknown History cholecalciferol (vitamin D3) 25 1 cap PO DAILY 05/29/22 06/04/22 Unknown History mcg (1,000 unit) capsule (Vitamin D3) diltiazem HCl 180 mg 360 mg PO DAILY 05/29/22 06/04/22 Unknown History capsule,extended release 24 hr, controlled gabapentin 300 mg capsule 1 cap PO BID 05/29/22 06/04/22 Unknown History multivitamin 1 tab PO DAILY 05/29/22 06/04/22 Unknown History oxycodone-acetaminophen 5 mg-325 1 tab PO BID PRN Pain (Scale Score 05/29/22 06/04/22 Unknown History mg tablet 4-6) pantoprazole 40 mg tablet,delayed 1 tab PO DAILY@0630 05/29/22 06/04/22 Unknown History release pyridoxine (vitamin B6) 25 mg 1 tab PO BEDTIME 05/29/22 06/04/22 Unknown History tablet (Vitamin B-6) roflumilast 250 mcg tablet 250 mcg PO DAILY 05/29/22 06/04/22 Unknown History (Daliresp) sennosides 8.6 mg tablet (senna) 8.6 mg PO BID PRN Constipation 05/29/22 06/04/22 Unknown History albuterol sulfate 90 mcg/actuation 2 puff PO Q4H PRN for wheezing 06/04/22 06/04/22 Unknown History aerosol inhaler bisacodyl 10 mg rectal suppository 10 mg RI DAILY PRN Constipation 06/04/22 06/04/22 Unknown History buspirone 5 mg tablet 5 mg PO BID 06/04/22 06/04/22 Unknown History magnesium hydroxide 400 mg/5 mL 30 ml PO DAILY PRN Constipation 06/04/22 06/04/22 Unknown History oral suspension (Milk of Magnesia) prednisone 10 mg tablet See Rx Instructions .Route .COMPLEX 06/04/22 06/04/22 Unknown History Physical Exam Vital Signs: Vital Signs: Last Vital Signs Temp 97.5 F 06/05/22 07:26 Pulse 83 06/05/22 07:31 Resp 18 06/05/22 07:31 BP 153/67 H 06/05/22 07:26 Pulse Ox 97 06/05/22 07:26 O2 Del Method 06/05/22 07:26 O2 Flow Rate 5 06/05/22 07:26 Oxygen Flow Rate 3 06/04/22 13:27 BMI result Body Mass Index 20.7 Const: General: comfortable and no acute distress Orientation/consciousness: patient oriented x3 HEENT: Other: Unremarkable Head: Yes normal to inspection Neck: Neck: Yes normal visual inspection Chest: Chest palpation & inspection: normal inspection of the chest Resp: Other: Diminished breath sounds bilaterally with some rhonchi. Cardio: Palpation: normal PMI Heart sounds: S1 normal heart sound present, S2 normal heart sound present, no gallops, no murmurs and no rubs GI: Palpation (GI): Soft to palpation Back/Spine/Pelvis: Other: unremarkable Skin: General skin exam: no rashes or lesions noted Neuro: General: patient oriented x3 Extrem: General: Yes normal to inspection Psych: Mental Status: mental status grossly normal Objective Labs and Meds Result diagrams: 06/05/22 06:59 06/05/22 06:59 Lab results: Laboratory Results - last 24 hr 06/04/22 06/04/22 06/04/22 14:17 14:17 17:05 WBC 9.6 RBC 3.18 L Hgb 9.4 L Hct 30.8 L MCV 96.9 MCH 29.6 MCHC 30.5 L RDW 16.4 H Plt Count 218 MPV 11.2 Immature Gran % (Auto) 0.6 H Neut % (Auto) 94.6 H Lymph % (Auto) 1.8 L Hand % (Auto) 2.8 Eos % (Auto) 0.0 Baso % (Auto) 0.2 Lymph # (Auto) 0.2 L Hand # (Auto) 0.3 Eos # (Auto) 0.0 Baso # (Auto) 0.0 Abs Immat Gran (auto) 0.06 H Absolute Neuts (auto) 9.0 H Absolute Nucleated RBC 0.000 Nucleated RBC % (auto) 0.0 Neutrophils % (Manual) Band Neutrophils % Lymphocytes % (Manual) Monocytes % (Manual) Metamyelocytes % Abs Neuts (Manual) Lymphocytes # (Manual) Monocytes # (Manual) Metamyelocytes # Platelet Estimate Plt Morphology Comment RBC Morphology Hypochromasia Ovalocytes Smear Tech's Comments VERIFIED PT INR APTT VBG pH VBG pCO2 VBG pO2 VBG HCO3 VBG O2 Saturation VBG Base Excess Sodium Potassium Chloride Carbon Dioxide Anion Gap BUN Creatinine Estim Creat Clear Calc Estimated GFR Random Glucose Lactic Acid Lactic Acid F/U @ 2Hr Calcium Total Bilirubin AST ALT Alkaline Phosphatase Troponin I High Sens B-Natriuretic Peptide Total Protein Albumin Lipase COVID-19 (MOISÉS) Negative COVID-19 Clin Com See Note Influenza Type A (CEDRICK) Negative Influenza Type B (CEDRICK) Negative Influenza A & B Note See Note 06/04/22 06/04/22 06/04/22 17:05 17:05 17:05 WBC RBC Hgb Hct MCV MCH MCHC RDW Plt Count MPV Immature Gran % (Auto) Neut % (Auto) Lymph % (Auto) Hand % (Auto) Eos % (Auto) Baso % (Auto) Lymph # (Auto) Hand # (Auto) Eos # (Auto) Baso # (Auto) Abs Immat Gran (auto) Absolute Neuts (auto) Absolute Nucleated RBC Nucleated RBC % (auto) Neutrophils % (Manual) Band Neutrophils % Lymphocytes % (Manual) Monocytes % (Manual) Metamyelocytes % Abs Neuts (Manual) Lymphocytes # (Manual) Monocytes # (Manual) Metamyelocytes # Platelet Estimate Plt Morphology Comment RBC Morphology Hypochromasia Ovalocytes Smear Tech's Comments PT INR APTT VBG pH VBG pCO2 VBG pO2 VBG HCO3 VBG O2 Saturation VBG Base Excess Sodium 141 Potassium 3.5 Chloride 94 L Carbon Dioxide 29 Anion Gap 22 H BUN 36 H Creatinine 1.51 H Estim Creat Clear Calc 20.4 Estimated GFR 34 Random Glucose 226 H Lactic Acid 3.5 H* Lactic Acid F/U @ 2Hr Calcium 7.9 L D Total Bilirubin 0.7 AST 30 ALT 29 Alkaline Phosphatase 93 Troponin I High Sens 90.4 H* D B-Natriuretic Peptide Total Protein 5.5 L Albumin 3.2 L Lipase 16 COVID-19 (MOISÉS) COVID-19 Clin Com Influenza Type A (CEDRICK) Influenza Type B (CEDRICK) Influenza A & B Note 06/04/22 06/04/22 06/04/22 17:05 21:26 21:26 WBC RBC Hgb Hct MCV MCH MCHC RDW Plt Count MPV Immature Gran % (Auto) Neut % (Auto) Lymph % (Auto) Hand % (Auto) Eos % (Auto) Baso % (Auto) Lymph # (Auto) Hand # (Auto) Eos # (Auto) Baso # (Auto) Abs Immat Gran (auto) Absolute Neuts (auto) Absolute Nucleated RBC Nucleated RBC % (auto) Neutrophils % (Manual) Band Neutrophils % Lymphocytes % (Manual) Monocytes % (Manual) Metamyelocytes % Abs Neuts (Manual) Lymphocytes # (Manual) Monocytes # (Manual) Metamyelocytes # Platelet Estimate Plt Morphology Comment RBC Morphology Hypochromasia Ovalocytes Smear Tech's Comments PT 15.9 H INR 1.4 H APTT 23.7 L VBG pH VBG pCO2 VBG pO2 VBG HCO3 VBG O2 Saturation VBG Base Excess Sodium Potassium Chloride Carbon Dioxide Anion Gap BUN Creatinine Estim Creat Clear Calc Estimated GFR Random Glucose Lactic Acid Lactic Acid F/U @ 2Hr 2.8 H* Calcium Total Bilirubin AST ALT Alkaline Phosphatase Troponin I High Sens B-Natriuretic Peptide 109 H Total Protein Albumin Lipase COVID-19 (MOISÉS) COVID-19 Clin Com Influenza Type A (CEDRICK) Influenza Type B (CEDRICK) Influenza A & B Note 06/04/22 06/05/22 06/05/22 21:30 06:59 06:59 WBC 9.4 RBC 2.81 L Hgb 8.4 L Hct 27.1 L MCV 96.4 MCH 29.9 MCHC 31.0 RDW 16.6 H Plt Count 181 MPV 11.2 Immature Gran % (Auto) Cancelled Neut % (Auto) Cancelled Lymph % (Auto) Cancelled Hand % (Auto) Cancelled Eos % (Auto) Cancelled Baso % (Auto) Cancelled Lymph # (Auto) Cancelled Hand # (Auto) Cancelled Eos # (Auto) Cancelled Baso # (Auto) Cancelled Abs Immat Gran (auto) Cancelled Absolute Neuts (auto) Cancelled Absolute Nucleated RBC 0.000 Nucleated RBC % (auto) 0.0 Neutrophils % (Manual) 80 H Band Neutrophils % 15 H Lymphocytes % (Manual) 1 L Monocytes % (Manual) 3 Metamyelocytes % 1 Abs Neuts (Manual) 8.9 H Lymphocytes # (Manual) 0.1 L Monocytes # (Manual) 0.3 Metamyelocytes # 0.1 Platelet Estimate NORMAL Plt Morphology Comment NORMAL RBC Morphology NOTED Hypochromasia 1+ (5-14) Ovalocytes 1+ (5-14) Smear Tech's Comments PT INR APTT VBG pH 7.60 H* VBG pCO2 30 VBG pO2 232 VBG HCO3 30 H VBG O2 Saturation 99.0 VBG Base Excess 8.4 Sodium 142 Potassium 3.4 Chloride 99 Carbon Dioxide 30 H Anion Gap 16 BUN 35 H D Creatinine 0.90 Estim Creat Clear Calc 31.4 Estimated GFR > 60 Random Glucose 92 Lactic Acid Lactic Acid F/U @ 2Hr Calcium 7.7 L Total Bilirubin AST ALT Alkaline Phosphatase Troponin I High Sens B-Natriuretic Peptide Total Protein Albumin Lipase COVID-19 (MOISÉS) COVID-19 Clin Com Influenza Type A (CEDRICK) Influenza Type B (CEDRICK) Influenza A & B Note 06/05/22 06/05/22 06:59 06:59 WBC RBC Hgb Hct MCV MCH MCHC RDW Plt Count MPV Immature Gran % (Auto) Neut % (Auto) Lymph % (Auto) Hand % (Auto) Eos % (Auto) Baso % (Auto) Lymph # (Auto) Hand # (Auto) Eos # (Auto) Baso # (Auto) Abs Immat Gran (auto) Absolute Neuts (auto) Absolute Nucleated RBC Nucleated RBC % (auto) Neutrophils % (Manual) Band Neutrophils % Lymphocytes % (Manual) Monocytes % (Manual) Metamyelocytes % Abs Neuts (Manual) Lymphocytes # (Manual) Monocytes # (Manual) Metamyelocytes # Platelet Estimate Plt Morphology Comment RBC Morphology Hypochromasia Ovalocytes Smear Tech's Comments PT INR APTT VBG pH VBG pCO2 VBG pO2 VBG HCO3 VBG O2 Saturation VBG Base Excess Sodium Potassium Chloride Carbon Dioxide Anion Gap BUN Creatinine Estim Creat Clear Calc Estimated GFR Random Glucose Lactic Acid 1.1 Lactic Acid F/U @ 2Hr Calcium Total Bilirubin AST ALT Alkaline Phosphatase Troponin I High Sens 109.5 H* B-Natriuretic Peptide Total Protein Albumin Lipase COVID-19 (MOISÉS) COVID-19 Clin Com Influenza Type A (CEDRICK) Influenza Type B (CEDRICK) Influenza A & B Note ECG Interpretation: EKG with sinus rhythm, 94/Min; premature atrial complexes but otherwise unremarkable. Normal RI and corrected QT. Imaging Radiologist's impression: Impressions Chest X-Ray 06/04/22 13:56 IMPRESSION: Right lung patchy infiltrates with small right pleural effusion. Chest X-Ray 06/04/22 15:42 IMPRESSION: Small right pneumothorax extending from apex to the base. No evidence of mediastinal shift at this time. Right chest wall emphysema. Right lung patchy airspace opacities are new compared to previous x-rays of 05/31/2022. Critical results were discussed with Iman MAYNARD, on 06/04/2022 at 4:04 PM. Chest X-Ray 06/04/22 16:35 IMPRESSION: Interval placement of right chest tube projecting over the right lung base. There is interval improvement of the right pneumothorax with persistent small pneumothorax. Right chest wall and right neck soft tissue emphysema, increased compared to last chest x-ray. Chest X-Ray 06/05/22 08:40 IMPRESSION: 1. Right-sided pigtail catheter with no appreciable change in size of small right pneumothorax. 2. Redemonstration of emphysematous changes throughout the right lateral chest and right lower neck soft tissues, relatively stable in appearance. 3. Biapical pleural parenchymal scarring. Assessment and Plan (1) NSTEMI (non-ST elevated myocardial infarction): Status: Acute (2) Acute hypoxemic respiratory failure: Status: Acute (3) Pneumothorax: Qualifiers: Pneumothorax type: postprocedural Qualified Code(s): J95.811 - Postprocedural pneumothorax Status: Acute Plan EKG without any clear ischemic changes. Troponins are 90.4 and 109.5. Last week, high sensitivity troponin was only 30. Overall, probable small type 2, secondary NSTEMI related to respiratory issues. Her current chest pain is more from the chest tube as opposed to cardiac. Will get an echocardiogram for cardiac function assessment. At her age, with smoking, likely is going to have coronary disease. Due to only a small troponin leak, no need for IV heparin, especially in the context of pneumothorax and chest tube. There is a risk of bleeding into the pleural space. Keep her on aspirin, statins. Will follow up with you. Procedures Date of Service Date of Service: 06/05/22
--- NOTE | 2022-06-05 11:45 | CA_ITS ---
Transthoracic Echocardiogram Patient (Last, First, Middle): Loida Cummings M Gender: Female Date of : 1945 Age: 76 Procedure Date: 06/05/2022 Procedure Type: Transthoracic Echocardiogram Location: [facility] Height: 142.24 cm Weight: 41.73 kg BSA: 1.28 m2 Heart Rate: 88 bpm BP: 153 / 67 mmHg Wet Cotton Feeder: Referring MD: Jose Delgadillo MD Symptoms: elevated troponins Study Quality: Adequate ECG Rhythm: Sinus Conclusions: - The left ventricular systolic function is normal. The calculated ejection fraction is 69% by biplane method. - There is moderately increased left ventricular wall thickness. - There is mild to moderate tricuspid valve regurgitation. - Mild to moderate pulmonary hypertension is present. Findings Left Ventricle Normal left ventricular cavity size. There is moderately increased left ventricular wall thickness. The left ventricular systolic function is normal. The calculated ejection fraction is 69% by biplane method. There is no evidence of regional wall motion abnormalities. Diastolic function is normal for age. Right Ventricle Normal right ventricular cavity size and systolic function. Atria Both atria are normal in size. Aortic Valve There is a normal trileaflet aortic valve. There is no aortic valve stenosis. There is no aortic valve regurgitation. Mitral Valve The mitral valve appears normal. There is trace mitral valve regurgitation. There is no mitral valve stenosis. Pulmonic Valve The pulmonic valve is likely normal. Tricuspid Valve Normal tricuspid valve structure. There is mild to moderate tricuspid valve regurgitation. The right ventricular systolic pressure is 51 mmHg. Mild to moderate pulmonary hypertension is present. Great Vessels The aortic annulus, sinuses of valsalva, and asc aorta are normal in size. Venous The inferior vena cava is normal in size and collapses greater than 50% with inspiration. Pericardium/Pleural There is no evidence of pericardial effusion. Prior Study Comparison Changes noted compared to prior study dated: 11/11/2019. Increase in pulmonary artery systolic pressure. Measurements 2D Linear Measurements IVSd: 1.23 0.6-0.9/0.6-1.0 cm LVIDd: 2.49 3.9-5.3/4.2-5.9 cm LVIDd Index: 1.95 2.4-3.2/2.2-3.1 cm/m2 LVIDs: 1.91 2.0-3.6 cm LVPWd: 1.30 0.7-1.1 cm LA Diam: 2.00 2.7-3.8/3.0-4.0 cm LAIDs Index: 1.56 1.5-2.3 cm/m2 LV Mass: 115.51 67-162/88-224 g LV Mass Index: 90.24 43-95/49-115 g/m2 LVOT Diam: 2.00 3.0+(-)1.3 cm 2D Systolic Function EF 4C: 69.30 >55% EF 2C: 66.90 >55% EF BiP: 68.90 >55% Mitral Valve MV Pk E: 0.77 MV PK A: 1.12 MV Decel Time: 214.00 E/A: 0.70 E'Lateral: 4.13 E'Medial: 5.33 E/E' Med: 14.50 E/E' Lat: 18.70 Aortic Valve AoV Pk Rodney: 1.55 AoV Mn Rodney: 0.94 AoV VTI: 0.30 AoV Pk Grad: 10.00 Aov Mn Grad: 5.00 DANIKA Cont.VTI: 2.36 LVOT LVOT Pk Rodney: 1.06 LVOT Mn Rodney: 0.62 LVOT VTI: 0.23 LVOT Pk Grad: 4.00 LVOT Mn Grad: 2.00 LVOT Diam: 2.00 LVOT Area: 3.14 Diastolic Function MV Pk E: 0.77 MV Pk A: 1.12 E/A: 0.70 E'Medial: 5.33 E/E' Med: 14.50 E' Laterial: 4.13 E/E' Lat: 18.70 Right Ventricle TAPSE (mm): 22.30 Tricuspid Valve TR Pk Rodney: 3.48 TR Pk Grad: 48.00 RA Press: 3.00 RVSP: 51.00 Great Vessels Aorta Sinus of Valsalva: 2.80 2.0-3.5 cm Ao Asc: 2.80 2.1-3.4 cm Pulmonary Valve PV Pk Rodney: 1.01 Peak PV Grad: 4.00 Updated in Other Vendor System with Status of Final Reinier White MD electronically signed on 06/05/2022 5:12:08 PM with status of Final
--- NOTE | 2022-06-05 11:46 | MHC.SL.SWA ---
Speech Pathologist Impression: Oropharyngeal dysphagia Risk of Aspiration Due to: Neurological Condition Dysphasia Diet Status:Upgrade from NPO to NDD2/NT Liquid Consistency and Strategies for Safe Swallow: Liquid Intake Recommendation: [place] Thick Liquid Intake Strategies: Small Sips No Straws Solid Food Consistency: Dietary Recommendations: Grnd/Mech Altered (NDD2) Additional Modifications to Solid Foods:Small bites of food, moisten food with sauces/gravies, double swallow, alternate bites of food with sips of liquid, avoid tough hard to chew solids. Oral Medication Intake: Whole with Puree Please contact the pharmacy regarding appropriate crushable or liquid drug formulations that are available whenever modified delivery is recommended. Compensatory Strategies and Precautions to be Taken for Safe Swallow: Sitting Upright (90 deg) No Straw Small Bites and Sips Alternate Liquids/Solids Rate of Ingestion Change Avoid Specific Foods Supervision While Eating and Drinking for Safe Swallow: Total Supervision (1:1) Foods to Avoid: Hard, tough to chew solids Swallowing Recommended Treatments: Compens. Strategy Educat. Recommendation for Speech: Inpatient Speech Therapy Front Counter Attendant Clinican/Clinical Fellow: No Supervisory Statement: I have reviewed and agree with the student/clinical fellow's documentation: N/A Speech Language Pathologist: Mile Zavaleta M.A., CCC-BOX STAPLER
[2022-06-05] MEDS: Metoprolol Tartrate 12.5 MG HALFTAB PO ×2 (11:56→20:16)
--- NOTE | 2022-06-05 13:09 | HO.PM.IMPN ---
Subjective Subjective Date of Service: 06/05/22 Interval History: COPD exacerbation, pneumothorax. Review of Systems Shortness of breath seems to be says slightly improving, denies chest pain denies nausea vomiting or abdominal pain or fever chills. Physical Exam Vital Signs: Vital Signs: Last Vital Signs Temp 97.6 F 06/05/22 11:34 Pulse 97 06/05/22 11:34 Resp 20 06/05/22 11:34 BP 123/75 06/05/22 11:34 Pulse Ox 100 06/05/22 11:34 O2 Del Method 06/05/22 11:34 O2 Flow Rate 3 06/05/22 11:34 Oxygen Flow Rate 3 06/04/22 13:27 BMI result Body Mass Index 20.7 Appearance: Alert.? Oriented X3.?sob still with minimun exersion. cvs: rrr, [id number] , no murmur res: diminshed breath sounds right >left,,has b/l wheezin, has chest tube. abd: no rebound or guarding ,nt, bs present. ext pulses present , no cyanosis . neuro: axo3 , nonfocal. Objective Data Active Medications Acetaminophen (Acetaminophen 325 Mg Tablet) 650 mg PO Q6H PRN PRN Reason: Pain, Mild (Pain Scale 1-3) Last Admin: 06/05/22 10:30 Dose: 650 mg Documented By: JONA Albuterol/Ipratropium (Albuterol/Iprat 2.5/0.5mg 3 Ml Ampul.Neb) 3 ml INHALE Q4H PRN PRN Reason: Shortness of Breath/Wheezing Albuterol/Ipratropium (Albuterol/Iprat 2.5/0.5mg 3 Ml Ampul.Neb) 3 ml INHALE RQ4H WHILE AWAKE [facility] Last Admin: 06/05/22 11:32 Dose: 3 ml Documented By: ZANE Amantadine HCl (Amantadine Hcl 100 Mg Capsule) 100 mg PO DAILY [facility] Last Admin: 06/05/22 10:31 Dose: 100 mg Documented By: JONA Aspirin (Aspirin Enteric Coated 81 Mg Tablet.) 81 mg PO DAILY [facility] Last Admin: 06/05/22 10:30 Dose: 81 mg Documented By: JONA Atorvastatin Calcium (Atorvastatin Calcium 40 Mg Tablet) 40 mg PO DAILY [facility] Last Admin: 06/05/22 10:30 Dose: 40 mg Documented By: JONA Bisacodyl (Bisacodyl 10 Mg Supp.Rect) 10 mg ME DAILY PRN PRN Reason: Constipation Buspirone HCl (Buspirone Hcl 5 Mg Tablet) 5 mg PO BID [facility] Last Admin: 06/05/22 10:31 Dose: 5 mg Documented By: JONA Calcium Carbonate (Calcium Carbonate 750 Mg Tab.Chew) 750 mg PO BID [facility] Last Admin: 06/05/22 10:31 Dose: 750 mg Documented By: JONA Docusate Sodium (Docusate Sodium 100 Mg Capsule) 100 mg PO DAILY PRN PRN Reason: Constipation Docusate Sodium (Docusate Sodium 100 Mg Capsule) 100 mg PO BID [facility] Last Admin: 06/05/22 10:30 Dose: 100 mg Documented By: JONA Heparin Sodium (Porcine) (Heparin Sodium,Porcine 5,000 Unit/Ml Vial) 5,000 unit SUBCUT Q12H [facility] Last Admin: 06/05/22 11:52 Dose: Not Given Documented By: JONA Non-Admin Reason: Physician Held Med Lactated Ringer's (Lr) 1,000 mls @ 100 mls/hr IVCONT .Q10H [facility] Last Admin: 06/05/22 10:28 Dose: 100 mls/hr Documented By: JONA Levofloxacin (Levaquin) 750 mg in 150 mls @ 100 mls/hr IV Q48H [facility] Magnesium Hydroxide (Milk Of Magnesia 30 Ml Oral.Susp) 30 ml PO DAILY PRN PRN Reason: Constipation Metoprolol Tartrate (Metoprolol Tartrate 12.5 Mg Halftab) 12.5 mg PO BID [facility]; Protocol Last Admin: 06/05/22 11:56 Dose: 12.5 mg Documented By: JONA Mirtazapine (Mirtazapine 30 Mg Tablet) 30 mg PO BEDTIME [facility] Multivitamins/Vitamin C (Multivitamin Tablet) 1 tab PO DAILY [facility] Last Admin: 06/05/22 10:30 Dose: 1 tab Documented By: JONA Non-Formulary Medication (Wjsaapvuktr-Fkatmhzub-Panzzadq [Trelegy Ellipta]) 1 inhalation INHALE DAILY [facility] Non-Formulary Medication (Roflumilast [Daliresp]) 250 mcg PO DAILY [facility] Non-Formulary Medication (Teriflunomide) 14 mg PO DAILY [facility] Omeprazole (Omeprazole 20 Mg Capsule.Dr) 20 mg PO DAILY@0630 [facility] Last Admin: 06/05/22 06:02 Dose: Not Given Documented By: ZARI Non-Admin Reason: NPO Ondansetron HCl (Ondansetron Hcl 4 Mg/2 Ml Vial) 4 mg IVPUSH Q8H PRN PRN Reason: Nausea and Vomiting Pharmacy Consult (Consult Rx Perform Med Rec) 1 each MISCELLANE ONCE PRN PRN Reason: Consult order Prednisone (Prednisone 10 Mg Tablet) 40 mg PO DAILY [facility]; Taper Stop: 06/24/22 08:59 Last Admin: 06/05/22 10:30 Dose: 40 mg Documented By: JONA Pyridoxine HCl (Pyridoxine Hcl (Vitamin B6) 50 Mg Tablet) 25 mg PO BEDTIME [facility] Sodium Chloride (0.9 % Sodium Chloride Flush 3 Ml Syringe) 3 ml IVFLUSH QSHIFT [facility] Last Admin: 06/05/22 10:06 Dose: Not Given Documented By: JONA Non-Admin Reason: IV Running Thiamine HCl (Thiamine Hcl 100 Mg Tablet) 100 mg PO DAILY [facility] Last Admin: 06/05/22 10:31 Dose: 100 mg Documented By: JONA Vitamin D (Cholecalciferol (Vitamin D3) 25 Mcg Tablet) 25 mcg PO DAILY [facility] Last Admin: 06/05/22 10:31 Dose: 25 mcg Documented By: JONA Vitamin E (Vitamin E (Dl,Tocopheryl Acet) 180 Mg (400 Unit) Capsule) 180 mg PO BEDTIME [facility] Labs CBC & Chem 7: 06/05/22 06:59 06/05/22 06:59 Labs: Laboratory Results - last 24 hr 06/04/22 06/04/22 06/04/22 14:17 14:17 17:05 MCV 96.9 MCH 29.6 MCHC 30.5 L RDW 16.4 H Plt Count 218 MPV 11.2 Immature Gran % (Auto) 0.6 H Neut % (Auto) 94.6 H Lymph % (Auto) 1.8 L [place] % (Auto) 2.8 Eos % (Auto) 0.0 Baso % (Auto) 0.2 Lymph # (Auto) 0.2 L [place] # (Auto) 0.3 Eos # (Auto) 0.0 Baso # (Auto) 0.0 Abs Immat Gran (auto) 0.06 H Absolute Neuts (auto) 9.0 H Absolute Nucleated RBC 0.000 Nucleated RBC % (auto) 0.0 Neutrophils % (Manual) Band Neutrophils % Lymphocytes % (Manual) Monocytes % (Manual) Metamyelocytes % Abs Neuts (Manual) Lymphocytes # (Manual) Monocytes # (Manual) Metamyelocytes # Platelet Estimate Plt Morphology Comment RBC Morphology Hypochromasia Ovalocytes Smear Tech's Comments VERIFIED PT INR APTT VBG pH VBG pCO2 VBG pO2 VBG HCO3 VBG O2 Saturation VBG Base Excess Anion Gap Estim Creat Clear Calc Estimated GFR Random Glucose Lactic Acid Lactic Acid F/U @ 2Hr Calcium Total Bilirubin AST ALT Alkaline Phosphatase Troponin I High Sens B-Natriuretic Peptide Total Protein Albumin Lipase COVID-19 (MOISÉS) Negative COVID-19 Clin Com See Note Influenza Type A (CEDRICK) Negative Influenza Type B (CEDRICK) Negative Influenza A & B Note See Note 06/04/22 06/04/22 06/04/22 17:05 17:05 17:05 MCV MCH MCHC RDW Plt Count MPV Immature Gran % (Auto) Neut % (Auto) Lymph % (Auto) [place] % (Auto) Eos % (Auto) Baso % (Auto) Lymph # (Auto) [place] # (Auto) Eos # (Auto) Baso # (Auto) Abs Immat Gran (auto) Absolute Neuts (auto) Absolute Nucleated RBC Nucleated RBC % (auto) Neutrophils % (Manual) Band Neutrophils % Lymphocytes % (Manual) Monocytes % (Manual) Metamyelocytes % Abs Neuts (Manual) Lymphocytes # (Manual) Monocytes # (Manual) Metamyelocytes # Platelet Estimate Plt Morphology Comment RBC Morphology Hypochromasia Ovalocytes Smear Tech's Comments PT INR APTT VBG pH VBG pCO2 VBG pO2 VBG HCO3 VBG O2 Saturation VBG Base Excess Anion Gap 22 H Estim Creat Clear Calc 20.4 Estimated GFR 34 Random Glucose 226 H Lactic Acid 3.5 H* Lactic Acid F/U @ 2Hr Calcium 7.9 L D Total Bilirubin 0.7 AST 30 ALT 29 Alkaline Phosphatase 93 Troponin I High Sens 90.4 H* D B-Natriuretic Peptide Total Protein 5.5 L Albumin 3.2 L Lipase 16 COVID-19 (MOISÉS) COVID-19 Clin Com Influenza Type A (CEDRICK) Influenza Type B (CEDRICK) Influenza A & B Note 06/04/22 06/04/22 06/04/22 17:05 21:26 21:26 MCV MCH MCHC RDW Plt Count MPV Immature Gran % (Auto) Neut % (Auto) Lymph % (Auto) [place] % (Auto) Eos % (Auto) Baso % (Auto) Lymph # (Auto) [place] # (Auto) Eos # (Auto) Baso # (Auto) Abs Immat Gran (auto) Absolute Neuts (auto) Absolute Nucleated RBC Nucleated RBC % (auto) Neutrophils % (Manual) Band Neutrophils % Lymphocytes % (Manual) Monocytes % (Manual) Metamyelocytes % Abs Neuts (Manual) Lymphocytes # (Manual) Monocytes # (Manual) Metamyelocytes # Platelet Estimate Plt Morphology Comment RBC Morphology Hypochromasia Ovalocytes Smear Tech's Comments PT 15.9 H INR 1.4 H APTT 23.7 L VBG pH VBG pCO2 VBG pO2 VBG HCO3 VBG O2 Saturation VBG Base Excess Anion Gap Estim Creat Clear Calc Estimated GFR Random Glucose Lactic Acid Lactic Acid F/U @ 2Hr 2.8 H* Calcium Total Bilirubin AST ALT Alkaline Phosphatase Troponin I High Sens B-Natriuretic Peptide 109 H Total Protein Albumin Lipase COVID-19 (MOISÉS) COVID-19 Clin Com Influenza Type A (CEDRICK) Influenza Type B (CEDRICK) Influenza A & B Note 06/04/22 06/05/22 06/05/22 21:30 06:59 06:59 MCV 96.4 MCH 29.9 MCHC 31.0 RDW 16.6 H Plt Count 181 MPV 11.2 Immature Gran % (Auto) Cancelled Neut % (Auto) Cancelled Lymph % (Auto) Cancelled [place] % (Auto) Cancelled Eos % (Auto) Cancelled Baso % (Auto) Cancelled Lymph # (Auto) Cancelled [place] # (Auto) Cancelled Eos # (Auto) Cancelled Baso # (Auto) Cancelled Abs Immat Gran (auto) Cancelled Absolute Neuts (auto) Cancelled Absolute Nucleated RBC 0.000 Nucleated RBC % (auto) 0.0 Neutrophils % (Manual) 80 H Band Neutrophils % 15 H Lymphocytes % (Manual) 1 L Monocytes % (Manual) 3 Metamyelocytes % 1 Abs Neuts (Manual) 8.9 H Lymphocytes # (Manual) 0.1 L Monocytes # (Manual) 0.3 Metamyelocytes # 0.1 Platelet Estimate NORMAL Plt Morphology Comment NORMAL RBC Morphology NOTED Hypochromasia 1+ (5-14) Ovalocytes 1+ (5-14) Smear Tech's Comments PT INR APTT VBG pH 7.60 H* VBG pCO2 30 VBG pO2 232 VBG HCO3 30 H VBG O2 Saturation 99.0 VBG Base Excess 8.4 Anion Gap 16 Estim Creat Clear Calc 31.4 Estimated GFR > 60 Random Glucose 92 Lactic Acid Lactic Acid F/U @ 2Hr Calcium 7.7 L Total Bilirubin AST ALT Alkaline Phosphatase Troponin I High Sens B-Natriuretic Peptide Total Protein Albumin Lipase COVID-19 (MOISÉS) COVID-19 Clin Com Influenza Type A (CEDRICK) Influenza Type B (CEDRICK) Influenza A & B Note 06/05/22 06/05/22 06:59 06:59 MCV MCH MCHC RDW Plt Count MPV Immature Gran % (Auto) Neut % (Auto) Lymph % (Auto) [place] % (Auto) Eos % (Auto) Baso % (Auto) Lymph # (Auto) [place] # (Auto) Eos # (Auto) Baso # (Auto) Abs Immat Gran (auto) Absolute Neuts (auto) Absolute Nucleated RBC Nucleated RBC % (auto) Neutrophils % (Manual) Band Neutrophils % Lymphocytes % (Manual) Monocytes % (Manual) Metamyelocytes % Abs Neuts (Manual) Lymphocytes # (Manual) Monocytes # (Manual) Metamyelocytes # Platelet Estimate Plt Morphology Comment RBC Morphology Hypochromasia Ovalocytes Smear Tech's Comments PT INR APTT VBG pH VBG pCO2 VBG pO2 VBG HCO3 VBG O2 Saturation VBG Base Excess Anion Gap Estim Creat Clear Calc Estimated GFR Random Glucose Lactic Acid 1.1 Lactic Acid F/U @ 2Hr Calcium Total Bilirubin AST ALT Alkaline Phosphatase Troponin I High Sens 109.5 H* B-Natriuretic Peptide Total Protein Albumin Lipase COVID-19 (MOISÉS) COVID-19 Clin Com Influenza Type A (CEDRICK) Influenza Type B (CEDRICK) Influenza A & B Note Assessment and Plan (1) Elevated troponin: Status: Acute (2) Lactic acidosis: Status: Acute (3) LEN (acute kidney injury): Status: Acute (4) Pneumothorax: Status: Acute (5) Acute hypoxemic respiratory failure: Status: Acute (6) Acute exacerbation of chronic obstructive airways disease: Status: Acute (7) Pneumonia: Status: Acute Plan 76-year-old female with past medical history of COPD presents the hospital with hypoxic respiratory failure, while undergoing central line placement in the subclavian region patient experience pneumothorax. # acute hypoxic respiratory failure - initially likely secondary to pneumonia, complicated by pneumothorax - currently on 3 L of oxygen, - titrate oxygen down as appropriate - does not appear to be on baseline oxygen - will treat underlying pneumonia, patient also has a chest tube for the pneumothorax with improvement seen on chest x-ray - continue O2 as required # pneumonia - patient with recurrent pneumonia on the right lower lung - will consult speech for evaluation of aspiration - will cover for aspiration pneumonia - follow cultures - O2 as required # pneumothorax - occurred while having central line placed - status post chest tube with improvement - vascular surgery informed- will evaluate patient in a.m. - monitor respiratory status,tele , transfer to [facility] # LEN - likely prerenal secondary to dehydration - IV fluids low BMP # lactic acidosis - secondary to hypoxic respiratory failure - IV fluids - trend # elevated troponin echo and cardiology eval added. # COPD - recently discharged from the hospital on 06 01 for COPD exacerbation on prednisone taper - will continue the prednisone taper, as well as DuoNeb treatment # hypertension - soft - hold antihypertensives # hyperlipidemia - continue statin DVT prophylaxis:? Heparin subQ Given patient's hypoxic respiratory failure, pneumothorax-needs Close respiratory monitoring, COPD management including steroids and supportive care with oxygen. Thoracic surgery evaluation also pending for pneumothorax. Quality Stroke Does the patient have a stroke diagnosis?: No VTE Prior VTE?: No VTE Risk Level:: Medical - moderate - high VTE Device Contraindication: Treatment Not Indicated VTE Drug Contraindication: N/A - Med Ordered
--- NOTE | 2022-06-05 14:16 | MHC.CM.PN ---
Addendum entered by Marisol Pruitt RN 06/05/22 15:49: PATIENT STATES THAT HER PCP IS PATO ALANIS. UPDATE MADE IN DEREK THOMAS TASK Original Note: PATIENT LIVES ALONE. SHE HAS DAY AND NIGHT [employer] HOURS. 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 SHE HAS BEEN COVID VACCINATED RELIES ON A WALKER FOR AMBULATION. IMM 06/05 IN CHART PATIENT CURRENTLY UNDERGOING ECHO WITH HELP OF POWER BALLAST MACHINE OPERATOR, PATIENT AGREES TO IMM DELIVERY AND T/W SIGNING ON HER BEHALF.
--- NOTE | 2022-06-05 14:18 | PM.PNTS ---
Subjective Subjective Date of Service: 06/06/22 Interval history: Thoracic Surgery consulted to manage right chest for right pneumothorax. Medical history was obtained via ED MD and review of patient chart. PMH, PSH, and medications reviewed with no new additions. With the assistance of an advanced nursing professor who speaks cambodian, the patient was seen this am and stated that her breathing was better. She complained of dry cough and mid sternum pain along with pain around right chest tube site. She denied fever, chills, SOB, abdominal pain, nausea , vomiting, rash, and calf pain. No difficulty voiding. Physical Exam Vital Signs: Vital Signs: Last Vital Signs Temp 97.6 F 06/05/22 11:34 Pulse 97 06/05/22 11:34 Resp 20 06/05/22 11:34 BP 123/75 06/05/22 11:34 Pulse Ox 100 06/05/22 11:34 O2 Del Method 06/05/22 11:34 O2 Flow Rate 3 06/05/22 11:34 Oxygen Flow Rate 3 06/04/22 13:27 BMI result Body Mass Index 20.7 Const: General: cooperative and no acute distress Orientation/consciousness: oriented to person and oriented to place HEENT: Head: Yes normal to inspection Ears: hearing grossly normal bilaterally Face and sinus: Yes normal facial exam Neck: Lymphatic: no lymphadenopathy noted Chest: Other: right chest tube with subq emphysema on CXR. No crepitus palpated. Chest palpation & inspection: normal inspection of the chest Resp: Other: diminished at bases bilaterally. upper rhonchi on right but no overt wheezing. Effort & Inspection: normal respiratory effort and able to speak in complete sentences Cardio: Rate: regular rate Rhythm: regular rhythm Heart sounds: S1 normal heart sound present and S2 normal heart sound present GI: Inspection: Yes normal to inspection Auscultation: normal bowel sounds Skin: Rashes: no rashes Neuro: Other: grossly intact General: oriented to person and oriented to place Extrem: Other: BUE and BLE without edema and no calf tenderness. Lower extremities with atrophy Procedures Date of Service Date of Service: 06/05/22 Progress Note: A&P Assessment and plan (1) Pneumothorax: Status: Acute Plan Right Pneumothorax and chest tube management: Chest tube to -20 mmHg LCS (slight 1+ airleak) Continue to monitor for airleak and drainage (minimal drainage overnight - approx 40 mL) CXR in am Incentive Spirometry 10 X/hr/ Flutter valve q 2hr OOB to chair for meals Ambulate as tolerated (may be off suction for ambulation) PT eval Right Pneumonia: Agree with antibiotic therapy IS/Flutter valve All other care per Hostpitalist service Films/Care reviewed with Dr. Tipton Time Spent With Patient Time: 45 minutes Total time spent is greater than 50% in coordination of care (as documented) at patient's floor/unit and/or counseling patient: Quality Stroke Does the patient have a stroke diagnosis?: No VTE Prior VTE?: No VTE Risk Level:: Medical - moderate - high VTE Device Contraindication: Treatment Not Indicated VTE Drug Contraindication: N/A - Med Ordered
[2022-06-05] MEDS: Heparin Sodium,Porcine 5,000 UNIT/ML VIAL 5000 UNIT SUBCUT (20:16)
[2022-06-05] MEDS: Pyridoxine HCl (Vitamin B6) 50 MG TABLET 25 MG PO (20:16)
[2022-06-05] MEDS: Mirtazapine 30 MG TABLET PO (20:16)
[2022-06-05] MEDS: Vitamin E (Dl,Tocopheryl Acet) 180 MG (400 UNIT) CAPSULE PO (20:17)
[2022-06-05] MEDS: traZODone HCL 50 MG TABLET PO (20:23)
[2022-06-05 23:36] LABS: Glucose, Whole Blood 155 mg/dL (60-115)
--- NOTE | 2022-06-06 00:11 | PM.EVENT ---
Event Note Date of Service: 06/06/22 Event Note: Rapid response was called on the patient because she became hypoxic and unresponsive. It seems that patient was being laid down to be clean, immediately after she became hypoxic, had eye rolling and became unresponsive per nurse. On my arrival patient had ir heart rate in the 30s, unresponsive, not responding to sternal rub, pupils unreactive, apneic breathing. Were unable to get O2, or blood pressure readings. An ABG was attempted but unsuccessful. Given 1 dose of atropine with no response. Patient went into asystole and at 23:40. Family notified.
--- NOTE | 2022-06-06 03:20 | PC.NURSE ---
Pt was being cleaned up by TOP COATER after having an episode of incontinence. TOP COATER sat pt upright and began obtaining vitals signs. Pts O2 sat was reading in 30's on dynamap. Pts eyes then began to roll back and she became unresponsive to voice commands/sternal rub. Rapid response was initiated. POC was obtained, wnl. Pt HR from 126 down to 30's on telemonitor. ABG's ordered but unable to collect as patient had no pulse. EKG obtained, pt asystole. One amp of atropine given with no effect. Pts daughter was notified.
--- NOTE | 2022-06-06 07:27 | PM.DS ---
DS: Providers Provider Date of Service: 06/06/22 Date of admission: 06/04/22 20:55 Primary care physician: Unknown Physician Consults: 06/05/22 05:26 Consult to Thoracic Surgery Routine Consulting Provider: Rafaela Villeda Reason for consultation: Pneumothorax Has provider been notified: Yes 06/05/22 07:48 Consult to Cardiology Routine Consulting Provider: [facility] Reason for consultation: Elevated trops /ekg st chnages inferior leadschnages Has provider been notified: No DS: Diagnosis Discharge Diagnosis (1) Elevated troponin: Status: Acute (2) Lactic acidosis: Status: Acute (3) LEN (acute kidney injury): Status: Acute (4) Pneumothorax: Status: Acute (5) Acute hypoxemic respiratory failure: Status: Acute (6) Acute exacerbation of chronic obstructive airways disease: Status: Acute (7) Pneumonia: Status: Acute DS: Summary Hospital Course Hospital Course: 76-year-old female with past medical history of HTN, COPD, MS, HLD, history of CVA, risk of gastritis, bipolar disorder, anxiety, [facility] and hypoxia on baseline 3 L of oxygen.? Patient also noted to have increased oxygen requirement, wheezing, and sputum production.? Patient is very somnolent, weeks of shortly and falls back asleep.? Her VBG sewed a pH of 7.6 with no CO2 retention I am unable to obtain much history from the patient she is very sleepy Vitals on arrival showed no significant abnormality Labs are significant for WBC count of 9.6, hemoglobin of 9.4 which is around her baseline, medical of 30.8, lactic of 3.5, repeat of 2.8, troponin of 90.4, BNP of 109, Chest x-ray showed right lung patchy infiltrate with small right pleural effusion.? Patient was receiving subclavian central line when she experienced pneumothorax.? Patient is currently on a chest tube and thoracic surgery consulted. Hospital course: 76-year-old female with past medical history of HTN, COPD, MS, HLD, history of CVA, risk of gastritis, bipolar disorder, anxiety, [facility] and hypoxia -Admitted for acute hypoxemic respiratory failure multifactorial including pneumonia, pneumothorax, in addition patient also had a KI, lactic acidosis, elevated troponin: patient was started on antibiotics, hydration, oxygen support, chest tube for pneumothorax, patient was also subsequently seen by thoracic surgery -managing pneumothorax and chest tube management,cxr(last yesterday)-?Right-sided pigtail catheter with no appreciable change in size of small right pneumothorax. patient was also seen by Cardiology for elevated troponin- elevated troponin thought to be related to respiratory failure as above, echo was also done also ( seems grossly fine ). overnight night attending note: Event Note: Rapid response was called on the patient because she became hypoxic and unresponsive.? It seems that patient was being laid down to be clean, immediately after she became hypoxic, had eye rolling and became unresponsive per nurse.? On my arrival patient had ir heart rate in the 30s, unresponsive, not responding to sternal rub, pupils unreactive, apneic breathing.? Were unable to get O2, or blood pressure readings.? An ABG was attempted but unsuccessful.? Given 1 dose of atropine with no response.? Patient went into asystole and at 23:40.? Family notified. Time Spent with Patient Time attestation: Total time spent providing and/or coordinating discharge services: Discharge coordination time: Greater than 30 minutes Quality: Safe Use of Opioids Does Pt have an Active Cancer Diagnosis on the Problem List?: No Quality: Stroke Does the patient have a stroke diagnosis?: No Physical Exam Vital Signs: Vital Signs: Last Vital Signs Temp 98 F 06/05/22 23:36 Pulse 124 H 06/05/22 23:36 Resp 20 06/05/22 23:36 BP 146/96 H 06/05/22 23:36 Pulse Ox 99 06/05/22 17:04 O2 Del Method 06/05/22 17:04 O2 Flow Rate 3 06/05/22 17:04 Oxygen Flow Rate 3 06/04/22 13:27 BMI result Body Mass Index 20.7 overnight DS: Data Data Completed and Pending Labs on day of discharge: Laboratory Results - last 24 hr 06/05/22 06/05/22 06/05/22 06:59 06:59 06:59 Neutrophils % (Manual) 80 H Band Neutrophils % 15 H Lymphocytes % (Manual) 1 L Monocytes % (Manual) 3 Metamyelocytes % 1 Abs Neuts (Manual) 8.9 H Lymphocytes # (Manual) 0.1 L Monocytes # (Manual) 0.3 Metamyelocytes # 0.1 Platelet Estimate NORMAL Plt Morphology Comment NORMAL RBC Morphology NOTED Hypochromasia 1+ (5-14) Ovalocytes 1+ (5-14) Sodium 142 Potassium 3.4 Chloride 99 Carbon Dioxide 30 H Anion Gap 16 BUN 35 H D Creatinine 0.90 Estim Creat Clear Calc 31.4 Estimated GFR > 60 POC Glucose Random Glucose 92 Calcium 7.7 L Troponin I High Sens 109.5 H* 06/05/22 23:33 Neutrophils % (Manual) Band Neutrophils % Lymphocytes % (Manual) Monocytes % (Manual) Metamyelocytes % Abs Neuts (Manual) Lymphocytes # (Manual) Monocytes # (Manual) Metamyelocytes # Platelet Estimate Plt Morphology Comment RBC Morphology Hypochromasia Ovalocytes Sodium Potassium Chloride Carbon Dioxide Anion Gap BUN Creatinine Estim Creat Clear Calc Estimated GFR POC Glucose 155 H Random Glucose Calcium Troponin I High Sens Preliminary micro results at discharge 06/04/22 17:07 Blood Culture - Preliminary Blood - Venous No growth after 24 hours. 06/04/22 17:07 Blood Culture - Preliminary Blood - Venous No growth after 24 hours. Discharge Plan Discharge Date/Time: 06/05/22 23:40 Patient Disposition: Discharge Diagnosis: acute hypoxemic respiratory failure multifactorial including pneumonia, pneumothorax, in addition patient also had a KI, lactic acidosis, elevated troponin Referrals: Loida Bowen MD [Primary Care Provider] - 1 Week Discharge Medications: No Action Trelegy Ellipta 200-62.5-25 mcg blister with device 1 inh inhalation DAILY 30 Days Qty: 60 12RF Combivent Respimat 20-100 mcg/actuation mist 1 puff inhalation QID 30 Days Qty: 4 11RF Rx Instructions: space evenly during waking hours levalbuterol HCl [Xopenex] 1.25 mg/3 mL solution for nebulization 1.25 mg inhalation BID 30 Days Qty: 180 0RF nicotine 14 mg/24 hr patch 24 hour 1 patch transdermal DAILY 28 Days Qty: 28 3RF fluticasone propionate 50 mcg/actuation spray,suspension 2 spray intranasal DAILY acetaminophen [Arthritis Pain Reliever] 650 mg Tablet Extended Release 650 mg PO Q4H PRN (Reason: Pain) multivitamin Tablet 1 tab PO DAILY sennosides [senna] 8.6 mg Tablet 8.6 mg PO BID PRN (Reason: Constipation) pyridoxine (vitamin B6) [Vitamin B-6] 25 mg tablet 1 tab PO BEDTIME alendronate 35 mg tablet 1 tab PO FR@0600 oxycodone-acetaminophen 5-325 mg tablet 1 tab PO BID PRN (Reason: Pain (Scale Score 4-6)) pantoprazole 40 mg tablet,delayed release (DR/EC) 1 tab PO DAILY@0630 gabapentin 300 mg capsule 1 cap PO BID diltiazem HCl 180 mg Capsule,Ext.Rel 24h Degradable 360 mg PO DAILY cholecalciferol (vitamin D3) [Vitamin D3] 25 mcg (1,000 unit) capsule 1 cap PO DAILY Daliresp 250 mcg tablet 250 mcg PO DAILY albuterol sulfate 90 mcg/actuation HFA aerosol inhaler 2 puff PO Q4H PRN (Reason: for wheezing) buspirone 5 mg Tablet 5 mg PO BID bisacodyl 10 mg Suppository 10 mg [place] DAILY PRN (Reason: Constipation) magnesium hydroxide [Milk of Magnesia] 400 mg/5 mL Suspension 30 ml PO DAILY PRN (Reason: Constipation) prednisone 10 mg Tablet See Rx Instructions .ROUTE .COMPLEX Rx Instructions: PREDNISONE 40 MG 06/04/22 PREDNISONE 35 MG 06/05/22 06/06/22 06/07/22 PREDNISONE 30 MG 06/08/22 06/09/22 06/10/22 PREDNISONE 25 MG 06/11/22 06/12/22 06/13/22 PREDNISONE 20 MG 06/14/22 06/15/22 06/16/22 PREDNISONE 15 MG 06/17/22 06/18/22 06/19/22 PREDNISONE 10 MG 06/20/22 AND BEYOND metoprolol tartrate 25 mg tablet 12.5 mg PO BID sertraline 100 mg tablet 100 mg PO DAILY amantadine HCl 100 mg capsule 100 mg PO DAILY docusate sodium [Colace] 100 mg capsule 100 mg PO BID atorvastatin 40 mg tablet 40 mg PO DAILY aspirin [Adult Aspirin Regimen] 81 mg tablet,delayed release (DR/EC) 81 mg PO DAILY trazodone 50 mg tablet 50 mg PO BEDTIME teriflunomide 14 mg tablet 14 mg PO DAILY mirtazapine 30 mg tablet 30 mg PO BEDTIME chlorthalidone 25 mg tablet 12.5 mg PO DAILY (DME) nebulizers Mis See Rx Instructions .ROUTE Rx Instructions: As directed irbesartan 300 mg tablet 300 mg PO DAILY vitamin E (dl, acetate) 180 mg (400 unit) capsule 180 mg PO BEDTIME calcium carbonate [Naeem-Gest Antacid] 200 mg calcium (500 mg) tablet,chewable 200 mg PO BID thiamine HCl (vitamin B1) 100 mg tablet 100 mg PO DAILY Discharge Date/Time: 06/05/22 23:40
== END 2022-06-05 23:40 | disposition expired | DRG 193 ==
LOC: HO.ED 17:55 → HO.EDOVER 21:18 → HO.S3 21:37 → HO.IMC 06-05 14:10
PROVIDERS: Admitting Provider Internal Medicine; Emergency Provider Emergency Medicine Emergency Medical Services; PCP Internal Medicine; Visit Provider Internal Medicine
DX: J18.9 Pneumonia, unspecified organism (principal); I21.A1 Myocardial infarction type 2; J96.01 Acute respiratory failure with hypoxia; J44.0 Chronic obstructive pulmonary disease with (acute) lower respiratory infection; J95.811 Postprocedural pneumothorax; J91.8 Pleural effusion in other conditions classified elsewhere; N17.9 Acute kidney failure, unspecified; E87.20 Acidosis, unspecified; J44.1 Chronic obstructive pulmonary disease with (acute) exacerbation; F31.9 Bipolar disorder, unspecified; E78.5 Hyperlipidemia, unspecified; G35 Multiple sclerosis; M81.0 Age-related osteoporosis without current pathological fracture; E86.0 Dehydration; Z20.822 Contact with and (suspected) exposure to COVID-19; Z86.73 Personal history of transient ischemic attack (TIA), and cerebral infarction without residual deficits; Z99.81 Dependence on supplemental oxygen; Z79.51 Long term (current) use of inhaled steroids; Z79.82 Long term (current) use of aspirin; Z79.899 Other long term (current) drug therapy
CPT/HCPCS: 36415; 71045; 80048; 80053; 82803; 82947; 83605; 83690; 83880; 84484; 85007; 85025; 85027; 85610; 85730; 87040; 87502; 87635; 92610; 93005; 93306; 94640; 99285; J1956

== ENCOUNTER → 2022-06-05 | Outpatient (RCR) | payer MEDICARE, MEDICAID, SELFPAY ==
[2020-10-20 11:04] VITALS: BP 170/74; PULSE 78; RESP 12; TEMP 36.4; O2SAT 97; BMI 18.3
--- NOTE | 2020-10-20 11:05 | P.CNHO_ITS ---
Subjective - Subjective Chief complaint: None Consult date: 10/20/20 Primary Care Provider: Loida Bowen MD Medical Summary: Diagnosis: Normocytic anemia Chronic intermittent anemia with hemoglobin ranging from 7.8-14 gram/dL. Pre vious iron deficiency, normal B12 and folic acid levels. Normal kidney and liver functions. Longstanding COPD and multiple admissions for COPD exacerbation and pulmonary infections. No history of blood transfusion. HPI - Consult Narrative Reason for consult: Anemia Narrative: Loida Cummings is a 75 year old female referred for evaluation and management of anemia. She is accompanied by her daughter who is the main historian. Patient has been told of anemia on and off in the past. She has not had any blood transfusion although she was sent for 1 recently. Her hemoglobin was above 8 gram/dL and so she was not transfused. She has been on oral iron in the past but has not been on any oral iron supplementation recently. She has not been eating very well for many months although she denies weight loss. She denies hematochezia melena. No abdominal pain. She has had repeated hospitalizations for bronchitis/pneumonia, COPD exacerbation etc.. She is able to do very little at home. She does not use oxygen since she continues to smoke. Review of Systems - Constitutional Denies chills, Denies fever(s), Reports lack of energy, Reports malaise, Reports poor appetite - Cardiovascular Denies chest pain, Denies fainting - Respiratory Reports dyspnea, Reports dyspnea on exertion - Gastrointestinal Denies abdominal pain, Denies black, tarry stools, Denies bloating, Denies change in bowel habits Oncology Screenings - ECOG Performance Status ECOG Performance Status: 2 [facility] Medical History: Medical History (Last Updated 10/08/20 @ 11:36 by Jose Manuel Bradford MD) Anemia Anxiety Bipolar 1 disorder Chronic rhinitis COPD (chronic obstructive pulmonary disease) HLD (hyperlipidemia) HTN (hypertension) Multiple sclerosis Osteoporosis Stroke Tobacco dependence Vitamin D deficiency Family History: Family History (Last Updated 07/10/20 @ 10:41 by CAESAR Simms) Father Stroke Mother No problems noted. Surgical History: Surgical History (Last Reviewed 09/02/20 @ 12:01 by Joaquina Cadena DO) Hx of cholecystectomy Hx of hysterectomy Social History: Social History (Last Updated 10/20/20 @ 11:09 by Lauren Lerma) Living Situation History: Household Members: Unknown / Unable to asses Housing: Apartment Alcohol History: Alcohol intake: former Alcohol History Details: Alcohol intake frequency: does not drink Tobacco History: Smoking Status: Current every day smoker Tobacco Type: Cigarette Packs Per Day: 1.5 Substance Use History: Use of substances other than those prescribed or required for medical reasons : No Occupation Assessmet: service: No Current occupational status: unemployed Home Medications and Allergies Home Medications Medication Instructions Recorded Confirmed Type amantadine HCl 100 mg capsule 100 mg PO DAILY 05/06/20 10/20/20 History aspirin 81 mg tablet,delayed 81 mg PO DAILY 05/06/20 10/20/20 History release atorvastatin 40 mg tablet 40 mg PO DAILY 05/06/20 10/20/20 History docusate sodium 100 mg capsule 100 mg PO BID 05/06/20 10/20/20 History ergocalciferol (vitamin D2) 1,250 1,250 mcg PO LEONE@1000 05/06/20 10/20/20 History mcg (50,000 unit) capsule metoprolol tartrate 25 mg tablet 25 mg PO BID 05/06/20 10/20/20 History mirtazapine 15 mg tablet 15 mg PO BEDTIME 05/06/20 10/20/20 History omeprazole 20 mg capsule,delayed 20 mg PO BID@0630,1630 05/06/20 10/20/20 History release sertraline 100 mg tablet 100 mg PO DAILY 05/06/20 10/20/20 History albuterol sulfate 90 mcg/actuation 2 puff INHALATION Q4-6H PRN 06/18/20 10/20/20 History aerosol inhaler trazodone 50 mg tablet 50 mg PO BEDTIME 06/18/20 10/20/20 History Incruse Ellipta 1 puff INHALATION DAILY 07/10/20 10/20/20 History fluticasone propionate 2 spray INTRANASAL DAILY 07/10/20 10/20/20 History acetaminophen [Arthritis Pain 650 mg PO Q8H PRN 09/02/20 10/20/20 History Reliever] calcium carbonate 600 mg PO BID 09/02/20 10/20/20 History losartan 100 mg PO DAILY 09/02/20 10/20/20 History oxycodone 5 mg PO BID PRN 09/02/20 10/20/20 History pyridoxine (vitamin B6) [Vitamin 25 mg PO BEDTIME 09/02/20 10/20/20 History B-6] teriflunomide 14 mg tablet 14 mg PO DAILY 10/08/20 10/20/20 History Allergies Allergy/AdvReac Type Severity Reaction Status Date / Time Penicillins [PENICILLINS] Allergy Severe RASH Verified 10/08/20 11:23 lisinopril AdvReac Unknown diarrhea Verified 10/08/20 11:23 14-Count Warmer Allergy Severe Rash Uncoded 10/08/20 11:23 Physical Exam Vital signs: Vital Signs Temp Pulse Resp BP Pulse Ox 10/20/20 11:04 97.6 F 78 12 170/74 H 97 Intake and Output 10/19/20 10/20/20 10/20/20 22:59 06:59 14:59 Other: Weight 38.5 kg [place] Weight in Grams [id number] Patient Weight 10/21/20 06:59 Weight 38.5 kg - Constitutional Present: thin, chronically ill appearing - Routine HEENT Exam Head: Present: normal inspection Eye: Present: conjunctivae pale - Routine Neck Exam Present: supple. Absent: lymphadenopathy - Routine Respiratory Exam Present: accessory muscle use, decreased breath sounds - Routine Cardiovascular Exam Cardiovascular: Present: S1, S2 - Routine Abdominal Exam Present: soft - Routine Extremities Exam Absent: pedal edema - Routine Skin Exam Present: intact Hem/Onc Consult Result - Labs CBC & Chem 7: 10/20/20 11:38 Assessment and Plan (1) Anemia Status: Acute Qualifiers: Anemia type: other cause Other causes of anemia: other cause, not classified Qualified Code(s): D64.89 - Other specified anemias 1. This is a 75-year-old woman with iron deficiency anemia. She has multiple medical problems and has been in poor health because of advanced COPD and recurrent pulmonary infections. Blood work today shows moderately severe iron deficiency anemia. I have discussed parenteral iron therapy with daughter. I will schedule her for iron dextran infusion. Rest of hematological workup is pending. No symptoms of gastrointestinal blood losses, but she will need evaluation for EGD/colonoscopy as well. Follow-up in 1 month. I thank you very much for this consultation.
[2020-10-20 11:47] LABS: Eosinophils Absolute Auto 0.1 X10*3/uL (0.0-0.4); Eosinophils Percent Auto 0.7 % (0-4); Imm Gran Abs Auto 0.03 X10*3/uL (0.00-0.03); Imm Gran Pct Auto 0.4 % (0.0-0.4); MANUAL DIFF FLAG SCAN; Retic HGB Equivalent 20.5 pg (30.0-35.0); SCAN SMEAR FLAG 1
[2020-10-20 11:49] LABS: Basophils Percent Auto 0.4 % (0-2); Hematocrit 31.2 % (37-47); Immature Retic Fraction 26.1 % (3.0-15.9); Lymphocytes Percent Auto 14.2 % (20-40); Mean Corpuscular HGB Conc 27.6 g/dl (31.0-35.0); Mean Corpuscular Hemoglobin 24.2 pg (27.0-33.0); Mean Corpuscular Volume 87.6 fL (80-98); Mean Platelet Volume 10.3 fL (9.4-12.3); Monocytes Absolute Auto 0.7 X10*3/uL (0.1-1.2); Neutrophils Absolute Auto 5.5 X10*3/uL (2.0-8.3); Neutrophils Percent Auto 75.3 % (45-73); Platelet Count 331 X10*3/uL (160-400); Red Blood Count 3.56 X10*6/uL (4.20-5.50); Red Cell Distribution Width 19.4 % (11.0-16.0); Reticulocyte Percent 3.4 % (0.5-1.8); White Blood Count 7.3 X10*3/uL (4.8-10.8)
[2020-10-20 11:57] LABS: Hemoglobin 8.6 g/dl (12.0-16.0)
--- NOTE | 2020-10-20 12:00 | MHC.HEMONCMA ---
Patient came in for a consult today, her daughter was there for translation. Patient states that she is doing ok. Clinical summary was reviewed and updated. Patient had labs and will return in 2 months for a follow up.
[2020-10-20 12:10] LABS: SLIDE REVIEW VERIFIED
[2020-10-20 12:27] LABS: Alanine Aminotransferase 17 U/L (0-31); Albumin Level 4.3 g/dL (3.5-5.0); Alkaline Phosphatase 151 U/L (39-117); Aspartate Amino Transferase 21 U/L (5-31); Bilirubin Direct 0.2 mg/dL (0.0-0.5); Bilirubin Total 0.2 mg/dL (0.0-1.0); Iron 15 mcg/dL (30-160); Lactate Dehydrogenase 221 U/L (122-220); Percent Iron Saturation 3 % (15-50); Total Iron Binding Capacity 444 mcg/dL (228-428); Total Protein 6.9 g/dL (6.5-8.0); Unsaturated Iron Binding 429 ug/dL
[2020-10-21 05:44] LABS: Folate 10.4 ng/mL (> or = 4.0); Vitamin B12 618 pg/mL (200-900)
[2020-10-21 23:26] LABS: Prot Elec - Albumin 3.9 g/dL (3.8-4.8); Prot Elec - Alpha1 0.4 g/dL (0.2-0.3); Prot Elec - Alpha2 1.1 g/dL (0.5-0.9); Prot Elec - Beta 1 0.5 g/dL (0.4-0.6); Prot Elec - Beta 2 0.3 g/dL (0.2-0.5); Prot Elec - Gamma 0.5 g/dL (0.8-1.7); Prot Elec - Total Protein 6.7 g/dL (6.1-8.1)
[2020-10-22 13:07] LABS: IgA 151 mg/dL (70-320); IgG 508 mg/dL (600-1540); IgM 67 mg/dL (50-300)
--- NOTE | 2020-10-27 08:25 | MHC.HEMONCMA ---
Left voicemail for patient to call me back with the two dates available for her iron dextran- 11/08/2020 or 11/12/2020. I asked her to call me back to confirm which date she would like so I can confirm with Melania.
== END | disposition home or self-care (01) ==
LOC: HO.ONC 10-20 10:55
PROVIDERS: PCP Internal Medicine; Visit Provider Internal Medicine
DX: D50.9 Iron deficiency anemia, unspecified (principal); J44.9 Chronic obstructive pulmonary disease, unspecified
CPT/HCPCS: 36415; 80076; 82607; 82746; 82784; 83540; 83615; 84155; 84165; 85025; 85045; 86334; 99204